=== PATIENT | female | born 1950 | race Caucasian/White ===

== ENCOUNTER 2016-09-16 14:50 | Observation (INO) | payer MEDICARE, BC ==
[~2016-09-16] VITALS: Ht 160 cm; Wt 90.9 kg
[~2016-09-16 14:50] MED LIST: ALBU2.5V14 NEB; ALPR3TAB PO; AMLO5TAB2 PO; ASPI-482 PO; ATOR10TA60 PO; ATOR40TA59 PO; BENZ100C PO; BUDE0.5A3 NEB; CALC500T PO; CALC600T4 PO; CALC667C6 PO; CARB1TAB2 PO; CETI10TA16 PO; CHOL400C2 PO; CHOL500050 PO; CITA20TA5 PO; CLON0.5T3 PO; CLON1TAB3 PO; CRESTOR20 MG PO; DIPH50CA PO; DOXY100C2 PO; ERGO500012 PO; ESOM40CA PO; FERR-26 PO; FLUT1DIS3 IH; FLUT9.9S NS; FOLI1TAB16 PO; FURO-68 PO; GLIP5TAB10 PO; GUAI600T38 PO; HYDR-2666 PO; HYDR12.58 PO; HYDR50CA2 PO; IPRA3AMP IH; LACT1CAP29 PO; LEVO500T38 PO; LEVO500T8 PO; LEVO750T31 PO; LOSA100T6 PO; LOSA50TA6 PO; MEDROL DOSE PACK; METF500T4 PO; MONT10TA6 PO; MONT10TA9 PO; NICO1PAT25 TP; NITR0.4T6 SL; NITR2.5C3 PO; NYST1000 PO; PANT40TA3 PO; PANT40TA5 PO; POTA20TA12 PO; POTA20TA84 PO; PRAM0.255 PO; PRAMIPEXOLE 0.125 MG PO; PRED-220 PO; PRED10TA16 PO; PROAIR HFA8.5 GM IH; PROAIR HFA8.5 GM INH; PROM118S2 PO; SUCR1TAB PO; SUCR1TAB29 PO; SULF1TAB24 PO; TIOT18CA IH; TRAZ100T12 PO; VALS1TAB18 PO; VITA0.4T8 PO; ZOLP5TAB5 PO; calcium PO
[2016-09-16] MEDS ORDERED: IPRATRPIUM/ALBUTEROL 0.5/2.5MG 3 ML NEBU. NEB ONE (15:45)
--- NOTE | 2016-09-16 15:48 | PHYS DOC ---
Past Medical History Past Medical History: Asthma, Bronchitis, CAD, COPD, Diabetes-Type II, High Cholesterol, Heart Disease, Hypertension, [place], Pneumonia Past Surgical History: Angioplasty, Appendectomy, Cholecystectomy, Coronary Bypass Surgery, Hysterectomy Additional Past Surgical Histo: carpal tunnel, L) shattered ankle with surgical repair; cardiac stents Additional Information: Less than a pack/day. Quit for month and started again this last Monday. Alcohol Use: Heavy Additional Information: Pt reports she quit drinking and then drank again on . Drug Use: None Social History Narrative: "Use to do Cocaine - Quit in 2007." Adult General Chief Complaint Chief Complaint: GENERALIZED BODY ACHES HPI HPI Patient is a 66 year old female who presents with body aches. Patient reports for the past one to 2 weeks she has had nasal congestion and green nasal discharge. She was seen by Dr. Campo on Monday and was started on Levaquin for sinusitis. She then reports for the past 2 days she has been having fever and general body aches, most pronounced in her back. She has tried some ibuprofen at home with insufficient relief. No focal chest discomfort or shortness of breath. She has chronic cough as she is a smoker. No other acute complaints. Review of Systems Review of Systems Constitutional: Fever Eyes: Denies change in visual acuity or eye pain HENT: Nasal congestion, green discharge Respiratory: Cough. Denies shortness of breath Cardiovascular: Denies chest pain GI: Denies abdominal pain, nausea, vomiting, bloody stools or diarrhea : Denies dysuria or hematuria Musculoskeletal: General body aches Integument: Denies rash or skin lesions Neurologic: Denies headache, focal weakness or sensory changes Current Medications Current Medications Current Medications Medications (Trade) Dose Ordered Sig/Zenon Start Time Stop Time Status Last Admin Dose Admin Acetaminophen (Tylenol) 650 mg PRN Q4HRS PRN 09/16/16 18:45 09/17/16 18:44 Albuterol/ Ipratropium (Duoneb) 3 ml RTQID 09/16/16 20:00 09/17/16 19:59 09/16/16 20:44 3 ML Dextrose 12.5 gm PRN Q15MIN PRN 09/16/16 18:45 Insulin Aspart (Novolog) 0-7 UNITS TIDWMEALS 09/17/16 08:00 Morphine Sulfate 2 mg PRN Q2HR PRN 09/16/16 18:45 09/17/16 18:44 Naproxen (Naprosyn) 500 mg 1X ONCE 09/16/16 18:15 09/16/16 18:16 DC 09/16/16 19:19 500 MG Ondansetron HCl (Zofran) 4 mg PRN Q8HRS PRN 09/16/16 18:45 09/17/16 18:44 Allergies Allergies Allergies Coded Allergies Type Severity Reaction Last Updated Verified I S O L A T I O N *CONTACT* Allergy Unknown 07/11/16 Yes No Known Medication Allergies Allergy Unknown 07/11/16 Yes Physical Exam Physical Exam Constitutional: Well developed, well nourished, no acute distress, non-toxic appearance HENT: Normocephalic, atraumatic, bilateral external ears normal Eyes: EOMI, conjunctiva normal, no discharge Neck: Normal range of motion, no stridor Cardiovascular: Heart rate normal, regular rhythm, no murmur Lungs & Thorax: Scattered expiratory wheezing Abdomen: Bowel sounds normal, soft, non-distended, no TTP Skin: Warm, dry, no erythema, no rash Extremities: No obvious deformity, no edema. Neurologic: Alert and oriented X 3, no gross deficits noted Current Patient Data Vital Signs Vital Signs Date Time Temp Pulse Resp B/P Pulse Ox O2 Delivery O2 Flow Rate FiO2 09/16/16 20:43 97 Nasal Cannula 2.0 09/16/16 19:30 82 124/74 09/16/16 15:12 98.5 18 98.5 Lab Values Laboratory Tests Test 09/16/16 16:14 09/16/16 16:16 09/16/16 16:29 Urine Collection Type Unknown Urine Color Yellow Urine Clarity Clear Urine pH 5.5 Urine Specific [place] 1.020 Urine Protein Negativemg/dL (NEG-TRACE) Urine Glucose (UA) Negativemg/dL (NEG) Urine Ketones (Stick) Tracemg/dL (NEG) Urine Blood Negative (NEG) Urine Nitrite Negative (NEG) Urine Bilirubin Negative (NEG) Urine Urobilinogen Dipstick 0.2mg/dL (0.2 mg/dL) Urine Leukocyte Esterase Negative (NEG) Urine RBC Occ/HPF (0-2) Urine WBC Occ/HPF (0-4) Urine Squamous Epithelial Cells Few/LPF Urine Bacteria 0/HPF (0-FEW) Urine Mucus Slight/LPF Influenza Type A Antigen Negative (NEGATIVE) Influenza Type B Antigen Negative (NEGATIVE) White Blood Count 10.8x10^3/uL (4.0-11.0) Red Blood Count 3.88x10^6/uL (3.50-5.40) Hemoglobin 12.0g/dL (12.0-15.5) Hematocrit 36.3% (36.0-47.0) Mean Corpuscular Volume 94fL (79-100) Mean Corpuscular Hemoglobin 31pg (25-35) Mean Corpuscular Hemoglobin Concent 33g/dL (31-37) Red Cell Distribution Width 13.9% (11.5-14.5) Platelet Count 207x10^3/uL (140-400) Neutrophils (%) (Auto) 62% (31-73) Lymphocytes (%) (Auto) 29% (24-48) Monocytes (%) (Auto) 7% (0-9) Eosinophils (%) (Auto) 2% (0-3) Basophils (%) (Auto) 1% (0-3) Neutrophils # (Auto) 6.7x10^3uL (1.8-7.7) Lymphocytes # (Auto) 3.2x10^3/uL (1.0-4.8) Monocytes # (Auto) 0.8x10^3/uL (0.0-1.1) Eosinophils # (Auto) 0.2x10^3/uL (0.0-0.7) Basophils # (Auto) 0.1x10^3/uL (0.0-0.2) Sodium Level 142mmol/L (136-145) Potassium Level 3.6mmol/L (3.5-5.1) Chloride Level 103mmol/L (98-107) Carbon Dioxide Level 34mmol/L (21-32) H Anion Gap 5 (6-14) L Blood Urea Nitrogen 14mg/dL (7-20) Creatinine 1.0mg/dL (0.6-1.0) Estimated GFR (Cockcroft-Gault) 55.6 Glucose Level 119mg/dL (70-99) H Calcium Level 9.3mg/dL (8.5-10.1) Creatine Kinase 81U/L (26-192) Laboratory Tests 09/16/16 16:29 Laboratory Tests 09/16/16 16:29 EKG EKG [] Radiology/Procedures Radiology/Procedures CXR: IMPRESSION: No definite focal airspace consolidation to suggest pneumonia. Mild linear opacity left lung base could be from atelectasis. Course & Med Decision Making Course & Med Decision Making Pertinent Labs and Imaging studies reviewed. (See chart for details) Patient is 66-year-old female who presents with multiple complaints. Likely viral upper respiratory infection. Will check labs, chest x-ray to evaluate. Breathing treatment ordered for wheezing. Naproxen ordered for pain relief. Chest x-ray results as above. Labs unremarkable except for minimally elevated bicarbonate. Discussed results with patient, who is still feeling poorly and is insistent upon being admitted for the night. I discussed with Dr. Campo, who has agreed to admit patient. Admission orders entered. Dragon Disclaimer Dragon Disclaimer This electronic medical record was generated, in whole or in part, using a voice recognition dictation system. Departure Departure Impression: Primary Impression: Myalgia Additional Impression: Upper respiratory infection Disposition: ADMITTED INPATIENT Admitting Physician: Other Condition: STABLE Referrals: ROSSANA CAMPO MD (PCP) Problem Qualifiers OSMEL LE MD Sep 16, 2016 15:48
--- NOTE | 2016-09-16 16:24 | RAD ---
INDICATION: Body aches, cough, r/o acute process COMPARISON: 08/03/2016 FINDINGS: 2 views of chest obtained. Poststernotomy changes. Mild prominence of the pulmonary hilum again seen. No definite new region of focal airspace consolidation. Degenerative changes spine. IMPRESSION: No definite focal airspace consolidation to suggest pneumonia. Mild linear opacity left lung base could be from atelectasis.
[2016-09-16 17:15] LABS: BASO # 0.1 x10^3/uL (0.0-0.2); BASO % 1 % (0-3); EOS % 2 % (0-3); HEMATOCRIT 36.3 % (36.0-47.0); LYMPH # 3.2 x10^3/uL (1.0-4.8); LYMPH % 29 % (24-48); MEAN CORPUSCULAR HEMOGLOBIN 31 pg (25-35); MEAN CORPUSCULAR HGB CONC 33 g/dL (31-37); MEAN CORPUSCULAR VOLUME 94 fL (79-100); MONO % 7 % (0-9); NEUT % 62 % (31-73); PLATELET COUNT 207 x10^3/uL (140-400); RED BLOOD COUNT 3.88 x10^6/uL (3.50-5.40); RED CELL DISTRIBUTION WIDTH 13.9 % (11.5-14.5); WHITE BLOOD COUNT 10.8 x10^3/uL (4.0-11.0)
[2016-09-16 17:22] LABS: CALCIUM 9.3 mg/dL (8.5-10.1); GFR 55.6; POTASSIUM 3.6 mmol/L (3.5-5.1)
[2016-09-16 17:26] LABS: BILIRUBIN,URINE NEGATIVE (NEG); GLUCOSE,URINE NEGATIVE (NEG); NITRITE,URINE NEGATIVE (NEG); PH,URINE 5.5; PROTEIN,URINE NEGATIVE (NEG-TRACE); UROBILINOGEN,URINE 0.2 mg/dL (0.2 mg/dL)
[2016-09-16 17:32] LABS: OBC FLU VALID
[2016-09-16 18:05] LABS: RBC,URINE OCC /HPF (0-2); WBC,URINE OCC /HPF (0-4)
[2016-09-16 18:06] LABS: BACTERIA,URINE 0 /HPF (0-FEW); SQUAMOUS EPITHELIAL CELL,UR FEW /LPF
[2016-09-16] MEDS ORDERED: NAPROXEN 500 MG TABLET PO ONE (18:15)
[2016-09-16] MEDS ORDERED: DEXTROSE 50% 25 GM / 50ML DISP.SYRIN. IV PRN (18:45)
[2016-09-16] MEDS ORDERED: MORPHINE SULFATE 2 MG/ML DISP.SYRIN. IV PRN (18:45)
[2016-09-16] MEDS ORDERED: ONDANSETRON PF 4 MG/2 ML VIAL. IV PRN (18:45)
[2016-09-16] MEDS ORDERED: ACETAMINOPHEN 325 MG TABLET. PO PRN (18:45)
[2016-09-16] MEDS ORDERED: IPRATRPIUM/ALBUTEROL 0.5/2.5MG 3 ML NEBU. NEB SCH (20:00)
--- NOTE | 2016-09-16 21:09 | ACF ---
Admission Forms Criteria PULMONARY DISEASE GRG Clinical Indications for Admission to Inpatient Care ( Place 'X' for any and all applicable criteria): Hospital admission is needed for appropriate care of the patient because of ANY ONE of the following(1): [ ]I. Impending or actual respiratory arrest ( Use Respiratory Failure Criteria for severe respiratory disease and long-term mechanical ventilation patients) (4) [ ]II. Severe airflow or ventilation abnormalities (not responsive to emergency and observation care treatment as appropriate) as indicated by ANY ONE of the following(5)(6)(7)(8) : [ ]a) PCO2 > 42 mm Hg (5.6 kPa) and pH < 7.35 (new) [ ]b) Documented PCO2 increase > 5 mm Hg (0.7 kPa) from disease baseline [ ]c) Airflow measurements[A] < 60% of previous best or predicted ( e.g., PEF <300 L/minute) despite intensive emergent treatment[B] [ ]d) Required respiratory treatments that are performable only in acute inpatient setting [ ]III. Severe respiratory findings (not responsive to emergency and observation care treatment as appropriate) including ANY ONE of the following(5)(8)(9): [ ]a) Respiratory distress as indicated by ALL of the following(5)(10): [ ]i) Patient with ANY ONE of the following: [ ]1) Dyspnea (difficulty breathing) [ ]2) Abnormal breathing pattern (eg, chest retractions) [ ]3) Tachypnea [ ]4) Other evidence of difficulty breathing [ ]ii) Evidence of respiratory compromise indicated by ANY ONE of the following: [ ]1) Hypoxemia [ ]2) Altered mental status [ ]3) Other evidence of respiratory compromise (eg, pulmonary edema on chest x-ray) [ ]b) Stridor [ ]c) Gross hemoptysis(11) [ ]d) Acute cyanosis [X ]IV. High-risk pulmonary infection as indicated by ANY ONE of the following (19)(20)(21)(22): [ ]a) Temperature less than 95 degrees F(35 degrees C) or greater than 103.1 degrees F(39.5 degrees C) [ ]b) Hemodynamic instability that remains after emergency or observation level care (as appropriate) [ ]c) Immunocompromised patient (eg, AIDS, post transplant, neutropenic) [X ]d) History of severe COPD [ ]e) History of severely symptomatic congestive heart failure [ ]f) Other high-risk comorbidity (eg, poorly controlled diabetes, cirrhosis, chronic renal insufficiency) [ ]g) Hypoxemia (new) [ ]h) Outpatient, observation, or recovery facility therapy has failed, is not appropriate, or is not feasible [ ]V. Severe atelectasis or lung collapse(15)(16) [ ]. Tuberculosis requiring inpatient treatment as indicated by ANY ONE of the following(17)(18): [ ]a) New positive acid-fast bacilli sputum smear [ ]b) Positive acid-fast bacilli smear (under current treatment), with ANY ONE of the following: [ ]i) Unexposed household contacts [ ]ii) Infants or immunosuppressed household contacts [ ]iii) Patient unable or unwilling to avoid exposing others [ ]iv) Severe immunocompromised patient (eg, AIDS, post transplant, neutropenic) [ ]VII. Empyema or lung abscess(13)(14) [ ]VIII. Severe pulmonary arterial hypertension or pulmonary vascular disease requiring inpatient care indicated by ANY ONE of the following(24)(25): [ ]a) Initiation or change of vasodilators (IV, subcutaneous, or inhaled) or other vasoactive medications needed [ ]b) IV anticoagulation needed (eg, immediate anticoagulation necessary, alternatives not appropriate) [ ]c) Arterial or pulmonary artery catheter monitoring needed due to infusion or other treatment [ ]IX. Chronic lung disease with severe deterioration (not responsive to emergency and observation care treatment as appropriate) as indicated by ANY ONE of the following (6)(12): [ ]a) SaO2 5% below baseline in patient with chronic hypoxemia [ ]b) New requirement for supplemental oxygen to keep SaO2 at baseline or acceptable level [ ]c) Required supplemental oxygen performable only in acute inpatient setting [ ]d) Severe airflow or ventilation abnormalities [ ]e) Rapid rate of exacerbation onset [ ]f) Previously mobile patient unable to walk between rooms [ ]g) Inability to eat or sleep due to dyspnea [ ]h) Altered mental status [ ]X. Cystic fibrosis with severe deterioration as indicated by ANY ONE of the following(26)(27): [ ]a) Severe exacerbation that does not respond to intensified home therapy [ ]b) Pneumonia [ ]c) Hemoptysis [ ]d) Atelectasis [ ]e) Pneumothorax [ ]f) Respiratory failure [ ]g) Severe exacerbation with patient unable to perform prescribed treatments at home [ ]XI. Severe right heart failure as indicated by ANY ONE of the following(24) (25): [ ]a) Increasing organ failure (eg, liver congestion with significant and worsening or new elevation of transaminases) [ ]b) Anasarca [ ]c) Angina that requires inpatient care (eg, not treatable in emergency or observation level of care) [ ]d) Respiratory distress [ ]e) Syncope [ ]f) SBP < 90 mm Hg (new) [ ]XII. Injury requiring inpatient care (medical) as indicated by ANY ONE of the following(28): [ ]a) Significant inhalation injury (eg, smoke inhalation, other toxic inhalation) (29)(30)(31) [ ]b) Airway obstruction that remains or is unstable after emergency or observation level care(32) [ ]c) Severe pain requiring acute inpatient management [ ]d) Lung contusion [ ]e) Bronchial tree injury [ ]f) Air or fat emboli(33) [ ]g) Other injury not treatable in emergency or observation level care (eg, hemothorax) (34) [ ]XIII. Pulmonary hemorrhage or significant hemoptysis(11)(35)(36) [ ]XIV. Inpatient palliative care needed[C](37)(38)(39)(40) [ ]XV. Complications of lung transplant (eg, rejection, failure, respiratory infection) (23) [ ]XVI. Pulmonary Disease and ANY ONE of the following: [ ]a) General Admission Criteria [ ]b) Pediatric General Admission Criteria The original [facility] content created by [facility] has been revised. The portions of the content which have been revised are identified through the use of italic text or in bold, and [facility] has neither reviewed nor approved the modified material. All other unmodified content is copyright [facility]. Please see references footnoted in the original [facility] edition 2016 Admission Criteria Met?: Yes NYLA HARDIN Sep 16, 2016 21:09
[2016-09-16] MEDS ORDERED: ZOLPIDEM 5 MG TABLET. PO PRN (22:00)
[2016-09-16] MEDS ORDERED: ALBUTEROL SULFATE 2.5 MG/3 ML NEBU. NEB PRN (22:00)
[2016-09-16] MEDS ORDERED: HYDROXYZINE HCL 10 MG TABLET PO PRN (22:00)
[2016-09-16 22:16] VITALS: BP 107/72
[2016-09-17] MEDS: ATORVASTATIN CALCIUM 40 MG TABLET. PO SCH ×2 (00:11→20:20)
[2016-09-17 03:00] VITALS: BP 165/66
[2016-09-17 05:55] LABS: BASO # 0.1 x10^3/uL (0.0-0.2); BASO % 1 % (0-3); EOS % 2 % (0-3); HEMATOCRIT 36.9 % (36.0-47.0); LYMPH # 2.7 x10^3/uL (1.0-4.8); LYMPH % 33 % (24-48); MEAN CORPUSCULAR HEMOGLOBIN 31 pg (25-35); MEAN CORPUSCULAR HGB CONC 33 g/dL (31-37); MEAN CORPUSCULAR VOLUME 95 fL (79-100); MONO % 8 % (0-9); NEUT % 56 % (31-73); PLATELET COUNT 188 x10^3/uL (140-400); RED BLOOD COUNT 3.88 x10^6/uL (3.50-5.40); RED CELL DISTRIBUTION WIDTH 14.1 % (11.5-14.5); WHITE BLOOD COUNT 8.3 x10^3/uL (4.0-11.0)
[2016-09-17 06:41] LABS: CALCIUM 9.2 mg/dL (8.5-10.1); CREATININE 0.9 mg/dL (0.6-1.0); GFR 62.8; POTASSIUM 4.3 mmol/L (3.5-5.1)
[2016-09-17 07:00] VITALS: BP 138/83
[2016-09-17] MEDS ORDERED: PANTOPRAZOLE 40 MG TABLET. PO SCH (07:30)
[2016-09-17] MEDS: BUDESONIDE 0.5 MG/2 ML NEBU NEB SCH ×2 (07:52→20:25)
[2016-09-17] MEDS: IPRATRPIUM/ALBUTEROL 0.5/2.5MG 3 ML NEBU. NEB SCH ×4 (07:52→20:25)
[2016-09-17] MEDS: SUCRALFATE 1 GM/10 ML ORAL.SUSP. PEG SCH ×4 (08:56→20:20)
[2016-09-17] MEDS: OXYCODONE/APAP 5/325 TABLET. PO PRN ×2 (08:57→16:38)
[2016-09-17] MEDS: GLIPIZIDE ER 5 MG TAB.ER.24 PO SCH (08:57)
[2016-09-17] MEDS: CHOLECALCIFEROL (VITAMIN D3) 1,000 UNIT TABLET PO SCH (08:57)
[2016-09-17] MEDS: AMLODIPINE BESYLATE 5 MG TABLET PO SCH (08:58)
[2016-09-17] MEDS: ASPIRIN 81 MG TAB.CHEW PO SCH (08:58)
[2016-09-17] MEDS: METFORMIN 500 MG TABLET. PO SCH ×2 (08:59→16:38)
[2016-09-17] MEDS: LOSARTAN POTASSIUM 50 MG TABLET. PO SCH (08:59)
[2016-09-17] MEDS: POTASSIUM CHLORIDE 20 MEQ TABLET.ER. PO SCH (08:59)
[2016-09-17] MEDS: HYDROCHLOROTHIAZIDE 12.5 MG CAPSULE. PO SCH (09:00)
[2016-09-17] MEDS: FOLIC ACID 1 MG TABLET PO SCH (09:00)
[2016-09-17] MEDS: PRAMIPEXOLE 0.25 MG TABLET. PO SCH ×3 (09:00→20:20)
[2016-09-17] MEDS: INSULIN ASPART 300 UNITS/3 ML INSULN.PEN SQ SCH ×3 (09:09→16:52)
[2016-09-17 10:51] VITALS: BP 121/72
[2016-09-17 15:18] VITALS: BP 122/78
--- NOTE | 2016-09-17 15:20 | PDOC ---
Provider Note Provider Note She continues to have a bad cough. No sputum production. The severe pain she had in the muscles and joints yesterday is now better. CK was normal and so it's not a rhabdo myelolysis. She truly believes it is the levofloxacin and says she will never take it again. Lungs show bilateral wheezing. Place on IV antibiotics and IV steroids. ROSSANA CAMPO MD Sep 17, 2016 15:20
[2016-09-17] MEDS ORDERED: CEFTRIAXONE SODIUM 1 GM in IV NORMAL SALINE 50ML 50 ML IV SCH (16:00)
[2016-09-17] MEDS ORDERED: MAG HYDROX/ALUMINUM HYD/SIMETH 30 ML ORAL.SUSP PO PRN (16:15)
[2016-09-17 19:00] VITALS: BP 131/84
[2016-09-17] MEDS: methylPREDNISolone SOD SUCC PF 40 MG/ML VIAL. IV SCH (20:28)
[2016-09-17] MEDS: PANTOPRAZOLE 40 MG TABLET. PO SCH (20:28)
[2016-09-17] MEDS ORDERED: traZODone 100 MG TABLET. PO SCH (21:00)
[2016-09-17 23:00] VITALS: BP 138/63
[2016-09-18 03:07] VITALS: BP 105/72
[2016-09-18 07:00] VITALS: BP 114/87
[2016-09-18] MEDS: IPRATRPIUM/ALBUTEROL 0.5/2.5MG 3 ML NEBU. NEB SCH ×2 (07:32→11:12)
[2016-09-18] MEDS: BUDESONIDE 0.5 MG/2 ML NEBU NEB SCH (07:33)
[2016-09-18] MEDS: OXYCODONE/APAP 5/325 TABLET. PO PRN ×2 (08:01→14:25)
[2016-09-18] MEDS: GLIPIZIDE ER 5 MG TAB.ER.24 PO SCH (08:01)
[2016-09-18] MEDS: SUCRALFATE 1 GM/10 ML ORAL.SUSP. PEG SCH ×2 (08:01→12:06)
[2016-09-18] MEDS: methylPREDNISolone SOD SUCC PF 40 MG/ML VIAL. IV SCH (08:02)
[2016-09-18] MEDS: PRAMIPEXOLE 0.25 MG TABLET. PO SCH ×2 (08:02→13:35)
[2016-09-18] MEDS: CHOLECALCIFEROL (VITAMIN D3) 1,000 UNIT TABLET PO SCH (08:02)
[2016-09-18] MEDS: METFORMIN 500 MG TABLET. PO SCH (08:02)
[2016-09-18] MEDS: PANTOPRAZOLE 40 MG TABLET. PO SCH (08:02)
[2016-09-18] MEDS: FOLIC ACID 1 MG TABLET PO SCH (08:02)
[2016-09-18] MEDS: POTASSIUM CHLORIDE 20 MEQ TABLET.ER. PO SCH (08:03)
[2016-09-18] MEDS: ASPIRIN 81 MG TAB.CHEW PO SCH (08:03)
[2016-09-18] MEDS: AMLODIPINE BESYLATE 5 MG TABLET PO SCH (08:06)
[2016-09-18] MEDS: LOSARTAN POTASSIUM 50 MG TABLET. PO SCH (08:06)
[2016-09-18] MEDS: HYDROCHLOROTHIAZIDE 12.5 MG CAPSULE. PO SCH (08:06)
[2016-09-18] MEDS: INSULIN ASPART 300 UNITS/3 ML INSULN.PEN SQ SCH ×2 (08:13→12:00)
[2016-09-18 11:00] VITALS: BP 106/71
[2016-09-18] MEDS ORDERED: DOXY100C2 PO (14:26)
--- NOTE | 2016-09-18 23:48 | HP ---
ADMIT DATE: 09/16/2016 HISTORY OF PRESENT ILLNESS: This is a 66-year-old white female who came into the Emergency Room after she called the office stating that she had severe muscle pains all over her arms and body and legs and she just could not function. She blamed it on the levofloxacin that had given 3 days ago. Three days ago, she had come in with an acute exacerbation of her COPD, which is not bad enough to be hospitalized. She was given levofloxacin because she has coughing up greenish sputum. She was asked to take her nebulizers more regularly. No steroids were given. She has severe COPD. She had continued to smoke up until she says 2 months ago. She says she is not smoking at the present time. She has had a problem with alcohol, but she has not taken any alcohol for the last several months. She has underlying CAD and hypertension and borderline diabetes mellitus. Please see medications. PHYSICAL EXAMINATION: GENERAL: She was in distress with the pain. She was restless. VITAL SIGNS: The heart rate was 80 per minute and regular. The blood pressure is 140/80. LUNGS: Showed some mild wheezing. EXTREMITIES: There was no local tenderness. The pain seems to be in the muscle rather than in the joints. ABDOMEN: Soft. IMPRESSION: 1. Severe myalgia, consider levofloxacin to be the culprit since it can cause tendinitis. 2. Chronic obstructive pulmonary disease. 3. Hypertension. PLAN: The patient felt that she would not be able to function at home. This being the case, we thought we would hospitalize her probably overnight to see how she does. If she felt that she was not able to function at home, there is a good likelihood that she would simply come back. She was thus hospitalized and will be observed for the myalgia. We will obtain a CPK to see if this is rhabdomyolysis. ROSSANA CAMPO MD DR: TONE/tramaine JOB#: [id number] / [id number]
--- NOTE | 2016-09-19 00:32 | DS ---
DATE OF DISCHARGE: 09/18/2016 HOSPITAL COURSE: This is a 66-year-old white female who came into the Emergency Room complaining of severe pain all over, cough and wheezing. A chest x-ray was negative. She told the ER physician and she called me and told me that she just could not function at home because of the severe pain and the cough. I did see her in the Emergency Room on the evening of the . She was thus hospitalized to initiate treatment. I had seen her a few days ago and had given her levofloxacin. She felt that all this pain started after the levofloxacin because she had never had this pain before. She did not have a high temperature. Thus a flu like syndrome was less likely. Also the flu test was negative. The levofloxacin was not reinitiated. The next day she was coughing and wheezing and I put her on IV steroids and IV antibiotics. On the day of dismissal, she was feeling well. She had some occasional wheezing, but she always has a little wheezing. She had gone back to smoking. LABORATORY INVESTIGATIONS: The total WBC count was 10,800. The hemoglobin was 12. The sodium was 142, potassium 3.6, next day it was 4.3, BUN was 12 and creatinine is 0.9. The creatinine kinase was 81. FINAL DIAGNOSES: 1. [id number] chronic obstructive pulmonary disease. 2. Severe muscle pain, which could be due to levofloxacin. She was asked to go back on all her home medications. As far as her diabetes goes, her blood sugars are reasonable here. She does have a sliding scale to take at home with glipizide IR. She will do that at home. I gave her short course of prednisone. She was also given doxycycline 100 mg twice a day. She was asked to see me in a week. ROSSANA CAMPO MD DR: TONE/tramaine JOB#: [id number] / [id number]
== END 2016-09-18 15:00 | disposition home or self-care (01) ==
LOC: ER 14:50 → 5 NORTH 18:32
PROVIDERS: ADMIT Specialist; ATTEND Specialist
DX: M79.1 Myalgia (principal); I10 Essential (primary) hypertension; E11.9 Type 2 diabetes mellitus without complications; I25.10 Atherosclerotic heart disease of native coronary artery without angina pectoris; J44.9 Chronic obstructive pulmonary disease, unspecified; J45.909 Unspecified asthma, uncomplicated; E78.00 Pure hypercholesterolemia, unspecified; I25.2 Old myocardial infarction; F17.210 Nicotine dependence, cigarettes, uncomplicated; Z95.5 Presence of coronary angioplasty implant and graft
CPT/HCPCS: 36415; 71020; 80048; 81001; 82550; 82947; 85027; 87641; 87804; 94250; 94640; 94760; 96365; 96366; 96372; 96375; 96376; 99285; G0378; J0696; J1815; J2920; J7620; G0379

== ENCOUNTER 2016-12-05 17:55 | Emergency (ER) | payer MEDICARE, BC ==
[~2016-12-05] VITALS: Ht 160 cm; Wt 90.7 kg
[~2016-12-05 17:55] MED LIST changes: -NYST1000 PO; +NYST100054 PO
[2016-12-05] MEDS ORDERED: IPRATRPIUM/ALBUTEROL 0.5/2.5MG 3 ML NEBU. ONE (18:52)
[2016-12-05] MEDS ORDERED: IPRATRPIUM/ALBUTEROL 0.5/2.5MG 3 ML NEBU. NEB ONE ×2 (19:00→20:30)
--- NOTE | 2016-12-05 19:25 | PHYS DOC ---
Past Medical History Past Medical History: Asthma, Bronchitis, CAD, COPD, Diabetes-Type II, High Cholesterol, Heart Disease, Hypertension, [place], Pneumonia Past Surgical History: Angioplasty, Appendectomy, Cholecystectomy, Coronary Bypass Surgery, Hysterectomy Additional Past Surgical Histo: carpal tunnel, L) shattered ankle with surgical repair; cardiac stents Alcohol Use: Heavy Additional Information: PT DENIES USE AT THIS TIME, HX OF HEAVY ETOH Drug Use: None Adult General Chief Complaint Chief Complaint: LOWEREXTREMITY INJURY HPI HPI 66-year-old female who is sent here from Dr. Campo's office for significant right-sided lower extremity pain and swelling to rule out DVT. The patient states she's had some wheezing for the last several weeks as well. Dr. Campo was not concerned orally about the patient's wheezing. She denies any recent surgery or trauma to the leg. She denies any recent immobilization. She denies any history of prior DVT. She is not currently on any anticoagulation therapy. Upon my initial assessment, the patient is in no acute distress saturating mid 90s on room air. She does have some slight audible wheezing. Review of Systems Review of Systems Constitutional: Denies fever or chills [] Eyes: Denies change in visual acuity, redness, or eye pain [] HENT: Denies nasal congestion or sore throat [] Respiratory: Denies cough or shortness of breath [] Cardiovascular: No additional information not addressed in HPI [] GI: Denies abdominal pain, nausea, vomiting, bloody stools or diarrhea [] : Denies dysuria or hematuria [] Musculoskeletal: Denies back pain, has joint pain [] Integument: Denies rash or skin lesions [] Neurologic: Denies headache, focal weakness or sensory changes [] Endocrine: Denies polyuria or polydipsia [] Current Medications Current Medications Current Medications Medications (Trade) Dose Ordered Sig/Zenon Start Time Stop Time Status Last Admin Dose Admin Albuterol/ Ipratropium (Duoneb) 3 ml 1X ONCE 12/05/16 20:30 12/05/16 20:31 DC 12/05/16 20:22 3 ML Allergies Allergies Allergies Coded Allergies Type Severity Reaction Last Updated Verified I S O L A T I O N *CONTACT* Allergy Unknown 07/11/16 Yes No Known Medication Allergies Allergy Unknown 07/11/16 Yes Physical Exam Physical Exam Constitutional: Well developed, well nourished, no acute distress, non-toxic appearance. [] HENT: Normocephalic, atraumatic, bilateral external ears normal, oropharynx moist, no oral exudates, nose normal. [] Eyes: PERRLA, EOMI, conjunctiva normal, no discharge. [] Neck: Normal range of motion, no tenderness, supple, no stridor. [] Cardiovascular:Heart rate regular rhythm, no murmur [] Lungs & Thorax: Bilateral breath sounds clear to auscultation [] Abdomen: Bowel sounds normal, soft, no tenderness, no masses, no pulsatile masses. [] Skin: Warm, dry, no erythema, no rash. [] Back: No tenderness, no CVA tenderness. [] Extremities: Moderate tenderness to the right lower extremity with mild swelling and edema in the extremity as well, no cyanosis, no clubbing, ROM intact. [] Neurologic: Alert and oriented X 3, normal motor function, normal sensory function, no focal deficits noted. [] Psychologic: Affect normal, judgement normal, mood normal. [] Current Patient Data Vital Signs Vital Signs Date Time Temp Pulse Resp B/P (MAP) Pulse Ox O2 Delivery O2 Flow Rate FiO2 12/05/16 20:35 81 16 160/90 (113) 94 Room Air 12/05/16 18:30 98.4 98.4 EKG EKG [] Radiology/Procedures Radiology/Procedures PROCEDURE Right lower extremity venous duplex Doppler ultrasound HISTORY Right leg swelling TECHNIQUE Grayscale and duplex Doppler sonography utilized FINDINGS No evidence of deep venous thrombosis by grayscale imaging with compressibility, patent color Doppler blood flow and augmentation of blood flow of the right common femoral vein, profunda femoral vein, superficial femoral vein and popliteal vein. There is a small 4 centimeter oblong fluid collection at the popliteal fossa presumably a Ramsay cyst. Patent color Doppler blood flow of the posterior tibial and peroneal veins in the calf documented. IMPRESSION Negative right leg for deep venous thrombosis. Ramsay cyst. Course & Med Decision Making Course & Med Decision Making Pertinent Labs and Imaging studies reviewed. (See chart for details) 66-year-old female with significant right-sided lower extremity pain and swelling with no history of trauma will have a venous Doppler to rule out DVT. Duoneb will be given for the patient's wheezing. Dr. Campo will be updated on the patient's status as requested. Venous Doppler is negative for DVT. Patient was given multiple breathing treatments in the department and a prescription for pain control as needed. I discussed her case with Dr. Campo who agreed to see the patient tomorrow as scheduled for her continued wheezing and leg pain. Patient is very agreeable with this plan and was discharged without incident. There is no indication at this time to perform any other laboratory workup. Dragon Disclaimer Dragon Disclaimer This electronic medical record was generated, in whole or in part, using a voice recognition dictation system. Departure Departure Impression: Primary Impression: Pain of right leg Disposition: HOME, SELF-CARE Admitting Physician: Other Condition: IMPROVED Referrals: ROSSANA CAMPO MD (PCP) Patient Instructions: Ramsay's Cyst Additional Instructions: Please follow up with Dr. Campo as discussed tomorrow. Take your pain medication as needed. Return to the ER if you develop any worsening of your symptoms. Scripts Hydrocodone/Apap 5-325 (NORCO 5-325 TABLET) 1 Each Tablet 1 TAB PO PRN Q6HRS Y for PAIN, #8 TAB 0 Refills Prov: TERRI SANTO DO 12/05/16 TERRI SANTO DO December 05, 2016 19:25
--- NOTE | 2016-12-05 19:55 | RAD ---
PROCEDURE Right lower extremity venous duplex Doppler ultrasound HISTORY Right leg swelling TECHNIQUE Grayscale and duplex Doppler sonography utilized FINDINGS No evidence of deep venous thrombosis by grayscale imaging with compressibility, patent color Doppler blood flow and augmentation of blood flow of the right common femoral vein, profunda femoral vein, superficial femoral vein and popliteal vein. There is a small 4 centimeter oblong fluid collection at the popliteal fossa presumably a Ramsay cyst. Patent color Doppler blood flow of the posterior tibial and peroneal veins in the calf documented. IMPRESSION Negative right leg for deep venous thrombosis. Ramsay cyst. Electronically signed by: Anjum Rai MD (December 05, 2016 19:53:37)
[2016-12-05] MEDS ORDERED: HYDR-971 PO (20:15)
[2016-12-05 20:35] VITALS: BP 160/90
== END 2016-12-05 20:38 | disposition home or self-care (01) ==
LOC: ER 17:55
DX: M79.604 Pain in right leg (principal); M79.89 Other specified soft tissue disorders; R06.2 Wheezing; R60.9 Edema, unspecified; I25.10 Atherosclerotic heart disease of native coronary artery without angina pectoris; J44.9 Chronic obstructive pulmonary disease, unspecified; E11.9 Type 2 diabetes mellitus without complications; E78.00 Pure hypercholesterolemia, unspecified; I11.9 Hypertensive heart disease without heart failure; I25.2 Old myocardial infarction; F10.10 Alcohol abuse, uncomplicated; Z87.01 Personal history of pneumonia (recurrent); Z95.5 Presence of coronary angioplasty implant and graft; Z91.041 Radiographic dye allergy status; Z95.1 Presence of aortocoronary bypass graft
CPT/HCPCS: 93971; 94250; 94640; 99284; J7620

== ENCOUNTER 2016-12-20 13:48 | Observation (INO) | payer MEDICARE, BC ==
--- NOTE | 2016-12-19 15:32 | PDOC1 ---
History and Physical Date of Admission Date of Admission DATE: 12/20/16 Identification/Chief Complaint Chief Complaint left ankle pain Problems: Source Source: Chart review History of Present Illness History of Present Illness Mitzi is a 66 year old female here for left ankle pain. She has a history of left ankle open reduction internal fixation on 07/08/09. She has been having pain in her left ankle for about 3 months. Her pain is on the lateral aspect of her ankle is worse with weightbearing or if she bumps the lateral side of her ankle on something. The ankle is painful and stiff during cold, rainy weather. She states the lateral ankle is very tender to the touch. She has no pain on the medial aspect of the ankle. The pain is rated a 10/10 at its worst. When she turns or twists her ankle a certain way she has shooting pain, she denies any numbness and tingling. She has a history of diabetes that is controlled with Metformin. Her last HbA1C was in July, but she is not sure what it was. Her blood sugars run 130-200. Past Medical History Cardiovascular: CHF, HTN Pulmonary: Asthma, Bronchitis, COPD Psych: Anxiety, Addictions, Depression Musculoskeletal: low back pain Renal/: No pertinent hx Past Surgical History Past Surgical History: Other (left ankle ORIF-2008) Family History Family History: Alcohol Abuse, Diabetes, Heart Disease Social History Smoke: No ALCOHOL: none Drugs: None Current Medications Current Medications Active Scripts Active Reported Clonazepam 0.5 Mg Tablet 1 Tab PO Q6HRS Calcium Carbonate 500 Mg Tablet 500 Mg PO BID Atorvastatin Calcium 40 Mg Tablet 1 Tab PO DAILY Vitamin D (Cholecalciferol (Vitamin D3)) 50,000 Unit Capsule 50,000 Unit PO WEEKLY Metformin Hcl 500 Mg Tablet 500 Mg PO BID Vitamin B-100 Complex Tablet (Vitamin B Complex/Folic Acid) 0.4 Mg Tablet 0.4 Mg PO Folic Acid 1 Mg Tablet 1 Tab PO DAILY Sucralfate 1 Gm Tablet 1 Tab PO TID Glipizide 5 Mg Tablet 5 Mg PO PRN DAILY PRN [calcium] 600mg BID w meals 600 Mg PO BID NITROGLYCERIN SubLingual (Nitroglycerin) 0.4 Mg Tab.subl 0.4 Mg SL PRN Q5MIN PRN Citalopram Hbr (Citalopram Hydrobromide) 20 Mg Tablet 20 Mg PO DAILY Advair 250-50 Diskus (Fluticasone/Salmeterol) 1 Each Disk.w.dev 1 Inh IH BID Amlodipine Besylate 5 Mg Tablet 1 Tab PO DAILY Losartan Potassium 50 Mg Tablet 2 Tab PO DAILY Trazodone Hcl 100 Mg Tablet 100 Mg PO HS next dose tonight Potassium Chloride 20 Meq Tab.er.prt 0.5 Tab PO QODAY last dose this am next dose monday Singulair Tablet (Montelukast Sodium) 10 Mg Tablet 10 Mg PO DAILY last dose last evening next dose tonight Duoneb 0.5-3(2.5) Mg/3 Ml (Albuterol/Ipratropium) 3 Ml Ampul.neb 3 Ml IH QID last dose at 1200 Aspir 81 (Aspirin) 81 Mg Tablet.dr 81 Mg PO BID last dose this am next dose tomorrow am Hydrochlorothiazide Tablet (Hydrochlorothiazide) 12.5 Mg Tablet 12.5 Mg PO DAILY last dose this am next dose tomorrow Allergies Allergies: Coded Allergies: I S O L A T I O N *CONTACT* (Verified Allergy, Unknown, 07/11/16) mrsa No Known Medication Allergies (Verified Allergy, Unknown, 07/11/16) Physical Exam General: Alert, Oriented X3, Cooperative, No acute distress HEENT: Atraumatic, EOMI Lungs: Normal air movement Heart: RRR Abdomen: Soft Extremities: No clubbing, No cyanosis, Normal pulses Skin: No rashes, No breakdown, No significant lesion Neuro: Normal speech, Sensation intact Psych/Mental Status: Mental status NL, Mood NL Images Images IMAGING REPORT Images: Three views of the left ankle. Clinical information: Left ankle pain with history of ORIF in 2008. Comparison: 06/28/10. Findings Bones: There is no acute fracture, dislocation, or acute bony abnormality detected. There is a plate and eight screws along the distal fibula. There are two screws in the medial malleolus. No apparent complications. Joints: Normal and unchanged from previous studies. Soft tissue: Normal. Impression: Left ankle with postsurgical changes as described above. No acute findings. VTE Prophylaxis Ordered VTE Prophylaxis Devices: Yes VTE Pharmacological Prophylaxi: Yes Assessment/Plan Assessment/Plan Findings were reviewed and treatment options were discussed with the patient. She is having pain and tenderness of the left ankle due to the lateral ankle hardware. I recommended hardware removal and she agrees. We discussed the risks of surgery, including infection, bleeding, blood clots, continued pain, and any other surgical or anesthetic complications. She states her understanding of the risks of surgery, all of her questions were answered, and she agrees to proceed. She would like to get this done soon, so she can enjoy summer, so we will tentatively plan for 12/09/16. She does take aspirin 81mg twice daily due to a cardiac stent. She thinks it will be okay to stop her aspirin 72 hours before surgery, but will call her occupational health specialist to confirm. PILI HA December 19, 2016 15:32
[~2016-12-20] VITALS: Ht 162.6 cm; Wt 89.4 kg
[~2016-12-20 13:48] MED LIST changes: +HYDR-971 PO; +HYDROmorphone 2 MG/ML VIAL IV PRN; +IV RINGERS,LACTATED 1000ML 1,000 ML IV SCH; +LIDOCAINE 1% 1 ML SYRINGE. ID PRN; +MORPHINE SULFATE 2 MG/ML DISP.SYRIN. IV PRN; +ONDANSETRON PF 4 MG/2 ML VIAL. IV PRN; +PROCHLORPERAZINE 10 MG/2 ML VIAL. IV PRN; +fentaNYL PF VIAL 100 MCG/2 ML VIAL IV PRN
[2016-12-20] MEDS ORDERED: VANCOMYCIN 1GM IVPB FOR OMNI 250 ML ONE (14:05)
[2016-12-20] MEDS ORDERED: MIDAZOLAM HCL/PF 2 MG/2 ML VIAL. ONE ×2 (14:20→15:47)
[2016-12-20] MEDS ORDERED: PROPOFOL 20 ML IV ONE (14:21)
[2016-12-20] MEDS ORDERED: FAMOTIDINE 20 MG/2 ML VIAL ONE (14:24)
[2016-12-20 14:33] LABS: BASO # 0.1 x10^3/uL (0.0-0.2); BASO % 1 % (0-3); EOS % 1 % (0-3); HEMOGLOBIN 13.6 g/dL (12.0-15.5); LYMPH # 3.2 x10^3/uL (1.0-4.8); LYMPH % 24 % (24-48); MEAN CORPUSCULAR HEMOGLOBIN 31 pg (25-35); MEAN CORPUSCULAR HGB CONC 34 g/dL (31-37); MEAN CORPUSCULAR VOLUME 91 fL (79-100); MONO % 5 % (0-9); NEUT % 69 % (31-73); PLATELET COUNT 209 x10^3/uL (140-400); RED BLOOD COUNT 4.39 x10^6/uL (3.50-5.40); RED CELL DISTRIBUTION WIDTH 13.6 % (11.5-14.5)
--- NOTE | 2016-12-20 14:33 | EKG ---
[facility] [address] [place] [id number] Test Date: 2016-12-20 Test Time: 14:33:52 Pat Name: CECILIA HEAD Department: Room: Gender: F Bead Wrapper: BECKY : 1950 Requested By: ARLEY BARLOW Order Number: [id number] Reading MD: Manisha Patino Measurements Intervals [place] Rate: 81 P: 1 PA: 156 QRS: 26 QRSD: 86 T: 90 QT: 384 QTc: 447 Interpretive Statements SINUS RHYTHM NON SPECIFIC ST T WAVE CHANGES Electronically Signed On 12-25-2016 14:16:08 CDT by Manisha Patino
[2016-12-20 14:43] LABS: PROTHROMBIN TIME PATIENT 12.5 SEC (11.7-14.0)
[2016-12-20] MEDS ORDERED: fentaNYL PF VIAL 100 MCG/2 ML VIAL ONE (14:58)
[2016-12-20 15:11] LABS: CALCIUM 9.2 mg/dL (8.5-10.1); CREATININE 0.7 mg/dL (0.6-1.0); POTASSIUM 3.4 mmol/L (3.5-5.1)
[2016-12-20] MEDS ORDERED: BUPIVACAINE-EPI 0.25%-1:200000 50 ML VIAL. ONE (15:57)
--- NOTE | 2016-12-20 16:28 | PDOC4 ---
Operative Note Operative Note Date of Procedure: 12/20/2016 Pre-Op Diagnosis: Mechanical complications retained hardware left ankle Post-Op Diagnosis: Mechanical complications retained hardware left ankle Procedure: Hardware removal left ankle Surgeon(s): Arley Rivas MD Bush Hog Operator: Hannah Francisco PA-C Anesthesia: Spinal EBL: 10 mL Specimens Obtained: none Complications: none Drains: none Tourniquet time: 8 minutes Indications for Procedure: The patient is a 66 year old with mechanical complications of retained hardware. The patient and I discussed the risks, benefits and alternatives of surgery. We discussed the potential risks of refracture, infection, anesthetic complications, blood clots, continued pain, or other potential surgical or anesthetic complications. All of her questions were answered. Written consent was obtained. Procedure in Detail: The patient was identified in the preoperative holding area. The correct left ankle was marked by me. The patient was taken to the operating room where spinal anesthetic was used. The patient was positioned supine on the operating table. Preoperative antibiotics were given intravenously. A timeout procedure was performed. A tourniquet was placed on the upper thigh. The limb was prepped sterilely and sterile drapes were applied. An Esmarch bandage was used to exsanguinate the limb and the tourniquet was inflated to 300 mmHg. Prior scars were used for the incisions. A lateral incision was made over the plate and screws. Sharp dissection was used and Bovie electrocautery was used only as needed for hemostasis. The plate and all screws were identified, and removed with a screwdriver. Irregularities on the bone from the screw holes were freshened up with a rongeur. Copious irrigation was used in all of the incisions. The tourniquet was released. Electrocautery was used for hemostasis. The incision edges were injected with 0.25% Marcaine with epinephrine. The incisions were closed with 2- 0 Vicryl and calro. Xeroform and a sterile dressing were applied. Needle and sponge counts were correct. There were no apparent complications. ARLEY RIVAS MD December 20, 2016 16:28
[2016-12-20] MEDS ORDERED: ONDANSETRON PF 4 MG/2 ML VIAL. IV PRN (16:45)
[2016-12-20] MEDS ORDERED: DEXTROSE 50% 25 GM / 50ML DISP.SYRIN. IV PRN (16:45)
[2016-12-20] MEDS ORDERED: MORPHINE SULFATE 2 MG/ML DISP.SYRIN. IV PRN (16:45)
[2016-12-20] MEDS ORDERED: POLYETHYLENE GLYCOL 3350 17 GM PACKET. PO PRN (16:45)
[2016-12-20] MEDS ORDERED: fentaNYL PF VIAL 100 MCG/2 ML VIAL IV PRN (16:45)
[2016-12-20] MEDS ORDERED: HYDROcodone/APAP 7.5/325MG 1 TAB TABLET PO PRN ×2 (16:45)
[2016-12-20] MEDS ORDERED: IPRATRPIUM/ALBUTEROL 0.5/2.5MG 3 ML NEBU. NEB ONE (16:45)
[2016-12-20] MEDS ORDERED: MORPHINE SULFATE 4 MG/ML DISP.SYRIN. IV PRN (16:45)
[2016-12-20] MEDS ORDERED: VANCOMYCIN 1 GM in IV NORMAL SALINE 250ML 250 ML IV SCH (16:45)
--- NOTE | 2016-12-20 17:00 | RAD ---
Indication postop ankle fixation and hardware removal. AP and lateral views of the left ankle were obtained. 2 screws are noted in the medial malleolus. Screw tracks are seen in the distal fibula. Postoperative changes are noted in the soft tissues. A definite unexpected finding is not seen. IMPRESSION: No unexpected finding seen in a postop ankle
[2016-12-20] MEDS ORDERED: NITROGLYCERIN SUBLINGUAL 0.4 MG BOTTLE OF 25. SL PRN (19:00)
[2016-12-20 19:15] VITALS: BP 156/78
[2016-12-20] MEDS ORDERED: diphenhydrAMINE HCL 25 MG CAPSULE PO PRN (19:30)
[2016-12-20] MEDS: BUDESONIDE 0.5 MG/2 ML NEBU. NEB SCH (19:55)
[2016-12-20] MEDS: IPRATRPIUM/ALBUTEROL 0.5/2.5MG 3 ML NEBU. NEB SCH (19:55)
[2016-12-20] MEDS ORDERED: BUDESONIDE 0.5 MG/2 ML NEBU. NEB SCH (20:00)
[2016-12-20] MEDS: oxyCODONE IR 5 MG TABLET PO PRN (21:36)
[2016-12-20] MEDS: CALCIUM CARBONATE 500 MG TABLET PO SCH (21:37)
[2016-12-20] MEDS: traZODone 100 MG TABLET. PO SCH (21:37)
[2016-12-20 23:00] VITALS: BP 144/72
[2016-12-21] MEDS: clonazePAM 0.5 MG TABLET PO SCH ×4 (00:17→17:18)
[2016-12-21] MEDS: oxyCODONE IR 5 MG TABLET PO PRN ×4 (00:20→22:15)
[2016-12-21 03:03] VITALS: BP 140/72
[2016-12-21] MEDS ORDERED: MAGNESIUM HYDROXIDE 2,400 MG/30 ML ORAL.SUSP. PO PRN (06:00)
[2016-12-21 06:08] LABS: HEMATOCRIT 39.1 % (36.0-47.0); HEMOGLOBIN 12.7 g/dL (12.0-15.5)
[2016-12-21 07:00] VITALS: BP 156/67
[2016-12-21] MEDS: IPRATRPIUM/ALBUTEROL 0.5/2.5MG 3 ML NEBU. NEB SCH ×4 (07:33→19:45)
[2016-12-21] MEDS: BUDESONIDE 0.5 MG/2 ML NEBU. NEB SCH ×2 (07:33→19:45)
[2016-12-21] MEDS ORDERED: POTASSIUM CHLORIDE 10 MEQ TABLET.ER. PO SCH (09:00)
[2016-12-21] MEDS: glipiZIDE 5 MG TABLET PO SCH (09:00)
[2016-12-21] MEDS ORDERED: ATORVASTATIN CALCIUM 40 MG TABLET. PO SCH (09:00)
[2016-12-21] MEDS ORDERED: MONTELUKAST SODIUM 10 MG TABLET. PO SCH (09:00)
[2016-12-21] MEDS: SUCRALFATE 1 GM TABLET. PO SCH ×3 (09:10→17:18)
[2016-12-21] MEDS: ASPIRIN 325 MG TABLET PO SCH (09:11)
[2016-12-21] MEDS: CALCIUM CARBONATE 500 MG TABLET PO SCH ×2 (09:11→20:54)
[2016-12-21] MEDS: hydroCHLOROthiazide 12.5 MG CAPSULE PO SCH (09:11)
[2016-12-21] MEDS: LOSARTAN POTASSIUM 50 MG TABLET. PO SCH (09:11)
[2016-12-21] MEDS: SENNOSIDES/DOCUSATE 8.6/50MG TABLET. PO SCH (09:11)
[2016-12-21] MEDS: CITALOPRAM 20 MG TABLET. PO SCH (09:11)
[2016-12-21] MEDS: metFORMIN 500 MG TABLET PO SCH ×2 (09:11→17:18)
[2016-12-21] MEDS: amLODIPine BESYLATE 5 MG TABLET PO SCH (09:12)
[2016-12-21 11:00] VITALS: BP 97/60
[2016-12-21] MEDS: FOLIC ACID 1 MG TABLET. PO SCH (12:08)
[2016-12-21 15:00] VITALS: BP 140/64
[2016-12-21] MEDS ORDERED: BISACODYL 10 MG SUPP.RECT. PR PRN (16:00)
[2016-12-21 19:00] VITALS: BP 126/56
--- NOTE | 2016-12-21 19:17 | PDOC ---
PROGRESS NOTES Subjective Subjective Pain is controlled. Waiting on aircast from [employer] Objective Vital Signs Vital Signs Date Time Temp Pulse Resp B/P (MAP) Pulse Ox O2 Delivery O2 Flow Rate FiO2 12/21/16 16:45 18 Room Air 12/21/16 15:00 97.9 81 140/64 (89) 98 97.9 12/21/16 09:10 2.0 Physical Exam Lying in bed with left leg elevated. Dressing dry and intact. Calf soft and NT with negative Cesar's. Good df/pf with no sign of neurovascular injury. Peripheral pulses and light touch sensation intact. Labs Laboratory Tests Test 12/20/16 14:21 12/21/16 05:40 12/21/16 11:45 White Blood Count 13.0 x10^3/uL (4.0-11.0) Red Blood Count 4.39 x10^6/uL (3.50-5.40) Hemoglobin 13.6 g/dL (12.0-15.5) 12.7 g/dL (12.0-15.5) Hematocrit 40.0 % (36.0-47.0) 39.1 % (36.0-47.0) Mean Corpuscular Volume 91 fL (79-100) Mean Corpuscular Hemoglobin 31 pg (25-35) Mean Corpuscular Hemoglobin Concent 34 g/dL (31-37) 33 g/dL (31-37) Red Cell Distribution Width 13.6 % (11.5-14.5) Platelet Count 209 x10^3/uL (140-400) Neutrophils (%) (Auto) 69 % (31-73) Lymphocytes (%) (Auto) 24 % (24-48) Monocytes (%) (Auto) 5 % (0-9) Eosinophils (%) (Auto) 1 % (0-3) Basophils (%) (Auto) 1 % (0-3) Neutrophils # (Auto) 9.0 x10^3uL (1.8-7.7) Lymphocytes # (Auto) 3.2 x10^3/uL (1.0-4.8) Monocytes # (Auto) 0.7 x10^3/uL (0.0-1.1) Eosinophils # (Auto) 0.1 x10^3/uL (0.0-0.7) Basophils # (Auto) 0.1 x10^3/uL (0.0-0.2) Prothrombin Time 12.5 SEC (11.7-14.0) Prothromb Time International Ratio 1.0 (0.8-1.1) Activated Partial Thromboplast Time 23 SEC (24-38) Nasal Screen MRSA (PCR) Negative (Negative) Sodium Level 140 mmol/L (136-145) Potassium Level 3.4 mmol/L (3.5-5.1) Chloride Level 101 mmol/L (98-107) Carbon Dioxide Level 30 mmol/L (21-32) Anion Gap 9 (6-14) Blood Urea Nitrogen 11 mg/dL (7-20) Creatinine 0.7 mg/dL (0.6-1.0) Estimated GFR (Cockcroft-Gault) 84.0 Glucose Level 169 mg/dL (70-99) Calcium Level 9.2 mg/dL (8.5-10.1) Glucose (Fingerstick) 189 mg/dL (70-99) Laboratory Tests Test 12/21/16 05:40 12/21/16 11:45 Hemoglobin 12.7 g/dL (12.0-15.5) Hematocrit 39.1 % (36.0-47.0) Mean Corpuscular Hemoglobin Concent 33 g/dL (31-37) Glucose (Fingerstick) 189 mg/dL (70-99) Assessment Assessment POD #1 left ankle hardware removal Problems: Plan Plan of Care Continue DVT ppx and therapy. November WBAT with walker. Plan for discharge to home after aircast is applied. *Late entry, the patient was seen and examined this AM. PILI HA December 21, 2016 19:17
[2016-12-21] MEDS: traZODone 100 MG TABLET. PO SCH (20:54)
[2016-12-21 23:00] VITALS: BP 161/73
[2016-12-22 03:00] VITALS: BP 148/76
[2016-12-22] MEDS: SUCRALFATE 1 GM TABLET. PO SCH ×2 (06:08→08:54)
[2016-12-22] MEDS: clonazePAM 0.5 MG TABLET PO SCH ×3 (06:08→12:36)
[2016-12-22 07:00] VITALS: BP 151/69
[2016-12-22] MEDS: BUDESONIDE 0.5 MG/2 ML NEBU. NEB SCH (07:20)
[2016-12-22] MEDS: IPRATRPIUM/ALBUTEROL 0.5/2.5MG 3 ML NEBU. NEB SCH ×2 (07:20→11:07)
[2016-12-22] MEDS: CITALOPRAM 20 MG TABLET. PO SCH (08:53)
[2016-12-22] MEDS: FOLIC ACID 1 MG TABLET. PO SCH (08:53)
[2016-12-22] MEDS: oxyCODONE IR 5 MG TABLET PO PRN (08:53)
[2016-12-22] MEDS: hydroCHLOROthiazide 12.5 MG CAPSULE PO SCH (08:53)
[2016-12-22] MEDS: SENNOSIDES/DOCUSATE 8.6/50MG TABLET. PO SCH (08:54)
[2016-12-22] MEDS: LOSARTAN POTASSIUM 50 MG TABLET. PO SCH (08:54)
[2016-12-22] MEDS: ASPIRIN 325 MG TABLET PO SCH (08:54)
[2016-12-22] MEDS: amLODIPine BESYLATE 5 MG TABLET PO SCH (08:54)
[2016-12-22] MEDS: metFORMIN 500 MG TABLET PO SCH (08:54)
[2016-12-22] MEDS: CALCIUM CARBONATE 500 MG TABLET PO SCH (08:54)
[2016-12-22] MEDS: glipiZIDE 5 MG TABLET PO SCH (08:54)
[2016-12-22 11:00] VITALS: BP 136/59
--- NOTE | 2016-12-22 13:02 | PDOC ---
PROGRESS NOTES Subjective Subjective Doing well. She has been up weightbearing without difficulty in Aircast. She wants to go home. Objective Vital Signs Vital Signs Date Time Temp Pulse Resp B/P (MAP) Pulse Ox O2 Delivery O2 Flow Rate FiO2 12/22/16 11:09 94 Nasal Cannula 2.0 12/22/16 11:00 97.7 84 20 136/59 (84) 97.7 Physical Exam Dressing dry. NVI. Aircast in place. Labs Laboratory Tests Test 12/20/16 14:21 12/21/16 05:40 12/21/16 11:45 12/22/16 08:12 White Blood Count 13.0 x10^3/uL (4.0-11.0) Red Blood Count 4.39 x10^6/uL (3.50-5.40) Hemoglobin 13.6 g/dL (12.0-15.5) 12.7 g/dL (12.0-15.5) Hematocrit 40.0 % (36.0-47.0) 39.1 % (36.0-47.0) Mean Corpuscular Volume 91 fL (79-100) Mean Corpuscular Hemoglobin 31 pg (25-35) Mean Corpuscular Hemoglobin Concent 34 g/dL (31-37) 33 g/dL (31-37) Red Cell Distribution Width 13.6 % (11.5-14.5) Platelet Count 209 x10^3/uL (140-400) Neutrophils (%) (Auto) 69 % (31-73) Lymphocytes (%) (Auto) 24 % (24-48) Monocytes (%) (Auto) 5 % (0-9) Eosinophils (%) (Auto) 1 % (0-3) Basophils (%) (Auto) 1 % (0-3) Neutrophils # (Auto) 9.0 x10^3uL (1.8-7.7) Lymphocytes # (Auto) 3.2 x10^3/uL (1.0-4.8) Monocytes # (Auto) 0.7 x10^3/uL (0.0-1.1) Eosinophils # (Auto) 0.1 x10^3/uL (0.0-0.7) Basophils # (Auto) 0.1 x10^3/uL (0.0-0.2) Prothrombin Time 12.5 SEC (11.7-14.0) Prothromb Time International Ratio 1.0 (0.8-1.1) Activated Partial Thromboplast Time 23 SEC (24-38) Nasal Screen MRSA (PCR) Negative (Negative) Sodium Level 140 mmol/L (136-145) Potassium Level 3.4 mmol/L (3.5-5.1) Chloride Level 101 mmol/L (98-107) Carbon Dioxide Level 30 mmol/L (21-32) Anion Gap 9 (6-14) Blood Urea Nitrogen 11 mg/dL (7-20) Creatinine 0.7 mg/dL (0.6-1.0) Estimated GFR (Cockcroft-Gault) 84.0 Glucose Level 169 mg/dL (70-99) Hemoglobin A1c 7.7 % (4.8-5.6) Calcium Level 9.2 mg/dL (8.5-10.1) Glucose (Fingerstick) 189 mg/dL (70-99) 230 mg/dL (70-99) Test 12/22/16 11:28 Glucose (Fingerstick) 156 mg/dL (70-99) Laboratory Tests Test 12/22/16 08:12 12/22/16 11:28 Glucose (Fingerstick) 230 mg/dL (70-99) 156 mg/dL (70-99) Imaging postop x-ray reviewed by me. lateral hardware out. Kim in place. No unexpected findings or fracture. Assessment Assessment POD# 1 after hardware removal Problems: Plan Plan of Care discharge to home today. ARLEY RICO MD December 22, 2016 13:02
[2016-12-22] MEDS ORDERED: MONTELUKAST SODIUM 10 MG TABLET. PO SCH (21:00)
[2016-12-22] MEDS ORDERED: ATORVASTATIN CALCIUM 40 MG TABLET. PO SCH (21:00)
[2016-12-26] MEDS ORDERED: ERGOCALCIFEROL (VITAMIN D2) 50,000 UNIT CAPSULE. PO SCH (09:00)
== END 2016-12-22 14:15 | disposition home or self-care (01) ==
LOC: SURG 13:48 → 4 NORTH 17:38
PROVIDERS: ADMIT Orthopaedic Surgery; ATTEND Orthopaedic Surgery
DX: T84.098A Other mechanical complication of other internal joint prosthesis, initial encounter (principal); I11.0 Hypertensive heart disease with heart failure; I50.9 Heart failure, unspecified; J44.9 Chronic obstructive pulmonary disease, unspecified; J45.909 Unspecified asthma, uncomplicated; F41.9 Anxiety disorder, unspecified; F32.9 Major depressive disorder, single episode, unspecified; Z95.5 Presence of coronary angioplasty implant and graft; Z83.3 Family history of diabetes mellitus; Y83.8 Other surgical procedures as the cause of abnormal reaction of the patient, or of later complication, without mention of misadventure at the time of the procedure; Y92.89 Other specified places as the place of occurrence of the external cause
CPT/HCPCS: 20680; 36415; 73600; 80048; 82947; 83036; 85014; 85018; 85027; 85610; 85730; 87641; 93005; 94250; 94640; 96365; 96375; 96376; 97161; 97165; A4215; G0378; G0379; J0690; J2250; J2704; J3010; J3370; J7620; Q0163; S0028

== ENCOUNTER → 2017-04-14 | Outpatient (CLI) | payer MEDICARE, BC ==
[~2017-04-14] MED LIST changes: -ERGO500012 PO; +ERGO500027 PO; -GUAI600T38 PO; +GUAI600T47 PO; -HYDR-2666 PO; +HYDR-2758 PO; -HYDROmorphone 2 MG/ML VIAL IV PRN; -IV RINGERS,LACTATED 1000ML 1,000 ML IV SCH; -LEVO500T38 PO; +LEVO500T59 PO; -LIDOCAINE 1% 1 ML SYRINGE. ID PRN; -MORPHINE SULFATE 2 MG/ML DISP.SYRIN. IV PRN; +NITR0.4T22 SL; -NITR0.4T6 SL; -ONDANSETRON PF 4 MG/2 ML VIAL. IV PRN; -PROCHLORPERAZINE 10 MG/2 ML VIAL. IV PRN; -SUCR1TAB29 PO; +SUCR1TAB35 PO; -fentaNYL PF VIAL 100 MCG/2 ML VIAL IV PRN
--- NOTE | 2017-04-14 11:11 | RAD ---
Examination: CT chest without contrast History: History of cough, COPD prior comparison: 03/19/2016. Technique: Axial CT images of the chest were performed with a contrast. Coronal and sagittal reformats are performed. PQRS Compliance Statement: One or more of the following individualized dose reduction techniques were utilized for this examination: 1. Automated exposure control 2. Adjustment of the mA and/or kV according to patient size 3. Use of iterative reconstruction technique Findings: The visualized thyroid gland grossly appears unremarkable. The central airways are patent. Diffuse coronary artery calcifications identified. Heart size grossly appears unremarkable. No radiologically significant mediastinal lymphadenopathy. Mild emphysematous changes identified in the apical lungs. No evidence of pleural effusion or pneumothorax. The visualized noncontrasted liver, spleen, adrenals grossly appears unremarkable. Mild degenerative changes thoracic spine. Impression: 1. Mild emphysematous lung changes similar to prior exam. 2. Coronary artery calcifications.
== END | disposition home or self-care (01) ==
LOC: CT 08:04
PROVIDERS: ATTEND Internal Medicine Pulmonary Disease
DX: J44.9 Chronic obstructive pulmonary disease, unspecified (principal); I25.10 Atherosclerotic heart disease of native coronary artery without angina pectoris
CPT/HCPCS: 71250

== ENCOUNTER 2017-05-02 20:24 | Emergency (ER) | payer MEDICARE, BC ==
[~2017-05-02] VITALS: Ht 160 cm; Wt 88.0 kg
--- NOTE | 2017-05-02 20:39 | PHYS DOC ---
Past Medical History Past Medical History: Asthma, Bronchitis, CAD, COPD, Diabetes-Type II, High Cholesterol, Heart Disease, Hypertension, CA, Pneumonia Past Surgical History: Angioplasty, Appendectomy, Cholecystectomy, Coronary Bypass Surgery, Hysterectomy Additional Past Surgical Histo: carpal tunnel, L) shattered ankle with surgical repair; cardiac stents Alcohol Use: Sober Drug Use: None Adult General Chief Complaint Chief Complaint: FLANK PAIN HPI HPI Patient is a 67 year old female presenting to the emergency department for evaluation of right flank and abdominal pain that has been going on for approximately one month that she was admitted to the hospital in mid March for similar symptoms and had workup including CTs MRI and consultation with GI. Patient says that the pain never left and has persisted and she feels that it is worse today. She does have COPD and has been coughing and has been on a steroid taper. She says that she has not been taking anything for pain. She is in no obvious distress with normal vital signs. Review of Systems Review of Systems Constitutional: Denies fever or chills [] Eyes: Denies change in visual acuity, redness, or eye pain [] HENT: Denies nasal congestion or sore throat [] Respiratory: + cough and shortness of breath [] Cardiovascular: No additional information not addressed in HPI [] GI: + abdominal pain. No nausea, vomiting, bloody stools or diarrhea [] Musculoskeletal: + back pain. No joint pain [] Neurologic: Denies headache, focal weakness or sensory changes [] Current Medications Current Medications Current Medications Medications (Trade) Dose Ordered Sig/[facility] Start Time Stop Time Status Last Admin Dose Admin Albuterol/ Ipratropium (Duoneb) 3 ml 1X ONCE 05/02/17 21:15 05/02/17 21:16 DC 05/02/17 20:50 3 ML Fentanyl Citrate (Fentanyl 2ml Vial) 75 mcg 1X ONCE 05/02/17 21:15 05/02/17 21:16 DC 05/02/17 21:10 75 MCG Ketorolac Tromethamine (Toradol) 15 mg 1X ONCE 05/02/17 21:15 05/02/17 21:16 DC 05/02/17 21:09 15 MG Allergies Allergies Allergies Coded Allergies Type Severity Reaction Last Updated Verified adhesive tape Allergy Intermediate 04/18/17 Yes hydrocodone Allergy Intermediate Itching 04/18/17 Yes morphine Allergy Intermediate PRURITIS 04/18/17 Yes vancomycin Allergy Intermediate Itching, rash 12/20/16 Yes I S O L A T I O N *CONTACT* Allergy Unknown 12/20/16 Yes Physical Exam Physical Exam Constitutional: Well developed, well nourished, no acute distress, non-toxic appearance. [] Neck: Normal range of motion, no tenderness, supple, no stridor. [] Cardiovascular:Heart rate regular rhythm, no murmur [] Lungs & Thorax: Bilateral breath sounds diminished with wheezing noted in all duncan. 8 lower and lateral ribs tenderness to palpation. Abdomen: Bowel sounds normal, soft, no tenderness, no masses, no pulsatile masses. [] Extremities: No tenderness, no cyanosis, no clubbing, ROM intact, no edema. [] Neurologic: Alert and oriented X 3, normal motor function, normal sensory function, no focal deficits noted. [] Current Patient Data Vital Signs Vital Signs Date Time Temp Pulse Resp B/P (MAP) Pulse Ox O2 Delivery O2 Flow Rate FiO2 05/02/17 21:34 80 17 157/77 (103) 98 Nasal Cannula 2.0 05/02/17 20:34 98.9 98.9 Lab Values Laboratory Tests Test 05/02/17 20:30 05/02/17 20:42 Urine Collection Type Unknown Urine Color Yellow Urine Clarity Clear Urine pH 6.5 Urine Specific [place] >=1.030 Urine Protein Negative mg/dL (NEG-TRACE) Urine Glucose (UA) 250 mg/dL (NEG) Urine Ketones (Stick) Negative mg/dL (NEG) Urine Blood Negative (NEG) Urine Nitrite Negative (NEG) Urine Bilirubin Negative (NEG) Urine Urobilinogen Dipstick 0.2 mg/dL (0.2 mg/dL) Urine Leukocyte Esterase Small (NEG) Urine RBC Occ /HPF (0-2) Urine WBC 1-4 /HPF (0-4) Urine Squamous Epithelial Cells Few /LPF Urine Bacteria Few /HPF (0-FEW) Urine Mucus Slight /LPF White Blood Count 13.2 x10^3/uL (4.0-11.0) H Red Blood Count 4.46 x10^6/uL (3.50-5.40) Hemoglobin 13.9 g/dL (12.0-15.5) Hematocrit 41.9 % (36.0-47.0) Mean Corpuscular Volume 94 fL (79-100) Mean Corpuscular Hemoglobin 31 pg (25-35) Mean Corpuscular Hemoglobin Concent 33 g/dL (31-37) Red Cell Distribution Width 14.2 % (11.5-14.5) Platelet Count 209 x10^3/uL (140-400) Neutrophils (%) (Auto) 58 % (31-73) Lymphocytes (%) (Auto) 35 % (24-48) Monocytes (%) (Auto) 5 % (0-9) Eosinophils (%) (Auto) 2 % (0-3) Basophils (%) (Auto) 1 % (0-3) Neutrophils # (Auto) 7.6 x10^3uL (1.8-7.7) Lymphocytes # (Auto) 4.6 x10^3/uL (1.0-4.8) Monocytes # (Auto) 0.6 x10^3/uL (0.0-1.1) Eosinophils # (Auto) 0.2 x10^3/uL (0.0-0.7) Basophils # (Auto) 0.2 x10^3/uL (0.0-0.2) Sodium Level 138 mmol/L (136-145) Potassium Level 3.8 mmol/L (3.5-5.1) Chloride Level 100 mmol/L (98-107) Carbon Dioxide Level 32 mmol/L (21-32) Anion Gap 6 (6-14) Blood Urea Nitrogen 17 mg/dL (7-20) Creatinine 0.7 mg/dL (0.6-1.0) Estimated GFR (Cockcroft-Gault) 83.7 BUN/Creatinine Ratio 24 (6-20) H Glucose Level 266 mg/dL (70-99) H Calcium Level 9.2 mg/dL (8.5-10.1) Total Bilirubin 0.1 mg/dL (0.2-1.0) L Aspartate Amino Transferase (AST) 12 U/L (15-37) L Alanine Aminotransferase (ALT) 29 U/L (14-59) Alkaline Phosphatase 114 U/L (46-116) Troponin I Quantitative < 0.017 ng/mL (0.000-0.055) Total Protein 6.6 g/dL (6.4-8.2) Albumin 3.0 g/dL (3.4-5.0) L Albumin/Globulin Ratio 0.8 (1.0-1.7) L Lipase 286 U/L (73-393) Laboratory Tests 05/02/17 20:42 Laboratory Tests 05/02/17 20:42 EKG EKG [] Radiology/Procedures Radiology/Procedures Abdominal and Pelvis CT, Without Contrast: History: Right flank pain and right upper quadrant pain. Comparison: None. Procedure: Axial images are obtained of the abdomen and pelvis, without IV or oral contrast. CT Abdomen without Contrast: Findings: Evaluation of solid organs is limited without contrast. Evaluation of stomach and bowel is limited without oral contrast. Liver: Normal. Spleen: Normal. Pancreas: Normal. Adrenal Glands: Normal. Kidneys: Normal. There is no free air or free fluid. There is no lymphadenopathy. There has been prior cholecystectomy. There is calcification of the aorta and great vessels without aneurysm. Impression: Please see CT Pelvis without Contrast. End Impression. CT Pelvis without Contrast: Findings: The urinary bladder is collapsed and not well evaluated. There is no free fluid. There is no lymphadenopathy. There is no pericolonic inflammation identified. There is moderate sigmoid diverticulosis without surrounding inflammation. The appendix is not seen. Impression: 1. Significant atherosclerotic disease with calcification of the zuniga of the aorta and great vessels without aneurysm. 2. No acute findings. End impression PQRS Compliance Statement: One or more of the following individualized dose reduction techniques were utilized for this examination: 1. Automated exposure control 2. Adjustment of the mA and/or kV according to patient size 3. Use of iterative reconstruction technique Electronically signed by: Arley Loving III, MD (05/02/2017 9:29 PM) [facility] DICTATED and SIGNED BY: ARLEY LOVING III, MD DATE: 05/02/172123 Course & Med Decision Making Course & Med Decision Making Patient presenting to the emergency department for evaluation of pain that has persisted and not changed. Cup is unremarkable here and I spoke to her primary care provider Dr. Campo. Given she is nontoxic with normal vital signs we will discharge home with a prescription for Percocet and she said she would see her tomorrow and keep her follow-up for her colonoscopy on Monday. Patient aware and agreeable with plan for discharge and verbalized understanding of the need for short-term follow-up and strict ED return precautions discussed worsening pain shortness of breath or other general concerns. Dragon Disclaimer Dragon Disclaimer This electronic medical record was generated, in whole or in part, using a voice recognition dictation system. Departure Departure Impression: Primary Impression: COPD exacerbation Additional Impression: Rib pain on right side Disposition: HOME, SELF-CARE Condition: STABLE Referrals: ROSSANA CAMPO MD (PCP) Patient Instructions: Rib Contusion Additional Instructions: FOLLOW WITH DR. CAMPO TOMORROW AND COME BACK TO THE ED WITH ANY NEW OR WORSENING PAIN, SOA, OR OTHER GENERAL CONCERNS. THANK YOU! Scripts Oxycodone/Apap 5-325 (PERCOCET 5-325 MG TABLET) 1 Each Tablet 1 TAB PO PRN Q6HRS Y for PAIN, #14 TAB 0 Refills Prov: DAMASO SWANSON DO 05/02/17 Problem Qualifiers DAMASO SWANSON DO May 02, 2017 20:39
[2017-05-02 20:52] LABS: BILIRUBIN,URINE NEGATIVE (NEG); GLUCOSE,URINE 250 mg/dL (NEG); NITRITE,URINE NEGATIVE (NEG); PH,URINE 6.5; PROTEIN,URINE NEGATIVE (NEG-TRACE); UROBILINOGEN,URINE 0.2 mg/dL (0.2 mg/dL)
[2017-05-02 20:53] LABS: BASO # 0.2 x10^3/uL (0.0-0.2); BASO % 1 % (0-3); EOS % 2 % (0-3); HEMATOCRIT 41.9 % (36.0-47.0); HEMOGLOBIN 13.9 g/dL (12.0-15.5); LYMPH # 4.6 x10^3/uL (1.0-4.8); LYMPH % 35 % (24-48); MEAN CORPUSCULAR HEMOGLOBIN 31 pg (25-35); MEAN CORPUSCULAR HGB CONC 33 g/dL (31-37); MEAN CORPUSCULAR VOLUME 94 fL (79-100); MONO % 5 % (0-9); NEUT % 58 % (31-73); PLATELET COUNT 209 x10^3/uL (140-400); RED BLOOD COUNT 4.46 x10^6/uL (3.50-5.40); RED CELL DISTRIBUTION WIDTH 14.2 % (11.5-14.5); WHITE BLOOD COUNT 13.2 x10^3/uL (4.0-11.0)
[2017-05-02 21:03] LABS: CALCIUM 9.2 mg/dL (8.5-10.1); CREATININE 0.7 mg/dL (0.6-1.0); GFR 83.7; POTASSIUM 3.8 mmol/L (3.5-5.1)
[2017-05-02 21:09] LABS: ALBUMIN/GLOBULIN RATIO 0.8 (1.0-1.7); TOTAL BILIRUBIN 0.1 mg/dL (0.2-1.0); TOTAL PROTEIN 6.6 g/dL (6.4-8.2)
[2017-05-02 21:12] LABS: BACTERIA,URINE FEW /HPF (0-FEW); RBC,URINE OCC /HPF (0-2); SQUAMOUS EPITHELIAL CELL,UR FEW /LPF
[2017-05-02] MEDS ORDERED: fentaNYL PF VIAL 100 MCG/2 ML VIAL IV ONE (21:15)
[2017-05-02] MEDS ORDERED: KETOROLAC 30 MG/ML INJ. IV ONE (21:15)
[2017-05-02] MEDS ORDERED: IPRATRPIUM/ALBUTEROL 0.5/2.5MG 3 ML NEBU. NEB ONE (21:15)
--- NOTE | 2017-05-02 21:32 | RAD ---
Abdominal and Pelvis CT, Without Contrast: History: Right flank pain and right upper quadrant pain. Comparison: None. Procedure: Axial images are obtained of the abdomen and pelvis, without IV or oral contrast. CT Abdomen without Contrast: Findings: Evaluation of solid organs is limited without contrast. Evaluation of stomach and bowel is limited without oral contrast. Liver: Normal. Spleen: Normal. Pancreas: Normal. Adrenal Glands: Normal. Kidneys: Normal. There is no free air or free fluid. There is no lymphadenopathy. There has been prior cholecystectomy. There is calcification of the aorta and great vessels without aneurysm. Impression: Please see CT Pelvis without Contrast. End Impression. CT Pelvis without Contrast: Findings: The urinary bladder is collapsed and not well evaluated. There is no free fluid. There is no lymphadenopathy. There is no pericolonic inflammation identified. There is moderate sigmoid diverticulosis without surrounding inflammation. The appendix is not seen. Impression: 1. Significant atherosclerotic disease with calcification of the zuniga of the aorta and great vessels without aneurysm. 2. No acute findings. End impression PQRS Compliance Statement: One or more of the following individualized dose reduction techniques were utilized for this examination: 1. Automated exposure control 2. Adjustment of the mA and/or kV according to patient size 3. Use of iterative reconstruction technique Electronically signed by: Jason Bustos III, MD (05/02/2017 9:29 PM) [id number]
[2017-05-02 22:36] VITALS: BP 145/70
[2017-05-02] MEDS ORDERED: OXYC-323 PO (22:46)
== END 2017-05-02 22:57 | disposition home or self-care (01) ==
LOC: ER 20:24
DX: J44.1 Chronic obstructive pulmonary disease with (acute) exacerbation (principal); R07.89 Other chest pain; I25.10 Atherosclerotic heart disease of native coronary artery without angina pectoris; E11.9 Type 2 diabetes mellitus without complications; E78.00 Pure hypercholesterolemia, unspecified; I11.9 Hypertensive heart disease without heart failure; I25.2 Old myocardial infarction; Z90.49 Acquired absence of other specified parts of digestive tract; Z88.8 Allergy status to other drugs, medicaments and biological substances; Z88.6 Allergy status to analgesic agent
CPT/HCPCS: 36415; 74176; 80053; 81001; 83690; 84484; 85025; 87086; 94250; 94640; 96374; 96375; 99285; J1885; J3010; J7620

== ENCOUNTER → 2017-05-09 | Outpatient (CLI) | payer MEDICARE ==
[2017-05-05 11:46] VITALS: BP 107/64
[~2017-05-09] MED LIST changes: +OXYC-323 PO
[2017-05-09] MEDS: BARIUM SULFATE 60% 355 ML SUSP PO ONE (07:58)
--- NOTE | 2017-05-09 09:20 | RAD ---
Indication abdominal pain for 3 weeks. In anticipation of a small bowel follow-through examination preliminary films of the abdomen were obtained. The abdominal gas pattern is normal. No organomegaly or abnormal calculi are seen. Contrast was administered orally and followed through the small bowel to the large bowel. Transit time to the large bowel was relatively rapid and contrast reached the large bowel at approximately 20 minutes. The jejunal loops appeared normal. The ileal loops also appeared normal. No mass is seen. There is some irregularity probably reflecting the ileocecal valve in the right colon. Correlation with recent colonoscopy advised. 3 fluoroscopic spot images were associated with the examination. Fluoroscopy time associated with the imaging was 0.7 minutes. IMPRESSION: Relatively rapid transit to the large bowel. No small bowel abnormality seen. Probable prominent ileocecal valve. Correlation with recent colonoscopy findings advised.
== END | disposition home or self-care (01) ==
LOC: RAD 07:25
PROVIDERS: ATTEND Internal Medicine Gastroenterology
DX: R10.9 Unspecified abdominal pain (principal)
CPT/HCPCS: 74250

== ENCOUNTER 2017-05-15 14:48 | Observation (INO) | payer MEDICARE ==
[~2017-05-15] VITALS: Ht 160 cm; Wt 86.2 kg
[2017-05-15] MEDS ORDERED: DEXAMETHASONE SOD PHOS 4 MG/ML VIAL IV ONE (16:15)
[2017-05-15] MEDS ORDERED: IPRATRPIUM/ALBUTEROL 0.5/2.5MG 3 ML NEBU. NEB ONE ×2 (16:15→18:30)
[2017-05-15 16:16] LABS: BASO # 0.1 x10^3/uL (0.0-0.2); BASO % 1 % (0-3); EOS % 1 % (0-3); HEMATOCRIT 41.5 % (36.0-47.0); LYMPH # 3.5 x10^3/uL (1.0-4.8); LYMPH % 30 % (24-48); MEAN CORPUSCULAR HEMOGLOBIN 31 pg (25-35); MEAN CORPUSCULAR HGB CONC 34 g/dL (31-37); MEAN CORPUSCULAR VOLUME 93 fL (79-100); MONO % 6 % (0-9); NEUT % 63 % (31-73); PLATELET COUNT 221 x10^3/uL (140-400); RED BLOOD COUNT 4.46 x10^6/uL (3.50-5.40); RED CELL DISTRIBUTION WIDTH 14.5 % (11.5-14.5); WHITE BLOOD COUNT 11.8 x10^3/uL (4.0-11.0)
--- NOTE | 2017-05-15 16:19 | EKG ---
[facility] [address] [place] [address] Test Date: 2017-05-15 Test Time: 15:09:10 Pat Name: CECILIA HEAD Department: Room: Gender: F Inventory Specialist: : [id number] Requested By: PEREZ RECINOS Order Number: [id number] Reading MD: Measurements Intervals [place] Rate: 93 P: 35 MS: 162 QRS: 9 QRSD: 88 T: 102 QT: 378 QTc: 473 Interpretive Statements SINUS RHYTHM QRS(T) CONTOUR ABNORMALITY CONSISTENT WITH INFERIOR INFARCT PROBABLY OLD T ABNORMALITY IN HIGH LATERAL LEADS ABNORMAL ECG RI6.01 No previous ECG available for comparison
[2017-05-15 16:23] LABS: CREATININE 0.7 mg/dL (0.6-1.0); GFR 83.7; POTASSIUM 4.1 mmol/L (3.5-5.1)
[2017-05-15 16:29] LABS: ALBUMIN 3.5 g/dL (3.4-5.0); TOTAL BILIRUBIN 0.4 mg/dL (0.2-1.0); TOTAL PROTEIN 6.9 g/dL (6.4-8.2)
--- NOTE | 2017-05-15 16:44 | RAD ---
Indication shortness of air. Frontal and lateral views of the chest were obtained. Comparison is made to an examination 04/17/2017. Postoperative changes are noted. Heart size is unchanged. There is no congestive heart failure. There is no acute parenchymal infiltrate. Significant pleural fluid is not seen. There is no pneumothorax. A significant change compared to the previous exam is not seen. IMPRESSION: No acute finding. No significant change.
--- NOTE | 2017-05-15 16:55 | PHYS DOC ---
Past Medical History Past Medical History: Asthma, Bronchitis, CAD, COPD, Diabetes-Type II, High Cholesterol, Heart Disease, Hypertension, NV, Pneumonia Past Surgical History: Angioplasty, Appendectomy, Cholecystectomy, Coronary Bypass Surgery, Hysterectomy Additional Past Surgical Histo: carpal tunnel, L) shattered ankle with surgical repair; cardiac stents Additional Information: 2 PPD Alcohol Use: Sober Drug Use: None Adult General Chief Complaint Chief Complaint: SHORTNESS OF BREATH HPI HPI Patient is a 67 year old F who presents with wheezing and shortness of breath for the past 5 days. Patient is a known history of COPD and believes she is having an acute COPD exacerbation. Patient is a heavy smoker and smoked this morning. Patient states she's been having sweats. Patient complains of shortness of breath with exertion. Patient states she is wheezing despite doing breathing treatments at home. Patient denies any chest pain. Patient denies any nausea/vomiting/diarrhea. Patient denies any other complaints. PCP: Dr. Campo Review of Systems Review of Systems GEN: Denies fevers, chills, sweats HEENT: Denies blurred vision, sore throat CV: Denies chest pain RESP: Wheezing, shortness of air GI: Denies n/v/d NEURO: Denies confusion, dizziness MSK: Denies weakness, joint pain/swelling Current Medications Current Medications Current Medications Medications (Trade) Dose Ordered Sig/Zenon Start Time Stop Time Status Last Admin Dose Admin Albuterol/ Ipratropium (Duoneb) 3 ml 1X ONCE 05/15/17 18:30 05/15/17 18:31 DC 05/15/17 18:32 3 ML Dexamethasone Sodium Phosphate (Decadron) 10 mg 1X ONCE 05/15/17 16:15 05/15/17 16:16 DC 05/15/17 17:00 10 MG Allergies Allergies Allergies Coded Allergies Type Severity Reaction Last Updated Verified adhesive tape Allergy Intermediate 05/05/17 Yes vancomycin Allergy Intermediate Itching, rash 05/05/17 Yes I S O L A T I O N *CONTACT* Allergy Unknown 12/20/16 Yes Physical Exam Physical Exam GEN.: No apparent distress. Alert and oriented. HEENT: Head is normocephalic, atraumatic NECK: Supple. LUNGS: Wheezing bilaterally, tachypnea. HEART: RRR, S1, S2 present. Peripheral pulses intact ABDOMEN: Soft, nontender. Positive bowel sounds. EXTREMITIES: Without any cyanosis. NEUROLOGIC: Normal speech, normal tone PSYCHIATRIC: Normal affect, normal mood. SKIN: No ulcerations Current Patient Data Vital Signs Vital Signs Date Time Temp Pulse Resp B/P (MAP) Pulse Ox O2 Delivery O2 Flow Rate FiO2 05/15/17 18:32 100 Room Air 05/15/17 16:59 82 33 119/81 (94) 05/15/17 14:58 98.5 98.5 Lab Values Laboratory Tests Test 05/15/17 15:47 White Blood Count 11.8 x10^3/uL (4.0-11.0) H Red Blood Count 4.46 x10^6/uL (3.50-5.40) Hemoglobin 14.0 g/dL (12.0-15.5) Hematocrit 41.5 % (36.0-47.0) Mean Corpuscular Volume 93 fL (79-100) Mean Corpuscular Hemoglobin 31 pg (25-35) Mean Corpuscular Hemoglobin Concent 34 g/dL (31-37) Red Cell Distribution Width 14.5 % (11.5-14.5) Platelet Count 221 x10^3/uL (140-400) Neutrophils (%) (Auto) 63 % (31-73) Lymphocytes (%) (Auto) 30 % (24-48) Monocytes (%) (Auto) 6 % (0-9) Eosinophils (%) (Auto) 1 % (0-3) Basophils (%) (Auto) 1 % (0-3) Neutrophils # (Auto) 7.4 x10^3uL (1.8-7.7) Lymphocytes # (Auto) 3.5 x10^3/uL (1.0-4.8) Monocytes # (Auto) 0.7 x10^3/uL (0.0-1.1) Eosinophils # (Auto) 0.1 x10^3/uL (0.0-0.7) Basophils # (Auto) 0.1 x10^3/uL (0.0-0.2) Sodium Level 137 mmol/L (136-145) Potassium Level 4.1 mmol/L (3.5-5.1) Chloride Level 98 mmol/L (98-107) Carbon Dioxide Level 31 mmol/L (21-32) Anion Gap 8 (6-14) Blood Urea Nitrogen 12 mg/dL (7-20) Creatinine 0.7 mg/dL (0.6-1.0) Estimated GFR (Cockcroft-Gault) 83.7 BUN/Creatinine Ratio 17 (6-20) Glucose Level 155 mg/dL (70-99) H Calcium Level 10.0 mg/dL (8.5-10.1) Total Bilirubin 0.4 mg/dL (0.2-1.0) Aspartate Amino Transferase (AST) 17 U/L (15-37) Alanine Aminotransferase (ALT) 27 U/L (14-59) Alkaline Phosphatase 105 U/L (46-116) Troponin I Quantitative < 0.017 ng/mL (0.000-0.055) Total Protein 6.9 g/dL (6.4-8.2) Albumin 3.5 g/dL (3.4-5.0) Albumin/Globulin Ratio 1.0 (1.0-1.7) Laboratory Tests 05/15/17 15:47 Laboratory Tests 05/15/17 15:47 EKG EKG 1509: EKG shows normal sinus rhythm rate of 93 no STEMI[] Radiology/Procedures Radiology/Procedures Chest x-ray NAD[] Course & Med Decision Making Course & Med Decision Making Pertinent Labs and Imaging studies reviewed. (See chart for details) ED course: Patient was seen and examined emergency room CBC, CMP, troponin, chest x-ray, EKG, breathing treatments, steroids were ordered 1630: Discussed CC/HP/PMH with Dr. Campo and recommends to be contacted once workup has been completed the emergency room. 1755: On reevaluation patient states she is still wheezing and would like to come the hospital 1835: Discussed CC/HP/PMH with Dr. Campo and recommends admit [] MDM: After reviewing the chart, CC/HPI/PMH, physical exam, [lab results], [ radiological results], I do not believe the patient having acute NV however the patient is having persistent shortness of breath with chest pain most likely secondary to her COPD exacerbation. Given the fact the patient has a significant smoking history and COPD will omit the patient for further treatment and we'll start empiric antibiotics [] Dragon Disclaimer Dragon Disclaimer This electronic medical record was generated, in whole or in part, using a voice recognition dictation system. Departure Departure Impression: Primary Impression: COPD exacerbation Additional Impression: Chest pain Disposition: 09 ADMITTED INPATIENT Admitting Physician: Other (Dr. Campo) Condition: STABLE Referrals: ROSSANA CAMPO MD (PCP) Problem Qualifiers PEREZ RECINOS DO May 15, 2017 16:55
[2017-05-15] MEDS ORDERED: ACETAMINOPHEN 325 MG TABLET. PO PRN (18:45)
[2017-05-15] MEDS ORDERED: ONDANSETRON PF 4 MG/2 ML VIAL. IV PRN (18:45)
[2017-05-15] MEDS ORDERED: AZITHRMYCN 500MG IVPB FOR OMNI 250 ML IV ONE (18:45)
[2017-05-15] MEDS: IPRATRPIUM/ALBUTEROL 0.5/2.5MG 3 ML NEBU. NEB SCH (20:00)
[2017-05-15 20:26] VITALS: BP 114/79
[2017-05-15] MEDS: MORPHINE SULFATE 4 MG/ML DISP.SYRIN. IV PRN ×2 (20:43→23:36)
[2017-05-15] MEDS ORDERED: GABA-586 PO (22:47)
[2017-05-15] MEDS ORDERED: LACT1CAP25 PO (22:47)
[2017-05-15] MEDS ORDERED: Multi Vitamin PO (22:47)
[2017-05-15] MEDS ORDERED: ASPI-630 PO (22:47)
[2017-05-15] MEDS ORDERED: RANI-275 PO (22:47)
[2017-05-15] MEDS ORDERED: Escitalopram PO (22:47)
[2017-05-15] MEDS ORDERED: Alprazolam PO (22:47)
[2017-05-15] MEDS ORDERED: Fentanyl Patch TP (22:47)
[2017-05-15 23:00] VITALS: BP 129/86
[2017-05-15] MEDS ORDERED: INSULIN ASPART 300 UNITS/3 ML INSULN.PEN SQ ONE (23:00)
[2017-05-15] MEDS ORDERED: DEXTROSE 50% 25 GM / 50ML DISP.SYRIN. IV PRN (23:00)
[2017-05-16 03:17] VITALS: BP 146/79
[2017-05-16 04:17] LABS: BASO % 0 % (0-3); EOS % 0 % (0-3); HEMOGLOBIN 14.1 g/dL (12.0-15.5); LYMPH # 1.3 x10^3/uL (1.0-4.8); LYMPH % 17 % (24-48); MEAN CORPUSCULAR HEMOGLOBIN 32 pg (25-35); MEAN CORPUSCULAR HGB CONC 34 g/dL (31-37); MEAN CORPUSCULAR VOLUME 94 fL (79-100); MONO % 4 % (0-9); NEUT % 79 % (31-73); PLATELET COUNT 221 x10^3/uL (140-400); RED BLOOD COUNT 4.48 x10^6/uL (3.50-5.40); RED CELL DISTRIBUTION WIDTH 14.3 % (11.5-14.5)
[2017-05-16 04:36] LABS: CALCIUM 9.2 mg/dL (8.5-10.1); CREATININE 0.7 mg/dL (0.6-1.0); GFR 83.7; POTASSIUM 4.5 mmol/L (3.5-5.1)
[2017-05-16 07:00] VITALS: BP_SYST 131; BP_SYST 140; BP_DIAS 68; BP_DIAS 92
[2017-05-16] MEDS: IPRATRPIUM/ALBUTEROL 0.5/2.5MG 3 ML NEBU. NEB SCH ×3 (08:19→15:35)
[2017-05-16] MEDS: INSULIN ASPART 300 UNITS/3 ML INSULN.PEN SQ SCH ×3 (08:21→17:28)
[2017-05-16 11:00] VITALS: BP 131/84
--- NOTE | 2017-05-16 11:40 | PDOC2 ---
GI CONSULT Reason For Consult: Right flank pain HPI: HPI: 67 y/o female who we saw last month for right flank pain. At that time CT showed diverticulosis w/ air in bladder (w/o recent instrumentation). Had a repeat CT on 05/02; showed significant atherosclerotic disease but no acute findings. Had cystoscopy as an outpt, says normal. Followed-up w/ Dr. Hernandez as outpt, had colonoscopy (reportedly normal), also SBFT on 05/15 which showed normal small bowel, rapid transit to large bowel w/ some irregularity probably reflecting IC valve in right colon. Scheduled for outpt CTA tomorrow for further eval. Admitted through ER w/ SOA and wheezing, has also felt quite anxious. Pain is still fairly constant, generally worse throughout the day. Some nausea today, watery diarrhea past 2 days but none today. No recent atbx use (except what was given in ER). On PPI and Carafate for reflux. No NSAID, does take ASA. S/p cholecystectomy. Sober x 9-10 months w/ AA. On MRCP on 2014 (for dilated panc duct): tiny cyst in pancreatic tails pancreas which appears to have increased slightly in size since 2013. (No mention of pancreas on recent CTs). EGD in 2013 w/ mild reflux. PMH: PMH: CAD, HTN, COPD, DVT, GERD, OA, CTS, depression/anxiety, restless leg syndrome, colon polyps, diverticulosis, duodenal diverticulum, DDD lumbar spine, CABG, cardiac stents, cholecystectomy, hysterectomy, cystoscopy FH: Family History: No pertinent hx Social History: Smoke: 1 pack per day ALCOHOL: other (sober x 9-10 months) Drugs: None ROS: GEN:+anxiety HEENT: Denies blurred vision, sore throat CV: Denies chest pain RESP: +wheezing GI: Per HPI : Denies hematuria, dysuria ENDO: Denies weight changes NEURO: Denies confusion, dizziness MSK: Denies weakness SKIN: Denies jaundice, pruritus Vitals: Vitals: Vital Signs Date Time Temp Pulse Resp B/P (MAP) Pulse Ox O2 Delivery O2 Flow Rate FiO2 05/16/17 08:19 97 Room Air 05/16/17 03:17 97.7 100 20 146/79 (101) 97.7 Labs: Labs: Laboratory Tests Test 05/15/17 15:47 05/15/17 20:40 05/16/17 03:55 05/16/17 07:41 White Blood Count 11.8 x10^3/uL (4.0-11.0) 8.0 x10^3/uL (4.0-11.0) Red Blood Count 4.46 x10^6/uL (3.50-5.40) 4.48 x10^6/uL (3.50-5.40) Hemoglobin 14.0 g/dL (12.0-15.5) 14.1 g/dL (12.0-15.5) Hematocrit 41.5 % (36.0-47.0) 42.0 % (36.0-47.0) Mean Corpuscular Volume 93 fL (79-100) 94 fL (79-100) Mean Corpuscular Hemoglobin 31 pg (25-35) 32 pg (25-35) Mean Corpuscular Hemoglobin Concent 34 g/dL (31-37) 34 g/dL (31-37) Red Cell Distribution Width 14.5 % (11.5-14.5) 14.3 % (11.5-14.5) Platelet Count 221 x10^3/uL (140-400) 221 x10^3/uL (140-400) Neutrophils (%) (Auto) 63 % (31-73) 79 % (31-73) Lymphocytes (%) (Auto) 30 % (24-48) 17 % (24-48) Monocytes (%) (Auto) 6 % (0-9) 4 % (0-9) Eosinophils (%) (Auto) 1 % (0-3) 0 % (0-3) Basophils (%) (Auto) 1 % (0-3) 0 % (0-3) Neutrophils # (Auto) 7.4 x10^3uL (1.8-7.7) 6.3 x10^3uL (1.8-7.7) Lymphocytes # (Auto) 3.5 x10^3/uL (1.0-4.8) 1.3 x10^3/uL (1.0-4.8) Monocytes # (Auto) 0.7 x10^3/uL (0.0-1.1) 0.3 x10^3/uL (0.0-1.1) Eosinophils # (Auto) 0.1 x10^3/uL (0.0-0.7) 0.0 x10^3/uL (0.0-0.7) Basophils # (Auto) 0.1 x10^3/uL (0.0-0.2) 0.0 x10^3/uL (0.0-0.2) Sodium Level 137 mmol/L (136-145) 138 mmol/L (136-145) Potassium Level 4.1 mmol/L (3.5-5.1) 4.5 mmol/L (3.5-5.1) Chloride Level 98 mmol/L (98-107) 100 mmol/L (98-107) Carbon Dioxide Level 31 mmol/L (21-32) 30 mmol/L (21-32) Anion Gap 8 (6-14) 8 (6-14) Blood Urea Nitrogen 12 mg/dL (7-20) 17 mg/dL (7-20) Creatinine 0.7 mg/dL (0.6-1.0) 0.7 mg/dL (0.6-1.0) Estimated GFR (Cockcroft-Gault) 83.7 83.7 BUN/Creatinine Ratio 17 (6-20) Glucose Level 155 mg/dL (70-99) 219 mg/dL (70-99) Lactic Acid Level 1.7 mmol/L (0.4-2.0) Calcium Level 10.0 mg/dL (8.5-10.1) 9.2 mg/dL (8.5-10.1) Total Bilirubin 0.4 mg/dL (0.2-1.0) Aspartate Amino Transf (AST/SGOT) 17 U/L (15-37) Alanine Aminotransferase (ALT/SGPT) 27 U/L (14-59) Alkaline Phosphatase 105 U/L (46-116) Troponin I Quantitative < 0.017 ng/mL (0.000-0.055) Total Protein 6.9 g/dL (6.4-8.2) Albumin 3.5 g/dL (3.4-5.0) Albumin/Globulin Ratio 1.0 (1.0-1.7) Glucose (Fingerstick) 347 mg/dL (70-99) 281 mg/dL (70-99) Allergies: Coded Allergies: acetaminophen (Verified Allergy, Severe, Itching, 05/15/17) hydrocodone (Verified Allergy, Severe, Itching, 05/15/17) adhesive tape (Verified Allergy, Intermediate, 05/05/17) vancomycin (Verified Allergy, Intermediate, Itching, rash, 05/05/17) I S O L A T I O N *CONTACT* (Verified Allergy, Unknown, 12/20/16) Medications: Current Medications Medications (Trade) Dose Ordered Sig/Zenon Route PRN Reason Start Time Stop Time Status Last Admin Dose Admin Dexamethasone Sodium Phosphate (Decadron) 10 mg 1X ONCE IV 05/15/17 16:15 05/15/17 16:16 DC 05/15/17 17:00 Albuterol/ Ipratropium (Duoneb) 3 ml 1X ONCE NEB 05/15/17 16:15 05/15/17 16:16 DC 05/15/17 16:25 Albuterol/ Ipratropium (Duoneb) 3 ml 1X ONCE NEB 05/15/17 18:30 05/15/17 18:31 DC 05/15/17 18:32 Morphine Sulfate 4 mg PRN Q2HR PRN IV PAIN 05/15/17 18:45 05/16/17 18:44 05/15/17 23:36 Albuterol/ Ipratropium (Duoneb) 3 ml RTQID NEB 05/15/17 20:00 05/16/17 19:59 05/16/17 08:19 Ceftriaxone Sodium 50 ml @ 100 mls/hr 1X ONCE IV 05/15/17 18:45 05/15/17 19:14 DC 05/15/17 19:07 Azithromycin 250 ml @ 250 mls/hr 1X ONCE IV 05/15/17 18:45 05/15/17 19:44 DC 05/15/17 19:23 Insulin Aspart (NovoLOG) 0-7 UNITS TIDWMEALS SQ 05/16/17 08:00 05/16/17 08:21 Insulin Aspart (NovoLOG) 5 units 1X ONCE SQ 05/15/17 23:00 05/15/17 23:01 DC 05/15/17 23:32 Imaging: Imaging: CXR IMPRESSION: No acute finding. No significant change. PE: GEN: NAD HEENT: Atraumatic, PERRL LUNGS: wheezing HEART: RRR ABD: NABS, S/ND/NT EXTREMITY: No edema SKIN: No rashes, no jaundice NEURO/PSYCH: A & O 3, anxious OTHER: right flank tenderness A/P: A/P: Right flank pain -workup per HPI GERD Diarrhea CRC screen -up to date COPD, SOA, wheezing -per primary Anxiety -- Proceed w/ CTA tomorrow. Monitor diarrhea - C Diff is ordered. Continue PPI + Carafate. Will review records of recent colonoscopy w/ our office. Update: Colonoscopy was normal except for hemorrhoids. ROMÁN QUIROZ May 16, 2017 11:40
[2017-05-16] MEDS: PANTOPRAZOLE 40 MG TABLET.DR. PO SCH (11:59)
[2017-05-16] MEDS ORDERED: SUCRALFATE 1 GM TABLET. PO SCH (12:00)
[2017-05-16] MEDS: traMADol 50 MG TABLET PO PRN ×2 (12:09→20:52)
[2017-05-16] MEDS: clonazePAM 0.5 MG TABLET PO PRN ×2 (12:09→20:52)
[2017-05-16] MEDS: CITALOPRAM 20 MG TABLET. PO SCH (13:47)
[2017-05-16] MEDS: ASPIRIN CHEWABLE 81 MG TABLET. PO SCH (13:47)
[2017-05-16] MEDS: LOSARTAN POTASSIUM 50 MG TABLET. PO SCH (13:47)
[2017-05-16] MEDS: POTASSIUM CHLORIDE 20 MEQ TABLET.ER. PO SCH (13:48)
[2017-05-16] MEDS: FOLIC ACID 1 MG TABLET. PO SCH (13:48)
[2017-05-16] MEDS: hydroCHLOROthiazide 12.5 MG CAPSULE PO SCH (13:48)
[2017-05-16] MEDS: amLODIPine BESYLATE 5 MG TABLET PO SCH (13:49)
[2017-05-16] MEDS ORDERED: FAMOTIDINE 20 MG TABLET. PO ONE (14:00)
[2017-05-16 15:00] VITALS: BP 135/70
[2017-05-16] MEDS: glipiZIDE 5 MG TABLET PO SCH (17:24)
[2017-05-16] MEDS: SUCRALFATE 1 GM/10 ML ORAL.SUSP. PEG SCH ×2 (17:24→20:44)
[2017-05-16] MEDS: metFORMIN 500 MG TABLET PO SCH (17:25)
[2017-05-16 19:00] VITALS: BP 124/89
[2017-05-16] MEDS: GABAPENTIN 300 MG CAPSULE. PO SCH (20:44)
[2017-05-16] MEDS: MONTELUKAST SODIUM 10 MG TABLET. PO SCH (20:44)
[2017-05-16] MEDS: FAMOTIDINE 20 MG TABLET. PO SCH (20:44)
[2017-05-16] MEDS: LACTOBACILLUS ACIDOPH & BULGAR 1 TABLET. PO SCH (20:44)
[2017-05-16] MEDS: ATORVASTATIN CALCIUM 20 MG TABLET PO SCH (20:44)
--- NOTE | 2017-05-16 22:49 | HP ---
ADMIT DATE: 05/15/2017 HISTORY OF PRESENT ILLNESS: This is a 67-year-old white female who I saw in the Emergency Room on the night of 05/15/2017. She had called the office earlier stating that she is having severe trouble breathing and at first requested direct admission. However, because I had not seen her for several days, I informed her that I could not directly admit her, that she would need to go to the Emergency Room. She came into the Emergency Room. She was wheezing. She was given albuterol treatment and IV Solu-Medrol. With this, she felt better. A chest x-ray was unremarkable. She was thus hospitalized. This is one of many, many admissions for exacerbation of her COPD. Unfortunately, she continues to smoke about a pack of cigarettes a day. She had a big problem with alcoholism and had to have counseling and acute admissions for this in several places. She has finally conquered her alcoholism and has not taken any alcohol for more than a year. However, she is still having problems with smoking. She has had hypertension, coronary artery disease. She has had no chest pain. She has dyslipidemia. She has diabetes mellitus. MEDICATIONS: Are as listed. PHYSICAL EXAMINATION: GENERAL: She was short of breath. VITAL SIGNS: The heart rate was 80 per minute and regular. She was afebrile. The blood pressure is 130/80. RESPIRATORY: She had bilateral inspiratory and expiratory wheezing. Her oxygen saturation was 97% on room air. HEART: Heart sounds are normal with no murmur or gallop. ABDOMEN: Soft. EXTREMITIES: There is no edema of the legs. IMPRESSION: 1. Chronic obstructive pulmonary disease with exacerbation. 2. Severe anxiety. 3. Continued smoking. 4. Hypertension. 5. Diabetes mellitus. 6. Coronary artery disease. We will hospitalize her and have Pulmonary see her. We will continue with IV Solu-Medrol, the dose of which will be guided by the felt tipping machine tender. She does have high blood sugar with steroids and while she is in the hospital, we will try to control it with sliding scale insulin. Her oral antidiabetic agents will be continued. ROSSANA CAMPO MD DR: TONE/tramaine JOB#: [id number] / [id number]
[2017-05-16 23:00] VITALS: BP 113/88
[2017-05-17 03:38] VITALS: BP 128/76
[2017-05-17 07:00] VITALS: BP 128/88
[2017-05-17] MEDS: SUCRALFATE 1 GM/10 ML ORAL.SUSP. PEG SCH ×4 (07:30→21:54)
[2017-05-17] MEDS: glipiZIDE 5 MG TABLET PO SCH ×2 (07:30→16:05)
[2017-05-17] MEDS: PANTOPRAZOLE 40 MG TABLET.DR. PO SCH (07:30)
[2017-05-17] MEDS: INSULIN ASPART 300 UNITS/3 ML INSULN.PEN SQ SCH ×3 (07:31→16:42)
[2017-05-17] MEDS: metFORMIN 500 MG TABLET PO SCH (07:31)
[2017-05-17] MEDS ORDERED: IOHEXOL 300 MG/ML 100ML VIAL. IV ONE (09:00)
[2017-05-17] MEDS ORDERED: CONTRAST GIVEN MC PRN (09:15)
[2017-05-17] MEDS: traMADol 50 MG TABLET PO PRN (09:16)
[2017-05-17] MEDS ORDERED: IOHEXOL 300 MG/ML 75 ML VIAL IV ONE (09:30)
[2017-05-17] MEDS: POTASSIUM CHLORIDE 20 MEQ TABLET.ER. PO SCH (10:25)
[2017-05-17] MEDS: LACTOBACILLUS ACIDOPH & BULGAR 1 TABLET. PO SCH ×2 (10:25→21:55)
[2017-05-17] MEDS: amLODIPine BESYLATE 5 MG TABLET PO SCH (10:26)
[2017-05-17] MEDS: CITALOPRAM 20 MG TABLET. PO SCH (10:26)
[2017-05-17] MEDS: FOLIC ACID 1 MG TABLET. PO SCH (10:26)
[2017-05-17] MEDS: FAMOTIDINE 20 MG TABLET. PO SCH ×2 (10:26→21:58)
[2017-05-17] MEDS: hydroCHLOROthiazide 12.5 MG CAPSULE PO SCH (10:26)
[2017-05-17] MEDS: ASPIRIN CHEWABLE 81 MG TABLET. PO SCH (10:27)
[2017-05-17] MEDS: LOSARTAN POTASSIUM 50 MG TABLET. PO SCH (10:27)
--- NOTE | 2017-05-17 10:55 | RAD ---
Indication abdominal pain. CTA targeted to the abdominal aorta was performed. Approximately 75 cc of Omnipaque 300 was administered intravenously.. No oral contrast was administered for this exam. Residual contrast is seen in the large bowel compatible with the small bowel series study 8 days ago. Volume rendered images were generated and reviewed. Note is made of a previous CT examination of the abdomen and pelvis 15 days ago. The lung bases are unremarkable. The liver and spleen appear unremarkable. Clips are noted in the gallbladder fossa. The pancreas adrenal glands and kidneys appear normal. No acute finding in the abdomen is seen. In the pelvis multiple colonic diverticula are seen. Active inflammation is not seen. No acute finding is apparent. There is heavy plaquing of the abdominal aorta. There is no aneurysm. The celiac and SMA are patent but there is likely at least mild narrowing at the origin of both of these vessels. Accurate assessment for narrowing is compromised by virtue of the heavy plaquing. The DOV is patent. There are single main renal arteries bilaterally which are patent. There is likely at least moderate narrowing at the origins of both. There is moderate narrowing associated with the right common iliac artery. Both internal and external iliac arteries are patent. Plaquing is seen associated with both common femoral arteries. Both common femoral arteries bifurcate unremarkably. IMPRESSION: No acute finding seen in the abdomen or pelvis. Moderately extensive colonic diverticulosis. Heavy plaquing of the abdominal aorta with scattered areas of at least moderate stenosis, as outlined above, associated with some of the major vessels off the aorta PQRS Compliance Statement: One or more of the following individualized dose reduction techniques were utilized for this examination: 1. Automated exposure control 2. Adjustment of the mA and/or kV according to patient size 3. Use of iterative reconstruction technique
[2017-05-17 11:00] VITALS: BP 105/67
--- NOTE | 2017-05-17 12:54 | PDOC ---
Subjective: Subjective: Pain the same, RN calling primary for more pain meds. Eating okay. Had some more diarrhea. Anxiety better. Objective: Vital Signs: Vital Signs Date Time Temp Pulse Resp B/P (MAP) Pulse Ox O2 Delivery O2 Flow Rate FiO2 05/17/17 11:00 98.5 71 19 105/67 (80) 94 Room Air 98.5 Labs: Laboratory Tests Test 05/16/17 17:21 05/16/17 20:54 05/17/17 07:38 05/17/17 11:45 Glucose (Fingerstick) 249 mg/dL 81 mg/dL 151 mg/dL 225 mg/dL Imaging: CT angio A/P No oral contrast was administered for this exam. Residual contrast is seen in the large bowel compatible with the small bowel series study 8 days ago. Volume rendered images were generated and reviewed. Note is made of a previous CT examination of the abdomen and pelvis 15 days ago. The lung bases are unremarkable. The liver and spleen appear unremarkable. Clips are noted in the gallbladder fossa. The pancreas adrenal glands and kidneys appear normal. No acute finding in the abdomen is seen. In the pelvis multiple colonic diverticula are seen. Active inflammation is not seen. No acute finding is apparent. There is heavy plaquing of the abdominal aorta. There is no aneurysm. The celiac and SMA are patent but there is likely at least mild narrowing at the origin of both of these vessels. Accurate assessment for narrowing is compromised by virtue of the heavy plaquing. The DOV is patent. There are single main renal arteries bilaterally which are patent. There is likely at least moderate narrowing at the origins of both. There is moderate narrowing associated with the right common iliac artery. Both internal and external iliac arteries are patent. Plaquing is seen associated with both common femoral arteries. Both common femoral arteries bifurcate unremarkably. IMPRESSION: No acute finding seen in the abdomen or pelvis. Moderately extensive colonic diverticulosis. Heavy plaquing of the abdominal aorta with scattered areas of at least moderate stenosis, as outlined above, associated with some of the major vessels off the aorta. PE: GEN: NAD LUNGS: tight HEART: RRR ABD: right flank to RUQ pain NEURO/PSYCH: A & O 3 A/P: Right flank pain COPD exacerbation Diarrhea -C Diff pending -- CTA as above w/ scattered stenosis, patent SMA and celiac w/ mild narrowing at origins. Will review w/ Dr. Hernandez. ROMÁN QUIROZ May 17, 2017 12:54
[2017-05-17] MEDS ORDERED: traMADol 50 MG TABLET PO PRN (14:15)
[2017-05-17] MEDS: clonazePAM 0.5 MG TABLET PO PRN ×2 (14:43→22:01)
[2017-05-17 15:00] VITALS: BP 123/70
--- NOTE | 2017-05-17 15:51 | PDOC2 ---
CONSULT Date of Consult Date of Consult DATE: 05/17/17 TIME: 15:33 Reason for Consult Reason for Consult: SMA/Celiac Stenosis Referring Physician Referring Physician: Dr. Patino Identification/Chief Complaint Chief Complaint "I have had right back pain for four weeks." Source Source: Chart review, Patient History of Present Illness Reason for Visit: 67 year old female with history of COPD, tobaccoism, alcoholism, hypertension, coronary artery disease, diabetes, diverticulitis, cholecystectomy, appendectomy , hysterectomy, CABG, and cardiac stenting admitted for shortness of air and right flank pain. The patient states she has had right back and side pain for approximately four weeks. She describes it as constant and stabbing with minimal relief with pain medication. She reports recent history of diarrhea. She denies nausea or vomitting, constipation, post prandial pain or weight loss. The patient reports recent colonoscopy, small bowel study, and cystoscopy with no abnormal findings. The patient reports bilateral lower extremity calf "cramping" and tingling. She states she can only walk a short distance due to SOA making it difficult to ascertain if this it true claudication, it does appear she has some peripheral neuropathy. Past Medical History Cardiovascular: CHF, HTN Pulmonary: Asthma, Bronchitis, COPD Psych: Anxiety, Addictions, Depression Musculoskeletal: low back pain Renal/: No pertinent hx Past Surgical History Past Surgical History: Appendectomy, Cholecystectomy, CABG, Cystoscopy (carpal tunnel, ankle surgery, cardiac stent placement), Hysterectomy, Other Family History Family History: Alcohol Abuse, Diabetes, Heart Disease Social History 1 pack per day ALCOHOL: other (sober x 9-10 months) Drugs: None Lives: with Family Current Problem List Problem List Problems Medical Problems: (1) Chest pain Status: Acute (2) COPD exacerbation Status: Acute Current Medications Current Medications Current Medications Dexamethasone Sodium Phosphate (Decadron) 10 mg 1X ONCE IV Last administered on 05/15/17 17:00; Start 05/15/17 at 16:15; Stop 05/15/17 at 16:16; Status DC Albuterol/ Ipratropium (Duoneb) 3 ml 1X ONCE NEB Last administered on t 16:25; Start 05/15/17 at 16:15; Stop 05/15/17 at 16:16; Status DC Albuterol/ Ipratropium (Duoneb) 3 ml 1X ONCE NEB Last administered on 18:32; Start 05/15/17 at 18:30; Stop 05/15/17 at 18:31; Status DC Ondansetron HCl (Zofran) 4 mg PRN Q8HRS PRN IV NAUSEA/VOMITING; Start at 18:45; Stop 05/16/17 at 18:44; Status DC Morphine Sulfate 4 mg PRN Q2HR PRN IV PAIN Last administered on 05/15/17 23: 36; Start 05/15/17 at 18:45; Stop 05/16/17 at 18:44; Status DC Acetaminophen (Tylenol) 650 mg PRN Q4HRS PRN PO FEVER; Start 05/15/17 at 18:45 ; Stop 05/16/17 at 18:44; Status DC Albuterol/ Ipratropium (Duoneb) 3 ml RTQID NEB Last administered on 05/16/17 15:35; Start 05/15/17 at 20:00; Stop 05/16/17 at 19:59; Status DC Ceftriaxone Sodium 50 ml @ 100 mls/hr 1X ONCE IV Last administered on 19:07; Start 05/15/17 at 18:45; Stop 05/15/17 at 19:14; Status DC Azithromycin 250 ml @ 250 mls/hr 1X ONCE IV Last administered on 05/15/17 19:23; Start 05/15/17 at 18:45; Stop 05/15/17 at 19:44; Status DC Tramadol HCl (Ultram) 50 mg PRN Q6HRS PRN PO PAIN Last administered on 09:16; Start 05/15/17 at 20:30; Stop 05/17/17 at 14:10; Status DC Clonazepam (KlonoPIN) 0.5 mg PRN Q6HRS PRN PO ANXIETY / AGITATION Last administered on 05/17/17 14:43; Start 05/15/17 at 20:30 Insulin Aspart (NovoLOG) 0-7 UNITS TIDWMEALS SQ Last administered on 12:22; Start 05/16/17 at 08:00 Dextrose (Dextrose 50%-Water Syringe) 12.5 gm PRN Q15MIN PRN IV SEE COMMENTS; Start 05/15/17 at 23:00 Insulin Aspart (NovoLOG) 5 units 1X ONCE SQ Last administered on 05/15/17 23 :32; Start 05/15/17 at 23:00; Stop 05/15/17 at 23:01; Status DC Pantoprazole Sodium (Protonix) 40 mg DAILYAC PO Last administered on 11:59; Start 05/16/17 at 12:00 Sucralfate (Carafate) 1 gm TIDAC PO Last administered on 05/16/17 11:58; Start 05/16/17 at 12:00; Stop 05/16/17 at 13:20; Status DC Amlodipine Besylate (Norvasc) 5 mg DAILY PO Last administered on 05/17/17 10: 26; Start 05/16/17 at 14:00 Aspirin (Children'S Aspirin) 81 mg DAILYWBKFT PO Last administered on 10:27; Start 05/16/17 at 14:00 Atorvastatin Calcium (Lipitor) 20 mg QHS PO Last administered on 05/16/17 20: 44; Start 05/16/17 at 21:00 Citalopram Hydrobromide (CeleXA) 20 mg DAILY PO Last administered on 10:26; Start 05/16/17 at 14:00 Folic Acid (Folic Acid) 1 mg DAILY PO Last administered on 05/17/17 10:26; Start 05/16/17 at 14:00 Gabapentin (Neurontin) 300 mg HS PO Last administered on 05/16/17 20:44; Start 05/16/17 at 21:00 Glipizide (Glucotrol) 5 mg BIDBFRMEAL PO Last administered on 05/16/17 17:24 ; Start 05/16/17 at 16:30 Hydrochlorothiazide (Microzide) 12.5 mg DAILY PO Last administered on 10:26; Start 05/16/17 at 14:00 Lactobacillus Acidophilus (Bacid, Ikzzy-Bid) 1 tab BID PO Last administered on 05/17/17 10:25; Start 05/16/17 at 21:00 Metformin HCl (Glucophage) 500 mg BIDWMEALS PO Last administered on 05/16/17 17:25; Start 05/16/17 at 17:00; Stop 05/17/17 at 08:59; Status DC Losartan Potassium (Cozaar) 50 mg DAILY PO Last administered on 05/17/17 10: 27; Start 05/16/17 at 14:00 Montelukast Sodium (Singulair) 10 mg QHS PO Last administered on 05/16/17 20: 44; Start 05/16/17 at 21:00 Potassium Chloride (Klor-Con) 20 meq DAILYWBKFT PO Last administered on 10:25; Start 05/16/17 at 14:00 Famotidine (Pepcid) 20 mg 1X ONCE PO Last administered on 05/16/17 13:49; Start 05/16/17 at 14:00; Stop 05/16/17 at 14:01; Status DC Famotidine (Pepcid) 20 mg BID PO Last administered on 05/17/17 10:26; Start 05/16/17 at 21:00 Sucralfate (Carafate) 1 gm QIDACHS PEG Last administered on 05/17/17 10:25; Start 05/16/17 at 16:30 Iohexol (Omnipaque 300 Mg/ml) 100 ml 1X ONCE IV ; Start 05/17/17 at 09:00; Stop 05/17/17 at 09:01; Status DC Metformin HCl (Glucophage) 500 mg BIDWMEALS PO ; Start 05/19/17 at 17:00 Info (Do NOT chart on this entry -- for MONITORING) 1 each PRN DAILY PRN MC SEE COMMENTS; Start 05/17/17 at 09:15; Stop 05/19/17 at 09:14 Iohexol (Omnipaque 300 Mg/ml) 75 ml 1X ONCE IV Last administered on 09:59; Start 05/17/17 at 09:30; Stop 05/17/17 at 09:31; Status DC Tramadol HCl (Ultram) 100 mg PRN Q6HRS PRN PO PAIN Last administered on 14:33; Start 05/17/17 at 14:15 Active Scripts Active Percocet 5-325 Mg Tablet (Oxycodone/Acetaminophen) 1 Each Tablet 1 Tab PO PRN Q6HRS PRN Reported [Alprazolam] Mg PO Q8HRS PRN Gabapentin 300 Mg Capsule 300 Mg PO HS Probiotic (Lactobacillus Combination No.4) 1 Each Capsule 1 Each PO DAILY Acid Social Security Specialist (Ranitidine Hcl) 150 Mg Tablet 150 Mg PO DAILY [Multi Vitamin] 1 Tab PO DAILY [Fentanyl Patch] Mcg TP Q3DAYS Aspirin 81 Mg Tab.chew 1 Tab PO BID [Escitalopram] 10 Mg PO DAILY Clonazepam 0.5 Mg Tablet 1 Tab PO Q6HRS Calcium Carbonate 500 Mg Tablet 500 Mg PO BID Atorvastatin Calcium 40 Mg Tablet 1 Tab PO DAILY Vitamin D (Cholecalciferol (Vitamin D3)) 50,000 Unit Capsule 50,000 Unit PO WEEKLY Metformin Hcl 500 Mg Tablet 500 Mg PO BID Vitamin B-100 Complex Tablet (Vitamin B Complex/Folic Acid) 0.4 Mg Tablet 0.4 Mg PO Folic Acid 1 Mg Tablet 1 Tab PO DAILY Sucralfate 1 Gm Tablet 1 Tab PO TID Glipizide 5 Mg Tablet 5 Mg PO PRN DAILY PRN [calcium] 600mg BID w meals 600 Mg PO BID NITROGLYCERIN SubLingual (Nitroglycerin) 0.4 Mg Tab.subl 0.4 Mg SL PRN Q5MIN PRN Citalopram Hbr (Citalopram Hydrobromide) 20 Mg Tablet 20 Mg PO DAILY Advair 250-50 Diskus (Fluticasone/Salmeterol) 1 Each Disk.w.dev 1 Inh IH BID Amlodipine Besylate 5 Mg Tablet 1 Tab PO DAILY Losartan Potassium 50 Mg Tablet 1 Tab PO DAILY Trazodone Hcl 100 Mg Tablet 100 Mg PO HS next dose tonight Potassium Chloride 20 Meq Tab.er.prt 1 Tab PO QODAY last dose this am next dose monday Singulair Tablet (Montelukast Sodium) 10 Mg Tablet 10 Mg PO DAILY last dose last evening next dose tonight Duoneb 0.5-3(2.5) Mg/3 Ml (Albuterol/Ipratropium) 3 Ml Ampul.neb 3 Ml IH QID last dose at 1200 Hydrochlorothiazide Tablet (Hydrochlorothiazide) 12.5 Mg Tablet 12.5 Mg PO DAILY last dose this am next dose tomorrow Allergies Allergies: Coded Allergies: acetaminophen (Verified Allergy, Severe, Itching, 05/15/17) hydrocodone (Verified Allergy, Severe, Itching, 05/15/17) adhesive tape (Verified Allergy, Intermediate, 05/05/17) vancomycin (Verified Allergy, Intermediate, Itching, rash, 05/05/17) I S O L A T I O N *CONTACT* (Verified Allergy, Unknown, 12/20/16) ROS Review of System GEN: Denies fever or weight loss HEENT: No blurred vision or sore throat CV: Denies chest pain RESP: Positive shortness of air and dry cough GI: As per HPI, denies post prandial pain : No dysuria or hematuria M/S: As per HPI NEURO: As per HPI, reports decreased sensation and numbness in feet Physical Exam General: Alert, Oriented X3, No acute distress Lungs: Other (Wheezes throughout, diminshed in bases) Heart: Regular rate, Other Abdomen: Normal bowel sounds, Soft, Other (obese, right back tenderness) Extremities: No edema, Other (2+ bilateral radial pulses, 1+ right femoral, 2+ left femoral, 1+ DP, unable to appreciate PT) Skin: No rashes, No breakdown, Other (bilateral medial thigh vein harvest incisions, sternal incision, multiple small abdominal incisions) Neuro: Normal speech, Sensation intact Vitals VITALS Vital Signs Date Time Temp Pulse Resp B/P (MAP) Pulse Ox O2 Delivery O2 Flow Rate FiO2 05/17/17 14:33 94 Room Air 05/17/17 11:00 98.5 71 19 105/67 (80) 98.5 Labs Labs Laboratory Tests Test 05/15/17 15:47 05/15/17 20:40 05/15/17 23:40 05/16/17 03:55 White Blood Count 11.8 x10^3/uL (4.0-11.0) 8.0 x10^3/uL (4.0-11.0) Red Blood Count 4.46 x10^6/uL (3.50-5.40) 4.48 x10^6/uL (3.50-5.40) Hemoglobin 14.0 g/dL (12.0-15.5) 14.1 g/dL (12.0-15.5) Hematocrit 41.5 % (36.0-47.0) 42.0 % (36.0-47.0) Mean Corpuscular Volume 93 fL (79-100) 94 fL (79-100) Mean Corpuscular Hemoglobin 31 pg (25-35) 32 pg (25-35) Mean Corpuscular Hemoglobin Concent 34 g/dL (31-37) 34 g/dL (31-37) Red Cell Distribution Width 14.5 % (11.5-14.5) 14.3 % (11.5-14.5) Platelet Count 221 x10^3/uL (140-400) 221 x10^3/uL (140-400) Neutrophils (%) (Auto) 63 % (31-73) 79 % (31-73) Lymphocytes (%) (Auto) 30 % (24-48) 17 % (24-48) Monocytes (%) (Auto) 6 % (0-9) 4 % (0-9) Eosinophils (%) (Auto) 1 % (0-3) 0 % (0-3) Basophils (%) (Auto) 1 % (0-3) 0 % (0-3) Neutrophils # (Auto) 7.4 x10^3uL (1.8-7.7) 6.3 x10^3uL (1.8-7.7) Lymphocytes # (Auto) 3.5 x10^3/uL (1.0-4.8) 1.3 x10^3/uL (1.0-4.8) Monocytes # (Auto) 0.7 x10^3/uL (0.0-1.1) 0.3 x10^3/uL (0.0-1.1) Eosinophils # (Auto) 0.1 x10^3/uL (0.0-0.7) 0.0 x10^3/uL (0.0-0.7) Basophils # (Auto) 0.1 x10^3/uL (0.0-0.2) 0.0 x10^3/uL (0.0-0.2) Sodium Level 137 mmol/L (136-145) 138 mmol/L (136-145) Potassium Level 4.1 mmol/L (3.5-5.1) 4.5 mmol/L (3.5-5.1) Chloride Level 98 mmol/L (98-107) 100 mmol/L (98-107) Carbon Dioxide Level 31 mmol/L (21-32) 30 mmol/L (21-32) Anion Gap 8 (6-14) 8 (6-14) Blood Urea Nitrogen 12 mg/dL (7-20) 17 mg/dL (7-20) Creatinine 0.7 mg/dL (0.6-1.0) 0.7 mg/dL (0.6-1.0) Estimated GFR (Cockcroft-Gault) 83.7 83.7 BUN/Creatinine Ratio 17 (6-20) Glucose Level 155 mg/dL (70-99) 219 mg/dL (70-99) Lactic Acid Level 1.7 mmol/L (0.4-2.0) Calcium Level 10.0 mg/dL (8.5-10.1) 9.2 mg/dL (8.5-10.1) Total Bilirubin 0.4 mg/dL (0.2-1.0) Aspartate Amino Transf (AST/SGOT) 17 U/L (15-37) Alanine Aminotransferase (ALT/SGPT) 27 U/L (14-59) Alkaline Phosphatase 105 U/L (46-116) Troponin I Quantitative < 0.017 ng/mL (0.000-0.055) Total Protein 6.9 g/dL (6.4-8.2) Albumin 3.5 g/dL (3.4-5.0) Albumin/Globulin Ratio 1.0 (1.0-1.7) Glucose (Fingerstick) 347 mg/dL (70-99) Nasal Screen MRSA (PCR) Negative (Negative) Test 05/16/17 07:41 05/16/17 11:38 05/16/17 17:21 05/16/17 20:54 Glucose (Fingerstick) 281 mg/dL (70-99) 187 mg/dL (70-99) 249 mg/dL (70-99) 81 mg/dL (70-99) Test 05/17/17 07:38 05/17/17 11:45 Glucose (Fingerstick) 151 mg/dL (70-99) 225 mg/dL (70-99) Laboratory Tests Test 05/16/17 17:21 05/16/17 20:54 05/17/17 07:38 05/17/17 11:45 Glucose (Fingerstick) 249 mg/dL (70-99) 81 mg/dL (70-99) 151 mg/dL (70-99) 225 mg/dL (70-99) Images Images CT There is heavy plaquing of the abdominal aorta. There is no aneurysm. The celiac and SMA are patent but there is likely at least mild narrowing at the origin of both of these vessels. Accurate assessment for narrowing is compromised by virtue of the heavy plaquing. The DOV is patent. There are single main renal arteries bilaterally which are patent. There is likely at least moderate narrowing at the origins of both. There is moderate narrowing associated with the right common iliac artery. Both internal and external iliac arteries are patent. Plaquing is seen associated with both common femoral arteries. Both common femoral arteries bifurcate unremarkably. Assessment/Plan Assessment/Plan Impression: Atherosclerosis, with involvement in Aorta, SMA, and Celiac arteries Right Flank Pain SOA-COPD DM CAD-CABG and Coronary Stents HTN Recommendations: The patient has history of atherosclerosis with recent CTA demonstrating atherosclerosis involving Aorto, SMA, and Celiac all which are patent and patent DOV. The patient denies any signs or symptoms of intestinal ischemia. WBC is WNL. She continues to have SOA and right flank pain. Would not recommend any additional vascular interventions at this time related to her intestinal arteries, do not feel that her pain is related to the CTA findings Due to her extensive atherosclerosis and family history of carotid disease would recommend bilateral carotid US. Due to her symptoms of lower extremity calf "cramping" which may be claudication , would continue to monitor and if she develops worsening pain, non-healing ulcers additional studies may be needed. Reviewed history and examination with Dr. Banks he will see patient and make any additional recommendations. Thank you for the opportunity to participate in this patient's care. I agree with the above assessment and recommendation. I personally examined and interviewed the patient and reviewed the CTA of the abdomen and pelvis The risk of diagnostic angiography outweighs the benefit as both SMA and celiac artery fill promptly and there is no poststenotic dilatation, WBC is normal. No symptoms to suggest mesenteric ischemia. She is overweight and does not have intestinal angina. I strongly encouraged her to stop smoking (2 ppd). Will obtain carotid duplex scan. F/u in office for further discussion 3 - 6 mos. KODI HANNAH APRN May 17, 2017 15:51 BAUTISTA BANKS II, MD May 17, 2017 17:24
[2017-05-17 19:00] VITALS: BP 113/71
--- NOTE | 2017-05-17 20:27 | PDOC ---
Provider Note Provider Note Shecontinues have pain in her right flank. She says this is constantly present. The heating pad seems to help. I received a call from the nurse today stating that 50 mg of tramadol was not effective. Have increased to 100 mg. Aetiology of this pain is not clear. Underwent an MRI last time and it was negative so it's probably not a radicular pain. Wheezing is better probably because she does not have access to cigarettes in the hospital. Consult Dr. Parham and probably discharge thereafter. ROSSANA CAMPO MD May 17, 2017 20:27
[2017-05-17] MEDS ORDERED: IPRATRPIUM/ALBUTEROL 0.5/2.5MG 3 ML NEBU. NEB ONE (20:30)
[2017-05-17] MEDS: MONTELUKAST SODIUM 10 MG TABLET. PO SCH (21:54)
[2017-05-17] MEDS: ATORVASTATIN CALCIUM 20 MG TABLET PO SCH (21:55)
[2017-05-17] MEDS: GABAPENTIN 300 MG CAPSULE. PO SCH (21:55)
[2017-05-17] MEDS: methylPREDNISolone SOD SUCC PF 40 MG/ML VIAL. IV SCH (21:55)
[2017-05-17 23:12] VITALS: BP 109/68
[2017-05-18 03:00] VITALS: BP 129/81
[2017-05-18] MEDS: SUCRALFATE 1 GM/10 ML ORAL.SUSP. PEG SCH (06:06)
[2017-05-18] MEDS: PANTOPRAZOLE 40 MG TABLET.DR. PO SCH (06:07)
[2017-05-18 07:25] VITALS: BP 112/78
[2017-05-18] MEDS ORDERED: IPRATRPIUM/ALBUTEROL 0.5/2.5MG 3 ML NEBU. NEB SCH (08:00)
[2017-05-18] MEDS: LACTOBACILLUS ACIDOPH & BULGAR 1 TABLET. PO SCH (08:22)
[2017-05-18] MEDS: ASPIRIN CHEWABLE 81 MG TABLET. PO SCH (08:22)
[2017-05-18] MEDS: FAMOTIDINE 20 MG TABLET. PO SCH (08:22)
[2017-05-18] MEDS: glipiZIDE 5 MG TABLET PO SCH (08:22)
[2017-05-18] MEDS: LOSARTAN POTASSIUM 50 MG TABLET. PO SCH (08:22)
[2017-05-18] MEDS: methylPREDNISolone SOD SUCC PF 40 MG/ML VIAL. IV SCH (08:22)
[2017-05-18] MEDS: FOLIC ACID 1 MG TABLET. PO SCH (08:22)
[2017-05-18] MEDS: hydroCHLOROthiazide 12.5 MG CAPSULE PO SCH (08:22)
[2017-05-18] MEDS: CITALOPRAM 20 MG TABLET. PO SCH (08:22)
[2017-05-18] MEDS: amLODIPine BESYLATE 5 MG TABLET PO SCH (08:23)
[2017-05-18] MEDS: POTASSIUM CHLORIDE 20 MEQ TABLET.ER. PO SCH (08:23)
[2017-05-18] MEDS: INSULIN ASPART 300 UNITS/3 ML INSULN.PEN SQ SCH (08:31)
--- NOTE | 2017-05-18 08:33 | RAD ---
EXAM: Carotid Doppler sonogram. HISTORY: Atherosclerosis, coronary artery disease, hypertension, diabetes, smoking history. TECHNIQUE: Colon scale and color Doppler sonographic evaluation of the neck with spectral waveform analysis was performed and static images are submitted for review. FINDINGS: RIGHT: The peak systolic velocity within the common carotid artery is 71 cm/sec. The peak systolic velocity within the internal carotid artery is 105 cm/sec and the end diastolic velocity within the internal carotid artery is 33 cm/sec. The ICA/CCA ratio is 1.48. Grayscale images demonstrate there is scattered mostly calcified plaquing throughout without clear grayscale stenosis. LEFT: The peak systolic velocity within the common carotid artery is 82 cm/sec. The peak systolic velocity within the internal carotid artery is 140 cm/sec and the end diastolic velocity within the internal carotid artery is 38 cm/sec. The ICA/CCA ratio is 1.81. Grayscale images demonstrate there is calcified and noncalcified plaque throughout with luminal narrowing along the proximal internal carotid artery. There is normally directed flow within the right vertebral artery. The left vertebral artery is not visualized and may be diminutive or occluded. IMPRESSION: 1. 50-69% stenosis within the left proximal internal carotid artery. 2. The left vertebral artery is not visualized and may be diminutive or occluded. PQRS Compliance Statement - Stenosis calculations for CT, MR and conventional angiography are based upon measurement of the distal ICA diameter in accordance with the NASCET methodology. Stenosis calculations for carotid ultrasound studies are derived from validated velocity criteria which are known to correlate with the NASCET methodology.
[2017-05-18 10:30] VITALS: BP 134/77
--- NOTE | 2017-05-18 11:56 | PDOC ---
Subjective: Subjective: Seen prior to discharge, feeling better and ready to leave. Objective: Vital Signs: Vital Signs Date Time Temp Pulse Resp B/P (MAP) Pulse Ox O2 Delivery O2 Flow Rate FiO2 05/18/17 10:30 98.4 83 18 134/77 (96) 95 Room Air 98.4 Labs: Laboratory Tests Test 05/17/17 16:34 05/17/17 20:57 Glucose (Fingerstick) 89 mg/dL (70-99) 187 mg/dL (70-99) PE: GEN: NAD, dressed and ready to leave NEURO/PSYCH: A&O x 3 A/P: Right flank pain -CTA w/ scattered stenosis -vascular surgery, no concern for mesenteric ischemia, plans for f/u in 3-6 months COPD exacerbation -- Follow-up w/ GI PRN. ROMÁN QUIROZ May 18, 2017 11:56
--- NOTE | 2017-05-19 01:15 | CONS ---
DATE OF CONSULTATION: 05/18/2017 ATTENDING PHYSICIAN: Dr. Patino. The patient was seen at the request of Dr. Patino for rehab evaluation. HISTORY OF PRESENT ILLNESS: This is a 67-year-old female, known to me in the past. The patient was admitted through the Emergency Room on 05/15/2017 with difficulty breathing. The patient since admission was treated for pneumonia and exacerbation of her chronic obstructive pulmonary disease. The patient continues to smoke about a pack of cigarettes per day. She also had a big problem with alcoholism and she finally conquered alcoholism in the last one year, still having problem with smoking. Also with known hypertension, coronary artery disease, dyslipidemia and diabetes mellitus. The patient admits back pain without any radiation. She denies any numbness, tingling sensation in the extremities. She had since admission radiological studies. Chest x-ray failed to reveal any acute abnormalities. Pelvic and abdomen CTA revealed moderately extensive colonic diverticulosis, heavy plaquing of the abdominal aorta with scattered areas of at least moderate stenosis, associated with some of the major vessels of the aorta. Carotid Doppler studies revealed about 50% to 69% stenosis of the left proximal internal carotid artery. Left vertebral artery is not visualized and maybe diminutive or occluded. THE PATIENT IS KNOWN ALLERGIC TO TYLENOL, ADHESIVE TAPE, HYDROCODONE AND VANCOMYCIN. She has been taking tramadol to help ease her pain. PHYSICAL EXAMINATION: Today revealed an elderly female. She is alert and oriented to time, place, person and circumstance and follows commands appropriately. Moves all 4 extremities voluntarily, where she had 4+/5 grade muscle strength and deep tendon reflexes are decreased overall. She had equal perception of touch and pinprick sensation bilaterally. She had tenderness to palpation over lower thoracic and upper lumbar spine and adjoining paraspinal muscles. Straight leg raising test is negative bilaterally. She is independent with bed mobility and transfers and she can get up and walk without much difficulty. ASSESSMENT: The patient with subacute thoracolumbar sprain, without any clinical evidence of ongoing thoracic or lumbar radiculopathy. The patient with recent exacerbation of chronic obstructive pulmonary disease and also coronary artery disease and dyslipidemia. RECOMMENDATIONS: I have instructed her in a home program of physical modalities, trigger point massage and relax stretching exercises and reviewed with her proper body mechanics. I have suggested outpatient physical therapy, but she would like to take care of herself first. Dr. Patino, I appreciate asking me to participate in the care of this interesting patient. I will be glad to follow her with you as needed for her rehabilitation. KY SALGUERO MD DR: REYNA/tramaine JOB#: [id number] / [id number]
[2017-05-19] MEDS ORDERED: metFORMIN 500 MG TABLET PO SCH (17:00)
== END 2017-05-18 11:20 | disposition home or self-care (01) ==
LOC: ER 14:48 → INTOOBSV 18:24 → OBSVTOIN 18:24 → 5 NORTH 18:24
PROVIDERS: ADMIT Specialist; ATTEND Specialist
DX: J44.1 Chronic obstructive pulmonary disease with (acute) exacerbation (principal); F41.9 Anxiety disorder, unspecified; I25.10 Atherosclerotic heart disease of native coronary artery without angina pectoris; I10 Essential (primary) hypertension; F17.210 Nicotine dependence, cigarettes, uncomplicated; E78.5 Hyperlipidemia, unspecified; R19.7 Diarrhea, unspecified; I70.0 Atherosclerosis of aorta; K21.9 Gastro-esophageal reflux disease without esophagitis; M19.90 Unspecified osteoarthritis, unspecified site; F32.9 Major depressive disorder, single episode, unspecified; Z86.718 Personal history of other venous thrombosis and embolism; Z90.49 Acquired absence of other specified parts of digestive tract; Z90.710 Acquired absence of both cervix and uterus; Z95.1 Presence of aortocoronary bypass graft
CPT/HCPCS: 36415; 71020; 74174; 80048; 80053; 82962; 83605; 84484; 85025; 87040; 87324; 87641; 93005; 93880; 94250; 94640; 96365; 96372; 96375; 96376; 99285; G0378; J0456; J0690; J1100; J1815; J2270; J2920; J7620; Q9967; G0379

== ENCOUNTER 2017-07-21 10:24 | Inpatient (IN) | payer MEDICARE ==
[~2017-07-21] VITALS: Ht 160 cm; Wt 87.6 kg
[~2017-07-21 10:24] MED LIST changes: +ASPI-630 PO; +Alprazolam PO; +Escitalopram PO; +Fentanyl Patch TP; +GABA-586 PO; +LACT1CAP25 PO; +Multi Vitamin PO; +RANI-275 PO
[2017-07-21] MEDS ORDERED: IPRATRPIUM/ALBUTEROL 0.5/2.5MG 3 ML NEBU. NEB ONE (11:00)
[2017-07-21 11:14] LABS: BASO % 0 % (0-3); EOS % 0 % (0-3); HEMATOCRIT 42.3 % (36.0-47.0); HEMOGLOBIN 14.2 g/dL (12.0-15.5); LYMPH # 1.3 x10^3/uL (1.0-4.8); LYMPH % 12 % (24-48); MEAN CORPUSCULAR HEMOGLOBIN 32 pg (25-35); MEAN CORPUSCULAR HGB CONC 34 g/dL (31-37); MEAN CORPUSCULAR VOLUME 96 fL (79-100); MONO % 7 % (0-9); NEUT % 80 % (31-73); PLATELET COUNT 201 x10^3/uL (140-400); RED BLOOD COUNT 4.43 x10^6/uL (3.50-5.40); RED CELL DISTRIBUTION WIDTH 13.1 % (11.5-14.5); WHITE BLOOD COUNT 10.5 x10^3/uL (4.0-11.0)
--- NOTE | 2017-07-21 11:19 | EKG ---
[facility] [address] [place] [address] Test Date: 2017-07-21 Test Time: 11:17:54 Pat Name: CECILIA HEAD Department: Room: Gender: F Therapist'S Assistant: TW : 1950 Requested By: CHANA GONSALES Order Number: [id number] Reading MD: Russ Mckeon Measurements Intervals Forsan Rate: 95 P: -11 SC: 152 QRS: 21 QRSD: 96 T: 87 QT: 370 QTc: 468 Interpretive Statements SINUS RHYTHM T ABNORMALITY IN HIGH LATERAL LEADS ABNORMAL ECG Electronically Signed On 08-03-2017 16:25:35 BUILDING ARCHITECTURAL DESIGNER by Russ Mckeon
--- NOTE | 2017-07-21 11:28 | RAD ---
Indication: Shortness of air and wheezing. Time of exam 11:13 AM Correlation is made with prior study from 07/19/2017. The heart size is stable. There are changes of median sternotomy. No infiltrate is detected. No effusion or pneumothorax is seen. Impression: No acute cardiopulmonary process is detected.
[2017-07-21 11:30] LABS: CALCIUM 8.8 mg/dL (8.5-10.1); CREATININE 0.8 mg/dL (0.6-1.0); GFR 71.8; POTASSIUM 3.9 mmol/L (3.5-5.1)
[2017-07-21 11:38] LABS: ALBUMIN 3.6 g/dL (3.4-5.0); DIRECT BILIRUBIN 0.1 mg/dL (0.0-0.2); TOTAL BILIRUBIN 0.3 mg/dL (0.2-1.0); TOTAL PROTEIN 7.1 g/dL (6.4-8.2)
--- NOTE | 2017-07-21 13:48 | PHYS DOC ---
Past Medical History Past Medical History: Asthma, Bronchitis, CAD, CHF, COPD, Diabetes-Type II, High Cholesterol, Heart Disease, Hypertension, [place], Pneumonia, Other Additional Past Medical Histor: EMPHYSEMA,SUICIDAL IDEATION,ETOH ABUSE Past Surgical History: Angioplasty, Appendectomy, Cholecystectomy, Coronary Bypass Surgery, Hysterectomy, Other Additional Past Surgical Histo: carpal tunnel, L) shattered ankle with surgical repair; cardiac stents Additional Information: 1 PPD Alcohol Use: Sober Drug Use: None Adult General Chief Complaint Chief Complaint: SHORTNESS OF BREATH HPI HPI 67-year-old female presenting to the emergency department today with worsening shortness of breath. She reports recently being discharged from the hospital and having worsening shortness of breath. She has a history of COPD. She denies unilateral leg swelling. She denies hemoptysis. She is tried her nebulizer at home with mild relief. She denies fevers or changes in her sputum production. Onset 2 days. Location lungs. Duration intermittent. Review of systems is negative for abdominal pain nausea vomiting fevers or chills. All other review of systems is negative unless otherwise noted in history of present illness. ED course: 67-year-old female presenting to the emergency department today with worsening shortness of breath. Afebrile with mild tachycardia on examination, she is wheezing bilaterally with prolonged expiratory phase. She was given a nebulizer and IV corticosteroids and admitted for COPD exacerbation. CT angiography ordered at the time of admission which admitting doctor will follow- up on. Dr. Mccoy accepts the patient for admission. I have assessed this patient clinically and believe that their condition requires an admission to the hospital. After consulting the admitting physician about this case, they have asked that I admit this patient to their service as an inpatient based on the clinical presentation and my impression. Review of Systems Review of Systems SEE ABOVE. Current Medications Current Medications Current Medications Medications (Trade) Dose Ordered Sig/Zenon Start Time Stop Time Status Last Admin Dose Admin Albuterol/ Ipratropium (Duoneb) 3 ml 1X ONCE 07/21/17 11:00 07/21/17 11:01 DC 07/21/17 11:23 3 ML Allergies Allergies Allergies Coded Allergies Type Severity Reaction Last Updated Verified acetaminophen Allergy Severe Itching 05/15/17 Yes hydrocodone Allergy Severe Itching 05/15/17 Yes adhesive tape Allergy Intermediate 05/05/17 Yes vancomycin Allergy Intermediate Itching, rash 05/05/17 Yes I S O L A T I O N *CONTACT* Allergy Unknown 12/20/16 Yes Physical Exam Physical Exam SEE ABOVE Constitutional: Well developed, well nourished, no acute distress, non-toxic appearance. [] HENT: Normocephalic, atraumatic, bilateral external ears normal, oropharynx moist, no oral exudates, nose normal. [] Eyes: PERRLA, EOMI, conjunctiva normal, no discharge. [] Neck: Normal range of motion, no tenderness, supple, no stridor. [] Cardiovascular:Heart rate regular rhythm, no murmur [] Lungs & Thorax: SEE ABOVE Abdomen: Bowel sounds normal, soft, no tenderness, no masses, no pulsatile masses. [] Skin: Warm, dry, no erythema, no rash. [] Back: No tenderness, no CVA tenderness. [] Extremities: No tenderness, no cyanosis, no clubbing, ROM intact, no edema. [] Neurologic: Alert and oriented X 3, normal motor function, normal sensory function, no focal deficits noted. [] Psychologic: Affect normal, judgement normal, mood normal. [] Current Patient Data Vital Signs Vital Signs Date Time Temp Pulse Resp B/P (MAP) Pulse Ox O2 Delivery O2 Flow Rate FiO2 07/21/17 11:24 95 Room Air 07/21/17 10:35 98.1 100 28 156/90 (112) 98.1 Lab Values Laboratory Tests Test 07/21/17 11:00 White Blood Count 10.5 x10^3/uL (4.0-11.0) Red Blood Count 4.43 x10^6/uL (3.50-5.40) Hemoglobin 14.2 g/dL (12.0-15.5) Hematocrit 42.3 % (36.0-47.0) Mean Corpuscular Volume 96 fL (79-100) Mean Corpuscular Hemoglobin 32 pg (25-35) Mean Corpuscular Hemoglobin Concent 34 g/dL (31-37) Red Cell Distribution Width 13.1 % (11.5-14.5) Platelet Count 201 x10^3/uL (140-400) Neutrophils (%) (Auto) 80 % (31-73) H Lymphocytes (%) (Auto) 12 % (24-48) L Monocytes (%) (Auto) 7 % (0-9) Eosinophils (%) (Auto) 0 % (0-3) Basophils (%) (Auto) 0 % (0-3) Neutrophils # (Auto) 8.4 x10^3uL (1.8-7.7) H Lymphocytes # (Auto) 1.3 x10^3/uL (1.0-4.8) Monocytes # (Auto) 0.7 x10^3/uL (0.0-1.1) Eosinophils # (Auto) 0.0 x10^3/uL (0.0-0.7) Basophils # (Auto) 0.0 x10^3/uL (0.0-0.2) Sodium Level 141 mmol/L (136-145) Potassium Level 3.9 mmol/L (3.5-5.1) Chloride Level 102 mmol/L (98-107) Carbon Dioxide Level 30 mmol/L (21-32) Anion Gap 9 (6-14) Blood Urea Nitrogen 17 mg/dL (7-20) Creatinine 0.8 mg/dL (0.6-1.0) Estimated GFR (Cockcroft-Gault) 71.8 Glucose Level 192 mg/dL (70-99) H Calcium Level 8.8 mg/dL (8.5-10.1) Total Bilirubin 0.3 mg/dL (0.2-1.0) Direct Bilirubin 0.1 mg/dL (0.0-0.2) Aspartate Amino Transferase (AST) 18 U/L (15-37) Alanine Aminotransferase (ALT) 32 U/L (14-59) Alkaline Phosphatase 93 U/L (46-116) Troponin I Quantitative < 0.017 ng/mL (0.000-0.055) TW-Dka-N-Type Natriuretic Peptide 1054 pg/mL (0-124) H Total Protein 7.1 g/dL (6.4-8.2) Albumin 3.6 g/dL (3.4-5.0) Lipase 93 U/L (73-393) Laboratory Tests 07/21/17 11:00 Laboratory Tests 07/21/17 11:00 EKG EKG []Nonischemic changes on EKG. Reviewed by myself. Radiology/Procedures Radiology/Procedures [] Course & Med Decision Making Course & Med Decision Making Pertinent Labs and Imaging studies reviewed. (See chart for details) [] Dragon Disclaimer Dragon Disclaimer This electronic medical record was generated, in whole or in part, using a voice recognition dictation system. Departure Departure Impression: Primary Impression: Acute exacerbation of chronic obstructive pulmonary disease (COPD) Disposition: ADMITTED INPATIENT Admitting Physician: Jude Mccoy Condition: STABLE Referrals: ROSSANA CAMPO MD (PCP) CHANA GONSALES MD Jul 21, 2017 13:48
[2017-07-21] MEDS ORDERED: IOHEXOL 300 MG/ML 100ML VIAL. IV ONE (14:00)
[2017-07-21] MEDS ORDERED: CONTRAST GIVEN MC PRN (14:15)
[2017-07-21] MEDS ORDERED: methylPREDNISolone SOD SUCC PF 125 MG/2 ML VIAL. IV ONE (14:30)
[2017-07-21 15:30] VITALS: BP 154/87
--- NOTE | 2017-07-21 15:41 | RAD ---
CTA of the chest with contrast (pulmonary embolism protocol) 07/21/2017 Clinical History: Shortness of breath.. Technique: After the intravenous administration of 75 mL of Omnipaque 300, contiguous, 0.625 mm axial sections were obtained through the chest. 2 mm reconstructed axial and 3D MIP coronal and sagittal reconstructed images were obtained. One or more of the following individualized dose reduction techniques were utilized for this study: 1. Automated exposure control. 2. Adjustment of the mA and/or kV according to patient size. 3. Use of iterative reconstruction technique. Findings: Comparison study is dated 04/14/2017. No filling defects are seen within the major branches of either pulmonary artery. There is no CT evidence of pulmonary embolism. The patient is post CABG procedure. Atherosclerotic calcification of the thoracic aorta and its branches is noted. Extensive coronary artery calcifications are seen. The thoracic aorta is tortuous but tapers normally. 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 Minimal dependent subsegmental atelectasis is seen involving both lungs. No area of consolidation pneumothorax or pleural effusion is noted. Mild emphysematous changes are seen involving both upper lobes. Impression: There is no CT evidence of pulmonary embolism.
[2017-07-21] MEDS ORDERED: oxyCODONE/APAP 5/325 1 TAB TABLET PO PRN (16:45)
[2017-07-21] MEDS ORDERED: NITROGLYCERIN SUBLINGUAL 0.4 MG BOTTLE OF 25. SL PRN (16:45)
[2017-07-21] MEDS ORDERED: INFLUENZA VAX SCREEN BY RX. MC ONE (16:45)
[2017-07-21] MEDS ORDERED: DEXTROSE 50% 25 GM / 50ML DISP.SYRIN. IV PRN (16:45)
[2017-07-21] MEDS ORDERED: glipiZIDE 5 MG TABLET PO PRN (16:45)
[2017-07-21] MEDS ORDERED: IPRATRPIUM/ALBUTEROL 0.5/2.5MG 3 ML NEBU. IH SCH (17:00)
[2017-07-21] MEDS: INSULIN ASPART 300 UNITS/3 ML INSULN.PEN SQ SCH (17:00)
[2017-07-21] MEDS ORDERED: ZOLPIDEM 5 MG TABLET. PO PRN (17:00)
[2017-07-21] MEDS ORDERED: FLU VACC QS2017-18 (36MOS+)/PF 0.5 ML SYRINGE. VAX IM ONE (17:00)
[2017-07-21] MEDS ORDERED: ALBUTEROL SULFATE 2.5 MG/3 ML NEBU. NEB PRN (17:15)
--- NOTE | 2017-07-21 17:17 | CONS ---
DATE OF CONSULTATION: 07/21/2017 ATTENDING PHYSICIAN: Dr. Mccoy. REASON FOR CONSULTATION: Dyspnea, hypoxia. HISTORY OF PRESENT ILLNESS: The patient is a pleasant 67-year-old female who has been followed by me in the office. She has history of COPD with a strong asthmatic component. She was recently discharged. She presented to the hospital with increasing shortness of breath. She started smoking at home post-discharge. She has a cough which has been nonproductive. No fever, no chills, no chest pain. She has diffuse audible wheezing. She was placed on oxygen at a flow of 2 liters. Saturations are 93%. She had a CTA chest, which was reviewed by me. There was mild dependent subsegmental atelectasis. No consolidation seen and no evidence of any pulmonary embolism. PAST MEDICAL HISTORY: History of COPD with an asthmatic component, history of CAD, CHF, type 2 diabetes, dyslipidemia, hypertension, [place] and pneumonias. Alcohol abuse. Ongoing tobacco use. PAST SURGICAL HISTORY: Angioplasty, appendectomy, cholecystectomy, coronary artery bypass surgery, hysterectomy. ALLERGIES: ACETAMINOPHEN, ADHESIVE TAPE, HYDROCODONE AND VANCOMYCIN. SOCIAL HISTORY: Ongoing tobacco use for many years, at least 30+ years. MEDICATIONS: All reviewed as listed in the MRAD. REVIEW OF SYSTEMS: Twelve-point system obtained. Pertinent positives discussed in my history of present illness, otherwise noncontributory. All systems that were negative were reviewed as well. PHYSICAL EXAMINATION: GENERAL: She appears to have audible wheezing. VITAL SIGNS: Blood pressure 154/87, afebrile, pulse ox 93% on 2 liters. NECK: Supple. LUNGS: Diffuse wheezing. CARDIOVASCULAR: Regular rate. ABDOMEN: Soft. Obese. EXTREMITIES: With trace pitting edema. LABORATORY DATA: Reviewed. White cell count 10.5, hemoglobin is 14.2. Chemistries with a BUN and creatinine normal. ProBNP is 1054. IMPRESSION: 1. Acute hypoxic respiratory failure secondary to acute exacerbation of chronic obstructive pulmonary disease. 2. Diffuse bronchospasm secondary to acute exacerbation of chronic obstructive pulmonary disease in a patient with strong asthmatic component. Ongoing tobaccoism has contributed to her exacerbation. 3. Abnormal CT chest with basilar atelectasis, but no consolidation. 4. History of obstructive sleep apnea with noncompliance in the past with CPAP. RECOMMENDATIONS: 1. Increase DuoNeb to q.4h. with albuterol nebs q.2h. p.r.n. 2. IV Solu-Medrol 60 q.6h. 3. Pulmicort nebulizer treatment. 4. Hold off on antibiotics. 5. Smoking cessation counseling provided. 6. Resume home medications. Discussed with RN. We will follow along with you. JEFF PECK MD DR: VIANNEY/tramaine JOB#: [id number] / [id number]
[2017-07-21] MEDS: MULTIVITAMIN with MINERAL TABLET. PO SCH (17:30)
[2017-07-21] MEDS: hydroCHLOROthiazide 12.5 MG CAPSULE PO SCH (17:30)
[2017-07-21] MEDS: amLODIPine BESYLATE 5 MG TABLET PO SCH (17:30)
[2017-07-21] MEDS: MONTELUKAST SODIUM 10 MG TABLET. PO SCH (17:30)
[2017-07-21] MEDS: CALCIUM CARBONATE 500 MG TABLET PO SCH (17:30)
[2017-07-21 19:32] VITALS: BP 127/84
[2017-07-21] MEDS: BUDESONIDE 0.5 MG/2 ML NEBU. NEB SCH (19:45)
[2017-07-21] MEDS: IPRATRPIUM/ALBUTEROL 0.5/2.5MG 3 ML NEBU. IH SCH (19:45)
[2017-07-21] MEDS ORDERED: BUDESONIDE 0.5 MG/2 ML NEBU. NEB SCH (20:00)
[2017-07-21] MEDS: LACTOBACILLUS RHAMNOSUS GG 1 CAPSULE. PO SCH (20:49)
[2017-07-21] MEDS: ATORVASTATIN CALCIUM 40 MG TABLET. PO SCH (20:50)
[2017-07-21] MEDS: LOSARTAN POTASSIUM 50 MG TABLET. PO SCH (20:50)
[2017-07-21] MEDS: ASPIRIN CHEWABLE 81 MG TABLET. PO SCH (20:50)
[2017-07-21] MEDS: FAMOTIDINE 20 MG TABLET. PO SCH (20:50)
[2017-07-21] MEDS: GABAPENTIN 300 MG CAPSULE. PO SCH (20:50)
[2017-07-21] MEDS: ZOLPIDEM 5 MG TABLET. PO SCH (20:50)
[2017-07-21] MEDS: FOLIC ACID 1 MG TABLET. PO SCH (20:50)
[2017-07-21] MEDS ORDERED: CALCIUM CARBONATE 500 MG TABLET PO SCH (21:00)
[2017-07-21] MEDS ORDERED: traZODone 100 MG TABLET. PO PRN (21:00)
[2017-07-21] MEDS: methylPREDNISolone SOD SUCC PF 125 MG/2 ML VIAL. IV SCH (22:27)
--- NOTE | 2017-07-21 22:31 | HP ---
ADMIT DATE: 07/21/2017 CHIEF COMPLAINT: Shortness of breath, cough and wheezing. HISTORY OF PRESENT ILLNESS: The patient is a pleasant 67-year-old female who continues to smoke. We just discharged her a couple days ago. Once again, she is back in the ER with wheezing, cough, shortness of breath, exertional dyspnea. She clearly has a COPD exacerbation with respiratory failure. She is hypoxic. I discussed the case with ER physician. We are going to admit the patient and consult pulmonary medicine. PAST MEDICAL HISTORY: Noncompliance, COPD, continued tobacco abuse. ALLERGIES: None. FAMILY HISTORY: Diabetes. SOCIAL HISTORY: She smokes. No drinking or drugs. MEDICATIONS: Reviewed. REVIEW OF SYSTEMS: GENERAL: No history of weight change, weakness or fevers. SKIN: No bruising, hair changes or rashes. EYES: No blurred, double or loss of vision. NOSE AND THROAT: No history of nosebleeds, hoarseness or sore throat. HEART: No history of palpitations, chest pain or shortness of breath on exertion. PULMONARY: She complains of shortness of breath, cough and wheezing. GASTROINTESTINAL: Denies changes in appetite, nausea, vomiting, diarrhea or constipation. GENITOURINARY: No history of frequency, urgency, hesitancy or nocturia. NEUROLOGIC: Denies history of numbness, tingling, tremor or weakness. PSYCHIATRIC: No history of panic, anxiety or depression. ENDOCRINE: No history of heat or cold intolerance, polyuria or polydipsia. EXTREMITIES: Denies muscle weakness, joint pain, pain on walking or stiffness. PHYSICAL EXAMINATION: VITAL SIGNS: Temperature afebrile, pulse 100, respirations 20, blood pressure 144/67. GENERAL: She is awake, appears very short of breath. HEART: Distant S1, S2, slightly tachycardic. LUNGS: Diffuse wheezing and diminished. ABDOMEN: Soft, positive bowel sounds. EXTREMITIES: Trace edema. SKIN: No rashes. ENDOCRINE: No thyromegaly. LYMPHATICS: No cervical nodes. HEMATOPOIETIC: No bruising. LABORATORY DATA: Reviewed. Chest x-ray shows COPD. ASSESSMENT AND PLAN: Chronic obstructive pulmonary disease with respiratory failure. The patient is being admitted. We will start IV steroids, breathing treatments, oxygen. Consult Pulmonary Medicine. Continue home medicines, PT, OT. Long-term prognosis guarded. She needs to quit smoking and I told her so. REDL Chandra HANSON DO DR: Mariana JOB#: [id number] / [id number]
[2017-07-22] VITALS (8 sets, daily range): BP systolic 130–178; BP diastolic 78–104
[2017-07-22] MEDS: IPRATRPIUM/ALBUTEROL 0.5/2.5MG 3 ML NEBU. IH SCH ×7 (04:00→23:59)
[2017-07-22] MEDS: methylPREDNISolone SOD SUCC PF 125 MG/2 ML VIAL. IV SCH ×3 (06:23→22:30)
[2017-07-22] MEDS: BUDESONIDE 0.5 MG/2 ML NEBU. NEB SCH ×2 (07:52→19:44)
[2017-07-22] MEDS: INSULIN ASPART 300 UNITS/3 ML INSULN.PEN SQ SCH ×3 (08:21→18:01)
[2017-07-22] MEDS: amLODIPine BESYLATE 5 MG TABLET PO SCH (08:23)
[2017-07-22] MEDS: MONTELUKAST SODIUM 10 MG TABLET. PO SCH (08:23)
[2017-07-22] MEDS: MULTIVITAMIN with MINERAL TABLET. PO SCH (08:23)
[2017-07-22] MEDS: CALCIUM CARBONATE 500 MG TABLET PO SCH ×2 (08:24→17:43)
[2017-07-22] MEDS: SUCRALFATE 1 GM TABLET. PO SCH ×3 (08:24→17:42)
[2017-07-22] MEDS: POTASSIUM CHLORIDE 20 MEQ TABLET.ER. PO SCH (08:24)
[2017-07-22] MEDS: FAMOTIDINE 20 MG TABLET. PO SCH ×2 (08:24→20:32)
[2017-07-22] MEDS: FOLIC ACID 1 MG TABLET. PO SCH (08:24)
[2017-07-22] MEDS: LOSARTAN POTASSIUM 50 MG TABLET. PO SCH (08:25)
[2017-07-22] MEDS: ASPIRIN CHEWABLE 81 MG TABLET. PO SCH ×2 (08:25→20:32)
[2017-07-22] MEDS: hydroCHLOROthiazide 12.5 MG CAPSULE PO SCH (08:25)
[2017-07-22] MEDS: LACTOBACILLUS RHAMNOSUS GG 1 CAPSULE. PO SCH (08:25)
[2017-07-22] MEDS: clonazePAM 0.5 MG TABLET PO PRN (08:40)
[2017-07-22] MEDS ORDERED: ERGOCALCIFEROL (VITAMIN D2) 50,000 UNIT CAPSULE. PO SCH (09:00)
--- NOTE | 2017-07-22 10:25 | PDOC ---
PROGRESS NOTES Chief Complaint Chief Complaint Shortness of breath, wheezing COPD History of Present Illness History of Present Illness Receiving steroids Receicing breathing treatments Bilateral wheezing Pulmonology is following case and adjusting medications VSS Vitals Vitals Vital Signs Date Time Temp Pulse Resp B/P (MAP) Pulse Ox O2 Delivery O2 Flow Rate FiO2 07/22/17 08:25 91 161/88 07/22/17 07:54 95 Nasal Cannula 2.0 07/22/17 07:51 96.6 20 96.6 Physical Exam General: Alert, Oriented X3, Cooperative Heart: Regular rate, Normal S1, Normal S2 Lungs: Wheezing Abdomen: Normal bowel sounds Extremities: No clubbing, No cyanosis Labs LABS Laboratory Tests Test 07/21/17 11:00 07/21/17 16:00 07/21/17 17:22 07/21/17 21:06 White Blood Count 10.5 x10^3/uL (4.0-11.0) Red Blood Count 4.43 x10^6/uL (3.50-5.40) Hemoglobin 14.2 g/dL (12.0-15.5) Hematocrit 42.3 % (36.0-47.0) Mean Corpuscular Volume 96 fL (79-100) Mean Corpuscular Hemoglobin 32 pg (25-35) Mean Corpuscular Hemoglobin Concent 34 g/dL (31-37) Red Cell Distribution Width 13.1 % (11.5-14.5) Platelet Count 201 x10^3/uL (140-400) Neutrophils (%) (Auto) 80 % (31-73) Lymphocytes (%) (Auto) 12 % (24-48) Monocytes (%) (Auto) 7 % (0-9) Eosinophils (%) (Auto) 0 % (0-3) Basophils (%) (Auto) 0 % (0-3) Neutrophils # (Auto) 8.4 x10^3uL (1.8-7.7) Lymphocytes # (Auto) 1.3 x10^3/uL (1.0-4.8) Monocytes # (Auto) 0.7 x10^3/uL (0.0-1.1) Eosinophils # (Auto) 0.0 x10^3/uL (0.0-0.7) Basophils # (Auto) 0.0 x10^3/uL (0.0-0.2) Sodium Level 141 mmol/L (136-145) Potassium Level 3.9 mmol/L (3.5-5.1) Chloride Level 102 mmol/L (98-107) Carbon Dioxide Level 30 mmol/L (21-32) Anion Gap 9 (6-14) Blood Urea Nitrogen 17 mg/dL (7-20) Creatinine 0.8 mg/dL (0.6-1.0) Estimated GFR (Cockcroft-Gault) 71.8 Glucose Level 192 mg/dL (70-99) Calcium Level 8.8 mg/dL (8.5-10.1) Total Bilirubin 0.3 mg/dL (0.2-1.0) Direct Bilirubin 0.1 mg/dL (0.0-0.2) Aspartate Amino Transf (AST/SGOT) 18 U/L (15-37) Alanine Aminotransferase (ALT/SGPT) 32 U/L (14-59) Alkaline Phosphatase 93 U/L (46-116) Troponin I Quantitative < 0.017 ng/mL (0.000-0.055) BN-Zxs-Y-Type Natriuretic Peptide 1054 pg/mL (0-124) Total Protein 7.1 g/dL (6.4-8.2) Albumin 3.6 g/dL (3.4-5.0) Lipase 93 U/L (73-393) Nasal Screen MRSA (PCR) Negative (Negative) Glucose (Fingerstick) 193 mg/dL (70-99) 294 mg/dL (70-99) Test 07/22/17 07:20 Glucose (Fingerstick) 326 mg/dL (70-99) Review of Systems Review of Systems Glucose elevated to 326 Denies abdominal pain Assessment and Plan Assessmemt and Plan Problems Medical Problems: (1) Acute exacerbation of chronic obstructive pulmonary disease (COPD) Status: Acute Assessment Shortness of breath, wheezing COPD Diabetes Plan Continue methylprednisolone, albuterol, and O2 Continue breathing treatments PT/OT Recheck labs Continue home meds, control glucose Appreciate subspecialty Problems: Comment Review of Relevant I have reviewed the following items luis fernando (where applicable) has been applied. Labs Laboratory Tests Test 07/21/17 11:00 07/21/17 16:00 07/21/17 17:22 07/21/17 21:06 White Blood Count 10.5 x10^3/uL (4.0-11.0) Red Blood Count 4.43 x10^6/uL (3.50-5.40) Hemoglobin 14.2 g/dL (12.0-15.5) Hematocrit 42.3 % (36.0-47.0) Mean Corpuscular Volume 96 fL (79-100) Mean Corpuscular Hemoglobin 32 pg (25-35) Mean Corpuscular Hemoglobin Concent 34 g/dL (31-37) Red Cell Distribution Width 13.1 % (11.5-14.5) Platelet Count 201 x10^3/uL (140-400) Neutrophils (%) (Auto) 80 % (31-73) Lymphocytes (%) (Auto) 12 % (24-48) Monocytes (%) (Auto) 7 % (0-9) Eosinophils (%) (Auto) 0 % (0-3) Basophils (%) (Auto) 0 % (0-3) Neutrophils # (Auto) 8.4 x10^3uL (1.8-7.7) Lymphocytes # (Auto) 1.3 x10^3/uL (1.0-4.8) Monocytes # (Auto) 0.7 x10^3/uL (0.0-1.1) Eosinophils # (Auto) 0.0 x10^3/uL (0.0-0.7) Basophils # (Auto) 0.0 x10^3/uL (0.0-0.2) Sodium Level 141 mmol/L (136-145) Potassium Level 3.9 mmol/L (3.5-5.1) Chloride Level 102 mmol/L (98-107) Carbon Dioxide Level 30 mmol/L (21-32) Anion Gap 9 (6-14) Blood Urea Nitrogen 17 mg/dL (7-20) Creatinine 0.8 mg/dL (0.6-1.0) Estimated GFR (Cockcroft-Gault) 71.8 Glucose Level 192 mg/dL (70-99) Calcium Level 8.8 mg/dL (8.5-10.1) Total Bilirubin 0.3 mg/dL (0.2-1.0) Direct Bilirubin 0.1 mg/dL (0.0-0.2) Aspartate Amino Transf (AST/SGOT) 18 U/L (15-37) Alanine Aminotransferase (ALT/SGPT) 32 U/L (14-59) Alkaline Phosphatase 93 U/L (46-116) Troponin I Quantitative < 0.017 ng/mL (0.000-0.055) CO-Ucn-J-Type Natriuretic Peptide 1054 pg/mL (0-124) Total Protein 7.1 g/dL (6.4-8.2) Albumin 3.6 g/dL (3.4-5.0) Lipase 93 U/L (73-393) Nasal Screen MRSA (PCR) Negative (Negative) Glucose (Fingerstick) 193 mg/dL (70-99) 294 mg/dL (70-99) Test 07/22/17 07:20 Glucose (Fingerstick) 326 mg/dL (70-99) Laboratory Tests Test 07/21/17 11:00 07/21/17 16:00 07/21/17 17:22 07/21/17 21:06 White Blood Count 10.5 x10^3/uL (4.0-11.0) Red Blood Count 4.43 x10^6/uL (3.50-5.40) Hemoglobin 14.2 g/dL (12.0-15.5) Hematocrit 42.3 % (36.0-47.0) Mean Corpuscular Volume 96 fL (79-100) Mean Corpuscular Hemoglobin 32 pg (25-35) Mean Corpuscular Hemoglobin Concent 34 g/dL (31-37) Red Cell Distribution Width 13.1 % (11.5-14.5) Platelet Count 201 x10^3/uL (140-400) Neutrophils (%) (Auto) 80 % (31-73) Lymphocytes (%) (Auto) 12 % (24-48) Monocytes (%) (Auto) 7 % (0-9) Eosinophils (%) (Auto) 0 % (0-3) Basophils (%) (Auto) 0 % (0-3) Neutrophils # (Auto) 8.4 x10^3uL (1.8-7.7) Lymphocytes # (Auto) 1.3 x10^3/uL (1.0-4.8) Monocytes # (Auto) 0.7 x10^3/uL (0.0-1.1) Eosinophils # (Auto) 0.0 x10^3/uL (0.0-0.7) Basophils # (Auto) 0.0 x10^3/uL (0.0-0.2) Sodium Level 141 mmol/L (136-145) Potassium Level 3.9 mmol/L (3.5-5.1) Chloride Level 102 mmol/L (98-107) Carbon Dioxide Level 30 mmol/L (21-32) Anion Gap 9 (6-14) Blood Urea Nitrogen 17 mg/dL (7-20) Creatinine 0.8 mg/dL (0.6-1.0) Estimated GFR (Cockcroft-Gault) 71.8 Glucose Level 192 mg/dL (70-99) Calcium Level 8.8 mg/dL (8.5-10.1) Total Bilirubin 0.3 mg/dL (0.2-1.0) Direct Bilirubin 0.1 mg/dL (0.0-0.2) Aspartate Amino Transf (AST/SGOT) 18 U/L (15-37) Alanine Aminotransferase (ALT/SGPT) 32 U/L (14-59) Alkaline Phosphatase 93 U/L (46-116) Troponin I Quantitative < 0.017 ng/mL (0.000-0.055) ZE-Fuv-Q-Type Natriuretic Peptide 1054 pg/mL (0-124) Total Protein 7.1 g/dL (6.4-8.2) Albumin 3.6 g/dL (3.4-5.0) Lipase 93 U/L (73-393) Nasal Screen MRSA (PCR) Negative (Negative) Glucose (Fingerstick) 193 mg/dL (70-99) 294 mg/dL (70-99) Test 07/22/17 07:20 Glucose (Fingerstick) 326 mg/dL (70-99) Medications Current Medications Albuterol/ Ipratropium (Duoneb) 3 ml 1X ONCE NEB Last administered on 11:23; Start 07/21/17 at 11:00; Stop 07/21/17 at 11:01; Status DC Iohexol (Omnipaque 300 Mg/ml) 75 ml 1X ONCE IV Last administered on 15:03; Start 07/21/17 at 14:00; Stop 07/21/17 at 14:03; Status DC Info (Do NOT chart on this entry -- for MONITORING) 1 each PRN DAILY PRN MC SEE COMMENTS; Start 07/21/17 at 14:15; Stop 07/23/17 at 14:14 Methylprednisolone Sodium Succinate (SOLU-Medrol 125MG VIAL) 125 mg 1X ONCE IV Last administered on 07/21/17 15:19; Start 07/21/17 at 14:30; Stop at 14:31; Status DC Info (Do NOT chart on this placeholder) 1 each 1X ONCE MC ; Start 07/21/17 at 16:45; Stop 07/21/17 at 16:46; Status UNV Insulin Aspart (NovoLOG) 0-7 UNITS TIDWMEALS SQ Last administered on 08:21; Start 07/21/17 at 17:00 Dextrose (Dextrose 50%-Water Syringe) 12.5 gm PRN Q15MIN PRN IV SEE COMMENTS; Start 07/21/17 at 16:45 Zolpidem Tartrate (Ambien) 5 mg QHS PO Last administered on 07/21/17 20:50; Start 07/21/17 at 21:00 Influenza Virus Vaccine Quadrival (Fluarix Quad 0899-3111 Syringe) 0.5 ml ONCE ONCE VAX IM ; Start 07/21/17 at 17:00; Stop 07/21/17 at 17:01; Status DC Amlodipine Besylate (Norvasc) 5 mg DAILY PO Last administered on 07/22/17 08: 23; Start 07/21/17 at 17:30 Aspirin (Children'S Aspirin) 81 mg BID PO Last administered on 07/22/17 08:25 ; Start 07/21/17 at 21:00 Atorvastatin Calcium (Lipitor) 40 mg QHS PO Last administered on 07/21/17 20: 50; Start 07/21/17 at 21:00 Calcium Carbonate/ Glycine (Oscal) 500 mg BIDWMEALS PO Last administered on 08:24; Start 07/21/17 at 17:30 Clonazepam (KlonoPIN) 0.5 mg PRN Q6HRS PRN PO ANXIETY Last administered on 08:40; Start 07/21/17 at 18:00 Folic Acid (Folic Acid) 1 mg DAILY PO Last administered on 07/22/17 08:24; Start 07/21/17 at 17:30 Glipizide (Glucotrol) 5 mg PRN DAILY PRN PO SEE COMMENTS; Start 07/21/17 at 16 :45; Status UNV Albuterol/ Ipratropium (Duoneb) 3 ml QID IH ; Start 07/21/17 at 17:00; Stop at 17:07; Status DC Losartan Potassium (Cozaar) 50 mg DAILY PO Last administered on 07/22/17 08: 25; Start 07/21/17 at 17:30 Metformin HCl (Glucophage) 500 mg BIDWMEALS PO ; Start 07/23/17 at 17:00 Montelukast Sodium (Singulair) 10 mg DAILY PO Last administered on 07/22/17 08:23; Start 07/21/17 at 17:30 Nitroglycerin (Nitrostat) 0.4 mg PRN Q5MIN PRN SL CHEST PAIN; Start 07/21/17 at 16:45 Oxycodone/ Acetaminophen (Percocet 5/325) 1 tab PRN Q6HRS PRN PO PAIN MILD TO MOD; Start 07/21/17 at 16:45 Potassium Chloride (Klor-Con) 20 meq QODAY@0800 PO Last administered on 08:24; Start 07/22/17 at 08:00 Sucralfate (Carafate) 1 gm TIDAC PO Last administered on 07/22/17 08:24; Start 07/22/17 at 07:30 Trazodone HCl (Desyrel) 100 mg PRN QHS PRN PO SLEEP; Start 07/21/17 at 21:00 Ergocalciferol (Vitamin D2) 50,000 unit WEEKLY PO ; Start 07/22/17 at 09:00 Budesonide (Pulmicort) 0.5 mg RTBID NEB ; Start 07/21/17 at 20:00; Status Cancel Gabapentin (Neurontin) 300 mg QHS PO Last administered on 07/21/17 20:50; Start 07/21/17 at 21:00 Hydrochlorothiazide (Microzide) 12.5 mg DAILY PO Last administered on 08:25; Start 07/21/17 at 17:30 Lactobacillus Rhamnosus (Culturelle) 1 cap DAILY PO Last administered on 08:25; Start 07/21/17 at 17:30 Famotidine (Pepcid) 20 mg BID PO Last administered on 07/22/17 08:24; Start 07/21/17 at 21:00 Calcium Carbonate/ Glycine (Oscal) 500 mg BID PO ; Start 07/21/17 at 21:00; Status Cancel Multivitamins (Thera M Plus) 1 tab DAILY PO Last administered on 07/22/17 08: 23; Start 07/21/17 at 17:30 Zolpidem Tartrate (Ambien) 5 mg PRN QHS PRN PO INSOMNIA; Start 07/21/17 at 17: 00 Albuterol/ Ipratropium (Duoneb) 3 ml Q4HRS IH Last administered on 07/22/17 07:52; Start 07/21/17 at 20:00 Methylprednisolone Sodium Succinate (SOLU-Medrol 125MG VIAL) 80 mg Q8HRS IV Last administered on 07/22/17 06:23; Start 07/21/17 at 22:00 Budesonide (Pulmicort) 0.5 mg RTBID NEB Last administered on 07/22/17 07:52; Start 07/21/17 at 20:00 Albuterol Sulfate (Ventolin Neb Soln) 2.5 mg PRN Q2HRS PRN NEB DYSPNEA; Start 07/21/17 at 17:15 Active Scripts Active Percocet 5-325 Mg Tablet (Oxycodone/Acetaminophen) 1 Each Tablet 1 Tab PO PRN Q6HRS PRN Reported Gabapentin 300 Mg Capsule 300 Mg PO HS Probiotic (Lactobacillus Combination No.4) 1 Each Capsule 1 Each PO DAILY Acid Arc Furnace Operator (Ranitidine Hcl) 150 Mg Tablet 150 Mg PO DAILY [Multi Vitamin] 1 Tab PO DAILY Aspirin 81 Mg Tab.chew 1 Tab PO BID Clonazepam 0.5 Mg Tablet 1 Tab PO Q6HRS Calcium Carbonate 500 Mg Tablet 500 Mg PO BID Atorvastatin Calcium 40 Mg Tablet 1 Tab PO DAILY Vitamin D (Cholecalciferol (Vitamin D3)) 50,000 Unit Capsule 50,000 Unit PO WEEKLY Metformin Hcl 500 Mg Tablet 500 Mg PO BID Vitamin B-100 Complex Tablet (Vitamin B Complex/Folic Acid) 0.4 Mg Tablet 0.4 Mg PO Folic Acid 1 Mg Tablet 1 Tab PO DAILY Sucralfate 1 Gm Tablet 1 Tab PO TID Glipizide 5 Mg Tablet 5 Mg PO PRN DAILY PRN [calcium] 600mg BID w meals 600 Mg PO BID NITROGLYCERIN SubLingual (Nitroglycerin) 0.4 Mg Tab.subl 0.4 Mg SL PRN Q5MIN PRN Advair 250-50 Diskus (Fluticasone/Salmeterol) 1 Each Disk.w.dev 1 Inh IH BID Amlodipine Besylate 5 Mg Tablet 1 Tab PO DAILY Losartan Potassium 50 Mg Tablet 1 Tab PO DAILY Trazodone Hcl 100 Mg Tablet 100 Mg PO HS next dose tonight Potassium Chloride 20 Meq Tab.er.prt 1 Tab PO QODAY last dose this am next dose monday Singulair Tablet (Montelukast Sodium) 10 Mg Tablet 10 Mg PO DAILY last dose last evening next dose tonight Duoneb 0.5-3(2.5) Mg/3 Ml (Albuterol/Ipratropium) 3 Ml Ampul.neb 3 Ml IH QID last dose at 1200 Hydrochlorothiazide Tablet (Hydrochlorothiazide) 12.5 Mg Tablet 12.5 Mg PO DAILY last dose this am next dose tomorrow Vitals/I & O Vital Sign - Last 24 Hours 07/21/17 07/21/17 07/21/17 07/21/17 10:35 11:12 11:24 11:42 Temp 98.1 98.1 Pulse 100 98 96 Resp B/P (MAP) 156/90 (112) 104/74 (84) 137/84 (101) Pulse Ox 94 95 95 91 O2 Delivery Room Air Room Air Room Air Room Air 07/21/17 07/21/17 07/21/17 07/21/17 12:12 12:42 13:12 13:42 Pulse 100 100 92 94 Resp B/P (MAP) 144/86 (105) 123/86 (98) 97/80 (86) 146/83 (104) Pulse Ox 90 90 93 94 O2 Delivery Room Air Room Air Room Air Room Air 07/21/17 07/21/17 07/21/17 07/21/17 14:12 14:42 15:14 15:30 Temp 97.9 97.9 Pulse 94 88 90 99 Resp 28 25 26 20 B/P (MAP) 162/92 (115) 153/99 (117) 148/85 (106) 154/87 (109) Pulse Ox 95 91 94 93 O2 Delivery Room Air Room Air Room Air Room Air 07/21/17 07/21/17 07/21/17 07/21/17 16:04 19:32 19:45 20:00 Temp 98.2 98.2 Pulse 102 Resp 18 B/P (MAP) 127/84 (98) Pulse Ox 93 95 O2 Delivery Room Air Nasal Cannula Nasal Cannula Nasal Cannula O2 Flow Rate 2.0 2.0 2.0 07/21/17 07/21/17 07/22/17 07/22/17 20:50 23:59 00:45 01:59 Temp 98.1 98.1 Pulse 102 99 Resp 20 B/P (MAP) 127/84 147/100 (116) 178/97 (124) Pulse Ox 94 O2 Delivery Nasal Cannula Nasal Cannula O2 Flow Rate 2.0 07/22/17 07/22/17 07/22/17 07/22/17 03:32 07:51 07:54 07:54 Temp 97.5 96.6 97.5 96.6 Pulse 99 91 Resp 20 20 B/P (MAP) 159/78 (105) 161/88 (112) Pulse Ox 91 94 95 95 O2 Delivery Nasal Cannula Nasal Cannula Nasal Cannula Nasal Cannula O2 Flow Rate 2.0 2.0 2.0 2.0 07/22/17 07/22/17 08:23 08:25 Pulse 91 91 B/P (MAP) 161/88 161/88 Intake and Output 07/21/17 07/21/17 07/22/17 15:00 23:00 07:00 Intake Total 1150 ml 600 ml Balance 1150 ml 600 ml CASTLE,NIAL K III DO Jul 22, 2017 10:25
--- NOTE | 2017-07-22 13:43 | PDOC ---
PULMONARY PROGRESS NOTES Subjective feels less soa Vitals Vital Signs Date Time Temp Pulse Resp B/P (MAP) Pulse Ox O2 Delivery O2 Flow Rate FiO2 07/22/17 10:45 97.7 97 18 149/88 (108) 94 Nasal Cannula 2.0 97.7 General: Alert, Oriented X4, No acute distress HEENT: Other Lungs: Wheezing (bilateral) Cardiovascular: S1, S2 Abdomen: Soft, Non-tender, Other Neuro Exam: Alert Extremities: No Edema Skin: Warm Labs Laboratory Tests Test 07/21/17 11:00 07/21/17 16:00 07/21/17 17:22 07/21/17 21:06 White Blood Count 10.5 x10^3/uL (4.0-11.0) Red Blood Count 4.43 x10^6/uL (3.50-5.40) Hemoglobin 14.2 g/dL (12.0-15.5) Hematocrit 42.3 % (36.0-47.0) Mean Corpuscular Volume 96 fL (79-100) Mean Corpuscular Hemoglobin 32 pg (25-35) Mean Corpuscular Hemoglobin Concent 34 g/dL (31-37) Red Cell Distribution Width 13.1 % (11.5-14.5) Platelet Count 201 x10^3/uL (140-400) Neutrophils (%) (Auto) 80 % (31-73) Lymphocytes (%) (Auto) 12 % (24-48) Monocytes (%) (Auto) 7 % (0-9) Eosinophils (%) (Auto) 0 % (0-3) Basophils (%) (Auto) 0 % (0-3) Neutrophils # (Auto) 8.4 x10^3uL (1.8-7.7) Lymphocytes # (Auto) 1.3 x10^3/uL (1.0-4.8) Monocytes # (Auto) 0.7 x10^3/uL (0.0-1.1) Eosinophils # (Auto) 0.0 x10^3/uL (0.0-0.7) Basophils # (Auto) 0.0 x10^3/uL (0.0-0.2) Sodium Level 141 mmol/L (136-145) Potassium Level 3.9 mmol/L (3.5-5.1) Chloride Level 102 mmol/L (98-107) Carbon Dioxide Level 30 mmol/L (21-32) Anion Gap 9 (6-14) Blood Urea Nitrogen 17 mg/dL (7-20) Creatinine 0.8 mg/dL (0.6-1.0) Estimated GFR (Cockcroft-Gault) 71.8 Glucose Level 192 mg/dL (70-99) Calcium Level 8.8 mg/dL (8.5-10.1) Total Bilirubin 0.3 mg/dL (0.2-1.0) Direct Bilirubin 0.1 mg/dL (0.0-0.2) Aspartate Amino Transf (AST/SGOT) 18 U/L (15-37) Alanine Aminotransferase (ALT/SGPT) 32 U/L (14-59) Alkaline Phosphatase 93 U/L (46-116) Troponin I Quantitative < 0.017 ng/mL (0.000-0.055) EL-Imr-Y-Type Natriuretic Peptide 1054 pg/mL (0-124) Total Protein 7.1 g/dL (6.4-8.2) Albumin 3.6 g/dL (3.4-5.0) Lipase 93 U/L (73-393) Nasal Screen MRSA (PCR) Negative (Negative) Glucose (Fingerstick) 193 mg/dL (70-99) 294 mg/dL (70-99) Test 07/22/17 07:20 07/22/17 11:03 Glucose (Fingerstick) 326 mg/dL (70-99) 298 mg/dL (70-99) Laboratory Tests Test 07/21/17 16:00 07/21/17 17:22 07/21/17 21:06 07/22/17 07:20 Nasal Screen MRSA (PCR) Negative (Negative) Glucose (Fingerstick) 193 mg/dL (70-99) 294 mg/dL (70-99) 326 mg/dL (70-99) Test 07/22/17 11:03 Glucose (Fingerstick) 298 mg/dL (70-99) Medications Active Scripts Medications Dose Route/Sig Max Daily Dose Days Date Category Dose Instructions Gabapentin 300 Mg Capsule 300 Mg PO HS 05/15/17 Reported Probiotic (Lactobacillus Combination No.4) 1 Each Capsule 1 Each PO DAILY 05/15/17 Reported Acid Finger Buffs Assembler (Ranitidine Hcl) 150 Mg Tablet 150 Mg PO DAILY 05/15/17 Reported [Multi Vitamin] 1 Tab PO DAILY 05/15/17 Reported Aspirin 81 Mg Tab.chew 1 Tab PO BID 05/15/17 Reported Percocet 5-325 Mg Tablet (Oxycodone/Acetaminophen) 1 Each Tablet 1 Tab PO PRN Q6HRS PRN 05/02/17 Rx Clonazepam 0.5 Mg Tablet 1 Tab PO Q6HRS 07/13/16 Reported Calcium Carbonate 500 Mg Tablet 500 Mg PO BID 07/13/16 Reported Atorvastatin Calcium 40 Mg Tablet 1 Tab PO DAILY 07/13/16 Reported Vitamin D (Cholecalciferol (Vitamin D3)) 50,000 Unit Capsule 50,000 Unit PO WEEKLY 03/18/16 Reported Metformin Hcl 500 Mg Tablet 500 Mg PO BID 03/18/16 Reported Vitamin B-100 Complex Tablet (Vitamin B Complex/Folic Acid) 0.4 Mg Tablet 0.4 Mg PO 02/04/16 Reported Folic Acid 1 Mg Tablet 1 Tab PO DAILY 02/04/16 Reported Sucralfate 1 Gm Tablet 1 Tab PO TID 02/04/16 Reported Glipizide 5 Mg Tablet 5 Mg PO PRN DAILY PRN 02/04/16 Reported [calcium] 600mg BID w meals 600 Mg PO BID 12/16/15 Reported NITROGLYCERIN SubLingual (Nitroglycerin) 0.4 Mg Tab.subl 0.4 Mg SL PRN Q5MIN PRN 02/10/15 Reported Advair 250-50 Diskus (Fluticasone/Salmeterol) 1 Each Disk.w.dev 1 Inh IH BID 02/04/15 Reported Amlodipine Besylate 5 Mg Tablet 1 Tab PO DAILY 10/12/14 Reported Losartan Potassium 50 Mg Tablet 1 Tab PO DAILY 06/25/14 Reported Trazodone Hcl 100 Mg Tablet 100 Mg PO HS 06/22/14 Reported next dose tonight Potassium Chloride 20 Meq Tab.er.prt 1 Tab PO QODAY 06/22/14 Reported last dose this am next dose monday Singulair Tablet (Montelukast Sodium) 10 Mg Tablet 10 Mg PO DAILY 06/22/14 Reported last dose last evening next dose tonight Duoneb 0.5-3(2.5) Mg/3 Ml (Albuterol/Ipratropium) 3 Ml Ampul.neb 3 Ml IH QID 06/22/14 Reported last dose at 1200 Hydrochlorothiazide Tablet (Hydrochlorothiazide) 12.5 Mg Tablet 12.5 Mg PO DAILY 11/02/13 Reported last dose this am next dose tomorrow Impression . 1. Acute hypoxic respiratory failure secondary to acute exacerbation of chronic obstructive pulmonary disease. 2. Diffuse bronchospasm secondary to acute exacerbation of chronic obstructive pulmonary disease in a patient with strong asthmatic component. Ongoing tobaccoism has contributed to her exacerbation. 3. Abnormal CT chest with basilar atelectasis, but no consolidation. 4. History of obstructive sleep apnea with noncompliance in the past with CPAP. Plan . 1. Increase DuoNeb to q.4h. with albuterol nebs q.2h. p.r.n. 2. IV Solu-Medrol 60 q.6h. 3. Pulmicort nebulizer treatment. 4. Hold off on antibiotics. 5. Smoking cessation counseling provided. 6. Resume home medications. Discussed with RN. We will follow along with you. JEFF PECK MD Jul 22, 2017 13:43
[2017-07-22] MEDS ORDERED: INSULIN ASPART 300 UNITS/3 ML INSULN.PEN SQ ONE (18:00)
[2017-07-22] MEDS: ATORVASTATIN CALCIUM 40 MG TABLET. PO SCH (20:31)
[2017-07-22] MEDS: GABAPENTIN 300 MG CAPSULE. PO SCH (20:32)
[2017-07-22] MEDS: ZOLPIDEM 5 MG TABLET. PO SCH (20:32)
[2017-07-23] MEDS: IPRATRPIUM/ALBUTEROL 0.5/2.5MG 3 ML NEBU. IH SCH ×6 (03:10→23:16)
[2017-07-23 03:16] VITALS: BP 163/100
[2017-07-23] MEDS: methylPREDNISolone SOD SUCC PF 125 MG/2 ML VIAL. IV SCH ×3 (06:21→21:19)
[2017-07-23 07:00] VITALS: BP 153/78
[2017-07-23 07:33] LABS: BASO % 0 % (0-3); EOS % 0 % (0-3); HEMATOCRIT 44.7 % (36.0-47.0); HEMOGLOBIN 14.7 g/dL (12.0-15.5); LYMPH # 1.4 x10^3/uL (1.0-4.8); LYMPH % 13 % (24-48); MEAN CORPUSCULAR HEMOGLOBIN 32 pg (25-35); MEAN CORPUSCULAR HGB CONC 33 g/dL (31-37); MEAN CORPUSCULAR VOLUME 96 fL (79-100); MONO % 7 % (0-9); NEUT % 80 % (31-73); PLATELET COUNT 209 x10^3/uL (140-400); RED BLOOD COUNT 4.65 x10^6/uL (3.50-5.40); RED CELL DISTRIBUTION WIDTH 13.1 % (11.5-14.5); WHITE BLOOD COUNT 10.7 x10^3/uL (4.0-11.0)
[2017-07-23] MEDS: BUDESONIDE 0.5 MG/2 ML NEBU. NEB SCH ×2 (07:34→20:17)
[2017-07-23 07:51] LABS: CREATININE 0.8 mg/dL (0.6-1.0); GFR 71.8; POTASSIUM 3.9 mmol/L (3.5-5.1)
[2017-07-23] MEDS: MULTIVITAMIN with MINERAL TABLET. PO SCH (08:01)
[2017-07-23] MEDS: hydroCHLOROthiazide 12.5 MG CAPSULE PO SCH (08:01)
[2017-07-23] MEDS: SUCRALFATE 1 GM TABLET. PO SCH ×3 (08:01→17:18)
[2017-07-23] MEDS: MONTELUKAST SODIUM 10 MG TABLET. PO SCH (08:01)
[2017-07-23] MEDS: LACTOBACILLUS RHAMNOSUS GG 1 CAPSULE. PO SCH (08:01)
[2017-07-23] MEDS: LOSARTAN POTASSIUM 50 MG TABLET. PO SCH (08:02)
[2017-07-23] MEDS: CALCIUM CARBONATE 500 MG TABLET PO SCH ×2 (08:02→17:18)
[2017-07-23] MEDS: FAMOTIDINE 20 MG TABLET. PO SCH ×2 (08:03→21:18)
[2017-07-23] MEDS: amLODIPine BESYLATE 5 MG TABLET PO SCH (08:03)
[2017-07-23] MEDS: ASPIRIN CHEWABLE 81 MG TABLET. PO SCH ×2 (08:13→21:18)
[2017-07-23] MEDS: clonazePAM 0.5 MG TABLET PO PRN ×2 (08:13→21:21)
[2017-07-23] MEDS: FOLIC ACID 1 MG TABLET. PO SCH (08:13)
[2017-07-23] MEDS: INSULIN ASPART 300 UNITS/3 ML INSULN.PEN SQ SCH ×3 (08:17→17:22)
--- NOTE | 2017-07-23 10:25 | PDOC ---
PULMONARY PROGRESS NOTES Subjective feels less soa Vitals Vital Signs Date Time Temp Pulse Resp B/P (MAP) Pulse Ox O2 Delivery O2 Flow Rate FiO2 07/23/17 08:03 92 153/78 07/23/17 07:40 97 Nasal Cannula 2.0 07/23/17 07:00 97.8 18 97.8 General: Alert, Oriented X4, No acute distress HEENT: Other Lungs: Wheezing (bilateral) Cardiovascular: S1, S2 Abdomen: Soft, Non-tender, Other Neuro Exam: Alert Extremities: No Edema Skin: Warm Labs Laboratory Tests Test 07/21/17 11:00 07/21/17 16:00 07/21/17 17:22 07/21/17 21:06 White Blood Count 10.5 x10^3/uL (4.0-11.0) Red Blood Count 4.43 x10^6/uL (3.50-5.40) Hemoglobin 14.2 g/dL (12.0-15.5) Hematocrit 42.3 % (36.0-47.0) Mean Corpuscular Volume 96 fL (79-100) Mean Corpuscular Hemoglobin 32 pg (25-35) Mean Corpuscular Hemoglobin Concent 34 g/dL (31-37) Red Cell Distribution Width 13.1 % (11.5-14.5) Platelet Count 201 x10^3/uL (140-400) Neutrophils (%) (Auto) 80 % (31-73) Lymphocytes (%) (Auto) 12 % (24-48) Monocytes (%) (Auto) 7 % (0-9) Eosinophils (%) (Auto) 0 % (0-3) Basophils (%) (Auto) 0 % (0-3) Neutrophils # (Auto) 8.4 x10^3uL (1.8-7.7) Lymphocytes # (Auto) 1.3 x10^3/uL (1.0-4.8) Monocytes # (Auto) 0.7 x10^3/uL (0.0-1.1) Eosinophils # (Auto) 0.0 x10^3/uL (0.0-0.7) Basophils # (Auto) 0.0 x10^3/uL (0.0-0.2) Sodium Level 141 mmol/L (136-145) Potassium Level 3.9 mmol/L (3.5-5.1) Chloride Level 102 mmol/L (98-107) Carbon Dioxide Level 30 mmol/L (21-32) Anion Gap 9 (6-14) Blood Urea Nitrogen 17 mg/dL (7-20) Creatinine 0.8 mg/dL (0.6-1.0) Estimated GFR (Cockcroft-Gault) 71.8 Glucose Level 192 mg/dL (70-99) Calcium Level 8.8 mg/dL (8.5-10.1) Total Bilirubin 0.3 mg/dL (0.2-1.0) Direct Bilirubin 0.1 mg/dL (0.0-0.2) Aspartate Amino Transf (AST/SGOT) 18 U/L (15-37) Alanine Aminotransferase (ALT/SGPT) 32 U/L (14-59) Alkaline Phosphatase 93 U/L (46-116) Troponin I Quantitative < 0.017 ng/mL (0.000-0.055) GT-Nln-P-Type Natriuretic Peptide 1054 pg/mL (0-124) Total Protein 7.1 g/dL (6.4-8.2) Albumin 3.6 g/dL (3.4-5.0) Lipase 93 U/L (73-393) Nasal Screen MRSA (PCR) Negative (Negative) Glucose (Fingerstick) 193 mg/dL (70-99) 294 mg/dL (70-99) Test 07/22/17 07:20 07/22/17 11:03 07/22/17 16:23 07/22/17 22:33 Glucose (Fingerstick) 326 mg/dL (70-99) 298 mg/dL (70-99) 389 mg/dL (70-99) 256 mg/dL (70-99) Test 07/23/17 06:10 07/23/17 07:47 White Blood Count 10.7 x10^3/uL (4.0-11.0) Red Blood Count 4.65 x10^6/uL (3.50-5.40) Hemoglobin 14.7 g/dL (12.0-15.5) Hematocrit 44.7 % (36.0-47.0) Mean Corpuscular Volume 96 fL (79-100) Mean Corpuscular Hemoglobin 32 pg (25-35) Mean Corpuscular Hemoglobin Concent 33 g/dL (31-37) Red Cell Distribution Width 13.1 % (11.5-14.5) Platelet Count 209 x10^3/uL (140-400) Neutrophils (%) (Auto) 80 % (31-73) Lymphocytes (%) (Auto) 13 % (24-48) Monocytes (%) (Auto) 7 % (0-9) Eosinophils (%) (Auto) 0 % (0-3) Basophils (%) (Auto) 0 % (0-3) Neutrophils # (Auto) 8.6 x10^3uL (1.8-7.7) Lymphocytes # (Auto) 1.4 x10^3/uL (1.0-4.8) Monocytes # (Auto) 0.7 x10^3/uL (0.0-1.1) Eosinophils # (Auto) 0.0 x10^3/uL (0.0-0.7) Basophils # (Auto) 0.0 x10^3/uL (0.0-0.2) Sodium Level 140 mmol/L (136-145) Potassium Level 3.9 mmol/L (3.5-5.1) Chloride Level 100 mmol/L (98-107) Carbon Dioxide Level 33 mmol/L (21-32) Anion Gap 7 (6-14) Blood Urea Nitrogen 23 mg/dL (7-20) Creatinine 0.8 mg/dL (0.6-1.0) Estimated GFR (Cockcroft-Gault) 71.8 Glucose Level 319 mg/dL (70-99) Calcium Level 9.0 mg/dL (8.5-10.1) Glucose (Fingerstick) 383 mg/dL (70-99) Laboratory Tests Test 07/22/17 11:03 07/22/17 16:23 07/22/17 22:33 07/23/17 06:10 Glucose (Fingerstick) 298 mg/dL (70-99) 389 mg/dL (70-99) 256 mg/dL (70-99) White Blood Count 10.7 x10^3/uL (4.0-11.0) Red Blood Count 4.65 x10^6/uL (3.50-5.40) Hemoglobin 14.7 g/dL (12.0-15.5) Hematocrit 44.7 % (36.0-47.0) Mean Corpuscular Volume 96 fL (79-100) Mean Corpuscular Hemoglobin 32 pg (25-35) Mean Corpuscular Hemoglobin Concent 33 g/dL (31-37) Red Cell Distribution Width 13.1 % (11.5-14.5) Platelet Count 209 x10^3/uL (140-400) Neutrophils (%) (Auto) 80 % (31-73) Lymphocytes (%) (Auto) 13 % (24-48) Monocytes (%) (Auto) 7 % (0-9) Eosinophils (%) (Auto) 0 % (0-3) Basophils (%) (Auto) 0 % (0-3) Neutrophils # (Auto) 8.6 x10^3uL (1.8-7.7) Lymphocytes # (Auto) 1.4 x10^3/uL (1.0-4.8) Monocytes # (Auto) 0.7 x10^3/uL (0.0-1.1) Eosinophils # (Auto) 0.0 x10^3/uL (0.0-0.7) Basophils # (Auto) 0.0 x10^3/uL (0.0-0.2) Sodium Level 140 mmol/L (136-145) Potassium Level 3.9 mmol/L (3.5-5.1) Chloride Level 100 mmol/L (98-107) Carbon Dioxide Level 33 mmol/L (21-32) Anion Gap 7 (6-14) Blood Urea Nitrogen 23 mg/dL (7-20) Creatinine 0.8 mg/dL (0.6-1.0) Estimated GFR (Cockcroft-Gault) 71.8 Glucose Level 319 mg/dL (70-99) Calcium Level 9.0 mg/dL (8.5-10.1) Test 07/23/17 07:47 Glucose (Fingerstick) 383 mg/dL (70-99) Medications Active Scripts Medications Dose Route/Sig Max Daily Dose Days Date Category Dose Instructions Gabapentin 300 Mg Capsule 300 Mg PO HS 05/15/17 Reported Probiotic (Lactobacillus Combination No.4) 1 Each Capsule 1 Each PO DAILY 05/15/17 Reported Acid [employer] (Ranitidine Hcl) 150 Mg Tablet 150 Mg PO DAILY 05/15/17 Reported [Multi Vitamin] 1 Tab PO DAILY 05/15/17 Reported Aspirin 81 Mg Tab.chew 1 Tab PO BID 05/15/17 Reported Percocet 5-325 Mg Tablet (Oxycodone/Acetaminophen) 1 Each Tablet 1 Tab PO PRN Q6HRS PRN 05/02/17 Rx Clonazepam 0.5 Mg Tablet 1 Tab PO Q6HRS 07/13/16 Reported Calcium Carbonate 500 Mg Tablet 500 Mg PO BID 07/13/16 Reported Atorvastatin Calcium 40 Mg Tablet 1 Tab PO DAILY 07/13/16 Reported Vitamin D (Cholecalciferol (Vitamin D3)) 50,000 Unit Capsule 50,000 Unit PO WEEKLY 03/18/16 Reported Metformin Hcl 500 Mg Tablet 500 Mg PO BID 03/18/16 Reported Vitamin B-100 Complex Tablet (Vitamin B Complex/Folic Acid) 0.4 Mg Tablet 0.4 Mg PO 02/04/16 Reported Folic Acid 1 Mg Tablet 1 Tab PO DAILY 02/04/16 Reported Sucralfate 1 Gm Tablet 1 Tab PO TID 02/04/16 Reported Glipizide 5 Mg Tablet 5 Mg PO PRN DAILY PRN 02/04/16 Reported [calcium] 600mg BID w meals 600 Mg PO BID 12/16/15 Reported NITROGLYCERIN SubLingual (Nitroglycerin) 0.4 Mg Tab.subl 0.4 Mg SL PRN Q5MIN PRN 02/10/15 Reported Advair 250-50 Diskus (Fluticasone/Salmeterol) 1 Each Disk.w.dev 1 Inh IH BID 02/04/15 Reported Amlodipine Besylate 5 Mg Tablet 1 Tab PO DAILY 10/12/14 Reported Losartan Potassium 50 Mg Tablet 1 Tab PO DAILY 06/25/14 Reported Trazodone Hcl 100 Mg Tablet 100 Mg PO HS 06/22/14 Reported next dose tonight Potassium Chloride 20 Meq Tab.er.prt 1 Tab PO QODAY 06/22/14 Reported last dose this am next dose monday Singulair Tablet (Montelukast Sodium) 10 Mg Tablet 10 Mg PO DAILY 06/22/14 Reported last dose last evening next dose tonight Duoneb 0.5-3(2.5) Mg/3 Ml (Albuterol/Ipratropium) 3 Ml Ampul.neb 3 Ml IH QID 06/22/14 Reported last dose at 1200 Hydrochlorothiazide Tablet (Hydrochlorothiazide) 12.5 Mg Tablet 12.5 Mg PO DAILY 11/02/13 Reported last dose this am next dose tomorrow Impression . 1. Acute hypoxic respiratory failure secondary to acute exacerbation of chronic obstructive pulmonary disease. 2. Diffuse bronchospasm secondary to acute exacerbation of chronic obstructive pulmonary disease in a patient with strong asthmatic component. Ongoing tobaccoism has contributed to her exacerbation. 3. Abnormal CT chest with basilar atelectasis, but no consolidation. 4. History of obstructive sleep apnea with noncompliance in the past with CPAP. Plan . 1. DuoNeb to q.4h. with albuterol nebs q.2h. p.r.n. 2. IV Solu-Medrol 60 q.6h. 3. Pulmicort nebulizer treatment. 4. Hold off on antibiotics. 5. Smoking cessation counseling provided. 6. slowly improving JEFF PECK MD Jul 23, 2017 10:25
[2017-07-23 11:08] VITALS: BP 157/88
--- NOTE | 2017-07-23 12:31 | PDOC ---
PROGRESS NOTES Chief Complaint Chief Complaint Shortness of breath, wheezing COPD History of Present Illness History of Present Illness Receiving steroids Receicing breathing treatments Continues to have bilateral wheezing Pulmonology is following case and adjusting medications VSS Vitals Vitals Vital Signs Date Time Temp Pulse Resp B/P (MAP) Pulse Ox O2 Delivery O2 Flow Rate FiO2 07/23/17 11:08 97.7 89 18 157/88 (111) 94 Nasal Cannula 2.0 97.7 Physical Exam General: Alert, Oriented X3, Cooperative Heart: Regular rate, Normal S1, Normal S2 Lungs: Wheezing (bilateral) Abdomen: Normal bowel sounds Extremities: No clubbing, No cyanosis Labs LABS Laboratory Tests Test 07/22/17 16:23 07/22/17 22:33 07/23/17 06:10 07/23/17 07:47 Glucose (Fingerstick) 389 mg/dL (70-99) 256 mg/dL (70-99) 383 mg/dL (70-99) White Blood Count 10.7 x10^3/uL (4.0-11.0) Red Blood Count 4.65 x10^6/uL (3.50-5.40) Hemoglobin 14.7 g/dL (12.0-15.5) Hematocrit 44.7 % (36.0-47.0) Mean Corpuscular Volume 96 fL (79-100) Mean Corpuscular Hemoglobin 32 pg (25-35) Mean Corpuscular Hemoglobin Concent 33 g/dL (31-37) Red Cell Distribution Width 13.1 % (11.5-14.5) Platelet Count 209 x10^3/uL (140-400) Neutrophils (%) (Auto) 80 % (31-73) Lymphocytes (%) (Auto) 13 % (24-48) Monocytes (%) (Auto) 7 % (0-9) Eosinophils (%) (Auto) 0 % (0-3) Basophils (%) (Auto) 0 % (0-3) Neutrophils # (Auto) 8.6 x10^3uL (1.8-7.7) Lymphocytes # (Auto) 1.4 x10^3/uL (1.0-4.8) Monocytes # (Auto) 0.7 x10^3/uL (0.0-1.1) Eosinophils # (Auto) 0.0 x10^3/uL (0.0-0.7) Basophils # (Auto) 0.0 x10^3/uL (0.0-0.2) Sodium Level 140 mmol/L (136-145) Potassium Level 3.9 mmol/L (3.5-5.1) Chloride Level 100 mmol/L (98-107) Carbon Dioxide Level 33 mmol/L (21-32) Anion Gap 7 (6-14) Blood Urea Nitrogen 23 mg/dL (7-20) Creatinine 0.8 mg/dL (0.6-1.0) Estimated GFR (Cockcroft-Gault) 71.8 Glucose Level 319 mg/dL (70-99) Calcium Level 9.0 mg/dL (8.5-10.1) Test 07/23/17 11:26 Glucose (Fingerstick) 287 mg/dL (70-99) Review of Systems Review of Systems Denies abdominal pain, N/V/D/C Denies dizziness, MENDEZ, or light-headedness Assessment and Plan Assessmemt and Plan Problems Medical Problems: (1) Acute exacerbation of chronic obstructive pulmonary disease (COPD) Status: Acute Assessment Shortness of breath, wheezing COPD Plan Breathing treatments Steroids PT/OT Recheck labs Oxygen Appreciate subspecialty Problems: Comment Review of Relevant I have reviewed the following items luis fernando (where applicable) has been applied. Labs Laboratory Tests Test 07/21/17 16:00 07/21/17 17:22 07/21/17 21:06 07/22/17 07:20 Nasal Screen MRSA (PCR) Negative (Negative) Glucose (Fingerstick) 193 mg/dL (70-99) 294 mg/dL (70-99) 326 mg/dL (70-99) Test 07/22/17 11:03 07/22/17 16:23 07/22/17 22:33 07/23/17 06:10 Glucose (Fingerstick) 298 mg/dL (70-99) 389 mg/dL (70-99) 256 mg/dL (70-99) White Blood Count 10.7 x10^3/uL (4.0-11.0) Red Blood Count 4.65 x10^6/uL (3.50-5.40) Hemoglobin 14.7 g/dL (12.0-15.5) Hematocrit 44.7 % (36.0-47.0) Mean Corpuscular Volume 96 fL (79-100) Mean Corpuscular Hemoglobin 32 pg (25-35) Mean Corpuscular Hemoglobin Concent 33 g/dL (31-37) Red Cell Distribution Width 13.1 % (11.5-14.5) Platelet Count 209 x10^3/uL (140-400) Neutrophils (%) (Auto) 80 % (31-73) Lymphocytes (%) (Auto) 13 % (24-48) Monocytes (%) (Auto) 7 % (0-9) Eosinophils (%) (Auto) 0 % (0-3) Basophils (%) (Auto) 0 % (0-3) Neutrophils # (Auto) 8.6 x10^3uL (1.8-7.7) Lymphocytes # (Auto) 1.4 x10^3/uL (1.0-4.8) Monocytes # (Auto) 0.7 x10^3/uL (0.0-1.1) Eosinophils # (Auto) 0.0 x10^3/uL (0.0-0.7) Basophils # (Auto) 0.0 x10^3/uL (0.0-0.2) Sodium Level 140 mmol/L (136-145) Potassium Level 3.9 mmol/L (3.5-5.1) Chloride Level 100 mmol/L (98-107) Carbon Dioxide Level 33 mmol/L (21-32) Anion Gap 7 (6-14) Blood Urea Nitrogen 23 mg/dL (7-20) Creatinine 0.8 mg/dL (0.6-1.0) Estimated GFR (Cockcroft-Gault) 71.8 Glucose Level 319 mg/dL (70-99) Calcium Level 9.0 mg/dL (8.5-10.1) Test 07/23/17 07:47 07/23/17 11:26 Glucose (Fingerstick) 383 mg/dL (70-99) 287 mg/dL (70-99) Laboratory Tests Test 07/22/17 16:23 07/22/17 22:33 07/23/17 06:10 07/23/17 07:47 Glucose (Fingerstick) 389 mg/dL (70-99) 256 mg/dL (70-99) 383 mg/dL (70-99) White Blood Count 10.7 x10^3/uL (4.0-11.0) Red Blood Count 4.65 x10^6/uL (3.50-5.40) Hemoglobin 14.7 g/dL (12.0-15.5) Hematocrit 44.7 % (36.0-47.0) Mean Corpuscular Volume 96 fL (79-100) Mean Corpuscular Hemoglobin 32 pg (25-35) Mean Corpuscular Hemoglobin Concent 33 g/dL (31-37) Red Cell Distribution Width 13.1 % (11.5-14.5) Platelet Count 209 x10^3/uL (140-400) Neutrophils (%) (Auto) 80 % (31-73) Lymphocytes (%) (Auto) 13 % (24-48) Monocytes (%) (Auto) 7 % (0-9) Eosinophils (%) (Auto) 0 % (0-3) Basophils (%) (Auto) 0 % (0-3) Neutrophils # (Auto) 8.6 x10^3uL (1.8-7.7) Lymphocytes # (Auto) 1.4 x10^3/uL (1.0-4.8) Monocytes # (Auto) 0.7 x10^3/uL (0.0-1.1) Eosinophils # (Auto) 0.0 x10^3/uL (0.0-0.7) Basophils # (Auto) 0.0 x10^3/uL (0.0-0.2) Sodium Level 140 mmol/L (136-145) Potassium Level 3.9 mmol/L (3.5-5.1) Chloride Level 100 mmol/L (98-107) Carbon Dioxide Level 33 mmol/L (21-32) Anion Gap 7 (6-14) Blood Urea Nitrogen 23 mg/dL (7-20) Creatinine 0.8 mg/dL (0.6-1.0) Estimated GFR (Cockcroft-Gault) 71.8 Glucose Level 319 mg/dL (70-99) Calcium Level 9.0 mg/dL (8.5-10.1) Test 07/23/17 11:26 Glucose (Fingerstick) 287 mg/dL (70-99) Medications Current Medications Albuterol/ Ipratropium (Duoneb) 3 ml 1X ONCE NEB Last administered on 11:23; Start 07/21/17 at 11:00; Stop 07/21/17 at 11:01; Status DC Iohexol (Omnipaque 300 Mg/ml) 75 ml 1X ONCE IV Last administered on 15:03; Start 07/21/17 at 14:00; Stop 07/21/17 at 14:03; Status DC Info (Do NOT chart on this entry -- for MONITORING) 1 each PRN DAILY PRN MC SEE COMMENTS; Start 07/21/17 at 14:15; Stop 07/23/17 at 14:14 Methylprednisolone Sodium Succinate (SOLU-Medrol 125MG VIAL) 125 mg 1X ONCE IV Last administered on 07/21/17 15:19; Start 07/21/17 at 14:30; Stop at 14:31; Status DC Info (Do NOT chart on this placeholder) 1 each 1X ONCE MC ; Start 07/21/17 at 16:45; Stop 07/21/17 at 16:46; Status UNV Insulin Aspart (NovoLOG) 0-7 UNITS TIDWMEALS SQ Last administered on 12:10; Start 07/21/17 at 17:00 Dextrose (Dextrose 50%-Water Syringe) 12.5 gm PRN Q15MIN PRN IV SEE COMMENTS; Start 07/21/17 at 16:45 Zolpidem Tartrate (Ambien) 5 mg QHS PO Last administered on 07/22/17 20:32; Start 07/21/17 at 21:00 Influenza Virus Vaccine Quadrival (Fluarix Quad [id number] Syringe) 0.5 ml ONCE ONCE VAX IM Last administered on 07/23/17 12:13; Start 07/21/17 at 17:00; Stop 07/21/17 at 17:01; Status DC Amlodipine Besylate (Norvasc) 5 mg DAILY PO Last administered on 07/23/17 08: 03; Start 07/21/17 at 17:30 Aspirin (Children'S Aspirin) 81 mg BID PO Last administered on 07/23/17 08:13 ; Start 07/21/17 at 21:00 Atorvastatin Calcium (Lipitor) 40 mg QHS PO Last administered on 07/22/17 20: 31; Start 07/21/17 at 21:00 Calcium Carbonate/ Glycine (Oscal) 500 mg BIDWMEALS PO Last administered on 08:02; Start 07/21/17 at 17:30 Clonazepam (KlonoPIN) 0.5 mg PRN Q6HRS PRN PO ANXIETY Last administered on 08:13; Start 07/21/17 at 18:00 Folic Acid (Folic Acid) 1 mg DAILY PO Last administered on 07/23/17 08:13; Start 07/21/17 at 17:30 Glipizide (Glucotrol) 5 mg PRN DAILY PRN PO SEE COMMENTS; Start 07/21/17 at 16 :45; Status UNV Albuterol/ Ipratropium (Duoneb) 3 ml QID IH ; Start 07/21/17 at 17:00; Stop at 17:07; Status DC Losartan Potassium (Cozaar) 50 mg DAILY PO Last administered on 07/23/17 08: 02; Start 07/21/17 at 17:30 Metformin HCl (Glucophage) 500 mg BIDWMEALS PO ; Start 07/23/17 at 17:00 Montelukast Sodium (Singulair) 10 mg DAILY PO Last administered on 07/23/17 08:01; Start 07/21/17 at 17:30 Nitroglycerin (Nitrostat) 0.4 mg PRN Q5MIN PRN SL CHEST PAIN; Start 07/21/17 at 16:45 Oxycodone/ Acetaminophen (Percocet 5/325) 1 tab PRN Q6HRS PRN PO PAIN MILD TO MOD; Start 07/21/17 at 16:45 Potassium Chloride (Klor-Con) 20 meq QODAY@0800 PO Last administered on 08:24; Start 07/22/17 at 08:00 Sucralfate (Carafate) 1 gm TIDAC PO Last administered on 07/23/17 11:48; Start 07/22/17 at 07:30 Trazodone HCl (Desyrel) 100 mg PRN QHS PRN PO SLEEP; Start 07/21/17 at 21:00 Ergocalciferol (Vitamin D2) 50,000 unit WEEKLY PO ; Start 07/22/17 at 09:00; Stop 07/22/17 at 12:10; Status DC Budesonide (Pulmicort) 0.5 mg RTBID NEB ; Start 07/21/17 at 20:00; Status Cancel Gabapentin (Neurontin) 300 mg QHS PO Last administered on 07/22/17 20:32; Start 07/21/17 at 21:00 Hydrochlorothiazide (Microzide) 12.5 mg DAILY PO Last administered on 08:01; Start 07/21/17 at 17:30 Lactobacillus Rhamnosus (Culturelle) 1 cap DAILY PO Last administered on 08:01; Start 07/21/17 at 17:30 Famotidine (Pepcid) 20 mg BID PO Last administered on 07/23/17 08:03; Start 07/21/17 at 21:00 Calcium Carbonate/ Glycine (Oscal) 500 mg BID PO ; Start 07/21/17 at 21:00; Status Cancel Multivitamins (Thera M Plus) 1 tab DAILY PO Last administered on 07/23/17 08: 01; Start 07/21/17 at 17:30 Zolpidem Tartrate (Ambien) 5 mg PRN QHS PRN PO INSOMNIA; Start 07/21/17 at 17: 00 Albuterol/ Ipratropium (Duoneb) 3 ml Q4HRS IH Last administered on 07/23/17 07:34; Start 07/21/17 at 20:00 Methylprednisolone Sodium Succinate (SOLU-Medrol 125MG VIAL) 80 mg Q8HRS IV Last administered on 07/23/17 06:21; Start 07/21/17 at 22:00 Budesonide (Pulmicort) 0.5 mg RTBID NEB Last administered on 07/23/17 07:34; Start 07/21/17 at 20:00 Albuterol Sulfate (Ventolin Neb Soln) 2.5 mg PRN Q2HRS PRN NEB DYSPNEA; Start 07/21/17 at 17:15 Ergocalciferol (Vitamin D2) 50,000 unit WEEKLY PO ; Start 07/26/17 at 09:00 Insulin Aspart (NovoLOG) 5 units 1X ONCE SQ Last administered on 07/22/17 18 :01; Start 07/22/17 at 18:00; Stop 07/22/17 at 18:01; Status DC Active Scripts Active Percocet 5-325 Mg Tablet (Oxycodone/Acetaminophen) 1 Each Tablet 1 Tab PO PRN Q6HRS PRN Reported Gabapentin 300 Mg Capsule 300 Mg PO HS Probiotic (Lactobacillus Combination No.4) 1 Each Capsule 1 Each PO DAILY Acid [employer] Service [employer] (Ranitidine Hcl) 150 Mg Tablet 150 Mg PO DAILY [Multi Vitamin] 1 Tab PO DAILY Aspirin 81 Mg Tab.chew 1 Tab PO BID Clonazepam 0.5 Mg Tablet 1 Tab PO Q6HRS Calcium Carbonate 500 Mg Tablet 500 Mg PO BID Atorvastatin Calcium 40 Mg Tablet 1 Tab PO DAILY Vitamin D (Cholecalciferol (Vitamin D3)) 50,000 Unit Capsule 50,000 Unit PO WEEKLY Metformin Hcl 500 Mg Tablet 500 Mg PO BID Vitamin B-100 Complex Tablet (Vitamin B Complex/Folic Acid) 0.4 Mg Tablet 0.4 Mg PO Folic Acid 1 Mg Tablet 1 Tab PO DAILY Sucralfate 1 Gm Tablet 1 Tab PO TID Glipizide 5 Mg Tablet 5 Mg PO PRN DAILY PRN [calcium] 600mg BID w meals 600 Mg PO BID NITROGLYCERIN SubLingual (Nitroglycerin) 0.4 Mg Tab.subl 0.4 Mg SL PRN Q5MIN PRN Advair 250-50 Diskus (Fluticasone/Salmeterol) 1 Each Disk.w.dev 1 Inh IH BID Amlodipine Besylate 5 Mg Tablet 1 Tab PO DAILY Losartan Potassium 50 Mg Tablet 1 Tab PO DAILY Trazodone Hcl 100 Mg Tablet 100 Mg PO HS next dose tonight Potassium Chloride 20 Meq Tab.er.prt 1 Tab PO QODAY last dose this am next dose monday Singulair Tablet (Montelukast Sodium) 10 Mg Tablet 10 Mg PO DAILY last dose last evening next dose tonight Duoneb 0.5-3(2.5) Mg/3 Ml (Albuterol/Ipratropium) 3 Ml Ampul.neb 3 Ml IH QID last dose at 1200 Hydrochlorothiazide Tablet (Hydrochlorothiazide) 12.5 Mg Tablet 12.5 Mg PO DAILY last dose this am next dose tomorrow Vitals/I & O Vital Sign - Last 24 Hours 12/23/17 12/23/17 12/23/17 12/23/17 15:00 15:20 19:16 19:46 Temp 97.7 97.9 97.7 97.9 Pulse 99 94 Resp 18 18 B/P (MAP) 130/79 (96) 137/89 (105) Pulse Ox 94 96 94 95 O2 Delivery Nasal Cannula Nasal Cannula Nasal Cannula Nasal Cannula O2 Flow Rate 2.0 2.0 2.0 2.0 07/22/17 07/22/17 07/23/17 07/23/17 20:00 23:27 03:16 07:00 Temp 98.6 97.1 97.8 98.6 97.1 97.8 Pulse 97 92 92 Resp 20 18 18 B/P (MAP) 164/104 (124) 163/100 (121) 153/78 (103) Pulse Ox 99 96 91 O2 Delivery Nasal Cannula Nasal Cannula Nasal Cannula Nasal Cannula O2 Flow Rate 2.0 2.0 2.0 2.0 07/23/17 07/23/17 07/23/17 07/23/17 07:39 07:40 08:02 08:03 Pulse 92 92 B/P (MAP) 153/78 153/78 Pulse Ox 97 97 O2 Delivery Nasal Cannula Nasal Cannula O2 Flow Rate 2.0 2.0 07/23/17 11:08 Temp 97.7 97.7 Pulse 89 Resp 18 B/P (MAP) 157/88 (111) Pulse Ox 94 O2 Delivery Nasal Cannula O2 Flow Rate 2.0 Intake and Output 07/22/17 07/22/17 07/23/17 15:00 23:00 07:00 Intake Total 360 ml 600 ml Balance 360 ml 600 ml TONNY HANSON III DO Jul 23, 2017 12:31
[2017-07-23 15:00] VITALS: BP 147/72
[2017-07-23] MEDS: metFORMIN 500 MG TABLET PO SCH (17:18)
[2017-07-23] MEDS ORDERED: DEXTROSE 50% 25 GM / 50ML DISP.SYRIN. IV PRN (18:30)
[2017-07-23 19:00] VITALS: BP 125/81
[2017-07-23] MEDS: ZOLPIDEM 5 MG TABLET. PO SCH (21:18)
[2017-07-23] MEDS: GABAPENTIN 300 MG CAPSULE. PO SCH (21:18)
[2017-07-23] MEDS: ATORVASTATIN CALCIUM 40 MG TABLET. PO SCH (21:18)
[2017-07-23] MEDS: INSULIN DETEMIR 300 UNITS/3 ML INSULN.PEN. SQ SCH (22:27)
[2017-07-23] MEDS ORDERED: INSULIN ASPART 300 UNITS/3 ML INSULN.PEN SQ ONE (22:30)
[2017-07-23 22:56] VITALS: BP 148/76
[2017-07-24 03:03] VITALS: BP 156/93
[2017-07-24] MEDS: IPRATRPIUM/ALBUTEROL 0.5/2.5MG 3 ML NEBU. IH SCH ×6 (04:42→23:11)
[2017-07-24 05:43] LABS: BASO % 0 % (0-3); EOS % 0 % (0-3); HEMATOCRIT 44.2 % (36.0-47.0); HEMOGLOBIN 14.7 g/dL (12.0-15.5); LYMPH # 1.3 x10^3/uL (1.0-4.8); LYMPH % 12 % (24-48); MEAN CORPUSCULAR HEMOGLOBIN 32 pg (25-35); MEAN CORPUSCULAR HGB CONC 33 g/dL (31-37); MEAN CORPUSCULAR VOLUME 96 fL (79-100); MONO % 6 % (0-9); NEUT % 82 % (31-73); PLATELET COUNT 210 x10^3/uL (140-400); RED BLOOD COUNT 4.62 x10^6/uL (3.50-5.40); RED CELL DISTRIBUTION WIDTH 12.9 % (11.5-14.5)
[2017-07-24 06:07] LABS: CALCIUM 9.1 mg/dL (8.5-10.1); CREATININE 0.7 mg/dL (0.6-1.0); GFR 83.7; POTASSIUM 3.7 mmol/L (3.5-5.1)
[2017-07-24] MEDS: methylPREDNISolone SOD SUCC PF 125 MG/2 ML VIAL. IV SCH ×3 (06:26→22:39)
[2017-07-24 07:00] VITALS: BP 147/71
[2017-07-24] MEDS: BUDESONIDE 0.5 MG/2 ML NEBU. NEB SCH ×2 (07:30→18:55)
[2017-07-24] MEDS ORDERED: INSULIN ASPART 300 UNITS/3 ML INSULN.PEN SQ SCH (08:00)
[2017-07-24] MEDS: INSULIN ASPART 300 UNITS/3 ML INSULN.PEN SQ SCH ×6 (08:00→20:41)
[2017-07-24] MEDS: MULTIVITAMIN with MINERAL TABLET. PO SCH (08:41)
[2017-07-24] MEDS: ASPIRIN CHEWABLE 81 MG TABLET. PO SCH ×2 (08:41→20:34)
[2017-07-24] MEDS: FAMOTIDINE 20 MG TABLET. PO SCH ×2 (08:41→20:33)
[2017-07-24] MEDS: CALCIUM CARBONATE 500 MG TABLET PO SCH ×2 (08:41→16:54)
[2017-07-24] MEDS: SUCRALFATE 1 GM TABLET. PO SCH ×3 (08:41→16:54)
[2017-07-24] MEDS: MONTELUKAST SODIUM 10 MG TABLET. PO SCH (08:42)
[2017-07-24] MEDS: POTASSIUM CHLORIDE 20 MEQ TABLET.ER. PO SCH (08:42)
[2017-07-24] MEDS: metFORMIN 500 MG TABLET PO SCH ×2 (08:42→16:54)
[2017-07-24] MEDS: hydroCHLOROthiazide 12.5 MG CAPSULE PO SCH (08:42)
[2017-07-24] MEDS: LACTOBACILLUS RHAMNOSUS GG 1 CAPSULE. PO SCH (08:42)
[2017-07-24] MEDS: amLODIPine BESYLATE 5 MG TABLET PO SCH (08:42)
[2017-07-24] MEDS: FOLIC ACID 1 MG TABLET. PO SCH (08:42)
[2017-07-24] MEDS: LOSARTAN POTASSIUM 50 MG TABLET. PO SCH (08:43)
[2017-07-24] MEDS ORDERED: PROMETH/CODEINE 6.25/10MG 5 ML SYRUP. PO PRN (09:15)
[2017-07-24] MEDS: clonazePAM 0.5 MG TABLET PO PRN ×2 (09:16→20:33)
--- NOTE | 2017-07-24 10:24 | PDOC ---
PROGRESS NOTES Chief Complaint Chief Complaint Shortness of breath, wheezing COPD History of Present Illness History of Present Illness Receiving steroids Receicing breathing treatments Continues to have coughing and bilateral wheezing. Slowly improving. Pulmonology is following case and adjusting medications VSS Vitals Vitals Vital Signs Date Time Temp Pulse Resp B/P (MAP) Pulse Ox O2 Delivery O2 Flow Rate FiO2 07/24/17 08:43 91 147/71 07/24/17 07:24 95 Nasal Cannula 2.0 07/24/17 07:00 96.8 18 96.8 Physical Exam General: Alert, Oriented X3, Cooperative Heart: Regular rate, Normal S1, Normal S2 Lungs: Wheezing (bilateral) Abdomen: Normal bowel sounds Extremities: No clubbing, No cyanosis Labs LABS Laboratory Tests Test 07/23/17 11:26 07/23/17 16:24 07/23/17 20:31 07/24/17 05:15 Glucose (Fingerstick) 287 mg/dL (70-99) 368 mg/dL (70-99) 372 mg/dL (70-99) White Blood Count 11.0 x10^3/uL (4.0-11.0) Red Blood Count 4.62 x10^6/uL (3.50-5.40) Hemoglobin 14.7 g/dL (12.0-15.5) Hematocrit 44.2 % (36.0-47.0) Mean Corpuscular Volume 96 fL (79-100) Mean Corpuscular Hemoglobin 32 pg (25-35) Mean Corpuscular Hemoglobin Concent 33 g/dL (31-37) Red Cell Distribution Width 12.9 % (11.5-14.5) Platelet Count 210 x10^3/uL (140-400) Neutrophils (%) (Auto) 82 % (31-73) Lymphocytes (%) (Auto) 12 % (24-48) Monocytes (%) (Auto) 6 % (0-9) Eosinophils (%) (Auto) 0 % (0-3) Basophils (%) (Auto) 0 % (0-3) Neutrophils # (Auto) 9.0 x10^3uL (1.8-7.7) Lymphocytes # (Auto) 1.3 x10^3/uL (1.0-4.8) Monocytes # (Auto) 0.7 x10^3/uL (0.0-1.1) Eosinophils # (Auto) 0.0 x10^3/uL (0.0-0.7) Basophils # (Auto) 0.0 x10^3/uL (0.0-0.2) Sodium Level 141 mmol/L (136-145) Potassium Level 3.7 mmol/L (3.5-5.1) Chloride Level 102 mmol/L (98-107) Carbon Dioxide Level 33 mmol/L (21-32) Anion Gap 6 (6-14) Blood Urea Nitrogen 28 mg/dL (7-20) Creatinine 0.7 mg/dL (0.6-1.0) Estimated GFR (Cockcroft-Gault) 83.7 Glucose Level 226 mg/dL (70-99) Calcium Level 9.1 mg/dL (8.5-10.1) Test 07/24/17 07:30 Glucose (Fingerstick) 284 mg/dL (70-99) Review of Systems Review of Systems Denies abdominal pain Denies weakness or confusion Assessment and Plan Assessmemt and Plan Problems Medical Problems: (1) Acute exacerbation of chronic obstructive pulmonary disease (COPD) Status: Acute Assessment Shortness of breath, wheezing COPD Plan Continue breathing tx Continue duoneb, albuterol, solumedrol, and nebulizer per pulmonology Continue home meds PT/OT Recheck labs Appreciate subspecialty Problems: Comment Review of Relevant I have reviewed the following items luis fernando (where applicable) has been applied. Labs Laboratory Tests Test 07/22/17 11:03 07/22/17 16:23 07/22/17 22:33 07/23/17 06:10 Glucose (Fingerstick) 298 mg/dL (70-99) 389 mg/dL (70-99) 256 mg/dL (70-99) White Blood Count 10.7 x10^3/uL (4.0-11.0) Red Blood Count 4.65 x10^6/uL (3.50-5.40) Hemoglobin 14.7 g/dL (12.0-15.5) Hematocrit 44.7 % (36.0-47.0) Mean Corpuscular Volume 96 fL (79-100) Mean Corpuscular Hemoglobin 32 pg (25-35) Mean Corpuscular Hemoglobin Concent 33 g/dL (31-37) Red Cell Distribution Width 13.1 % (11.5-14.5) Platelet Count 209 x10^3/uL (140-400) Neutrophils (%) (Auto) 80 % (31-73) Lymphocytes (%) (Auto) 13 % (24-48) Monocytes (%) (Auto) 7 % (0-9) Eosinophils (%) (Auto) 0 % (0-3) Basophils (%) (Auto) 0 % (0-3) Neutrophils # (Auto) 8.6 x10^3uL (1.8-7.7) Lymphocytes # (Auto) 1.4 x10^3/uL (1.0-4.8) Monocytes # (Auto) 0.7 x10^3/uL (0.0-1.1) Eosinophils # (Auto) 0.0 x10^3/uL (0.0-0.7) Basophils # (Auto) 0.0 x10^3/uL (0.0-0.2) Sodium Level 140 mmol/L (136-145) Potassium Level 3.9 mmol/L (3.5-5.1) Chloride Level 100 mmol/L (98-107) Carbon Dioxide Level 33 mmol/L (21-32) Anion Gap 7 (6-14) Blood Urea Nitrogen 23 mg/dL (7-20) Creatinine 0.8 mg/dL (0.6-1.0) Estimated GFR (Cockcroft-Gault) 71.8 Glucose Level 319 mg/dL (70-99) Calcium Level 9.0 mg/dL (8.5-10.1) Test 07/23/17 07:47 07/23/17 11:26 07/23/17 16:24 07/23/17 20:31 Glucose (Fingerstick) 383 mg/dL (70-99) 287 mg/dL (70-99) 368 mg/dL (70-99) 372 mg/dL (70-99) Test 07/24/17 05:15 07/24/17 07:30 White Blood Count 11.0 x10^3/uL (4.0-11.0) Red Blood Count 4.62 x10^6/uL (3.50-5.40) Hemoglobin 14.7 g/dL (12.0-15.5) Hematocrit 44.2 % (36.0-47.0) Mean Corpuscular Volume 96 fL (79-100) Mean Corpuscular Hemoglobin 32 pg (25-35) Mean Corpuscular Hemoglobin Concent 33 g/dL (31-37) Red Cell Distribution Width 12.9 % (11.5-14.5) Platelet Count 210 x10^3/uL (140-400) Neutrophils (%) (Auto) 82 % (31-73) Lymphocytes (%) (Auto) 12 % (24-48) Monocytes (%) (Auto) 6 % (0-9) Eosinophils (%) (Auto) 0 % (0-3) Basophils (%) (Auto) 0 % (0-3) Neutrophils # (Auto) 9.0 x10^3uL (1.8-7.7) Lymphocytes # (Auto) 1.3 x10^3/uL (1.0-4.8) Monocytes # (Auto) 0.7 x10^3/uL (0.0-1.1) Eosinophils # (Auto) 0.0 x10^3/uL (0.0-0.7) Basophils # (Auto) 0.0 x10^3/uL (0.0-0.2) Sodium Level 141 mmol/L (136-145) Potassium Level 3.7 mmol/L (3.5-5.1) Chloride Level 102 mmol/L (98-107) Carbon Dioxide Level 33 mmol/L (21-32) Anion Gap 6 (6-14) Blood Urea Nitrogen 28 mg/dL (7-20) Creatinine 0.7 mg/dL (0.6-1.0) Estimated GFR (Cockcroft-Gault) 83.7 Glucose Level 226 mg/dL (70-99) Calcium Level 9.1 mg/dL (8.5-10.1) Glucose (Fingerstick) 284 mg/dL (70-99) Laboratory Tests Test 07/23/17 11:26 07/23/17 16:24 07/23/17 20:31 07/24/17 05:15 Glucose (Fingerstick) 287 mg/dL (70-99) 368 mg/dL (70-99) 372 mg/dL (70-99) White Blood Count 11.0 x10^3/uL (4.0-11.0) Red Blood Count 4.62 x10^6/uL (3.50-5.40) Hemoglobin 14.7 g/dL (12.0-15.5) Hematocrit 44.2 % (36.0-47.0) Mean Corpuscular Volume 96 fL (79-100) Mean Corpuscular Hemoglobin 32 pg (25-35) Mean Corpuscular Hemoglobin Concent 33 g/dL (31-37) Red Cell Distribution Width 12.9 % (11.5-14.5) Platelet Count 210 x10^3/uL (140-400) Neutrophils (%) (Auto) 82 % (31-73) Lymphocytes (%) (Auto) 12 % (24-48) Monocytes (%) (Auto) 6 % (0-9) Eosinophils (%) (Auto) 0 % (0-3) Basophils (%) (Auto) 0 % (0-3) Neutrophils # (Auto) 9.0 x10^3uL (1.8-7.7) Lymphocytes # (Auto) 1.3 x10^3/uL (1.0-4.8) Monocytes # (Auto) 0.7 x10^3/uL (0.0-1.1) Eosinophils # (Auto) 0.0 x10^3/uL (0.0-0.7) Basophils # (Auto) 0.0 x10^3/uL (0.0-0.2) Sodium Level 141 mmol/L (136-145) Potassium Level 3.7 mmol/L (3.5-5.1) Chloride Level 102 mmol/L (98-107) Carbon Dioxide Level 33 mmol/L (21-32) Anion Gap 6 (6-14) Blood Urea Nitrogen 28 mg/dL (7-20) Creatinine 0.7 mg/dL (0.6-1.0) Estimated GFR (Cockcroft-Gault) 83.7 Glucose Level 226 mg/dL (70-99) Calcium Level 9.1 mg/dL (8.5-10.1) Test 07/24/17 07:30 Glucose (Fingerstick) 284 mg/dL (70-99) Medications Current Medications Albuterol/ Ipratropium (Duoneb) 3 ml 1X ONCE NEB Last administered on t 11:23; Start 07/21/17 at 11:00; Stop 07/21/17 at 11:01; Status DC Iohexol (Omnipaque 300 Mg/ml) 75 ml 1X ONCE IV Last administered on 15:03; Start 07/21/17 at 14:00; Stop 07/21/17 at 14:03; Status DC Info (Do NOT chart on this entry -- for MONITORING) 1 each PRN DAILY PRN MC SEE COMMENTS; Start 07/21/17 at 14:15; Stop 07/23/17 at 14:14; Status DC Methylprednisolone Sodium Succinate (SOLU-Medrol 125MG VIAL) 125 mg 1X ONCE IV Last administered on 07/21/17 15:19; Start 07/21/17 at 14:30; Stop at 14:31; Status DC Info (Do NOT chart on this placeholder) 1 each 1X ONCE MC ; Start 07/21/17 at 16:45; Stop 07/21/17 at 16:46; Status UNV Insulin Aspart (NovoLOG) 0-7 UNITS TIDWMEALS SQ Last administered on 17:22; Start 07/21/17 at 17:00 Dextrose (Dextrose 50%-Water Syringe) 12.5 gm PRN Q15MIN PRN IV SEE COMMENTS; Start 07/21/17 at 16:45 Zolpidem Tartrate (Ambien) 5 mg QHS PO Last administered on 07/23/17 21:18; Start 07/21/17 at 21:00 Influenza Virus Vaccine Quadrival (Fluarix Quad [id number] Syringe) 0.5 ml ONCE ONCE VAX IM Last administered on 07/23/17 12:13; Start 07/21/17 at 17:00; Stop 07/21/17 at 17:01; Status DC Amlodipine Besylate (Norvasc) 5 mg DAILY PO Last administered on 07/24/17 08: 42; Start 07/21/17 at 17:30 Aspirin (Children'S Aspirin) 81 mg BID PO Last administered on 07/24/17 08:41 ; Start 07/21/17 at 21:00 Atorvastatin Calcium (Lipitor) 40 mg QHS PO Last administered on 07/23/17 21: 18; Start 07/21/17 at 21:00 Calcium Carbonate/ Glycine (Oscal) 500 mg BIDWMEALS PO Last administered on 08:41; Start 07/21/17 at 17:30 Clonazepam (KlonoPIN) 0.5 mg PRN Q6HRS PRN PO ANXIETY Last administered on 09:16; Start 07/21/17 at 18:00 Folic Acid (Folic Acid) 1 mg DAILY PO Last administered on 07/24/17 08:42; Start 07/21/17 at 17:30 Glipizide (Glucotrol) 5 mg PRN DAILY PRN PO SEE COMMENTS; Start 07/21/17 at 16 :45; Status UNV Albuterol/ Ipratropium (Duoneb) 3 ml QID IH ; Start 07/21/17 at 17:00; Stop at 17:07; Status DC Losartan Potassium (Cozaar) 50 mg DAILY PO Last administered on 07/24/17 08: 43; Start 07/21/17 at 17:30 Metformin HCl (Glucophage) 500 mg BIDWMEALS PO Last administered on 07/24/17 08:42; Start 07/23/17 at 17:00 Montelukast Sodium (Singulair) 10 mg DAILY PO Last administered on 07/24/17 08:42; Start 07/21/17 at 17:30 Nitroglycerin (Nitrostat) 0.4 mg PRN Q5MIN PRN SL CHEST PAIN; Start 07/21/17 at 16:45 Oxycodone/ Acetaminophen (Percocet 5/325) 1 tab PRN Q6HRS PRN PO PAIN MILD TO MOD; Start 07/21/17 at 16:45 Potassium Chloride (Klor-Con) 20 meq QODAY@0800 PO Last administered on 08:42; Start 07/22/17 at 08:00 Sucralfate (Carafate) 1 gm TIDAC PO Last administered on 07/24/17 08:41; Start 07/22/17 at 07:30 Trazodone HCl (Desyrel) 100 mg PRN QHS PRN PO SLEEP; Start 07/21/17 at 21:00 Ergocalciferol (Vitamin D2) 50,000 unit WEEKLY PO ; Start 07/22/17 at 09:00; Stop 07/22/17 at 12:10; Status DC Budesonide (Pulmicort) 0.5 mg RTBID NEB ; Start 07/21/17 at 20:00; Status Cancel Gabapentin (Neurontin) 300 mg QHS PO Last administered on 07/23/17 21:18; Start 07/21/17 at 21:00 Hydrochlorothiazide (Microzide) 12.5 mg DAILY PO Last administered on 08:42; Start 07/21/17 at 17:30 Lactobacillus Rhamnosus (Culturelle) 1 cap DAILY PO Last administered on 08:42; Start 07/21/17 at 17:30 Famotidine (Pepcid) 20 mg BID PO Last administered on 07/24/17 08:41; Start 07/21/17 at 21:00 Calcium Carbonate/ Glycine (Oscal) 500 mg BID PO ; Start 07/21/17 at 21:00; Status Cancel Multivitamins (Thera M Plus) 1 tab DAILY PO Last administered on 07/24/17 08: 41; Start 07/21/17 at 17:30 Zolpidem Tartrate (Ambien) 5 mg PRN QHS PRN PO INSOMNIA; Start 07/21/17 at 17: 00 Albuterol/ Ipratropium (Duoneb) 3 ml Q4HRS IH Last administered on 07/24/17 04:42; Start 07/21/17 at 20:00 Methylprednisolone Sodium Succinate (SOLU-Medrol 125MG VIAL) 80 mg Q8HRS IV Last administered on 07/24/17 08:43; Start 07/21/17 at 22:00 Budesonide (Pulmicort) 0.5 mg RTBID NEB Last administered on 07/23/17 20:17; Start 07/21/17 at 20:00 Albuterol Sulfate (Ventolin Neb Soln) 2.5 mg PRN Q2HRS PRN NEB DYSPNEA; Start 07/21/17 at 17:15 Ergocalciferol (Vitamin D2) 50,000 unit WEEKLY PO ; Start 07/26/17 at 09:00 Insulin Aspart (NovoLOG) 5 units 1X ONCE SQ Last administered on 07/22/17 18 :01; Start 07/22/17 at 18:00; Stop 07/22/17 at 18:01; Status DC Insulin Aspart (NovoLOG) 0-9 UNITS TIDWMEALS SQ ; Start 07/24/17 at 08:00; Stop 07/24/17 at 08:00; Status DC Dextrose (Dextrose 50%-Water Syringe) 12.5 gm PRN Q15MIN PRN IV SEE COMMENTS; Start 07/23/17 at 18:30 Insulin Aspart (NovoLOG) 0-9 UNITS QIDACHS SQ Last administered on 07/24/17 08:53; Start 07/24/17 at 07:30 Insulin Detemir (Levemir) 20 units QHS SQ Last administered on 07/23/17 22:27 ; Start 07/23/17 at 22:00 Insulin Aspart (NovoLOG) 20 units 1X ONCE SQ Last administered on 07/23/17 22:26; Start 07/23/17 at 22:30; Stop 07/23/17 at 22:31; Status DC Promethazine HCl/ Codeine (Phenergan With Codeine) 5 ml TID PRN PO COUGH; Start 07/24/17 at 09:15 Active Scripts Active Percocet 5-325 Mg Tablet (Oxycodone/Acetaminophen) 1 Each Tablet 1 Tab PO PRN Q6HRS PRN Reported Gabapentin 300 Mg Capsule 300 Mg PO HS Probiotic (Lactobacillus Combination No.4) 1 Each Capsule 1 Each PO DAILY Acid Circulation Manager (Ranitidine Hcl) 150 Mg Tablet 150 Mg PO DAILY [Multi Vitamin] 1 Tab PO DAILY Aspirin 81 Mg Tab.chew 1 Tab PO BID Clonazepam 0.5 Mg Tablet 1 Tab PO Q6HRS Calcium Carbonate 500 Mg Tablet 500 Mg PO BID Atorvastatin Calcium 40 Mg Tablet 1 Tab PO DAILY Vitamin D (Cholecalciferol (Vitamin D3)) 50,000 Unit Capsule 50,000 Unit PO WEEKLY Metformin Hcl 500 Mg Tablet 500 Mg PO BID Vitamin B-100 Complex Tablet (Vitamin B Complex/Folic Acid) 0.4 Mg Tablet 0.4 Mg PO Folic Acid 1 Mg Tablet 1 Tab PO DAILY Sucralfate 1 Gm Tablet 1 Tab PO TID Glipizide 5 Mg Tablet 5 Mg PO PRN DAILY PRN [calcium] 600mg BID w meals 600 Mg PO BID NITROGLYCERIN SubLingual (Nitroglycerin) 0.4 Mg Tab.subl 0.4 Mg SL PRN Q5MIN PRN Advair 250-50 Diskus (Fluticasone/Salmeterol) 1 Each Disk.w.dev 1 Inh IH BID Amlodipine Besylate 5 Mg Tablet 1 Tab PO DAILY Losartan Potassium 50 Mg Tablet 1 Tab PO DAILY Trazodone Hcl 100 Mg Tablet 100 Mg PO HS next dose tonight Potassium Chloride 20 Meq Tab.er.prt 1 Tab PO QODAY last dose this am next dose monday Singulair Tablet (Montelukast Sodium) 10 Mg Tablet 10 Mg PO DAILY last dose last evening next dose tonight Duoneb 0.5-3(2.5) Mg/3 Ml (Albuterol/Ipratropium) 3 Ml Ampul.neb 3 Ml IH QID last dose at 1200 Hydrochlorothiazide Tablet (Hydrochlorothiazide) 12.5 Mg Tablet 12.5 Mg PO DAILY last dose this am next dose tomorrow Vitals/I & O Vital Sign - Last 24 Hours 07/23/17 07/23/17 07/23/17 07/23/17 11:08 12:38 15:00 16:47 Temp 97.7 97.7 97.7 97.7 Pulse 89 86 Resp 18 18 B/P (MAP) 157/88 (111) 147/72 (97) Pulse Ox 94 96 93 96 O2 Delivery Nasal Cannula Nasal Cannula Nasal Cannula Nasal Cannula O2 Flow Rate 2.0 2.0 2.0 2.0 07/23/17 07/23/17 07/23/17 07/23/17 19:00 20:17 20:19 22:10 Temp 98.1 98.1 Pulse 85 Resp 19 B/P (MAP) 125/81 (96) Pulse Ox 92 97 O2 Delivery Nasal Cannula Nasal Cannula Nasal Cannula Nasal Cannula O2 Flow Rate 2.0 2.0 2.0 2.0 07/23/17 07/24/17 07/24/17 07/24/17 22:56 03:03 04:43 07:00 Temp 98.3 97.4 96.8 98.3 97.4 96.8 Pulse 91 89 91 Resp 19 20 18 B/P (MAP) 148/76 (100) 156/93 (114) 147/71 (96) Pulse Ox 92 94 96 98 O2 Delivery Nasal Cannula Nasal Cannula Nasal Cannula Nasal Cannula O2 Flow Rate 2.0 2.0 2.0 07/24/17 07/24/17 07/24/17 07:24 08:42 08:43 Pulse 91 91 B/P (MAP) 147/71 147/71 Pulse Ox 95 O2 Delivery Nasal Cannula O2 Flow Rate 2.0 Intake and Output 07/23/17 07/23/17 07/24/17 15:00 23:00 07:00 Intake Total 620 ml 1160 ml 700 ml Balance 620 ml 1160 ml 700 ml TONNY HANSON III DO Jul 24, 2017 10:24
[2017-07-24 10:44] VITALS: BP 149/74
--- NOTE | 2017-07-24 11:05 | PDOC ---
PULMONARY PROGRESS NOTES Subjective feels less soa Vitals Vital Signs Date Time Temp Pulse Resp B/P (MAP) Pulse Ox O2 Delivery O2 Flow Rate FiO2 07/24/17 10:44 97.9 81 18 149/74 (99) 92 Nasal Cannula 2.0 97.9 General: Alert, Oriented X4, No acute distress HEENT: Other Lungs: Wheezing (bilateral) Cardiovascular: S1, S2 Abdomen: Soft, Non-tender, Other Neuro Exam: Alert Extremities: No Edema Skin: Warm Labs Laboratory Tests Test 07/22/17 16:23 07/22/17 22:33 07/23/17 06:10 07/23/17 07:47 Glucose (Fingerstick) 389 mg/dL (70-99) 256 mg/dL (70-99) 383 mg/dL (70-99) White Blood Count 10.7 x10^3/uL (4.0-11.0) Red Blood Count 4.65 x10^6/uL (3.50-5.40) Hemoglobin 14.7 g/dL (12.0-15.5) Hematocrit 44.7 % (36.0-47.0) Mean Corpuscular Volume 96 fL (79-100) Mean Corpuscular Hemoglobin 32 pg (25-35) Mean Corpuscular Hemoglobin Concent 33 g/dL (31-37) Red Cell Distribution Width 13.1 % (11.5-14.5) Platelet Count 209 x10^3/uL (140-400) Neutrophils (%) (Auto) 80 % (31-73) Lymphocytes (%) (Auto) 13 % (24-48) Monocytes (%) (Auto) 7 % (0-9) Eosinophils (%) (Auto) 0 % (0-3) Basophils (%) (Auto) 0 % (0-3) Neutrophils # (Auto) 8.6 x10^3uL (1.8-7.7) Lymphocytes # (Auto) 1.4 x10^3/uL (1.0-4.8) Monocytes # (Auto) 0.7 x10^3/uL (0.0-1.1) Eosinophils # (Auto) 0.0 x10^3/uL (0.0-0.7) Basophils # (Auto) 0.0 x10^3/uL (0.0-0.2) Sodium Level 140 mmol/L (136-145) Potassium Level 3.9 mmol/L (3.5-5.1) Chloride Level 100 mmol/L (98-107) Carbon Dioxide Level 33 mmol/L (21-32) Anion Gap 7 (6-14) Blood Urea Nitrogen 23 mg/dL (7-20) Creatinine 0.8 mg/dL (0.6-1.0) Estimated GFR (Cockcroft-Gault) 71.8 Glucose Level 319 mg/dL (70-99) Calcium Level 9.0 mg/dL (8.5-10.1) Test 07/23/17 11:26 07/23/17 16:24 07/23/17 20:31 07/24/17 05:15 Glucose (Fingerstick) 287 mg/dL (70-99) 368 mg/dL (70-99) 372 mg/dL (70-99) White Blood Count 11.0 x10^3/uL (4.0-11.0) Red Blood Count 4.62 x10^6/uL (3.50-5.40) Hemoglobin 14.7 g/dL (12.0-15.5) Hematocrit 44.2 % (36.0-47.0) Mean Corpuscular Volume 96 fL (79-100) Mean Corpuscular Hemoglobin 32 pg (25-35) Mean Corpuscular Hemoglobin Concent 33 g/dL (31-37) Red Cell Distribution Width 12.9 % (11.5-14.5) Platelet Count 210 x10^3/uL (140-400) Neutrophils (%) (Auto) 82 % (31-73) Lymphocytes (%) (Auto) 12 % (24-48) Monocytes (%) (Auto) 6 % (0-9) Eosinophils (%) (Auto) 0 % (0-3) Basophils (%) (Auto) 0 % (0-3) Neutrophils # (Auto) 9.0 x10^3uL (1.8-7.7) Lymphocytes # (Auto) 1.3 x10^3/uL (1.0-4.8) Monocytes # (Auto) 0.7 x10^3/uL (0.0-1.1) Eosinophils # (Auto) 0.0 x10^3/uL (0.0-0.7) Basophils # (Auto) 0.0 x10^3/uL (0.0-0.2) Sodium Level 141 mmol/L (136-145) Potassium Level 3.7 mmol/L (3.5-5.1) Chloride Level 102 mmol/L (98-107) Carbon Dioxide Level 33 mmol/L (21-32) Anion Gap 6 (6-14) Blood Urea Nitrogen 28 mg/dL (7-20) Creatinine 0.7 mg/dL (0.6-1.0) Estimated GFR (Cockcroft-Gault) 83.7 Glucose Level 226 mg/dL (70-99) Calcium Level 9.1 mg/dL (8.5-10.1) Test 07/24/17 07:30 Glucose (Fingerstick) 284 mg/dL (70-99) Laboratory Tests Test 07/23/17 11:26 07/23/17 16:24 07/23/17 20:31 07/24/17 05:15 Glucose (Fingerstick) 287 mg/dL (70-99) 368 mg/dL (70-99) 372 mg/dL (70-99) White Blood Count 11.0 x10^3/uL (4.0-11.0) Red Blood Count 4.62 x10^6/uL (3.50-5.40) Hemoglobin 14.7 g/dL (12.0-15.5) Hematocrit 44.2 % (36.0-47.0) Mean Corpuscular Volume 96 fL (79-100) Mean Corpuscular Hemoglobin 32 pg (25-35) Mean Corpuscular Hemoglobin Concent 33 g/dL (31-37) Red Cell Distribution Width 12.9 % (11.5-14.5) Platelet Count 210 x10^3/uL (140-400) Neutrophils (%) (Auto) 82 % (31-73) Lymphocytes (%) (Auto) 12 % (24-48) Monocytes (%) (Auto) 6 % (0-9) Eosinophils (%) (Auto) 0 % (0-3) Basophils (%) (Auto) 0 % (0-3) Neutrophils # (Auto) 9.0 x10^3uL (1.8-7.7) Lymphocytes # (Auto) 1.3 x10^3/uL (1.0-4.8) Monocytes # (Auto) 0.7 x10^3/uL (0.0-1.1) Eosinophils # (Auto) 0.0 x10^3/uL (0.0-0.7) Basophils # (Auto) 0.0 x10^3/uL (0.0-0.2) Sodium Level 141 mmol/L (136-145) Potassium Level 3.7 mmol/L (3.5-5.1) Chloride Level 102 mmol/L (98-107) Carbon Dioxide Level 33 mmol/L (21-32) Anion Gap 6 (6-14) Blood Urea Nitrogen 28 mg/dL (7-20) Creatinine 0.7 mg/dL (0.6-1.0) Estimated GFR (Cockcroft-Gault) 83.7 Glucose Level 226 mg/dL (70-99) Calcium Level 9.1 mg/dL (8.5-10.1) Test 07/24/17 07:30 Glucose (Fingerstick) 284 mg/dL (70-99) Medications Active Scripts Medications Dose Route/Sig Max Daily Dose Days Date Category Dose Instructions Gabapentin 300 Mg Capsule 300 Mg PO HS 05/15/17 Reported Probiotic (Lactobacillus Combination No.4) 1 Each Capsule 1 Each PO DAILY 05/15/17 Reported Acid Paint Roller Covermaker (Ranitidine Hcl) 150 Mg Tablet 150 Mg PO DAILY 05/15/17 Reported [Multi Vitamin] 1 Tab PO DAILY 05/15/17 Reported Aspirin 81 Mg Tab.chew 1 Tab PO BID 05/15/17 Reported Percocet 5-325 Mg Tablet (Oxycodone/Acetaminophen) 1 Each Tablet 1 Tab PO PRN Q6HRS PRN 05/02/17 Rx Clonazepam 0.5 Mg Tablet 1 Tab PO Q6HRS 07/13/16 Reported Calcium Carbonate 500 Mg Tablet 500 Mg PO BID 07/13/16 Reported Atorvastatin Calcium 40 Mg Tablet 1 Tab PO DAILY 07/13/16 Reported Vitamin D (Cholecalciferol (Vitamin D3)) 50,000 Unit Capsule 50,000 Unit PO WEEKLY 03/18/16 Reported Metformin Hcl 500 Mg Tablet 500 Mg PO BID 03/18/16 Reported Vitamin B-100 Complex Tablet (Vitamin B Complex/Folic Acid) 0.4 Mg Tablet 0.4 Mg PO 02/04/16 Reported Folic Acid 1 Mg Tablet 1 Tab PO DAILY 02/04/16 Reported Sucralfate 1 Gm Tablet 1 Tab PO TID 02/04/16 Reported Glipizide 5 Mg Tablet 5 Mg PO PRN DAILY PRN 02/04/16 Reported [calcium] 600mg BID w meals 600 Mg PO BID 12/16/15 Reported NITROGLYCERIN SubLingual (Nitroglycerin) 0.4 Mg Tab.subl 0.4 Mg SL PRN Q5MIN PRN 02/10/15 Reported Advair 250-50 Diskus (Fluticasone/Salmeterol) 1 Each Disk.w.dev 1 Inh IH BID 02/04/15 Reported Amlodipine Besylate 5 Mg Tablet 1 Tab PO DAILY 10/12/14 Reported Losartan Potassium 50 Mg Tablet 1 Tab PO DAILY 06/25/14 Reported Trazodone Hcl 100 Mg Tablet 100 Mg PO HS 06/22/14 Reported next dose tonight Potassium Chloride 20 Meq Tab.er.prt 1 Tab PO QODAY 06/22/14 Reported last dose this am next dose monday Singulair Tablet (Montelukast Sodium) 10 Mg Tablet 10 Mg PO DAILY 06/22/14 Reported last dose last evening next dose tonight Duoneb 0.5-3(2.5) Mg/3 Ml (Albuterol/Ipratropium) 3 Ml Ampul.neb 3 Ml IH QID 06/22/14 Reported last dose at 1200 Hydrochlorothiazide Tablet (Hydrochlorothiazide) 12.5 Mg Tablet 12.5 Mg PO DAILY 11/02/13 Reported last dose this am next dose tomorrow Impression . 1. Acute hypoxic respiratory failure secondary to acute exacerbation of chronic obstructive pulmonary disease. 2. Diffuse bronchospasm secondary to acute exacerbation of chronic obstructive pulmonary disease in a patient with strong asthmatic component. Ongoing tobaccoism has contributed to her exacerbation. 3. Abnormal CT chest with basilar atelectasis, but no consolidation. 4. History of obstructive sleep apnea with noncompliance in the past with CPAP. 5. Acute bronchitis Plan . 1. DuoNeb to q.4h. with albuterol nebs q.2h. p.r.n. 2. IV Solu-Medrol 60 q.6h. 3. Pulmicort nebulizer treatment. 4. still coughing, add antibiotics. 5. Smoking cessation counseling provided. 6. slowly improving JEFF PECK MD Jul 24, 2017 11:05
[2017-07-24] MEDS: cefTRIAXone IV Push 1 GM VIAL. IVP SCH (14:00)
[2017-07-24 15:00] VITALS: BP 148/79
[2017-07-24 19:52] VITALS: BP 132/72
[2017-07-24] MEDS: ATORVASTATIN CALCIUM 40 MG TABLET. PO SCH (20:33)
[2017-07-24] MEDS: GABAPENTIN 300 MG CAPSULE. PO SCH (20:33)
[2017-07-24] MEDS: ZOLPIDEM 5 MG TABLET. PO SCH (20:33)
[2017-07-24] MEDS: PROMETH/CODEINE 6.25/10MG 5 ML SYRUP. PO SCH (20:34)
[2017-07-24] MEDS: INSULIN DETEMIR 300 UNITS/3 ML INSULN.PEN. SQ SCH (20:41)
[2017-07-24] MEDS ORDERED: PROMETH/CODEINE 6.25/10MG 5 ML SYRUP. PO SCH (21:00)
[2017-07-24 23:48] VITALS: BP 150/82
[2017-07-25] VITALS (15 sets, daily range): BP systolic 104–156; BP diastolic 62–83
--- NOTE | 2017-07-25 02:31 | EKG ---
[facility] [address] [place] [address] Test Date: 2017-07-25 Test Time: 02:28:42 Pat Name: CECILIA HEAD Department: Room: 584 1 Gender: F Academic Support Director: JOSIAH : 1950 Requested By: TONNY HANSON Order Number: [id number] Reading MD: Russ Mckeon Measurements Intervals [place] Rate: 160 P: NE: QRS: 21 QRSD: 82 T: 44 QT: 288 QTc: 472 Interpretive Statements ATRIAL FIBRILLATION ST & T ABNORMALITY, CONSIDER HIGH LATERAL ISCHEMIA OR LEFT VENTRICULAR STRAIN T ABNORMALITY IN INFERIOR LEADS ABNORMAL ECG Electronically Signed On 08-04-2017 9:07:[address] [employer]TE[employer] WORK[employer] by Russ Mckeon
[2017-07-25] MEDS ORDERED: METOPROLOL TARTRATE 5 MG/5 ML VIAL. IVP PRN (03:15)
[2017-07-25] MEDS ORDERED: METOPROLOL TARTRATE 5 MG/5 ML VIAL. IVP ONE (03:30)
[2017-07-25] MEDS ORDERED: LEVALBUTEROL 1.25 MG/0.5 ML NEBU. NEB SCH (04:00)
[2017-07-25 04:16] LABS: BASO # 0.1 x10^3/uL (0.0-0.2); BASO % 0 % (0-3); EOS % 0 % (0-3); HEMATOCRIT 44.1 % (36.0-47.0); HEMOGLOBIN 14.6 g/dL (12.0-15.5); LYMPH # 1.4 x10^3/uL (1.0-4.8); LYMPH % 9 % (24-48); MEAN CORPUSCULAR HEMOGLOBIN 32 pg (25-35); MEAN CORPUSCULAR HGB CONC 33 g/dL (31-37); MEAN CORPUSCULAR VOLUME 96 fL (79-100); MONO % 5 % (0-9); NEUT % 86 % (31-73); PLATELET COUNT 212 x10^3/uL (140-400); RED BLOOD COUNT 4.61 x10^6/uL (3.50-5.40); RED CELL DISTRIBUTION WIDTH 13.1 % (11.5-14.5); WHITE BLOOD COUNT 15.3 x10^3/uL (4.0-11.0)
[2017-07-25 04:35] LABS: CALCIUM 8.5 mg/dL (8.5-10.1); CREATININE 0.6 mg/dL (0.6-1.0); POTASSIUM 3.7 mmol/L (3.5-5.1)
[2017-07-25] MEDS: methylPREDNISolone SOD SUCC PF 125 MG/2 ML VIAL. IV SCH ×3 (06:19→22:38)
[2017-07-25 06:37] LABS: PLT ESTIMATE ADEQUATE (ADEQUATE)
[2017-07-25] MEDS: BUDESONIDE 0.5 MG/2 ML NEBU. NEB SCH ×2 (07:38→19:27)
[2017-07-25] MEDS: FOLIC ACID 1 MG TABLET. PO SCH (08:33)
[2017-07-25] MEDS: LACTOBACILLUS RHAMNOSUS GG 1 CAPSULE. PO SCH (08:33)
[2017-07-25] MEDS: MONTELUKAST SODIUM 10 MG TABLET. PO SCH (08:33)
[2017-07-25] MEDS: SUCRALFATE 1 GM TABLET. PO SCH ×3 (08:33→17:16)
[2017-07-25] MEDS: LOSARTAN POTASSIUM 50 MG TABLET. PO SCH (08:34)
[2017-07-25] MEDS: FAMOTIDINE 20 MG TABLET. PO SCH ×2 (08:34→20:54)
[2017-07-25] MEDS: CALCIUM CARBONATE 500 MG TABLET PO SCH ×2 (08:34→17:16)
[2017-07-25] MEDS: ASPIRIN CHEWABLE 81 MG TABLET. PO SCH ×2 (08:34→20:54)
[2017-07-25] MEDS: MULTIVITAMIN with MINERAL TABLET. PO SCH (08:34)
[2017-07-25] MEDS: hydroCHLOROthiazide 12.5 MG CAPSULE PO SCH (08:34)
[2017-07-25] MEDS: METOPROLOL TART IMMED RELEASE 25 MG TABLET. PO SCH ×2 (08:35→20:54)
[2017-07-25] MEDS: metFORMIN 500 MG TABLET PO SCH ×2 (08:35→17:16)
[2017-07-25] MEDS: PROMETH/CODEINE 6.25/10MG 5 ML SYRUP. PO SCH ×3 (08:35→20:54)
[2017-07-25] MEDS: amLODIPine BESYLATE 5 MG TABLET PO SCH (08:36)
[2017-07-25] MEDS: INSULIN ASPART 300 UNITS/3 ML INSULN.PEN SQ SCH ×4 (08:45→20:58)
--- NOTE | 2017-07-25 10:51 | PDOC ---
PROGRESS NOTES Chief Complaint Chief Complaint Acute hypoxic respir failure ASSESSMENT AND PLAN: 1. Tachycardia: afib, now rate-controlled on cardizem gtt. troponins (back) ordered. cardiology consult 2. COPD exacerbation: IV steroids, nebs, suppl O2 3. Bronchitis: in ceftriax, linezolid 4. Tobaccoism: cessation encouraged. 5. NEYMAR: noncompliance in the past with CPAP. 6. DM2: poorly controlled, prob 2ary to high dose steroids. on metformin, insulin. adjust meds 7. HTN: well controlled on mult home meds 8. Prophylaxis: H2B, lovenox 9. Dispo: transfer to 2nd floor History of Present Illness History of Present Illness developed palpitations, chest pressure last night. noted to be in Afib, started on cardizem gtt and transferred to ICU Vitals Vitals Vital Signs Date Time Temp Pulse Resp B/P (MAP) Pulse Ox O2 Delivery O2 Flow Rate FiO2 07/25/17 08:36 92 119/68 07/25/17 07:41 97 Nasal Cannula 2.0 07/25/17 07:00 97.8 20 97.8 Physical Exam General: Alert, Oriented X3, Cooperative, No acute distress Heart: Other (sl irreg) Lungs: Wheezing (expiratory) Abdomen: Normal bowel sounds, Soft, No tenderness Extremities: No clubbing, No cyanosis, No edema Skin: No rashes Labs LABS Laboratory Tests Test 07/24/17 11:07 07/24/17 16:37 07/24/17 20:29 07/25/17 04:05 Glucose (Fingerstick) 339 mg/dL (70-99) 357 mg/dL (70-99) 307 mg/dL (70-99) White Blood Count 15.3 x10^3/uL (4.0-11.0) Red Blood Count 4.61 x10^6/uL (3.50-5.40) Hemoglobin 14.6 g/dL (12.0-15.5) Hematocrit 44.1 % (36.0-47.0) Mean Corpuscular Volume 96 fL (79-100) Mean Corpuscular Hemoglobin 32 pg (25-35) Mean Corpuscular Hemoglobin Concent 33 g/dL (31-37) Red Cell Distribution Width 13.1 % (11.5-14.5) Platelet Count 212 x10^3/uL (140-400) Neutrophils (%) (Auto) 86 % (31-73) Lymphocytes (%) (Auto) 9 % (24-48) Monocytes (%) (Auto) 5 % (0-9) Eosinophils (%) (Auto) 0 % (0-3) Basophils (%) (Auto) 0 % (0-3) Neutrophils # (Auto) 13.1 x10^3uL (1.8-7.7) Lymphocytes # (Auto) 1.4 x10^3/uL (1.0-4.8) Monocytes # (Auto) 0.8 x10^3/uL (0.0-1.1) Eosinophils # (Auto) 0.0 x10^3/uL (0.0-0.7) Basophils # (Auto) 0.1 x10^3/uL (0.0-0.2) Segmented Neutrophils % 78 % (35-66) Band Neutrophils % 8 % (0-9) Lymphocytes % 10 % (24-48) Monocytes % 4 % (0-10) Platelet Estimate Adequate (ADEQUATE) Sodium Level 142 mmol/L (136-145) Potassium Level 3.7 mmol/L (3.5-5.1) Chloride Level 104 mmol/L (98-107) Carbon Dioxide Level 32 mmol/L (21-32) Anion Gap 6 (6-14) Blood Urea Nitrogen 27 mg/dL (7-20) Creatinine 0.6 mg/dL (0.6-1.0) Estimated GFR (Cockcroft-Gault) 100.0 Glucose Level 188 mg/dL (70-99) Calcium Level 8.5 mg/dL (8.5-10.1) Test 07/25/17 07:51 Glucose (Fingerstick) 219 mg/dL (70-99) CHERRIE HUDSON MD Jul 25, 2017 10:51
[2017-07-25] MEDS: LEVALBUTEROL 1.25 MG/0.5 ML NEBU. NEB SCH ×3 (12:00→19:27)
--- NOTE | 2017-07-25 12:01 | PDOC ---
PULMONARY PROGRESS NOTES Subjective transfer to ICU for Afib with RVR on cardizem drip Vitals Vital Signs Date Time Temp Pulse Resp B/P (MAP) Pulse Ox O2 Delivery O2 Flow Rate FiO2 07/25/17 11:00 88 19 135/73 (93) 96 Nasal Cannula 2.0 07/25/17 09:15 98.2 98.2 General: Alert, Oriented X4, No acute distress HEENT: Other Lungs: Wheezing (improving) Cardiovascular: S1, S2 Abdomen: Soft, Non-tender, Other Neuro Exam: Alert Extremities: No Edema Skin: Warm Labs Laboratory Tests Test 07/23/17 16:24 07/23/17 20:31 07/24/17 05:15 07/24/17 07:30 Glucose (Fingerstick) 368 mg/dL (70-99) 372 mg/dL (70-99) 284 mg/dL (70-99) White Blood Count 11.0 x10^3/uL (4.0-11.0) Red Blood Count 4.62 x10^6/uL (3.50-5.40) Hemoglobin 14.7 g/dL (12.0-15.5) Hematocrit 44.2 % (36.0-47.0) Mean Corpuscular Volume 96 fL (79-100) Mean Corpuscular Hemoglobin 32 pg (25-35) Mean Corpuscular Hemoglobin Concent 33 g/dL (31-37) Red Cell Distribution Width 12.9 % (11.5-14.5) Platelet Count 210 x10^3/uL (140-400) Neutrophils (%) (Auto) 82 % (31-73) Lymphocytes (%) (Auto) 12 % (24-48) Monocytes (%) (Auto) 6 % (0-9) Eosinophils (%) (Auto) 0 % (0-3) Basophils (%) (Auto) 0 % (0-3) Neutrophils # (Auto) 9.0 x10^3uL (1.8-7.7) Lymphocytes # (Auto) 1.3 x10^3/uL (1.0-4.8) Monocytes # (Auto) 0.7 x10^3/uL (0.0-1.1) Eosinophils # (Auto) 0.0 x10^3/uL (0.0-0.7) Basophils # (Auto) 0.0 x10^3/uL (0.0-0.2) Sodium Level 141 mmol/L (136-145) Potassium Level 3.7 mmol/L (3.5-5.1) Chloride Level 102 mmol/L (98-107) Carbon Dioxide Level 33 mmol/L (21-32) Anion Gap 6 (6-14) Blood Urea Nitrogen 28 mg/dL (7-20) Creatinine 0.7 mg/dL (0.6-1.0) Estimated GFR (Cockcroft-Gault) 83.7 Glucose Level 226 mg/dL (70-99) Calcium Level 9.1 mg/dL (8.5-10.1) Test 07/24/17 11:07 07/24/17 16:37 07/24/17 20:29 07/25/17 04:05 Glucose (Fingerstick) 339 mg/dL (70-99) 357 mg/dL (70-99) 307 mg/dL (70-99) White Blood Count 15.3 x10^3/uL (4.0-11.0) Red Blood Count 4.61 x10^6/uL (3.50-5.40) Hemoglobin 14.6 g/dL (12.0-15.5) Hematocrit 44.1 % (36.0-47.0) Mean Corpuscular Volume 96 fL (79-100) Mean Corpuscular Hemoglobin 32 pg (25-35) Mean Corpuscular Hemoglobin Concent 33 g/dL (31-37) Red Cell Distribution Width 13.1 % (11.5-14.5) Platelet Count 212 x10^3/uL (140-400) Neutrophils (%) (Auto) 86 % (31-73) Lymphocytes (%) (Auto) 9 % (24-48) Monocytes (%) (Auto) 5 % (0-9) Eosinophils (%) (Auto) 0 % (0-3) Basophils (%) (Auto) 0 % (0-3) Neutrophils # (Auto) 13.1 x10^3uL (1.8-7.7) Lymphocytes # (Auto) 1.4 x10^3/uL (1.0-4.8) Monocytes # (Auto) 0.8 x10^3/uL (0.0-1.1) Eosinophils # (Auto) 0.0 x10^3/uL (0.0-0.7) Basophils # (Auto) 0.1 x10^3/uL (0.0-0.2) Segmented Neutrophils % 78 % (35-66) Band Neutrophils % 8 % (0-9) Lymphocytes % 10 % (24-48) Monocytes % 4 % (0-10) Platelet Estimate Adequate (ADEQUATE) Sodium Level 142 mmol/L (136-145) Potassium Level 3.7 mmol/L (3.5-5.1) Chloride Level 104 mmol/L (98-107) Carbon Dioxide Level 32 mmol/L (21-32) Anion Gap 6 (6-14) Blood Urea Nitrogen 27 mg/dL (7-20) Creatinine 0.6 mg/dL (0.6-1.0) Estimated GFR (Cockcroft-Gault) 100.0 Glucose Level 188 mg/dL (70-99) Calcium Level 8.5 mg/dL (8.5-10.1) Troponin I Quantitative 0.021 ng/mL (0.000-0.055) Test 07/25/17 07:51 07/25/17 11:25 Glucose (Fingerstick) 219 mg/dL (70-99) Troponin I Quantitative 0.041 ng/mL (0.000-0.055) Laboratory Tests Test 07/24/17 16:37 07/24/17 20:29 07/25/17 04:05 07/25/17 07:51 Glucose (Fingerstick) 357 mg/dL (70-99) 307 mg/dL (70-99) 219 mg/dL (70-99) White Blood Count 15.3 x10^3/uL (4.0-11.0) Red Blood Count 4.61 x10^6/uL (3.50-5.40) Hemoglobin 14.6 g/dL (12.0-15.5) Hematocrit 44.1 % (36.0-47.0) Mean Corpuscular Volume 96 fL (79-100) Mean Corpuscular Hemoglobin 32 pg (25-35) Mean Corpuscular Hemoglobin Concent 33 g/dL (31-37) Red Cell Distribution Width 13.1 % (11.5-14.5) Platelet Count 212 x10^3/uL (140-400) Neutrophils (%) (Auto) 86 % (31-73) Lymphocytes (%) (Auto) 9 % (24-48) Monocytes (%) (Auto) 5 % (0-9) Eosinophils (%) (Auto) 0 % (0-3) Basophils (%) (Auto) 0 % (0-3) Neutrophils # (Auto) 13.1 x10^3uL (1.8-7.7) Lymphocytes # (Auto) 1.4 x10^3/uL (1.0-4.8) Monocytes # (Auto) 0.8 x10^3/uL (0.0-1.1) Eosinophils # (Auto) 0.0 x10^3/uL (0.0-0.7) Basophils # (Auto) 0.1 x10^3/uL (0.0-0.2) Segmented Neutrophils % 78 % (35-66) Band Neutrophils % 8 % (0-9) Lymphocytes % 10 % (24-48) Monocytes % 4 % (0-10) Platelet Estimate Adequate (ADEQUATE) Sodium Level 142 mmol/L (136-145) Potassium Level 3.7 mmol/L (3.5-5.1) Chloride Level 104 mmol/L (98-107) Carbon Dioxide Level 32 mmol/L (21-32) Anion Gap 6 (6-14) Blood Urea Nitrogen 27 mg/dL (7-20) Creatinine 0.6 mg/dL (0.6-1.0) Estimated GFR (Cockcroft-Gault) 100.0 Glucose Level 188 mg/dL (70-99) Calcium Level 8.5 mg/dL (8.5-10.1) Troponin I Quantitative 0.021 ng/mL (0.000-0.055) Test 07/25/17 11:25 Troponin I Quantitative 0.041 ng/mL (0.000-0.055) Medications Active Scripts Medications Dose Route/Sig Max Daily Dose Days Date Category Dose Instructions Gabapentin 300 Mg Capsule 300 Mg PO HS 05/15/17 Reported Probiotic (Lactobacillus Combination No.4) 1 Each Capsule 1 Each PO DAILY 05/15/17 Reported Acid Palliative Nurse (Ranitidine Hcl) 150 Mg Tablet 150 Mg PO DAILY 05/15/17 Reported [Multi Vitamin] 1 Tab PO DAILY 05/15/17 Reported Aspirin 81 Mg Tab.chew 1 Tab PO BID 05/15/17 Reported Percocet 5-325 Mg Tablet (Oxycodone/Acetaminophen) 1 Each Tablet 1 Tab PO PRN Q6HRS PRN 05/02/17 Rx Clonazepam 0.5 Mg Tablet 1 Tab PO Q6HRS 07/13/16 Reported Calcium Carbonate 500 Mg Tablet 500 Mg PO BID 07/13/16 Reported Atorvastatin Calcium 40 Mg Tablet 1 Tab PO DAILY 07/13/16 Reported Vitamin D (Cholecalciferol (Vitamin D3)) 50,000 Unit Capsule 50,000 Unit PO WEEKLY 03/18/16 Reported Metformin Hcl 500 Mg Tablet 500 Mg PO BID 03/18/16 Reported Vitamin B-100 Complex Tablet (Vitamin B Complex/Folic Acid) 0.4 Mg Tablet 0.4 Mg PO 02/04/16 Reported Folic Acid 1 Mg Tablet 1 Tab PO DAILY 02/04/16 Reported Sucralfate 1 Gm Tablet 1 Tab PO TID 02/04/16 Reported Glipizide 5 Mg Tablet 5 Mg PO PRN DAILY PRN 02/04/16 Reported [calcium] 600mg BID w meals 600 Mg PO BID 12/16/15 Reported NITROGLYCERIN SubLingual (Nitroglycerin) 0.4 Mg Tab.subl 0.4 Mg SL PRN Q5MIN PRN 02/10/15 Reported Advair 250-50 Diskus (Fluticasone/Salmeterol) 1 Each Disk.w.dev 1 Inh IH BID 02/04/15 Reported Amlodipine Besylate 5 Mg Tablet 1 Tab PO DAILY 10/12/14 Reported Losartan Potassium 50 Mg Tablet 1 Tab PO DAILY 06/25/14 Reported Trazodone Hcl 100 Mg Tablet 100 Mg PO HS 06/22/14 Reported next dose tonight Potassium Chloride 20 Meq Tab.er.prt 1 Tab PO QODAY 06/22/14 Reported last dose this am next dose monday Singulair Tablet (Montelukast Sodium) 10 Mg Tablet 10 Mg PO DAILY 06/22/14 Reported last dose last evening next dose tonight Duoneb 0.5-3(2.5) Mg/3 Ml (Albuterol/Ipratropium) 3 Ml Ampul.neb 3 Ml IH QID 06/22/14 Reported last dose at 1200 Hydrochlorothiazide Tablet (Hydrochlorothiazide) 12.5 Mg Tablet 12.5 Mg PO DAILY 11/02/13 Reported last dose this am next dose tomorrow Impression . 1. Acute hypoxic respiratory failure secondary to acute exacerbation of chronic obstructive pulmonary disease. 2. Diffuse bronchospasm secondary to acute exacerbation of chronic obstructive pulmonary disease in a patient with strong asthmatic component. Ongoing tobaccoism has contributed to her exacerbation. improving 3. Abnormal CT chest with basilar atelectasis, but no consolidation. 4. History of obstructive sleep apnea with noncompliance in the past with CPAP. 5. Acute bronchitis 6. transfer to ICU 07/25 for Afib with RVR, on cardizem drip Plan . 1. off DuoNeb, on Xopenex 2. IV Solu-Medrol 60 q.6h. 3. Pulmicort nebulizer treatment. 4. still coughing, added antibiotics. 5. Smoking cessation counseling provided. 6. slowly improving 7. follow cardiology recommendations d/w , JEFF MOSQUEDA MD Jul 25, 2017 12:01
[2017-07-25] MEDS: cefTRIAXone IV Push 1 GM VIAL. IVP SCH (13:21)
--- NOTE | 2017-07-25 14:50 | PDOC2 ---
CONSULT Date of Consult Date of Consult DATE: 07/25/17 TIME: 14:45 Reason for Consult Reason for Consult: A Fib with RVR Identification/Chief Complaint Chief Complaint Shortness of breath Problems: Source Source: Patient Past Medical History Cardiovascular: CHF, HTN Pulmonary: Asthma, Bronchitis, COPD Psych: Anxiety, Addictions, Depression Musculoskeletal: low back pain Renal/: No pertinent hx Past Surgical History Past Surgical History: Appendectomy, Cholecystectomy, CABG, Cystoscopy, Hysterectomy, Other Family History Family History: Alcohol Abuse, Diabetes, Heart Disease Social History ALCOHOL: other Drugs: None Lives: with Family Current Problem List Problem List Problems Medical Problems: (1) Acute exacerbation of chronic obstructive pulmonary disease (COPD) Status: Acute Current Medications Current Medications Current Medications Albuterol/ Ipratropium (Duoneb) 3 ml 1X ONCE NEB Last administered on 11:23; Start 07/21/17 at 11:00; Stop 07/21/17 at 11:01; Status DC Iohexol (Omnipaque 300 Mg/ml) 75 ml 1X ONCE IV Last administered on 15:03; Start 07/21/17 at 14:00; Stop 07/21/17 at 14:03; Status DC Info (Do NOT chart on this entry -- for MONITORING) 1 each PRN DAILY PRN MC SEE COMMENTS; Start 07/21/17 at 14:15; Stop 07/23/17 at 14:14; Status DC Methylprednisolone Sodium Succinate (SOLU-Medrol 125MG VIAL) 125 mg 1X ONCE IV Last administered on 07/21/17 15:19; Start 07/21/17 at 14:30; Stop at 14:31; Status DC Info (Do NOT chart on this placeholder) 1 each 1X ONCE MC ; Start 07/21/17 at 16:45; Stop 07/21/17 at 16:46; Status UNV Insulin Aspart (NovoLOG) 0-7 UNITS TIDWMEALS SQ Last administered on 17:22; Start 07/21/17 at 17:00; Stop 07/24/17 at 13:56; Status DC Dextrose (Dextrose 50%-Water Syringe) 12.5 gm PRN Q15MIN PRN IV SEE COMMENTS; Start 07/21/17 at 16:45; Stop 07/24/17 at 13:55; Status DC Zolpidem Tartrate (Ambien) 5 mg QHS PO Last administered on 07/24/17 20:33; Start 07/21/17 at 21:00 Influenza Virus Vaccine Quadrival (Fluarix Quad 2455-4315 Syringe) 0.5 ml ONCE ONCE VAX IM Last administered on 07/23/17 12:13; Start 07/21/17 at 17:00; Stop 07/21/17 at 17:01; Status DC Amlodipine Besylate (Norvasc) 5 mg DAILY PO Last administered on 07/25/17 08: 36; Start 07/21/17 at 17:30 Aspirin (Children'S Aspirin) 81 mg BID PO Last administered on 07/25/17 08:34 ; Start 07/21/17 at 21:00 Atorvastatin Calcium (Lipitor) 40 mg QHS PO Last administered on 07/24/17 20: 33; Start 07/21/17 at 21:00 Calcium Carbonate/ Glycine (Oscal) 500 mg BIDWMEALS PO Last administered on 08:34; Start 07/21/17 at 17:30 Clonazepam (KlonoPIN) 0.5 mg PRN Q6HRS PRN PO ANXIETY Last administered on 20:33; Start 07/21/17 at 18:00 Folic Acid (Folic Acid) 1 mg DAILY PO Last administered on 07/25/17 08:33; Start 07/21/17 at 17:30 Glipizide (Glucotrol) 5 mg PRN DAILY PRN PO SEE COMMENTS; Start 07/21/17 at 16 :45; Status UNV Albuterol/ Ipratropium (Duoneb) 3 ml QID IH ; Start 07/21/17 at 17:00; Stop at 17:07; Status DC Losartan Potassium (Cozaar) 50 mg DAILY PO Last administered on 07/25/17 08: 34; Start 07/21/17 at 17:30 Metformin HCl (Glucophage) 500 mg BIDWMEALS PO Last administered on 07/25/17 08:35; Start 07/23/17 at 17:00 Montelukast Sodium (Singulair) 10 mg DAILY PO Last administered on 07/25/17 08:33; Start 07/21/17 at 17:30 Nitroglycerin (Nitrostat) 0.4 mg PRN Q5MIN PRN SL CHEST PAIN; Start 07/21/17 at 16:45 Oxycodone/ Acetaminophen (Percocet 5/325) 1 tab PRN Q6HRS PRN PO PAIN MILD TO MOD; Start 07/21/17 at 16:45 Potassium Chloride (Klor-Con) 20 meq QODAY@0800 PO Last administered on 08:42; Start 07/22/17 at 08:00 Sucralfate (Carafate) 1 gm TIDAC PO Last administered on 07/25/17 12:11; Start 07/22/17 at 07:30 Trazodone HCl (Desyrel) 100 mg PRN QHS PRN PO SLEEP; Start 07/21/17 at 21:00 Ergocalciferol (Vitamin D2) 50,000 unit WEEKLY PO ; Start 07/22/17 at 09:00; Stop 07/22/17 at 12:10; Status DC Budesonide (Pulmicort) 0.5 mg RTBID NEB ; Start 07/21/17 at 20:00; Status Cancel Gabapentin (Neurontin) 300 mg QHS PO Last administered on 07/24/17 20:33; Start 07/21/17 at 21:00 Hydrochlorothiazide (Microzide) 12.5 mg DAILY PO Last administered on 08:34; Start 07/21/17 at 17:30 Lactobacillus Rhamnosus (Culturelle) 1 cap DAILY PO Last administered on 08:33; Start 07/21/17 at 17:30 Famotidine (Pepcid) 20 mg BID PO Last administered on 07/25/17 08:34; Start 07/21/17 at 21:00 Calcium Carbonate/ Glycine (Oscal) 500 mg BID PO ; Start 07/21/17 at 21:00; Status Cancel Multivitamins (Thera M Plus) 1 tab DAILY PO Last administered on 07/25/17 08: 34; Start 07/21/17 at 17:30 Zolpidem Tartrate (Ambien) 5 mg PRN QHS PRN PO INSOMNIA; Start 07/21/17 at 17: 00 Albuterol/ Ipratropium (Duoneb) 3 ml Q4HRS IH Last administered on 07/24/17 18:55; Start 07/21/17 at 20:00; Stop 07/25/17 at 03:19; Status DC Methylprednisolone Sodium Succinate (SOLU-Medrol 125MG VIAL) 80 mg Q8HRS IV Last administered on 07/25/17 13:26; Start 07/21/17 at 22:00 Budesonide (Pulmicort) 0.5 mg RTBID NEB Last administered on 07/25/17 07:38; Start 07/21/17 at 20:00 Albuterol Sulfate (Ventolin Neb Soln) 2.5 mg PRN Q2HRS PRN NEB DYSPNEA; Start 07/21/17 at 17:15; Stop 07/25/17 at 03:19; Status DC Ergocalciferol (Vitamin D2) 50,000 unit WEEKLY PO ; Start 07/26/17 at 09:00 Insulin Aspart (NovoLOG) 5 units 1X ONCE SQ Last administered on 07/22/17 18 :01; Start 07/22/17 at 18:00; Stop 07/22/17 at 18:01; Status DC Insulin Aspart (NovoLOG) 0-9 UNITS TIDWMEALS SQ ; Start 07/24/17 at 08:00; Stop 07/24/17 at 08:00; Status DC Dextrose (Dextrose 50%-Water Syringe) 12.5 gm PRN Q15MIN PRN IV SEE COMMENTS; Start 07/23/17 at 18:30 Insulin Aspart (NovoLOG) 0-9 UNITS QIDACHS SQ Last administered on 07/25/17 12:12; Start 07/24/17 at 07:30 Insulin Detemir (Levemir) 20 units QHS SQ Last administered on 07/24/17 20:41 ; Start 07/23/17 at 22:00 Insulin Aspart (NovoLOG) 20 units 1X ONCE SQ Last administered on 07/23/17 22:26; Start 07/23/17 at 22:30; Stop 07/23/17 at 22:31; Status DC Promethazine HCl/ Codeine (Phenergan With Codeine) 5 ml TID PRN PO COUGH; Start 07/24/17 at 09:15; Stop 07/24/17 at 19:09; Status DC Ceftriaxone Sodium 1 gm/ Dextrose 50 ml @ 100 mls/hr Q24H IV ; Start 07/24/17 at 11:15; Status UNV Ceftriaxone Sodium (Rocephin) 1 gm Q24H IVP Last administered on 07/25/17 13: 21; Start 07/24/17 at 11:30 Promethazine HCl/ Codeine (Phenergan With Codeine) 5 ml TID PO Last administered on 07/25/17 13:26; Start 07/24/17 at 20:00 Promethazine HCl/ Codeine (Phenergan With Codeine) 5 ml TID PO ; Start at 21:00; Status UNV Metoprolol Tartrate (Lopressor Vial) 5 mg 1X ONCE IVP Last administered on 04:37; Start 07/25/17 at 03:30; Stop 07/25/17 at 03:31; Status DC Metoprolol Tartrate (Lopressor Vial) 5 mg PRN Q6HRS PRN IVP INCREASED HEARTRATE ; Start 07/25/17 at 03:15 Metoprolol Tartrate (Lopressor) 25 mg BID PO Last administered on 07/25/17 08 :35; Start 07/25/17 at 09:00 Levalbuterol HCl (Xopenex) 1.25 mg RTQID NEB ; Start 07/25/17 at 04:00; Stop 07/25/17 at 04:52; Status DC Levalbuterol HCl (Xopenex) 1.25 mg Q6HRS NEB Last administered on 07/25/17 12 :00; Start 07/25/17 at 06:00 Linezolid 300 ml @ 300 mls/hr Q12HR IV Last administered on 07/25/17 09:32; Start 07/25/17 at 09:00 Diltiazem HCl 125 mg/Dextrose 125 ml @ 0 mls/hr CONT PRN IV SEE I/O RECORD; Start 07/25/17 at 08:15 Enoxaparin Sodium (Lovenox 40mg Syringe) 40 mg Q24H SQ ; Start 07/25/17 at 16: 00 Active Scripts Active Percocet 5-325 Mg Tablet (Oxycodone/Acetaminophen) 1 Each Tablet 1 Tab PO PRN Q6HRS PRN Reported Gabapentin 300 Mg Capsule 300 Mg PO HS Probiotic (Lactobacillus Combination No.4) 1 Each Capsule 1 Each PO DAILY Acid Heat Treater (Ranitidine Hcl) 150 Mg Tablet 150 Mg PO DAILY [Multi Vitamin] 1 Tab PO DAILY Aspirin 81 Mg Tab.chew 1 Tab PO BID Clonazepam 0.5 Mg Tablet 1 Tab PO Q6HRS Calcium Carbonate 500 Mg Tablet 500 Mg PO BID Atorvastatin Calcium 40 Mg Tablet 1 Tab PO DAILY Vitamin D (Cholecalciferol (Vitamin D3)) 50,000 Unit Capsule 50,000 Unit PO WEEKLY Metformin Hcl 500 Mg Tablet 500 Mg PO BID Vitamin B-100 Complex Tablet (Vitamin B Complex/Folic Acid) 0.4 Mg Tablet 0.4 Mg PO Folic Acid 1 Mg Tablet 1 Tab PO DAILY Sucralfate 1 Gm Tablet 1 Tab PO TID Glipizide 5 Mg Tablet 5 Mg PO PRN DAILY PRN [calcium] 600mg BID w meals 600 Mg PO BID NITROGLYCERIN SubLingual (Nitroglycerin) 0.4 Mg Tab.subl 0.4 Mg SL PRN Q5MIN PRN Advair 250-50 Diskus (Fluticasone/Salmeterol) 1 Each Disk.w.dev 1 Inh IH BID Amlodipine Besylate 5 Mg Tablet 1 Tab PO DAILY Losartan Potassium 50 Mg Tablet 1 Tab PO DAILY Trazodone Hcl 100 Mg Tablet 100 Mg PO HS next dose tonight Potassium Chloride 20 Meq Tab.er.prt 1 Tab PO QODAY last dose this am next dose monday Singulair Tablet (Montelukast Sodium) 10 Mg Tablet 10 Mg PO DAILY last dose last evening next dose tonight Duoneb 0.5-3(2.5) Mg/3 Ml (Albuterol/Ipratropium) 3 Ml Ampul.neb 3 Ml IH QID last dose at 1200 Hydrochlorothiazide Tablet (Hydrochlorothiazide) 12.5 Mg Tablet 12.5 Mg PO DAILY last dose this am next dose tomorrow Allergies Allergies: Coded Allergies: acetaminophen (Verified Allergy, Severe, Itching, 05/15/17) hydrocodone (Verified Allergy, Severe, Itching, 05/15/17) adhesive tape (Verified Allergy, Intermediate, 05/05/17) vancomycin (Verified Allergy, Intermediate, Itching, rash, 05/05/17) I S O L A T I O N *CONTACT* (Verified Allergy, Unknown, 12/20/16) ROS General: No: Chills, Night Sweats, Fatigue, Malaise, Appetite, Other PSYCHOLOGICAL ROS: No: Anxiety, Behavioral Disorder, Concentration difficultie , Decreased libido, Depression, Disorientation, Hallucinations, Hostility, Irritablity, Memory difficulties, Mood Swings, Obsessive thoughts, Physical abuse, Sexual abuse, Sleep disturbances, Suicidal ideation, Other Eyes: No Blurry vision, No Decreased vision, No Double vision, No Dry eyes, No Excessive tearing, No Eye Pain, No Itchy Eyes, No Loss of vision, No Photophobia , No Scotomata, No Uses contacts, No Uses glasses, No Other HEENT: No: Heacaches, Visual Changes, Hearing change, Nasal congestion, Nasal discharge, Oral lesions, Sinus pain, Sore Throat, Epistaxis, Sneezing, Snoring, Tinnitus, Vertigo, Vocal changes, Other ALLERGY AND IMMUNOLOGY: No: Hives, Insect Bite Sensitivity, Itchy/Watery Eyes, Nasal Congestion, Post Nasal Drip, Seasonal Allergies, Other Hematological and Lymphatic: No: Bleeding Problems, Blood Clots, Blood Transfusions, Brusing, Night Sweats, Pallor, Swollen Lymph Nodes, Other ENDOCRINE: No: Breast Changes, Galactorrhea, Hair Pattern Changes, Hot Flashes , Malaise/lethargy, Mood Swings, Palpitations, Polydipsia/polyuria, Skin Changes , Temperature Intolerance, Unexpected Weight Changes, Other Breast: No New/Changing Breast Lumps, No Nipple changes, No Nipple discharge, No Other Respiratory: YES: Shortness of breath, SOB with excertion Cardiovascular: No Chest Pain, No Palpitations, No Orthopnea, No Paroxysmal Noc. Dyspnea, No Edema, No Lt Headedness, No Other Gastrointestinal: No Nausea, No Vomiting, No Abdominal Pain, No Diarrhea, No Constipation, No Melena, No Hematochezia, No Other Genitourinary: No Dysuria, No Frequency, No Incontinence, No Hematuria, No Retention, No Discharge, No Urgency, No Pain, No Flank Pain, No Other, No , No , No , No , No , No , No Musculoskeletal: No Gait Disturbance, No Joint Pain, No Joint Stiffness, No Joint Swelling, No Muscle Pain, No Muscular Weakness, No Pain In:, No Swelling In:, No Other Neurological: No Behavorial Changes, No Bowel/Bladder ControlChng, No Confusion , No Dizziness, No Gait Disturbance, No Headaches, No Impaired Coord/balance, No Memory Loss, No Numbness/Tingling, No Seizures, No Speech Problems, No Tremors, No Visual Changes, No Weakness, No Other Skin: No Dry Skin, No Eczema, No Hair Changes, No Lumps, No Mole Changes, No Mottling, No Nail Changes, No Pruritus, No Rash, No Skin Lesion Changes, No Other, No Acne Physical Exam General: Alert, Oriented X3, Cooperative, mild distress HEENT: Atraumatic Lungs: Other (bilateral crackles and expiratory wheezing in all lung duncan) Heart: Other (atrial fibrillation, rate controlled with diltiazem) Abdomen: Soft Extremities: No clubbing, No cyanosis Skin: No rashes Psych/Mental Status: Mental status NL MUSCULOSKELETAL: No swelling Vitals VITALS Vital Signs Date Time Temp Pulse Resp B/P (MAP) Pulse Ox O2 Delivery O2 Flow Rate FiO2 07/25/17 14:00 90 17 135/83 (100) 92 Nasal Cannula 2.0 07/25/17 12:00 98.4 98.4 Labs Labs Laboratory Tests Test 07/23/17 16:24 07/23/17 20:31 07/24/17 05:15 07/24/17 07:30 Glucose (Fingerstick) 368 mg/dL (70-99) 372 mg/dL (70-99) 284 mg/dL (70-99) White Blood Count 11.0 x10^3/uL (4.0-11.0) Red Blood Count 4.62 x10^6/uL (3.50-5.40) Hemoglobin 14.7 g/dL (12.0-15.5) Hematocrit 44.2 % (36.0-47.0) Mean Corpuscular Volume 96 fL (79-100) Mean Corpuscular Hemoglobin 32 pg (25-35) Mean Corpuscular Hemoglobin Concent 33 g/dL (31-37) Red Cell Distribution Width 12.9 % (11.5-14.5) Platelet Count 210 x10^3/uL (140-400) Neutrophils (%) (Auto) 82 % (31-73) Lymphocytes (%) (Auto) 12 % (24-48) Monocytes (%) (Auto) 6 % (0-9) Eosinophils (%) (Auto) 0 % (0-3) Basophils (%) (Auto) 0 % (0-3) Neutrophils # (Auto) 9.0 x10^3uL (1.8-7.7) Lymphocytes # (Auto) 1.3 x10^3/uL (1.0-4.8) Monocytes # (Auto) 0.7 x10^3/uL (0.0-1.1) Eosinophils # (Auto) 0.0 x10^3/uL (0.0-0.7) Basophils # (Auto) 0.0 x10^3/uL (0.0-0.2) Sodium Level 141 mmol/L (136-145) Potassium Level 3.7 mmol/L (3.5-5.1) Chloride Level 102 mmol/L (98-107) Carbon Dioxide Level 33 mmol/L (21-32) Anion Gap 6 (6-14) Blood Urea Nitrogen 28 mg/dL (7-20) Creatinine 0.7 mg/dL (0.6-1.0) Estimated GFR (Cockcroft-Gault) 83.7 Glucose Level 226 mg/dL (70-99) Calcium Level 9.1 mg/dL (8.5-10.1) Test 07/24/17 11:07 07/24/17 16:37 07/24/17 20:29 07/25/17 04:05 Glucose (Fingerstick) 339 mg/dL (70-99) 357 mg/dL (70-99) 307 mg/dL (70-99) White Blood Count 15.3 x10^3/uL (4.0-11.0) Red Blood Count 4.61 x10^6/uL (3.50-5.40) Hemoglobin 14.6 g/dL (12.0-15.5) Hematocrit 44.1 % (36.0-47.0) Mean Corpuscular Volume 96 fL (79-100) Mean Corpuscular Hemoglobin 32 pg (25-35) Mean Corpuscular Hemoglobin Concent 33 g/dL (31-37) Red Cell Distribution Width 13.1 % (11.5-14.5) Platelet Count 212 x10^3/uL (140-400) Neutrophils (%) (Auto) 86 % (31-73) Lymphocytes (%) (Auto) 9 % (24-48) Monocytes (%) (Auto) 5 % (0-9) Eosinophils (%) (Auto) 0 % (0-3) Basophils (%) (Auto) 0 % (0-3) Neutrophils # (Auto) 13.1 x10^3uL (1.8-7.7) Lymphocytes # (Auto) 1.4 x10^3/uL (1.0-4.8) Monocytes # (Auto) 0.8 x10^3/uL (0.0-1.1) Eosinophils # (Auto) 0.0 x10^3/uL (0.0-0.7) Basophils # (Auto) 0.1 x10^3/uL (0.0-0.2) Segmented Neutrophils % 78 % (35-66) Band Neutrophils % 8 % (0-9) Lymphocytes % 10 % (24-48) Monocytes % 4 % (0-10) Platelet Estimate Adequate (ADEQUATE) Sodium Level 142 mmol/L (136-145) Potassium Level 3.7 mmol/L (3.5-5.1) Chloride Level 104 mmol/L (98-107) Carbon Dioxide Level 32 mmol/L (21-32) Anion Gap 6 (6-14) Blood Urea Nitrogen 27 mg/dL (7-20) Creatinine 0.6 mg/dL (0.6-1.0) Estimated GFR (Cockcroft-Gault) 100.0 Glucose Level 188 mg/dL (70-99) Calcium Level 8.5 mg/dL (8.5-10.1) Troponin I Quantitative 0.021 ng/mL (0.000-0.055) Test 07/25/17 07:51 07/25/17 11:25 07/25/17 12:10 Glucose (Fingerstick) 219 mg/dL (70-99) 254 mg/dL (70-99) Troponin I Quantitative 0.041 ng/mL (0.000-0.055) Laboratory Tests Test 07/24/17 16:37 07/24/17 20:29 07/25/17 04:05 07/25/17 07:51 Glucose (Fingerstick) 357 mg/dL (70-99) 307 mg/dL (70-99) 219 mg/dL (70-99) White Blood Count 15.3 x10^3/uL (4.0-11.0) Red Blood Count 4.61 x10^6/uL (3.50-5.40) Hemoglobin 14.6 g/dL (12.0-15.5) Hematocrit 44.1 % (36.0-47.0) Mean Corpuscular Volume 96 fL (79-100) Mean Corpuscular Hemoglobin 32 pg (25-35) Mean Corpuscular Hemoglobin Concent 33 g/dL (31-37) Red Cell Distribution Width 13.1 % (11.5-14.5) Platelet Count 212 x10^3/uL (140-400) Neutrophils (%) (Auto) 86 % (31-73) Lymphocytes (%) (Auto) 9 % (24-48) Monocytes (%) (Auto) 5 % (0-9) Eosinophils (%) (Auto) 0 % (0-3) Basophils (%) (Auto) 0 % (0-3) Neutrophils # (Auto) 13.1 x10^3uL (1.8-7.7) Lymphocytes # (Auto) 1.4 x10^3/uL (1.0-4.8) Monocytes # (Auto) 0.8 x10^3/uL (0.0-1.1) Eosinophils # (Auto) 0.0 x10^3/uL (0.0-0.7) Basophils # (Auto) 0.1 x10^3/uL (0.0-0.2) Segmented Neutrophils % 78 % (35-66) Band Neutrophils % 8 % (0-9) Lymphocytes % 10 % (24-48) Monocytes % 4 % (0-10) Platelet Estimate Adequate (ADEQUATE) Sodium Level 142 mmol/L (136-145) Potassium Level 3.7 mmol/L (3.5-5.1) Chloride Level 104 mmol/L (98-107) Carbon Dioxide Level 32 mmol/L (21-32) Anion Gap 6 (6-14) Blood Urea Nitrogen 27 mg/dL (7-20) Creatinine 0.6 mg/dL (0.6-1.0) Estimated GFR (Cockcroft-Gault) 100.0 Glucose Level 188 mg/dL (70-99) Calcium Level 8.5 mg/dL (8.5-10.1) Troponin I Quantitative 0.021 ng/mL (0.000-0.055) Test 07/25/17 11:25 07/25/17 12:10 Troponin I Quantitative 0.041 ng/mL (0.000-0.055) Glucose (Fingerstick) 254 mg/dL (70-99) Assessment/Plan Assessment/Plan Ms. Norris is a pleasant 67 y/o F with a history of COPD who presented with shortness of breath due to COPD exacerbation. She began having irregular heart rate and rhythm while admitted and was transferred to the ICU and started on a Cardizem drip. Patient in atrial fibrillation with a controlled ventricular response at this point. She was tachycardic earlier Continue Cardizem drip until a.m. and then we will start on by mouth Cardizem. I would like to anticoagulate the patient and get an echocardiogram. Her current rhythm issues may be secondary to her COPD with cor pulmonale. Agree with current plan of care. Thank you very much for asking me to participate in the care of this patient LYLE GRAY MD Jul 25, 2017 14:50
[2017-07-25] MEDS ORDERED: ENOXAPARIN 40 MG/0.4 ML SYRINGE. SQ SCH (16:00)
[2017-07-25] MEDS: GABAPENTIN 300 MG CAPSULE. PO SCH (20:54)
[2017-07-25] MEDS: ATORVASTATIN CALCIUM 40 MG TABLET. PO SCH (20:54)
[2017-07-25] MEDS: ZOLPIDEM 5 MG TABLET. PO SCH (20:54)
[2017-07-25] MEDS: INSULIN DETEMIR 300 UNITS/3 ML INSULN.PEN. SQ SCH (21:21)
[2017-07-25] MEDS: clonazePAM 0.5 MG TABLET PO PRN (23:37)
[2017-07-26] VITALS (8 sets, daily range): BP systolic 103–151; BP diastolic 64–89
[2017-07-26] MEDS ORDERED: dilTIAZem 125 MG in IV NORMAL SALINE 100ML 100 ML IV PRN (00:30)
[2017-07-26] MEDS: methylPREDNISolone SOD SUCC PF 125 MG/2 ML VIAL. IV SCH ×3 (06:17→21:03)
[2017-07-26 06:28] LABS: BASO % 0 % (0-3); EOS % 0 % (0-3); HEMOGLOBIN 14.9 g/dL (12.0-15.5); LYMPH # 1.4 x10^3/uL (1.0-4.8); LYMPH % 10 % (24-48); MEAN CORPUSCULAR HEMOGLOBIN 32 pg (25-35); MEAN CORPUSCULAR HGB CONC 33 g/dL (31-37); MEAN CORPUSCULAR VOLUME 95 fL (79-100); MONO % 5 % (0-9); NEUT % 86 % (31-73); PLATELET COUNT 226 x10^3/uL (140-400); RED BLOOD COUNT 4.72 x10^6/uL (3.50-5.40); RED CELL DISTRIBUTION WIDTH 13.3 % (11.5-14.5); WHITE BLOOD COUNT 13.9 x10^3/uL (4.0-11.0)
[2017-07-26 06:37] LABS: CREATININE 0.9 mg/dL (0.6-1.0); GFR 62.6; POTASSIUM 3.9 mmol/L (3.5-5.1)
[2017-07-26] MEDS: BUDESONIDE 0.5 MG/2 ML NEBU. NEB SCH ×2 (07:49→19:40)
[2017-07-26] MEDS: LEVALBUTEROL 1.25 MG/0.5 ML NEBU. NEB SCH ×4 (07:49→23:17)
[2017-07-26] MEDS: ASPIRIN CHEWABLE 81 MG TABLET. PO SCH ×2 (08:50→21:02)
[2017-07-26] MEDS: FAMOTIDINE 20 MG TABLET. PO SCH ×2 (08:51→21:02)
[2017-07-26] MEDS: LOSARTAN POTASSIUM 50 MG TABLET. PO SCH (08:51)
[2017-07-26] MEDS: POTASSIUM CHLORIDE 20 MEQ TABLET.ER. PO SCH (08:51)
[2017-07-26] MEDS: LACTOBACILLUS RHAMNOSUS GG 1 CAPSULE. PO SCH (08:51)
[2017-07-26] MEDS: FOLIC ACID 1 MG TABLET. PO SCH (08:51)
[2017-07-26] MEDS: METOPROLOL TART IMMED RELEASE 25 MG TABLET. PO SCH ×2 (08:51→21:03)
[2017-07-26] MEDS: MONTELUKAST SODIUM 10 MG TABLET. PO SCH (08:52)
[2017-07-26] MEDS: SUCRALFATE 1 GM TABLET. PO SCH ×3 (08:52→17:31)
[2017-07-26] MEDS: CALCIUM CARBONATE 500 MG TABLET PO SCH ×2 (08:52→17:31)
[2017-07-26] MEDS: metFORMIN 500 MG TABLET PO SCH ×2 (08:52→17:31)
[2017-07-26] MEDS: hydroCHLOROthiazide 12.5 MG CAPSULE PO SCH (08:52)
[2017-07-26] MEDS: MULTIVITAMIN with MINERAL TABLET. PO SCH (08:52)
[2017-07-26] MEDS: amLODIPine BESYLATE 5 MG TABLET PO SCH (08:53)
[2017-07-26] MEDS: PROMETH/CODEINE 6.25/10MG 5 ML SYRUP. PO SCH ×3 (08:55→21:03)
[2017-07-26] MEDS ORDERED: ERGOCALCIFEROL (VITAMIN D2) 50,000 UNIT CAPSULE. PO SCH (09:00)
[2017-07-26] MEDS: INSULIN ASPART 300 UNITS/3 ML INSULN.PEN SQ SCH ×4 (09:01→21:09)
--- NOTE | 2017-07-26 10:19 | PDOC ---
PULMONARY PROGRESS NOTES Subjective feels better Vitals Vital Signs Date Time Temp Pulse Resp B/P (MAP) Pulse Ox O2 Delivery O2 Flow Rate FiO2 07/26/17 08:53 92 137/71 07/26/17 07:51 96 Nasal Cannula 2.0 07/26/17 07:00 98.4 18 98.4 General: Alert, Oriented X4, No acute distress HEENT: Other Lungs: Wheezing (resolved) Cardiovascular: S1, S2 Abdomen: Soft, Non-tender, Other Neuro Exam: Alert Extremities: No Edema Skin: Warm Labs Laboratory Tests Test 07/24/17 11:07 07/24/17 16:37 07/24/17 20:29 07/25/17 04:05 Glucose (Fingerstick) 339 mg/dL (70-99) 357 mg/dL (70-99) 307 mg/dL (70-99) White Blood Count 15.3 x10^3/uL (4.0-11.0) Red Blood Count 4.61 x10^6/uL (3.50-5.40) Hemoglobin 14.6 g/dL (12.0-15.5) Hematocrit 44.1 % (36.0-47.0) Mean Corpuscular Volume 96 fL (79-100) Mean Corpuscular Hemoglobin 32 pg (25-35) Mean Corpuscular Hemoglobin Concent 33 g/dL (31-37) Red Cell Distribution Width 13.1 % (11.5-14.5) Platelet Count 212 x10^3/uL (140-400) Neutrophils (%) (Auto) 86 % (31-73) Lymphocytes (%) (Auto) 9 % (24-48) Monocytes (%) (Auto) 5 % (0-9) Eosinophils (%) (Auto) 0 % (0-3) Basophils (%) (Auto) 0 % (0-3) Neutrophils # (Auto) 13.1 x10^3uL (1.8-7.7) Lymphocytes # (Auto) 1.4 x10^3/uL (1.0-4.8) Monocytes # (Auto) 0.8 x10^3/uL (0.0-1.1) Eosinophils # (Auto) 0.0 x10^3/uL (0.0-0.7) Basophils # (Auto) 0.1 x10^3/uL (0.0-0.2) Segmented Neutrophils % 78 % (35-66) Band Neutrophils % 8 % (0-9) Lymphocytes % 10 % (24-48) Monocytes % 4 % (0-10) Platelet Estimate Adequate (ADEQUATE) Sodium Level 142 mmol/L (136-145) Potassium Level 3.7 mmol/L (3.5-5.1) Chloride Level 104 mmol/L (98-107) Carbon Dioxide Level 32 mmol/L (21-32) Anion Gap 6 (6-14) Blood Urea Nitrogen 27 mg/dL (7-20) Creatinine 0.6 mg/dL (0.6-1.0) Estimated GFR (Cockcroft-Gault) 100.0 Glucose Level 188 mg/dL (70-99) Calcium Level 8.5 mg/dL (8.5-10.1) Troponin I Quantitative 0.021 ng/mL (0.000-0.055) Test 07/25/17 07:51 07/25/17 11:25 07/25/17 12:10 07/25/17 17:12 Glucose (Fingerstick) 219 mg/dL (70-99) 254 mg/dL (70-99) 259 mg/dL (70-99) Troponin I Quantitative 0.041 ng/mL (0.000-0.055) Test 07/25/17 20:57 07/26/17 06:02 07/26/17 08:05 Glucose (Fingerstick) 336 mg/dL (70-99) 328 mg/dL (70-99) White Blood Count 13.9 x10^3/uL (4.0-11.0) Red Blood Count 4.72 x10^6/uL (3.50-5.40) Hemoglobin 14.9 g/dL (12.0-15.5) Hematocrit 45.0 % (36.0-47.0) Mean Corpuscular Volume 95 fL (79-100) Mean Corpuscular Hemoglobin 32 pg (25-35) Mean Corpuscular Hemoglobin Concent 33 g/dL (31-37) Red Cell Distribution Width 13.3 % (11.5-14.5) Platelet Count 226 x10^3/uL (140-400) Neutrophils (%) (Auto) 86 % (31-73) Lymphocytes (%) (Auto) 10 % (24-48) Monocytes (%) (Auto) 5 % (0-9) Eosinophils (%) (Auto) 0 % (0-3) Basophils (%) (Auto) 0 % (0-3) Neutrophils # (Auto) 11.9 x10^3uL (1.8-7.7) Lymphocytes # (Auto) 1.4 x10^3/uL (1.0-4.8) Monocytes # (Auto) 0.7 x10^3/uL (0.0-1.1) Eosinophils # (Auto) 0.0 x10^3/uL (0.0-0.7) Basophils # (Auto) 0.0 x10^3/uL (0.0-0.2) Sodium Level 138 mmol/L (136-145) Potassium Level 3.9 mmol/L (3.5-5.1) Chloride Level 100 mmol/L (98-107) Carbon Dioxide Level 28 mmol/L (21-32) Anion Gap 10 (6-14) Blood Urea Nitrogen 36 mg/dL (7-20) Creatinine 0.9 mg/dL (0.6-1.0) Estimated GFR (Cockcroft-Gault) 62.6 Glucose Level 392 mg/dL (70-99) Calcium Level 8.0 mg/dL (8.5-10.1) Laboratory Tests Test 07/25/17 11:25 07/25/17 12:10 07/25/17 17:12 07/25/17 20:57 Troponin I Quantitative 0.041 ng/mL (0.000-0.055) Glucose (Fingerstick) 254 mg/dL (70-99) 259 mg/dL (70-99) 336 mg/dL (70-99) Test 07/26/17 06:02 07/26/17 08:05 White Blood Count 13.9 x10^3/uL (4.0-11.0) Red Blood Count 4.72 x10^6/uL (3.50-5.40) Hemoglobin 14.9 g/dL (12.0-15.5) Hematocrit 45.0 % (36.0-47.0) Mean Corpuscular Volume 95 fL (79-100) Mean Corpuscular Hemoglobin 32 pg (25-35) Mean Corpuscular Hemoglobin Concent 33 g/dL (31-37) Red Cell Distribution Width 13.3 % (11.5-14.5) Platelet Count 226 x10^3/uL (140-400) Neutrophils (%) (Auto) 86 % (31-73) Lymphocytes (%) (Auto) 10 % (24-48) Monocytes (%) (Auto) 5 % (0-9) Eosinophils (%) (Auto) 0 % (0-3) Basophils (%) (Auto) 0 % (0-3) Neutrophils # (Auto) 11.9 x10^3uL (1.8-7.7) Lymphocytes # (Auto) 1.4 x10^3/uL (1.0-4.8) Monocytes # (Auto) 0.7 x10^3/uL (0.0-1.1) Eosinophils # (Auto) 0.0 x10^3/uL (0.0-0.7) Basophils # (Auto) 0.0 x10^3/uL (0.0-0.2) Sodium Level 138 mmol/L (136-145) Potassium Level 3.9 mmol/L (3.5-5.1) Chloride Level 100 mmol/L (98-107) Carbon Dioxide Level 28 mmol/L (21-32) Anion Gap 10 (6-14) Blood Urea Nitrogen 36 mg/dL (7-20) Creatinine 0.9 mg/dL (0.6-1.0) Estimated GFR (Cockcroft-Gault) 62.6 Glucose Level 392 mg/dL (70-99) Calcium Level 8.0 mg/dL (8.5-10.1) Glucose (Fingerstick) 328 mg/dL (70-99) Medications Active Scripts Medications Dose Route/Sig Max Daily Dose Days Date Category Dose Instructions Gabapentin 300 Mg Capsule 300 Mg PO HS 05/15/17 Reported Probiotic (Lactobacillus Combination No.4) 1 Each Capsule 1 Each PO DAILY 05/15/17 Reported Acid [employer] (Ranitidine Hcl) 150 Mg Tablet 150 Mg PO DAILY 05/15/17 Reported [Multi Vitamin] 1 Tab PO DAILY 05/15/17 Reported Aspirin 81 Mg Tab.chew 1 Tab PO BID 05/15/17 Reported Percocet 5-325 Mg Tablet (Oxycodone/Acetaminophen) 1 Each Tablet 1 Tab PO PRN Q6HRS PRN 05/02/17 Rx Clonazepam 0.5 Mg Tablet 1 Tab PO Q6HRS 07/13/16 Reported Calcium Carbonate 500 Mg Tablet 500 Mg PO BID 07/13/16 Reported Atorvastatin Calcium 40 Mg Tablet 1 Tab PO DAILY 07/13/16 Reported Vitamin D (Cholecalciferol (Vitamin D3)) 50,000 Unit Capsule 50,000 Unit PO WEEKLY 03/18/16 Reported Metformin Hcl 500 Mg Tablet 500 Mg PO BID 03/18/16 Reported Vitamin B-100 Complex Tablet (Vitamin B Complex/Folic Acid) 0.4 Mg Tablet 0.4 Mg PO 02/04/16 Reported Folic Acid 1 Mg Tablet 1 Tab PO DAILY 02/04/16 Reported Sucralfate 1 Gm Tablet 1 Tab PO TID 02/04/16 Reported Glipizide 5 Mg Tablet 5 Mg PO PRN DAILY PRN 02/04/16 Reported [calcium] 600mg BID w meals 600 Mg PO BID 12/16/15 Reported NITROGLYCERIN SubLingual (Nitroglycerin) 0.4 Mg Tab.subl 0.4 Mg SL PRN Q5MIN PRN 02/10/15 Reported Advair 250-50 Diskus (Fluticasone/Salmeterol) 1 Each Disk.w.dev 1 Inh IH BID 02/04/15 Reported Amlodipine Besylate 5 Mg Tablet 1 Tab PO DAILY 10/12/14 Reported Losartan Potassium 50 Mg Tablet 1 Tab PO DAILY 06/25/14 Reported Trazodone Hcl 100 Mg Tablet 100 Mg PO HS 06/22/14 Reported next dose tonight Potassium Chloride 20 Meq Tab.er.prt 1 Tab PO QODAY 06/22/14 Reported last dose this am next dose monday Singulair Tablet (Montelukast Sodium) 10 Mg Tablet 10 Mg PO DAILY 06/22/14 Reported last dose last evening next dose tonight Duoneb 0.5-3(2.5) Mg/3 Ml (Albuterol/Ipratropium) 3 Ml Ampul.neb 3 Ml IH QID 06/22/14 Reported last dose at 1200 Hydrochlorothiazide Tablet (Hydrochlorothiazide) 12.5 Mg Tablet 12.5 Mg PO DAILY 11/02/13 Reported last dose this am next dose tomorrow Impression . 1. Acute hypoxic respiratory failure secondary to acute exacerbation of chronic obstructive pulmonary disease. 2. Diffuse bronchospasm secondary to acute exacerbation of chronic obstructive pulmonary disease in a patient with strong asthmatic component. resolved tobaccoism has contributed to her exacerbation. 3. Abnormal CT chest with basilar atelectasis, but no consolidation. 4. History of obstructive sleep apnea with noncompliance in the past with CPAP. 5. Acute bronchitis 6. transfer to ICU 07/25 for Afib with RVR, on cardizem drip Plan . 1. off DuoNeb, on Xopenex 2. IV Solu-Medrol 60 q.6h. start taper 3. Pulmicort nebulizer treatment. 4. antibiotics. 5. Smoking cessation counseling provided. 6. slowly improving 7. follow cardiology recommendations d/w , JEFF MOSQUEDA MD Jul 26, 2017 10:19
[2017-07-26] MEDS ORDERED: ANTI-COAG MONITOR BY PHARMACY. MC PRN (11:30)
--- NOTE | 2017-07-26 11:31 | PDOC ---
PROGRESS NOTES Chief Complaint Chief Complaint Acute hypoxic respir failure ASSESSMENT AND PLAN: 1. Tachycardia: afib, now rate-controlled on cardizem gtt to be switched to PO. troponins neg x2. echo pending. d/w Dr Whitehead 2. COPD exacerbation: IV steroids wean, hopefully switch to PO in AM (vs stop after 5 days tomorrow), nebs, suppl O2 3. Bronchitis: switch IV Abx to azithro PO x3d 4. Tobaccoism: cessation encouraged. 5. NEYMAR: noncompliance in the past with CPAP. 6. DM2: poorly controlled, prob 2ary to high dose steroids. on home glipizide, metformin. levemir insulin added and increased increased. monitor closely with ISS 7. HTN: well controlled on mult home meds 8. Prophylaxis: H2B, lovenox History of Present Illness History of Present Illness breathing improved. no CP. Vitals Vitals Vital Signs Date Time Temp Pulse Resp B/P (MAP) Pulse Ox O2 Delivery O2 Flow Rate FiO2 07/26/17 08:53 92 137/71 07/26/17 07:51 96 Nasal Cannula 2.0 07/26/17 07:00 98.4 18 98.4 Physical Exam General: Alert, Oriented X3, Cooperative, mild distress Heart: Regular rate, Other (atrial fibrillation, rate controlled with diltiazem ) Lungs: Clear Abdomen: Soft Extremities: No clubbing, No cyanosis Skin: No rashes Labs LABS Laboratory Tests Test 07/25/17 11:25 07/25/17 12:10 07/25/17 17:12 07/25/17 20:57 Troponin I Quantitative 0.041 ng/mL (0.000-0.055) Glucose (Fingerstick) 254 mg/dL (70-99) 259 mg/dL (70-99) 336 mg/dL (70-99) Test 07/26/17 06:02 07/26/17 08:05 White Blood Count 13.9 x10^3/uL (4.0-11.0) Red Blood Count 4.72 x10^6/uL (3.50-5.40) Hemoglobin 14.9 g/dL (12.0-15.5) Hematocrit 45.0 % (36.0-47.0) Mean Corpuscular Volume 95 fL (79-100) Mean Corpuscular Hemoglobin 32 pg (25-35) Mean Corpuscular Hemoglobin Concent 33 g/dL (31-37) Red Cell Distribution Width 13.3 % (11.5-14.5) Platelet Count 226 x10^3/uL (140-400) Neutrophils (%) (Auto) 86 % (31-73) Lymphocytes (%) (Auto) 10 % (24-48) Monocytes (%) (Auto) 5 % (0-9) Eosinophils (%) (Auto) 0 % (0-3) Basophils (%) (Auto) 0 % (0-3) Neutrophils # (Auto) 11.9 x10^3uL (1.8-7.7) Lymphocytes # (Auto) 1.4 x10^3/uL (1.0-4.8) Monocytes # (Auto) 0.7 x10^3/uL (0.0-1.1) Eosinophils # (Auto) 0.0 x10^3/uL (0.0-0.7) Basophils # (Auto) 0.0 x10^3/uL (0.0-0.2) Sodium Level 138 mmol/L (136-145) Potassium Level 3.9 mmol/L (3.5-5.1) Chloride Level 100 mmol/L (98-107) Carbon Dioxide Level 28 mmol/L (21-32) Anion Gap 10 (6-14) Blood Urea Nitrogen 36 mg/dL (7-20) Creatinine 0.9 mg/dL (0.6-1.0) Estimated GFR (Cockcroft-Gault) 62.6 Glucose Level 392 mg/dL (70-99) Calcium Level 8.0 mg/dL (8.5-10.1) Glucose (Fingerstick) 328 mg/dL (70-99) CHERRIE HUDSON MD Jul 26, 2017 11:31
[2017-07-26] MEDS: AZITHROMYCIN 250 MG TABLET. PO SCH (11:41)
--- NOTE | 2017-07-26 12:40 | PDOC ---
PROGRESS NOTES Subjective Subjective Ms. Norris is feeling much better today. Her breathing is better but she is still requiring oxygen supplementation via NC. Objective Objective Vital Signs Date Time Temp Pulse Resp B/P (MAP) Pulse Ox O2 Delivery O2 Flow Rate FiO2 07/26/17 11:00 97.5 97 18 119/82 (94) 97 Nasal Cannula 2.0 97.5 Intake and Output 07/26/17 07:00 Intake Total 1602.14 ml Output Total 700 ml Balance 902.14 ml Intake Oral 880 ml IV Total 722.14 ml Output Urine Total 700 ml # Voids 2 # Bowel Movements 2 Physical Exam Abdomen: Soft Heart: No murmurs Extremities: No clubbing, No cyanosis General: Alert, Oriented X3, Cooperative HEENT: Atraumatic Lungs: Normal air movement Assessment Assessment Problems Medical Problems: (1) Acute exacerbation of chronic obstructive pulmonary disease (COPD) Status: Acute Plan Plan of Care Discontinue IV Cardizem 2 hours after first dose of PO Cardizem Start PO Cardizem CD 240mg, one dose now and then QAM Agree with current plan of care Comment Review of Relevant I have reviewed the following items luis fernando (where applicable) has been applied. Labs Laboratory Tests Test 07/24/17 16:37 07/24/17 20:29 07/25/17 04:05 07/25/17 07:51 Glucose (Fingerstick) 357 mg/dL (70-99) 307 mg/dL (70-99) 219 mg/dL (70-99) White Blood Count 15.3 x10^3/uL (4.0-11.0) Red Blood Count 4.61 x10^6/uL (3.50-5.40) Hemoglobin 14.6 g/dL (12.0-15.5) Hematocrit 44.1 % (36.0-47.0) Mean Corpuscular Volume 96 fL (79-100) Mean Corpuscular Hemoglobin 32 pg (25-35) Mean Corpuscular Hemoglobin Concent 33 g/dL (31-37) Red Cell Distribution Width 13.1 % (11.5-14.5) Platelet Count 212 x10^3/uL (140-400) Neutrophils (%) (Auto) 86 % (31-73) Lymphocytes (%) (Auto) 9 % (24-48) Monocytes (%) (Auto) 5 % (0-9) Eosinophils (%) (Auto) 0 % (0-3) Basophils (%) (Auto) 0 % (0-3) Neutrophils # (Auto) 13.1 x10^3uL (1.8-7.7) Lymphocytes # (Auto) 1.4 x10^3/uL (1.0-4.8) Monocytes # (Auto) 0.8 x10^3/uL (0.0-1.1) Eosinophils # (Auto) 0.0 x10^3/uL (0.0-0.7) Basophils # (Auto) 0.1 x10^3/uL (0.0-0.2) Segmented Neutrophils % 78 % (35-66) Band Neutrophils % 8 % (0-9) Lymphocytes % 10 % (24-48) Monocytes % 4 % (0-10) Platelet Estimate Adequate (ADEQUATE) Sodium Level 142 mmol/L (136-145) Potassium Level 3.7 mmol/L (3.5-5.1) Chloride Level 104 mmol/L (98-107) Carbon Dioxide Level 32 mmol/L (21-32) Anion Gap 6 (6-14) Blood Urea Nitrogen 27 mg/dL (7-20) Creatinine 0.6 mg/dL (0.6-1.0) Estimated GFR (Cockcroft-Gault) 100.0 Glucose Level 188 mg/dL (70-99) Calcium Level 8.5 mg/dL (8.5-10.1) Troponin I Quantitative 0.021 ng/mL (0.000-0.055) Test 07/25/17 11:25 07/25/17 12:10 07/25/17 17:12 07/25/17 20:57 Troponin I Quantitative 0.041 ng/mL (0.000-0.055) Glucose (Fingerstick) 254 mg/dL (70-99) 259 mg/dL (70-99) 336 mg/dL (70-99) Test 07/26/17 06:02 07/26/17 08:05 07/26/17 12:01 White Blood Count 13.9 x10^3/uL (4.0-11.0) Red Blood Count 4.72 x10^6/uL (3.50-5.40) Hemoglobin 14.9 g/dL (12.0-15.5) Hematocrit 45.0 % (36.0-47.0) Mean Corpuscular Volume 95 fL (79-100) Mean Corpuscular Hemoglobin 32 pg (25-35) Mean Corpuscular Hemoglobin Concent 33 g/dL (31-37) Red Cell Distribution Width 13.3 % (11.5-14.5) Platelet Count 226 x10^3/uL (140-400) Neutrophils (%) (Auto) 86 % (31-73) Lymphocytes (%) (Auto) 10 % (24-48) Monocytes (%) (Auto) 5 % (0-9) Eosinophils (%) (Auto) 0 % (0-3) Basophils (%) (Auto) 0 % (0-3) Neutrophils # (Auto) 11.9 x10^3uL (1.8-7.7) Lymphocytes # (Auto) 1.4 x10^3/uL (1.0-4.8) Monocytes # (Auto) 0.7 x10^3/uL (0.0-1.1) Eosinophils # (Auto) 0.0 x10^3/uL (0.0-0.7) Basophils # (Auto) 0.0 x10^3/uL (0.0-0.2) Sodium Level 138 mmol/L (136-145) Potassium Level 3.9 mmol/L (3.5-5.1) Chloride Level 100 mmol/L (98-107) Carbon Dioxide Level 28 mmol/L (21-32) Anion Gap 10 (6-14) Blood Urea Nitrogen 36 mg/dL (7-20) Creatinine 0.9 mg/dL (0.6-1.0) Estimated GFR (Cockcroft-Gault) 62.6 Glucose Level 392 mg/dL (70-99) Calcium Level 8.0 mg/dL (8.5-10.1) Glucose (Fingerstick) 328 mg/dL (70-99) 381 mg/dL (70-99) Laboratory Tests Test 07/25/17 17:12 07/25/17 20:57 07/26/17 06:02 07/26/17 08:05 Glucose (Fingerstick) 259 mg/dL (70-99) 336 mg/dL (70-99) 328 mg/dL (70-99) White Blood Count 13.9 x10^3/uL (4.0-11.0) Red Blood Count 4.72 x10^6/uL (3.50-5.40) Hemoglobin 14.9 g/dL (12.0-15.5) Hematocrit 45.0 % (36.0-47.0) Mean Corpuscular Volume 95 fL (79-100) Mean Corpuscular Hemoglobin 32 pg (25-35) Mean Corpuscular Hemoglobin Concent 33 g/dL (31-37) Red Cell Distribution Width 13.3 % (11.5-14.5) Platelet Count 226 x10^3/uL (140-400) Neutrophils (%) (Auto) 86 % (31-73) Lymphocytes (%) (Auto) 10 % (24-48) Monocytes (%) (Auto) 5 % (0-9) Eosinophils (%) (Auto) 0 % (0-3) Basophils (%) (Auto) 0 % (0-3) Neutrophils # (Auto) 11.9 x10^3uL (1.8-7.7) Lymphocytes # (Auto) 1.4 x10^3/uL (1.0-4.8) Monocytes # (Auto) 0.7 x10^3/uL (0.0-1.1) Eosinophils # (Auto) 0.0 x10^3/uL (0.0-0.7) Basophils # (Auto) 0.0 x10^3/uL (0.0-0.2) Sodium Level 138 mmol/L (136-145) Potassium Level 3.9 mmol/L (3.5-5.1) Chloride Level 100 mmol/L (98-107) Carbon Dioxide Level 28 mmol/L (21-32) Anion Gap 10 (6-14) Blood Urea Nitrogen 36 mg/dL (7-20) Creatinine 0.9 mg/dL (0.6-1.0) Estimated GFR (Cockcroft-Gault) 62.6 Glucose Level 392 mg/dL (70-99) Calcium Level 8.0 mg/dL (8.5-10.1) Test 07/26/17 12:01 Glucose (Fingerstick) 381 mg/dL (70-99) Medications Current Medications Albuterol/ Ipratropium (Duoneb) 3 ml 1X ONCE NEB Last administered on 11:23; Start 07/21/17 at 11:00; Stop 07/21/17 at 11:01; Status DC Iohexol (Omnipaque 300 Mg/ml) 75 ml 1X ONCE IV Last administered on 15:03; Start 07/21/17 at 14:00; Stop 07/21/17 at 14:03; Status DC Info (Do NOT chart on this entry -- for MONITORING) 1 each PRN DAILY PRN MC SEE COMMENTS; Start 07/21/17 at 14:15; Stop 07/23/17 at 14:14; Status DC Methylprednisolone Sodium Succinate (SOLU-Medrol 125MG VIAL) 125 mg 1X ONCE IV Last administered on 07/21/17 15:19; Start 07/21/17 at 14:30; Stop at 14:31; Status DC Info (Do NOT chart on this placeholder) 1 each 1X ONCE MC ; Start 07/21/17 at 16:45; Stop 07/21/17 at 16:46; Status UNV Insulin Aspart (NovoLOG) 0-7 UNITS TIDWMEALS SQ Last administered on 17:22; Start 07/21/17 at 17:00; Stop 07/24/17 at 13:56; Status DC Dextrose (Dextrose 50%-Water Syringe) 12.5 gm PRN Q15MIN PRN IV SEE COMMENTS; Start 07/21/17 at 16:45; Stop 07/24/17 at 13:55; Status DC Zolpidem Tartrate (Ambien) 5 mg QHS PO Last administered on 07/25/17 20:54; Start 07/21/17 at 21:00 Influenza Virus Vaccine Quadrival (Fluarix Quad [id number] Syringe) 0.5 ml ONCE ONCE VAX IM Last administered on 07/23/17 12:13; Start 07/21/17 at 17:00; Stop 07/21/17 at 17:01; Status DC Amlodipine Besylate (Norvasc) 5 mg DAILY PO Last administered on 07/26/17 08: 53; Start 07/21/17 at 17:30 Aspirin (Children'S Aspirin) 81 mg BID PO Last administered on 07/26/17 08:50 ; Start 07/21/17 at 21:00 Atorvastatin Calcium (Lipitor) 40 mg QHS PO Last administered on 07/25/17 20: 54; Start 07/21/17 at 21:00 Calcium Carbonate/ Glycine (Oscal) 500 mg BIDWMEALS PO Last administered on 08:52; Start 07/21/17 at 17:30 Clonazepam (KlonoPIN) 0.5 mg PRN Q6HRS PRN PO ANXIETY Last administered on 23:37; Start 07/21/17 at 18:00 Folic Acid (Folic Acid) 1 mg DAILY PO Last administered on 07/26/17 08:51; Start 07/21/17 at 17:30 Glipizide (Glucotrol) 5 mg PRN DAILY PRN PO SEE COMMENTS; Start 07/21/17 at 16 :45; Status UNV Albuterol/ Ipratropium (Duoneb) 3 ml QID IH ; Start 07/21/17 at 17:00; Stop at 17:07; Status DC Losartan Potassium (Cozaar) 50 mg DAILY PO Last administered on 07/26/17 08: 51; Start 07/21/17 at 17:30 Metformin HCl (Glucophage) 500 mg BIDWMEALS PO Last administered on 07/26/17 08:52; Start 07/23/17 at 17:00 Montelukast Sodium (Singulair) 10 mg DAILY PO Last administered on 07/26/17 08:52; Start 07/21/17 at 17:30 Nitroglycerin (Nitrostat) 0.4 mg PRN Q5MIN PRN SL CHEST PAIN; Start 07/21/17 at 16:45 Oxycodone/ Acetaminophen (Percocet 5/325) 1 tab PRN Q6HRS PRN PO PAIN MILD TO MOD Last administered on 07/25/17 17:16; Start 07/21/17 at 16:45 Potassium Chloride (Klor-Con) 20 meq QODAY@0800 PO Last administered on 08:51; Start 07/22/17 at 08:00 Sucralfate (Carafate) 1 gm TIDAC PO Last administered on 07/26/17 11:41; Start 07/22/17 at 07:30 Trazodone HCl (Desyrel) 100 mg PRN QHS PRN PO SLEEP; Start 07/21/17 at 21:00 Ergocalciferol (Vitamin D2) 50,000 unit WEEKLY PO ; Start 07/22/17 at 09:00; Stop 07/22/17 at 12:10; Status DC Budesonide (Pulmicort) 0.5 mg RTBID NEB ; Start 07/21/17 at 20:00; Status Cancel Gabapentin (Neurontin) 300 mg QHS PO Last administered on 07/25/17 20:54; Start 07/21/17 at 21:00 Hydrochlorothiazide (Microzide) 12.5 mg DAILY PO Last administered on 08:52; Start 07/21/17 at 17:30 Lactobacillus Rhamnosus (Culturelle) 1 cap DAILY PO Last administered on 08:51; Start 07/21/17 at 17:30 Famotidine (Pepcid) 20 mg BID PO Last administered on 07/26/17 08:51; Start 07/21/17 at 21:00 Calcium Carbonate/ Glycine (Oscal) 500 mg BID PO ; Start 07/21/17 at 21:00; Status Cancel Multivitamins (Thera M Plus) 1 tab DAILY PO Last administered on 07/26/17 08: 52; Start 07/21/17 at 17:30 Zolpidem Tartrate (Ambien) 5 mg PRN QHS PRN PO INSOMNIA; Start 07/21/17 at 17: 00 Albuterol/ Ipratropium (Duoneb) 3 ml Q4HRS IH Last administered on 07/24/17 18:55; Start 07/21/17 at 20:00; Stop 07/25/17 at 03:19; Status DC Methylprednisolone Sodium Succinate (SOLU-Medrol 125MG VIAL) 80 mg Q8HRS IV Last administered on 07/26/17 06:17; Start 07/21/17 at 22:00; Stop 07/26/17 at 10:20; Status DC Budesonide (Pulmicort) 0.5 mg RTBID NEB Last administered on 07/26/17 07:49; Start 07/21/17 at 20:00 Albuterol Sulfate (Ventolin Neb Soln) 2.5 mg PRN Q2HRS PRN NEB DYSPNEA; Start 07/21/17 at 17:15; Stop 07/25/17 at 03:19; Status DC Ergocalciferol (Vitamin D2) 50,000 unit WEEKLY PO Last administered on 08:52; Start 07/26/17 at 09:00 Insulin Aspart (NovoLOG) 5 units 1X ONCE SQ Last administered on 07/22/17 18 :01; Start 07/22/17 at 18:00; Stop 07/22/17 at 18:01; Status DC Insulin Aspart (NovoLOG) 0-9 UNITS TIDWMEALS SQ ; Start 07/24/17 at 08:00; Stop 07/24/17 at 08:00; Status DC Dextrose (Dextrose 50%-Water Syringe) 12.5 gm PRN Q15MIN PRN IV SEE COMMENTS; Start 07/23/17 at 18:30 Insulin Aspart (NovoLOG) 0-9 UNITS QIDACHS SQ Last administered on 07/26/17 09:01; Start 07/24/17 at 07:30 Insulin Detemir (Levemir) 20 units QHS SQ Last administered on 07/25/17 21:21 ; Start 07/23/17 at 22:00 Insulin Aspart (NovoLOG) 20 units 1X ONCE SQ Last administered on 07/23/17 22:26; Start 07/23/17 at 22:30; Stop 07/23/17 at 22:31; Status DC Promethazine HCl/ Codeine (Phenergan With Codeine) 5 ml TID PRN PO COUGH; Start 07/24/17 at 09:15; Stop 07/24/17 at 19:09; Status DC Ceftriaxone Sodium 1 gm/ Dextrose 50 ml @ 100 mls/hr Q24H IV ; Start 07/24/17 at 11:15; Status UNV Ceftriaxone Sodium (Rocephin) 1 gm Q24H IVP Last administered on 07/25/17 13: 21; Start 07/24/17 at 11:30; Stop 07/26/17 at 11:24; Status DC Promethazine HCl/ Codeine (Phenergan With Codeine) 5 ml TID PO Last administered on 07/26/17 08:55; Start 07/24/17 at 20:00 Promethazine HCl/ Codeine (Phenergan With Codeine) 5 ml TID PO ; Start at 21:00; Status UNV Metoprolol Tartrate (Lopressor Vial) 5 mg 1X ONCE IVP Last administered on 04:37; Start 07/25/17 at 03:30; Stop 07/25/17 at 03:31; Status DC Metoprolol Tartrate (Lopressor Vial) 5 mg PRN Q6HRS PRN IVP INCREASED HEARTRATE ; Start 07/25/17 at 03:15 Metoprolol Tartrate (Lopressor) 25 mg BID PO Last administered on 07/26/17 08 :51; Start 07/25/17 at 09:00 Levalbuterol HCl (Xopenex) 1.25 mg RTQID NEB ; Start 07/25/17 at 04:00; Stop 07/25/17 at 04:52; Status DC Levalbuterol HCl (Xopenex) 1.25 mg Q6HRS NEB Last administered on 07/26/17 07 :49; Start 07/25/17 at 06:00 Linezolid 300 ml @ 300 mls/hr Q12HR IV Last administered on 07/26/17 09:35; Start 07/25/17 at 09:00; Stop 07/26/17 at 11:24; Status DC Diltiazem HCl 125 mg/Dextrose 125 ml @ 0 mls/hr CONT PRN IV SEE I/O RECORD; Start 07/25/17 at 08:15; Stop 07/26/17 at 00:20; Status DC Enoxaparin Sodium (Lovenox 40mg Syringe) 40 mg Q24H SQ ; Start 07/25/17 at 16: 00; Stop 07/25/17 at 16:00; Status DC Enoxaparin Sodium (Lovenox 80mg Syringe) 80 mg Q12HR SQ Last administered on 08:55; Start 07/25/17 at 17:00; Stop 07/26/17 at 11:24; Status DC Diltiazem HCl 125 mg/Sodium Chloride 125 ml @ 0 mls/hr CONT PRN IV SEE I/O RECORD Last administered on 07/26/17 02:36; Start 07/26/17 at 00:30 Methylprednisolone Sodium Succinate (SOLU-Medrol 125MG VIAL) 60 mg Q8HRS IV ; Start 07/26/17 at 14:00 Info (Anti-Coagulation Monitoring By Pharmacy) 1 each PRN DAILY PRN MC SEE COMMENTS Last administered on 07/26/17 11:20; Start 07/26/17 at 11:30 Azithromycin (Zithromax) 500 mg DAILY PO Last administered on 07/26/17 11:41 ; Start 07/26/17 at 11:30; Stop 07/28/17 at 15:00 Active Scripts Active Percocet 5-325 Mg Tablet (Oxycodone/Acetaminophen) 1 Each Tablet 1 Tab PO PRN Q6HRS PRN Reported Gabapentin 300 Mg Capsule 300 Mg PO HS Probiotic (Lactobacillus Combination No.4) 1 Each Capsule 1 Each PO DAILY Acid Brush Finisher (Ranitidine Hcl) 150 Mg Tablet 150 Mg PO DAILY [Multi Vitamin] 1 Tab PO DAILY Aspirin 81 Mg Tab.chew 1 Tab PO BID Clonazepam 0.5 Mg Tablet 1 Tab PO Q6HRS Calcium Carbonate 500 Mg Tablet 500 Mg PO BID Atorvastatin Calcium 40 Mg Tablet 1 Tab PO DAILY Vitamin D (Cholecalciferol (Vitamin D3)) 50,000 Unit Capsule 50,000 Unit PO WEEKLY Metformin Hcl 500 Mg Tablet 500 Mg PO BID Vitamin B-100 Complex Tablet (Vitamin B Complex/Folic Acid) 0.4 Mg Tablet 0.4 Mg PO Folic Acid 1 Mg Tablet 1 Tab PO DAILY Sucralfate 1 Gm Tablet 1 Tab PO TID Glipizide 5 Mg Tablet 5 Mg PO PRN DAILY PRN [calcium] 600mg BID w meals 600 Mg PO BID NITROGLYCERIN SubLingual (Nitroglycerin) 0.4 Mg Tab.subl 0.4 Mg SL PRN Q5MIN PRN Advair 250-50 Diskus (Fluticasone/Salmeterol) 1 Each Disk.w.dev 1 Inh IH BID Amlodipine Besylate 5 Mg Tablet 1 Tab PO DAILY Losartan Potassium 50 Mg Tablet 1 Tab PO DAILY Trazodone Hcl 100 Mg Tablet 100 Mg PO HS next dose tonight Potassium Chloride 20 Meq Tab.er.prt 1 Tab PO QODAY last dose this am next dose monday Singulair Tablet (Montelukast Sodium) 10 Mg Tablet 10 Mg PO DAILY last dose last evening next dose tonight Duoneb 0.5-3(2.5) Mg/3 Ml (Albuterol/Ipratropium) 3 Ml Ampul.neb 3 Ml IH QID last dose at 1200 Hydrochlorothiazide Tablet (Hydrochlorothiazide) 12.5 Mg Tablet 12.5 Mg PO DAILY last dose this am next dose tomorrow Vitals/I & O Vital Sign - Last 24 Hours 07/25/17 07/25/17 07/25/17 07/25/17 13:00 13:37 14:00 15:00 Pulse 96 90 90 Resp 24 17 24 B/P (MAP) 132/80 (97) 135/83 (100) 156/81 (106) Pulse Ox 91 93 92 92 O2 Delivery Nasal Cannula Nasal Cannula Nasal Cannula Nasal Cannula O2 Flow Rate 2.0 2.0 2.0 2.0 07/25/17 07/25/17 07/25/17 07/25/17 16:00 16:58 17:00 17:16 Temp 98.1 98.1 Pulse 101 90 Resp 20 B/P (MAP) 112/62 (79) 134/70 (91) Pulse Ox 91 95 92 O2 Delivery Nasal Cannula Nasal Cannula Nasal Cannula Nasal Cannula O2 Flow Rate 2.0 2.0 2.0 2.0 07/25/17 07/25/17 07/25/17 07/25/17 18:00 18:26 19:00 19:27 Pulse 89 94 Resp B/P (MAP) 134/79 (97) 120/62 (81) Pulse Ox 91 96 O2 Delivery Nasal Cannula Nasal Cannula Nasal Cannula Nasal Cannula O2 Flow Rate 2.0 2.0 2.0 2.0 07/25/17 07/25/17 07/26/17 07/26/17 20:00 20:54 00:00 04:00 Temp 97.8 97.5 97.8 97.5 Pulse 100 95 92 Resp 16 B/P (MAP) 153/73 139/75 (96) 151/89 (109) Pulse Ox 95 94 O2 Delivery Nasal Cannula Nasal Cannula Nasal Cannula O2 Flow Rate 2.0 2.0 2.0 07/26/17 07/26/17 07/26/17 07/26/17 04:35 07:00 07:51 08:51 Temp 98.0 98.4 98.0 98.4 Pulse 107 92 92 Resp 20 18 B/P (MAP) 120/81 (94) 137/71 (93) 137/71 Pulse Ox 92 94 96 O2 Delivery Nasal Cannula Nasal Cannula Nasal Cannula O2 Flow Rate 2.0 2.0 2.0 07/26/17 07/26/17 07/26/17 08:51 08:53 11:00 Temp 97.5 97.5 Pulse 92 92 97 Resp 18 B/P (MAP) 137/71 137/71 119/82 (94) Pulse Ox 97 O2 Delivery Nasal Cannula O2 Flow Rate 2.0 Intake and Output 07/25/17 07/25/17 07/26/17 15:00 23:00 07:00 Intake Total 420 ml 442.14 ml 740 ml Output Total 100 ml 300 ml 300 ml Balance 320 ml 142.14 ml 440 ml LYLE GRAY MD Jul 26, 2017 12:40
--- NOTE | 2017-07-26 14:36 | RAD ---
Portable AP upright chest x-ray performed at 1411 History: Chest tightness and chest pain on the left side. Comparison: July 21, 2017. Findings: There is a new finding of linear atelectasis of the left lung base. The right lung field remains clear. No pneumothorax or pleural effusion is seen. The heart size and mediastinum and pulmonary vasculature are stable. IMPRESSION: New finding of linear atelectasis of the left lung base.
--- NOTE | 2017-07-26 19:33 | CARD ---
MR#: [id number] Date of Study: 07/26/2017 Ordering Physician: ELBERT GRAY, Referring Physician: Herve SOLARES: Diann Samayoa [facility] APPROVED REPORT EXAM: Two-dimensional and M-mode echocardiogram with Doppler and color Doppler. Other Information Quality : Good INDICATION COPD 2D DIMENSIONS Left Atrium(2D)3.8 (1.6-4.0cm)IVSd1.6 (0.7-1.1cm) Aortic Root(2D)3.5 (2.0-3.7cm)LVDd4.5 (3.9-5.9cm) LVOT Diameter2.1 (1.8-2.4cm)PWd1.4 (0.7-1.1cm) LVDs2.9 (2.5-4.0cm)FS (%) 35.0 % SV60.4 mlLVEF(%)60.0 (>50%) Aortic Valve AoV Peak Pedro.129.4cm/sAoV VTI23.0cm AO Peak GR.6.7mmHgLVOT VTI 16.48cm AO Mean GR.4mmHgAVA (VTI)2.40cm2 Mitral Valve MV E Bgywlkfg343.5cm/sMV DECEL [id number] TDI Lateral E' P. V11.39cm/sMedial E' P. V9.85cm/s E/Lateral E'10.1E/Medial E'11.6 Tricuspid Valve TR P. [id number]/sRAP [id number] TR Peak Gr.[id number] LEFT VENTRICLE The left ventricle is normal size. There is moderate concentric left ventricular hypertrophy. Left ve ntricle systolic function is normal. The Ejection Fraction is 60%. There is normal LV segmental wall motion. The left ventricular diastolic function and filling is normal for age. RIGHT VENTRICLE The right ventricle is normal size. The right ventricular systolic function is normal. ATRIA The left atrium is dilated. The right atrium size is normal. The interatrial septum is intact with no evidence for an atrial septal defect or patent foramen ovale as noted on 2-D or Doppler imaging. AORTIC VALVE The aortic valve is mildly calcified. Doppler and Color Flow revealed no significant aortic regurgita tion. There is no significant aortic valvular stenosis. MITRAL VALVE Mitral annular calcification is mild. There is no evidence of mitral valve prolapse. There is no mitr al valve stenosis. Doppler and Color-flow revealed trace to mild mitral regurgitation. TRICUSPID VALVE The tricuspid valve is normal in structure. The Doppler and color-flow showed that there is only a tr ricco of tricuspid insufficiency which is physiologic. The tricuspid valve is competent and therefore w e are not able to accurately assess the pulmonary artery pressure. Of interest the left atrium is dil ated and there is no significant mitral insufficiency to cause the dilatation there and there is no m itral stenosis this would suggest significant pulmonary hypertension There is no tricuspid valve prol apse or vegetation. There is no tricuspid valve stenosis. PULMONIC VALVE The pulmonic valve is borderline thickened. Doppler and Color Flow revealed trace pulmonic valvular r egurgitation. There is no pulmonic valvular stenosis. GREAT VESSELS The aortic root is normal in size. The ascending aorta is normal in size. The IVC is normal in size a nd collapses >50% with inspiration. PERICARDIAL EFFUSION There is no pleural effusion. There is no evidence of significant pericardial effusion. Critical Notification Critical Value: No <Conclusion> Left ventricle systolic function is normal. The Ejection Fraction is 60%. There is moderate concentric left ventricular hypertrophy. The left atrium is dilated. The right atrium size is normal. The aortic valve is mildly calcified. Mitral annular calcification is mild. Doppler and Color-flow revealed trace to mild mitral regurgitation. The Doppler and color-flow showed that there is only a trace of tricuspid insufficiency which is phys iologic. The tricuspid valve is competent and therefore we are not able to accurately assess the pulmonary art darrel pressure. Of interest the left atrium is dilated and there is no significant mitral insufficiency to cause the dilatation and there is no mitral stenosis this would suggest significant pulmonary hy pertension Doppler and Color Flow revealed trace pulmonic valvular regurgitation. The pulmonic valve is borderline thickened. There is no evidence of significant pericardial effusion. Signed by : Elbert Gray MD Electronically Approved : 07/26/2017 19:33:20
[2017-07-26] MEDS: GABAPENTIN 300 MG CAPSULE. PO SCH (21:02)
[2017-07-26] MEDS: ATORVASTATIN CALCIUM 40 MG TABLET. PO SCH (21:02)
[2017-07-26] MEDS: ZOLPIDEM 5 MG TABLET. PO SCH (21:02)
[2017-07-26] MEDS: INSULIN DETEMIR 300 UNITS/3 ML INSULN.PEN. SQ SCH (21:09)
[2017-07-26] MEDS: clonazePAM 0.5 MG TABLET PO PRN (22:45)
[2017-07-27 03:59] VITALS: BP 119/83
[2017-07-27 06:02] LABS: BASO % 0 % (0-3); EOS % 0 % (0-3); HEMATOCRIT 44.9 % (36.0-47.0); HEMOGLOBIN 14.7 g/dL (12.0-15.5); LYMPH # 1.4 x10^3/uL (1.0-4.8); LYMPH % 11 % (24-48); MEAN CORPUSCULAR HEMOGLOBIN 31 pg (25-35); MEAN CORPUSCULAR HGB CONC 33 g/dL (31-37); MEAN CORPUSCULAR VOLUME 95 fL (79-100); MONO % 4 % (0-9); NEUT % 85 % (31-73); PLATELET COUNT 225 x10^3/uL (140-400); RED BLOOD COUNT 4.71 x10^6/uL (3.50-5.40); RED CELL DISTRIBUTION WIDTH 13.2 % (11.5-14.5); WHITE BLOOD COUNT 12.3 x10^3/uL (4.0-11.0)
[2017-07-27 06:07] LABS: CALCIUM 8.2 mg/dL (8.5-10.1); CREATININE 0.8 mg/dL (0.6-1.0); GFR 71.8; POTASSIUM 4.3 mmol/L (3.5-5.1)
[2017-07-27] MEDS: methylPREDNISolone SOD SUCC PF 125 MG/2 ML VIAL. IV SCH ×2 (07:29→13:26)
[2017-07-27 07:34] VITALS: BP 134/83
[2017-07-27] MEDS: LEVALBUTEROL 1.25 MG/0.5 ML NEBU. NEB SCH ×2 (07:34→13:07)
[2017-07-27] MEDS: BUDESONIDE 0.5 MG/2 ML NEBU. NEB SCH (07:34)
[2017-07-27] MEDS: hydroCHLOROthiazide 12.5 MG CAPSULE PO SCH (08:42)
[2017-07-27] MEDS: CALCIUM CARBONATE 500 MG TABLET PO SCH (08:43)
[2017-07-27] MEDS: METOPROLOL TART IMMED RELEASE 25 MG TABLET. PO SCH (08:43)
[2017-07-27] MEDS: MONTELUKAST SODIUM 10 MG TABLET. PO SCH (08:43)
[2017-07-27] MEDS: SUCRALFATE 1 GM TABLET. PO SCH ×2 (08:43→12:16)
[2017-07-27] MEDS: amLODIPine BESYLATE 5 MG TABLET PO SCH (08:43)
[2017-07-27] MEDS: LACTOBACILLUS RHAMNOSUS GG 1 CAPSULE. PO SCH (08:43)
[2017-07-27] MEDS: AZITHROMYCIN 250 MG TABLET. PO SCH (08:44)
[2017-07-27] MEDS: FAMOTIDINE 20 MG TABLET. PO SCH (08:44)
[2017-07-27] MEDS: metFORMIN 500 MG TABLET PO SCH (08:44)
[2017-07-27] MEDS: LOSARTAN POTASSIUM 50 MG TABLET. PO SCH (08:44)
[2017-07-27] MEDS: FOLIC ACID 1 MG TABLET. PO SCH (08:44)
[2017-07-27] MEDS: MULTIVITAMIN with MINERAL TABLET. PO SCH (08:44)
[2017-07-27] MEDS: ASPIRIN CHEWABLE 81 MG TABLET. PO SCH (08:44)
[2017-07-27] MEDS: PROMETH/CODEINE 6.25/10MG 5 ML SYRUP. PO SCH ×2 (08:45→13:26)
[2017-07-27] MEDS: INSULIN ASPART 300 UNITS/3 ML INSULN.PEN SQ SCH ×2 (08:49→12:18)
--- NOTE | 2017-07-27 10:26 | PDOC ---
PULMONARY PROGRESS NOTES Subjective feels better Vitals Vital Signs Date Time Temp Pulse Resp B/P (MAP) Pulse Ox O2 Delivery O2 Flow Rate FiO2 07/27/17 08:44 95 07/27/17 08:05 Nasal Cannula 2.0 07/27/17 07:34 97.3 18 134/83 (100) 96 97.3 General: Alert, Oriented X4, No acute distress HEENT: Other Lungs: Wheezing (faint) Cardiovascular: S1, S2 Abdomen: Soft, Non-tender, Other Neuro Exam: Alert Extremities: No Edema Skin: Warm Labs Laboratory Tests Test 07/25/17 11:25 07/25/17 12:10 07/25/17 17:12 07/25/17 20:57 Troponin I Quantitative 0.041 ng/mL (0.000-0.055) Glucose (Fingerstick) 254 mg/dL (70-99) 259 mg/dL (70-99) 336 mg/dL (70-99) Test 07/26/17 06:02 07/26/17 08:05 07/26/17 12:01 07/26/17 17:15 White Blood Count 13.9 x10^3/uL (4.0-11.0) Red Blood Count 4.72 x10^6/uL (3.50-5.40) Hemoglobin 14.9 g/dL (12.0-15.5) Hematocrit 45.0 % (36.0-47.0) Mean Corpuscular Volume 95 fL (79-100) Mean Corpuscular Hemoglobin 32 pg (25-35) Mean Corpuscular Hemoglobin Concent 33 g/dL (31-37) Red Cell Distribution Width 13.3 % (11.5-14.5) Platelet Count 226 x10^3/uL (140-400) Neutrophils (%) (Auto) 86 % (31-73) Lymphocytes (%) (Auto) 10 % (24-48) Monocytes (%) (Auto) 5 % (0-9) Eosinophils (%) (Auto) 0 % (0-3) Basophils (%) (Auto) 0 % (0-3) Neutrophils # (Auto) 11.9 x10^3uL (1.8-7.7) Lymphocytes # (Auto) 1.4 x10^3/uL (1.0-4.8) Monocytes # (Auto) 0.7 x10^3/uL (0.0-1.1) Eosinophils # (Auto) 0.0 x10^3/uL (0.0-0.7) Basophils # (Auto) 0.0 x10^3/uL (0.0-0.2) Sodium Level 138 mmol/L (136-145) Potassium Level 3.9 mmol/L (3.5-5.1) Chloride Level 100 mmol/L (98-107) Carbon Dioxide Level 28 mmol/L (21-32) Anion Gap 10 (6-14) Blood Urea Nitrogen 36 mg/dL (7-20) Creatinine 0.9 mg/dL (0.6-1.0) Estimated GFR (Cockcroft-Gault) 62.6 Glucose Level 392 mg/dL (70-99) Calcium Level 8.0 mg/dL (8.5-10.1) Glucose (Fingerstick) 328 mg/dL (70-99) 381 mg/dL (70-99) 256 mg/dL (70-99) Test 07/26/17 20:44 07/27/17 05:10 07/27/17 07:49 Glucose (Fingerstick) 282 mg/dL (70-99) 416 mg/dL (70-99) White Blood Count 12.3 x10^3/uL (4.0-11.0) Red Blood Count 4.71 x10^6/uL (3.50-5.40) Hemoglobin 14.7 g/dL (12.0-15.5) Hematocrit 44.9 % (36.0-47.0) Mean Corpuscular Volume 95 fL (79-100) Mean Corpuscular Hemoglobin 31 pg (25-35) Mean Corpuscular Hemoglobin Concent 33 g/dL (31-37) Red Cell Distribution Width 13.2 % (11.5-14.5) Platelet Count 225 x10^3/uL (140-400) Neutrophils (%) (Auto) 85 % (31-73) Lymphocytes (%) (Auto) 11 % (24-48) Monocytes (%) (Auto) 4 % (0-9) Eosinophils (%) (Auto) 0 % (0-3) Basophils (%) (Auto) 0 % (0-3) Neutrophils # (Auto) 10.4 x10^3uL (1.8-7.7) Lymphocytes # (Auto) 1.4 x10^3/uL (1.0-4.8) Monocytes # (Auto) 0.5 x10^3/uL (0.0-1.1) Eosinophils # (Auto) 0.0 x10^3/uL (0.0-0.7) Basophils # (Auto) 0.0 x10^3/uL (0.0-0.2) Sodium Level 143 mmol/L (136-145) Potassium Level 4.3 mmol/L (3.5-5.1) Chloride Level 103 mmol/L (98-107) Carbon Dioxide Level 35 mmol/L (21-32) Anion Gap 5 (6-14) Blood Urea Nitrogen 33 mg/dL (7-20) Creatinine 0.8 mg/dL (0.6-1.0) Estimated GFR (Cockcroft-Gault) 71.8 Glucose Level 271 mg/dL (70-99) Calcium Level 8.2 mg/dL (8.5-10.1) Laboratory Tests Test 07/26/17 12:01 07/26/17 17:15 07/26/17 20:44 07/27/17 05:10 Glucose (Fingerstick) 381 mg/dL (70-99) 256 mg/dL (70-99) 282 mg/dL (70-99) White Blood Count 12.3 x10^3/uL (4.0-11.0) Red Blood Count 4.71 x10^6/uL (3.50-5.40) Hemoglobin 14.7 g/dL (12.0-15.5) Hematocrit 44.9 % (36.0-47.0) Mean Corpuscular Volume 95 fL (79-100) Mean Corpuscular Hemoglobin 31 pg (25-35) Mean Corpuscular Hemoglobin Concent 33 g/dL (31-37) Red Cell Distribution Width 13.2 % (11.5-14.5) Platelet Count 225 x10^3/uL (140-400) Neutrophils (%) (Auto) 85 % (31-73) Lymphocytes (%) (Auto) 11 % (24-48) Monocytes (%) (Auto) 4 % (0-9) Eosinophils (%) (Auto) 0 % (0-3) Basophils (%) (Auto) 0 % (0-3) Neutrophils # (Auto) 10.4 x10^3uL (1.8-7.7) Lymphocytes # (Auto) 1.4 x10^3/uL (1.0-4.8) Monocytes # (Auto) 0.5 x10^3/uL (0.0-1.1) Eosinophils # (Auto) 0.0 x10^3/uL (0.0-0.7) Basophils # (Auto) 0.0 x10^3/uL (0.0-0.2) Sodium Level 143 mmol/L (136-145) Potassium Level 4.3 mmol/L (3.5-5.1) Chloride Level 103 mmol/L (98-107) Carbon Dioxide Level 35 mmol/L (21-32) Anion Gap 5 (6-14) Blood Urea Nitrogen 33 mg/dL (7-20) Creatinine 0.8 mg/dL (0.6-1.0) Estimated GFR (Cockcroft-Gault) 71.8 Glucose Level 271 mg/dL (70-99) Calcium Level 8.2 mg/dL (8.5-10.1) Test 07/27/17 07:49 Glucose (Fingerstick) 416 mg/dL (70-99) Medications Active Scripts Medications Dose Route/Sig Max Daily Dose Days Date Category Dose Instructions Gabapentin 300 Mg Capsule 300 Mg PO HS 05/15/17 Reported Probiotic (Lactobacillus Combination No.4) 1 Each Capsule 1 Each PO DAILY 05/15/17 Reported Acid [employer] (Ranitidine Hcl) 150 Mg Tablet 150 Mg PO DAILY 05/15/17 Reported [Multi Vitamin] 1 Tab PO DAILY 05/15/17 Reported Aspirin 81 Mg Tab.chew 1 Tab PO BID 05/15/17 Reported Percocet 5-325 Mg Tablet (Oxycodone/Acetaminophen) 1 Each Tablet 1 Tab PO PRN Q6HRS PRN 05/02/17 Rx Clonazepam 0.5 Mg Tablet 1 Tab PO Q6HRS 07/13/16 Reported Calcium Carbonate 500 Mg Tablet 500 Mg PO BID 07/13/16 Reported Atorvastatin Calcium 40 Mg Tablet 1 Tab PO DAILY 07/13/16 Reported Vitamin D (Cholecalciferol (Vitamin D3)) 50,000 Unit Capsule 50,000 Unit PO WEEKLY 03/18/16 Reported Metformin Hcl 500 Mg Tablet 500 Mg PO BID 03/18/16 Reported Vitamin B-100 Complex Tablet (Vitamin B Complex/Folic Acid) 0.4 Mg Tablet 0.4 Mg PO 02/04/16 Reported Folic Acid 1 Mg Tablet 1 Tab PO DAILY 02/04/16 Reported Sucralfate 1 Gm Tablet 1 Tab PO TID 02/04/16 Reported Glipizide 5 Mg Tablet 5 Mg PO PRN DAILY PRN 02/04/16 Reported [calcium] 600mg BID w meals 600 Mg PO BID 12/16/15 Reported NITROGLYCERIN SubLingual (Nitroglycerin) 0.4 Mg Tab.subl 0.4 Mg SL PRN Q5MIN PRN 02/10/15 Reported Advair 250-50 Diskus (Fluticasone/Salmeterol) 1 Each Disk.w.dev 1 Inh IH BID 02/04/15 Reported Amlodipine Besylate 5 Mg Tablet 1 Tab PO DAILY 10/12/14 Reported Losartan Potassium 50 Mg Tablet 1 Tab PO DAILY 06/25/14 Reported Trazodone Hcl 100 Mg Tablet 100 Mg PO HS 06/22/14 Reported next dose tonight Potassium Chloride 20 Meq Tab.er.prt 1 Tab PO QODAY 06/22/14 Reported last dose this am next dose monday Singulair Tablet (Montelukast Sodium) 10 Mg Tablet 10 Mg PO DAILY 06/22/14 Reported last dose last evening next dose tonight Duoneb 0.5-3(2.5) Mg/3 Ml (Albuterol/Ipratropium) 3 Ml Ampul.neb 3 Ml IH QID 06/22/14 Reported last dose at 1200 Hydrochlorothiazide Tablet (Hydrochlorothiazide) 12.5 Mg Tablet 12.5 Mg PO DAILY 11/02/13 Reported last dose this am next dose tomorrow Impression . 1. Acute hypoxic respiratory failure secondary to acute exacerbation of chronic obstructive pulmonary disease. 2. Diffuse bronchospasm secondary to acute exacerbation of chronic obstructive pulmonary disease in a patient with strong asthmatic component. resolved tobaccoism has contributed to her exacerbation. 3. Abnormal CT chest with basilar atelectasis, but no consolidation. 4. History of obstructive sleep apnea with noncompliance in the past with CPAP. 5. Acute bronchitis 6. transfer to ICU 07/25 for Afib with RVR, on cardizem drip Plan . 1. off DuoNeb, on Xopenex 2. IV Solu-Medrol 60 q.6h. start PO taper 3. Pulmicort nebulizer treatment. 4. antibiotics.change to PO 5. Smoking cessation counseling provided. 6. slowly improving 7. follow cardiology recommendations d/w RN, WANTS TO GO HOME, OK BY ME JEFF PECK MD Jul 27, 2017 10:26
[2017-07-27 11:30] VITALS: BP 138/97
[2017-07-27] MEDS: clonazePAM 0.5 MG TABLET PO PRN (12:20)
[2017-07-27] MEDS ORDERED: AZIT250T6 PO (13:14)
[2017-07-27] MEDS ORDERED: FAMO20TA5 PO (13:14)
[2017-07-27] MEDS ORDERED: METO25TA4 PO (13:14)
[2017-07-27] MEDS ORDERED: PRED-220 PO (13:14)
[2017-07-27] MEDS ORDERED: APIX5TAB PO (13:39)
[2017-07-27] MEDS ORDERED: DILT240C77 PO (14:19)
--- NOTE | 2017-07-28 17:58 | DS ---
DATE OF DISCHARGE: 07/27/2017 CHIEF COMPLAINT: Acute hypoxic respiratory failure. HOSPITAL COURSE: The patient is a 67-year-old woman who presented with dyspnea and was found with COPD exacerbation and started on IV steroids, nebs and supplemental O2. Steroids were switched to p.o. prior to discharge and tapered. Respiratory status significantly improved. For bronchitis, she was on antibiotics as well. Discharged on azithromycin regimen. She did have some tachycardia, which was determined to be atrial fibrillation with good control on Cardizem drip, which was initially started. This was switched to p.o. Echo was obtained as well and Dr. Whitehead, her hockey scout was following. Troponins actually remained negative. She was strongly urged to stop smoking. For her diabetes mellitus, home medications of glipizide and metformin were continued. Because of a poor control on steroids, Levemir insulin was added and increased as deemed necessary. By the , her respiratory status had completely stabilized and she was deemed appropriate for discharge. PHYSICAL EXAMINATION: VITAL SIGNS: Show a blood pressure of 138/97, heart rate of 111, respiratory rate at 20. She is afebrile. GENERAL: This is a 67-year-old woman, alert and oriented, in no acute distress. LUNGS: Fairly clear without any wheezes. HEART: Has regular rate and rhythm. ABDOMEN: Positive bowel sounds. EXTREMITIES: No edema. DISCHARGE DIAGNOSES: Chronic obstructive pulmonary disease exacerbation, atrial fibrillation. DISCHARGE DISPOSITION: To home. DISCHARGE CONDITION: Improved. DISCHARGE MEDICATIONS: Please refer to MAR. DISCHARGE INSTRUCTIONS: Please follow up with PCP in the next 1-2 weeks. CHERRIE HUDSON MD DR: UR/nts JOB#: [id number] / [id number] ROSSANA Macdonald MD
== END 2017-07-27 14:28 | disposition home or self-care (01) | DRG 871 ==
LOC: ER 10:24 → 5 SOUTH 13:21 → 1 WEST ICU 07-25 08:56 → 2 NORTH 07-26 05:12
PROVIDERS: ADMIT Internal Medicine; ATTEND Internal Medicine
DX: A41.9 Sepsis, unspecified organism (principal); J96.01 Acute respiratory failure with hypoxia; J44.0 Chronic obstructive pulmonary disease with (acute) lower respiratory infection; J44.1 Chronic obstructive pulmonary disease with (acute) exacerbation; J98.11 Atelectasis; E11.65 Type 2 diabetes mellitus with hyperglycemia; I27.81 Cor pulmonale (chronic); I48.91 Unspecified atrial fibrillation; I50.9 Heart failure, unspecified; I11.0 Hypertensive heart disease with heart failure; J20.9 Acute bronchitis, unspecified; E78.00 Pure hypercholesterolemia, unspecified; E78.5 Hyperlipidemia, unspecified; F17.200 Nicotine dependence, unspecified, uncomplicated; G47.33 Obstructive sleep apnea (adult) (pediatric); I25.10 Atherosclerotic heart disease of native coronary artery without angina pectoris; Z83.3 Family history of diabetes mellitus; Z90.710 Acquired absence of both cervix and uterus; Z91.19 Patient's noncompliance with other medical treatment and regimen; Z95.1 Presence of aortocoronary bypass graft; Z95.5 Presence of coronary angioplasty implant and graft; F32.9 Major depressive disorder, single episode, unspecified; F41.9 Anxiety disorder, unspecified; Z87.01 Personal history of pneumonia (recurrent); Z90.49 Acquired absence of other specified parts of digestive tract; Z88.1 Allergy status to other antibiotic agents; Z88.5 Allergy status to narcotic agent; Z91.09 Other allergy status, other than to drugs and biological substances; Z79.899 Other long term (current) drug therapy
CPT/HCPCS: 36415; 71010; 71275; 80048; 80076; 82962; 83690; 83880; 84484; 85007; 85025; 87641; 90686; 93005; 93306; 94640; 94760; 96374; 99406; J0696; J1650; J1815; J2020; J2930; J3490; J7620; J7626; Q0144; Q9967; 99285-25

== ENCOUNTER 2017-09-01 17:08 | Inpatient (IN) | payer MEDICARE ==
[2017-09-01 17:59] LABS: ADD MAN DIFF? NO
[2017-09-01 18:03] LABS: BASO % 1 % (0-3); EOS # 0.1 x10^3/uL (0.0-0.7); EOS % 1 % (0-3); HEMATOCRIT 37.6 % (36.0-47.0); HEMOGLOBIN 12.9 g/dL (12.0-15.5); LYMPH # 3.6 x10^3/uL (1.0-4.8); LYMPH % 38 % (24-48); MEAN CORPUSCULAR HEMOGLOBIN 33 pg (25-35); MEAN CORPUSCULAR HGB CONC 34 g/dL (31-37); MEAN CORPUSCULAR VOLUME 97 fL (79-100); MONO # 0.6 x10^3/uL (0.0-1.1); MONO % 6 % (0-9); NEUT # 5.1 x10^3uL (1.8-7.7); NEUT % 55 % (31-73); PLATELET COUNT 178 x10^3/uL (140-400); RED BLOOD COUNT 3.89 x10^6/uL (3.50-5.40); WHITE BLOOD COUNT 9.4 x10^3/uL (4.0-11.0)
[2017-09-01] MEDS: methylPREDNISolone SOD SUCC PF 125 MG/2 ML VIAL. IV (18:07)
[2017-09-01] MEDS: IPRATRPIUM/ALBUTEROL 0.5/2.5MG 3 ML NEBU. NEB ×4 (18:15→20:00)
[2017-09-01 18:17] LABS: D-DIMER 0.27 ug/mlFEU (0.00-0.50)
[2017-09-01 18:27] LABS: ANION GAP 7 (6-14); BLOOD UREA NITROGEN 14 mg/dL (7-20); BUN/CREATININE RATIO 23 (6-20); CALCIUM 9.3 mg/dL (8.5-10.1); CARBON DIOXIDE 31 mmol/L (21-32); CHLORIDE 102 mmol/L (98-107); CREATININE 0.6 mg/dL (0.6-1.0); GLUCOSE 135 mg/dL (70-99); POTASSIUM 3.9 mmol/L (3.5-5.1); SODIUM 140 mmol/L (136-145)
[2017-09-01 18:29] LABS: NT-PRO BNP 104 pg/mL (0-124); TROPONINI < 0.017 ng/mL (0.000-0.055)
[2017-09-01 18:32] LABS: ALBUMIN 3.2 g/dL (3.4-5.0); ALBUMIN/GLOBULIN RATIO 1.1 (1.0-1.7); ALK PHOS 91 U/L (46-116); ALT (SGPT) 29 U/L (14-59); AST (SGOT) 18 U/L (15-37); TOTAL BILIRUBIN 0.2 mg/dL (0.2-1.0)
[2017-09-01] MEDS ORDERED: IBUPROFEN 600 MG TABLET. PO (19:00)
[2017-09-01] MEDS ORDERED: guaiFENesin DM 200MG/20MG 10 ML SYRUP PO (19:00)
[2017-09-01] MEDS ORDERED: DEXTROSE 50% 25 GM / 50ML DISP.SYRIN. IV ×2 (19:00→19:30)
[2017-09-01] MEDS ORDERED: glipiZIDE 5 MG TABLET PO ×2 (19:00→19:30)
[2017-09-01] MEDS ORDERED: oxyCODONE/APAP 5/325 1 TAB TABLET PO (19:00)
[2017-09-01] MEDS ORDERED: NITROGLYCERIN SUBLINGUAL 0.4 MG BOTTLE OF 25. SL (19:00)
[2017-09-01] MEDS ORDERED: diphenhydrAMINE HCL 25 MG CAPSULE PO (19:00)
[2017-09-01] MEDS ORDERED: IPRATRPIUM/ALBUTEROL 0.5/2.5MG 3 ML NEBU. NEB (20:00)
[2017-09-01] MEDS ORDERED: ALBUTEROL SULFATE 2.5 MG/3 ML NEBU. NEB (20:00)
[2017-09-01] MEDS: BUDESONIDE 0.5 MG/2 ML NEBU. NEB (20:00)
[2017-09-01 20:55] LABS: POC GLUCOSE 259 mg/dL (70-99)
[2017-09-01] MEDS ORDERED: METOPROLOL TART IMMED RELEASE 25 MG TABLET. PO (21:00)
[2017-09-01] MEDS ORDERED: metFORMIN 500 MG TABLET PO (21:00)
[2017-09-01] MEDS ORDERED: FAMOTIDINE 20 MG TABLET. PO (21:00)
[2017-09-01] MEDS ORDERED: CALCIUM CARBONATE 500 MG TABLET PO ×2 (21:00)
[2017-09-01] MEDS ORDERED: traZODone 100 MG TABLET. PO (21:00)
[2017-09-01] MEDS ORDERED: APIXABAN 5 MG TABLET. PO (21:00)
[2017-09-01] MEDS ORDERED: NON FORMULARY ITEM (Gabapentin 300 MG) PO (21:00)
[2017-09-01] MEDS ORDERED: NON FORMULARY ITEM (Fluticasone/Salmeterol (Advair 250-50 Diskus) 1 INH) IH ×2 (21:00)
[2017-09-01] MEDS ORDERED: CALCIUM 600 MG PO (21:00)
[2017-09-01] MEDS ORDERED: SUCRALFATE 1 GM TABLET. PO (21:00)
[2017-09-01] MEDS ORDERED: ASPIRIN CHEWABLE 81 MG TABLET. PO (21:00)
[2017-09-01] MEDS: metFORMIN 500 MG TABLET PO (21:07)
[2017-09-01] MEDS: oxyCODONE/APAP 5/325 1 TAB TABLET PO (21:07)
[2017-09-01] MEDS: APIXABAN 5 MG TABLET. PO (21:07)
[2017-09-01] MEDS: METOPROLOL TART IMMED RELEASE 25 MG TABLET. PO (21:08)
[2017-09-01] MEDS: GABAPENTIN 300 MG CAPSULE. PO (21:08)
[2017-09-01] MEDS: traZODone 100 MG TABLET. PO (21:09)
[2017-09-01] MEDS: ATORVASTATIN CALCIUM 40 MG TABLET. PO (21:09)
[2017-09-01] MEDS: ASPIRIN CHEWABLE 81 MG TABLET. PO (21:09)
[2017-09-01] MEDS: FAMOTIDINE 20 MG TABLET. PO (21:09)
[2017-09-02] MEDS ORDERED: clonazePAM 0.5 MG TABLET PO
[2017-09-02] MEDS: clonazePAM 0.5 MG TABLET PO ×3 (00:29→11:17)
[2017-09-02 07:27] LABS: POC GLUCOSE 234 mg/dL (70-99)
[2017-09-02] MEDS: BUDESONIDE 0.5 MG/2 ML NEBU. NEB ×2 (07:30→19:03)
[2017-09-02] MEDS: IPRATRPIUM/ALBUTEROL 0.5/2.5MG 3 ML NEBU. NEB ×4 (07:30→19:03)
[2017-09-02] MEDS: LACTOBACILLUS RHAMNOSUS GG 1 CAPSULE. PO ×3 (07:55→21:07)
[2017-09-02] MEDS: hydroCHLOROthiazide 12.5 MG CAPSULE PO (07:55)
[2017-09-02] MEDS: SUCRALFATE 1 GM TABLET. PO ×3 (07:55→17:32)
[2017-09-02] MEDS: POTASSIUM CHLORIDE 20 MEQ TABLET.ER. PO (07:55)
[2017-09-02] MEDS: ASPIRIN CHEWABLE 81 MG TABLET. PO ×2 (07:56→21:07)
[2017-09-02] MEDS: CALCIUM CARBONATE 500 MG TABLET PO ×2 (07:56→17:32)
[2017-09-02] MEDS: FOLIC ACID 1 MG TABLET. PO (07:56)
[2017-09-02] MEDS: metFORMIN 500 MG TABLET PO ×2 (07:57→17:32)
[2017-09-02] MEDS: amLODIPine BESYLATE 5 MG TABLET PO (07:57)
[2017-09-02] MEDS: predniSONE 10 MG TABLET PO (07:58)
[2017-09-02] MEDS: METOPROLOL TART IMMED RELEASE 25 MG TABLET. PO ×2 (07:58→21:07)
[2017-09-02] MEDS: FAMOTIDINE 20 MG TABLET. PO ×2 (07:58→21:07)
[2017-09-02] MEDS: MULTIVITAMIN with MINERAL TABLET. PO (07:59)
[2017-09-02] MEDS: APIXABAN 5 MG TABLET. PO ×2 (07:59→21:07)
[2017-09-02] MEDS: LOSARTAN POTASSIUM 50 MG TABLET. PO (07:59)
[2017-09-02] MEDS ORDERED: INSULIN ASPART 300 UNITS/3 ML INSULN.PEN SQ (08:00)
[2017-09-02] MEDS: MONTELUKAST SODIUM 10 MG TABLET. PO (08:07)
[2017-09-02] MEDS: ERGOCALCIFEROL (VITAMIN D2) 50,000 UNIT CAPSULE. PO (08:07)
[2017-09-02] MEDS: INSULIN ASPART 300 UNITS/3 ML INSULN.PEN SQ ×4 (08:11→21:50)
[2017-09-02] MEDS ORDERED: LACTOBACILLUS COMBINATION NO 4 PO (09:00)
[2017-09-02] MEDS ORDERED: LOSARTAN POTASSIUM 50 MG TABLET. PO (09:00)
[2017-09-02] MEDS ORDERED: FOLIC ACID 1 MG TABLET. PO (09:00)
[2017-09-02] MEDS ORDERED: MULTI VITAMIN PO (09:00)
[2017-09-02] MEDS ORDERED: MONTELUKAST SODIUM 10 MG TABLET. PO (09:00)
[2017-09-02] MEDS ORDERED: NON FORMULARY ITEM (Hydrochlorothiazide (Hydrochlorothiazide Tablet) 12.5 MG) PO (09:00)
[2017-09-02] MEDS ORDERED: amLODIPine BESYLATE 5 MG TABLET PO (09:00)
[2017-09-02] MEDS ORDERED: predniSONE 10 MG TABLET PO (09:00)
[2017-09-02] MEDS ORDERED: ATORVASTATIN CALCIUM 40 MG TABLET. PO (09:00)
[2017-09-02 11:08] LABS: BILIRUBIN,URINE NEGATIVE (NEG); CLARITY,URINE CLEAR; COLOR,URINE YELLOW; GLUCOSE,URINE >=1000 mg/dL (NEG); NITRITE,URINE NEGATIVE (NEG); PROTEIN,URINE NEGATIVE (NEG-TRACE); UROBILINOGEN,URINE 0.2 mg/dL (0.2 mg/dL)
[2017-09-02] MEDS: guaiFENesin DM 200MG/20MG 10 ML SYRUP PO (11:17)
[2017-09-02] MEDS: methylPREDNISolone SOD SUCC PF 40 MG/ML VIAL. IV ×3 (11:18→21:07)
[2017-09-02 11:22] LABS: BACTERIA,URINE FEW /HPF (0-FEW); RBC,URINE 0 /HPF (0-2); WBC,URINE 0 /HPF (0-4)
[2017-09-02 11:37] LABS: POC GLUCOSE 260 mg/dL (70-99)
[2017-09-02 16:39] LABS: POC GLUCOSE 274 mg/dL (70-99)
[2017-09-02 20:44] LABS: POC GLUCOSE 324 mg/dL (70-99)
[2017-09-02] MEDS: ATORVASTATIN CALCIUM 40 MG TABLET. PO (21:06)
[2017-09-02] MEDS: traZODone 100 MG TABLET. PO (21:07)
[2017-09-02] MEDS: GABAPENTIN 300 MG CAPSULE. PO (21:07)
[2017-09-03] MEDS: methylPREDNISolone SOD SUCC PF 40 MG/ML VIAL. IV ×3 (05:52→20:46)
[2017-09-03] MEDS: IPRATRPIUM/ALBUTEROL 0.5/2.5MG 3 ML NEBU. NEB ×4 (07:08→18:13)
[2017-09-03] MEDS: BUDESONIDE 0.5 MG/2 ML NEBU. NEB ×2 (07:08→18:12)
[2017-09-03 08:22] LABS: POC GLUCOSE 257 mg/dL (70-99)
[2017-09-03] MEDS: MONTELUKAST SODIUM 10 MG TABLET. PO (08:30)
[2017-09-03] MEDS: FAMOTIDINE 20 MG TABLET. PO ×2 (08:30→20:45)
[2017-09-03] MEDS: metFORMIN 500 MG TABLET PO ×2 (08:30→16:12)
[2017-09-03] MEDS: FOLIC ACID 1 MG TABLET. PO (08:30)
[2017-09-03] MEDS: LACTOBACILLUS RHAMNOSUS GG 1 CAPSULE. PO ×2 (08:31→20:45)
[2017-09-03] MEDS: LOSARTAN POTASSIUM 50 MG TABLET. PO (08:31)
[2017-09-03] MEDS: MULTIVITAMIN with MINERAL TABLET. PO (08:31)
[2017-09-03] MEDS: METOPROLOL TART IMMED RELEASE 25 MG TABLET. PO ×2 (08:31→20:45)
[2017-09-03] MEDS: hydroCHLOROthiazide 12.5 MG CAPSULE PO (08:32)
[2017-09-03] MEDS: SUCRALFATE 1 GM TABLET. PO ×3 (08:32→16:12)
[2017-09-03] MEDS: APIXABAN 5 MG TABLET. PO ×2 (08:32→20:46)
[2017-09-03] MEDS: amLODIPine BESYLATE 5 MG TABLET PO (08:33)
[2017-09-03] MEDS: ASPIRIN CHEWABLE 81 MG TABLET. PO ×2 (08:33→20:46)
[2017-09-03] MEDS: CALCIUM CARBONATE 500 MG TABLET PO ×2 (08:33→16:12)
[2017-09-03] MEDS: NICOTINE 21MG PATCH. TD (08:34)
[2017-09-03] MEDS: INSULIN ASPART 300 UNITS/3 ML INSULN.PEN SQ ×4 (08:40→20:52)
[2017-09-03] MEDS ORDERED: POTASSIUM CHLORIDE 20 MEQ TABLET.ER. PO (09:00)
[2017-09-03 12:10] LABS: POC GLUCOSE 315 mg/dL (70-99)
[2017-09-03] MEDS: NITROGLYCERIN SUBLINGUAL 0.4 MG BOTTLE OF 25. SL (13:56)
[2017-09-03] MEDS: ALBUTEROL SULFATE 2.5 MG/3 ML NEBU. NEB (14:00)
[2017-09-03] MEDS: oxyCODONE/APAP 5/325 1 TAB TABLET PO (14:13)
[2017-09-03 16:43] LABS: POC GLUCOSE 300 mg/dL (70-99)
[2017-09-03] MEDS: KETOROLAC 15 MG/ML VIAL. IV (18:25)
[2017-09-03] MEDS: ATORVASTATIN CALCIUM 40 MG TABLET. PO (20:45)
[2017-09-03] MEDS: GABAPENTIN 300 MG CAPSULE. PO (20:45)
[2017-09-03] MEDS: diphenhydrAMINE HCL 25 MG CAPSULE PO (20:45)
[2017-09-03 20:46] LABS: POC GLUCOSE 346 mg/dL (70-99)
[2017-09-03] MEDS: traZODone 100 MG TABLET. PO (20:46)
[2017-09-04] MEDS: ALBUTEROL SULFATE 2.5 MG/3 ML NEBU. NEB (03:30)
[2017-09-04] MEDS: methylPREDNISolone SOD SUCC PF 40 MG/ML VIAL. IV ×3 (05:24→21:03)
[2017-09-04] MEDS: IPRATRPIUM/ALBUTEROL 0.5/2.5MG 3 ML NEBU. NEB ×4 (07:22→19:16)
[2017-09-04 07:23] LABS: POC GLUCOSE 368 mg/dL (70-99)
[2017-09-04] MEDS: BUDESONIDE 0.5 MG/2 ML NEBU. NEB ×2 (07:23→19:16)
[2017-09-04] MEDS: SUCRALFATE 1 GM TABLET. PO ×3 (08:42→17:31)
[2017-09-04] MEDS: hydroCHLOROthiazide 12.5 MG CAPSULE PO (08:43)
[2017-09-04] MEDS: METOPROLOL TART IMMED RELEASE 25 MG TABLET. PO ×2 (08:43→21:04)
[2017-09-04] MEDS: ASPIRIN CHEWABLE 81 MG TABLET. PO ×2 (08:43→21:03)
[2017-09-04] MEDS: MONTELUKAST SODIUM 10 MG TABLET. PO (08:43)
[2017-09-04] MEDS: metFORMIN 500 MG TABLET PO ×2 (08:44→17:32)
[2017-09-04] MEDS: APIXABAN 5 MG TABLET. PO ×2 (08:44→21:03)
[2017-09-04] MEDS: FOLIC ACID 1 MG TABLET. PO (08:44)
[2017-09-04] MEDS: FAMOTIDINE 20 MG TABLET. PO ×2 (08:44→19:25)
[2017-09-04] MEDS: CALCIUM CARBONATE 500 MG TABLET PO ×2 (08:45→17:00)
[2017-09-04] MEDS: LOSARTAN POTASSIUM 50 MG TABLET. PO (08:45)
[2017-09-04] MEDS: amLODIPine BESYLATE 5 MG TABLET PO (08:45)
[2017-09-04] MEDS: LACTOBACILLUS RHAMNOSUS GG 1 CAPSULE. PO ×2 (08:46→21:04)
[2017-09-04] MEDS: MULTIVITAMIN with MINERAL TABLET. PO (08:46)
[2017-09-04] MEDS: POTASSIUM CHLORIDE 20 MEQ TABLET.ER. PO (08:46)
[2017-09-04] MEDS: SODIUM CHLORIDE 0.65% NASAL SPRAY 45ML BOTTLE. NS (08:47)
[2017-09-04] MEDS: NICOTINE 21MG PATCH. TD (08:47)
[2017-09-04] MEDS: INSULIN ASPART 300 UNITS/3 ML INSULN.PEN SQ ×7 (08:54→21:10)
[2017-09-04] MEDS: clonazePAM 0.5 MG TABLET PO ×2 (08:57→21:04)
[2017-09-04] MEDS ORDERED: NICOTINE 21MG PATCH. TD (11:00)
[2017-09-04 11:14] LABS: POC GLUCOSE 412 mg/dL (70-99)
[2017-09-04] MEDS: KETOROLAC 15 MG/ML VIAL. IV (13:07)
[2017-09-04 16:30] LABS: POC GLUCOSE 331 mg/dL (70-99)
[2017-09-04] MEDS: ANTI-COAG MONITOR BY PHARMACY. MC (17:45)
[2017-09-04] MEDS ORDERED: ALBUTEROL SULFATE 2.5 MG/3 ML NEBU. NEB (19:00)
[2017-09-04 19:59] LABS: POC GLUCOSE 382 mg/dL (70-99)
[2017-09-04 20:10] LABS: HEMOGLOBIN A1C 8.6 % (4.8-5.6)
[2017-09-04] MEDS ORDERED: CALCIUM CARBONATE 500 MG TAB.CHEW PO (21:00)
[2017-09-04] MEDS: GABAPENTIN 300 MG CAPSULE. PO (21:03)
[2017-09-04] MEDS: ATORVASTATIN CALCIUM 40 MG TABLET. PO (21:04)
[2017-09-04] MEDS: ZOLPIDEM 5 MG TABLET. PO (21:05)
[2017-09-04] MEDS: INSULIN DETEMIR 300 UNITS/3 ML INSULN.PEN. SQ (21:11)
[2017-09-05] MEDS: methylPREDNISolone SOD SUCC PF 40 MG/ML VIAL. IV ×3 (05:16→21:40)
[2017-09-05] MEDS: CALCIUM CARBONATE 500 MG TABLET PO ×2 (07:40→17:04)
[2017-09-05] MEDS: metFORMIN 500 MG TABLET PO ×2 (07:40→17:04)
[2017-09-05] MEDS: SUCRALFATE 1 GM TABLET. PO ×3 (07:40→17:04)
[2017-09-05] MEDS: INSULIN ASPART 300 UNITS/3 ML INSULN.PEN SQ ×7 (07:51→20:58)
[2017-09-05 07:52] LABS: POC GLUCOSE 249 mg/dL (70-99)
[2017-09-05] MEDS: BUDESONIDE 0.5 MG/2 ML NEBU. NEB ×2 (08:28→19:24)
[2017-09-05] MEDS: IPRATRPIUM/ALBUTEROL 0.5/2.5MG 3 ML NEBU. NEB ×4 (08:28→19:23)
[2017-09-05] MEDS: NICOTINE 21MG PATCH. TD (09:05)
[2017-09-05] MEDS: LACTOBACILLUS RHAMNOSUS GG 1 CAPSULE. PO ×2 (09:06→20:51)
[2017-09-05] MEDS: LOSARTAN POTASSIUM 50 MG TABLET. PO (09:06)
[2017-09-05] MEDS: FOLIC ACID 1 MG TABLET. PO (09:06)
[2017-09-05] MEDS: MONTELUKAST SODIUM 10 MG TABLET. PO (09:06)
[2017-09-05] MEDS: APIXABAN 5 MG TABLET. PO ×2 (09:07→20:51)
[2017-09-05] MEDS: METOPROLOL TART IMMED RELEASE 25 MG TABLET. PO ×2 (09:09→21:00)
[2017-09-05] MEDS: MULTIVITAMIN with MINERAL TABLET. PO (09:09)
[2017-09-05] MEDS: amLODIPine BESYLATE 5 MG TABLET PO (09:10)
[2017-09-05] MEDS: FAMOTIDINE 20 MG TABLET. PO ×2 (09:10→20:52)
[2017-09-05] MEDS: hydroCHLOROthiazide 12.5 MG CAPSULE PO (09:10)
[2017-09-05] MEDS: ASPIRIN CHEWABLE 81 MG TABLET. PO ×2 (09:16→20:52)
[2017-09-05 11:47] LABS: POC GLUCOSE 290 mg/dL (70-99)
[2017-09-05 16:35] LABS: POC GLUCOSE 227 mg/dL (70-99)
[2017-09-05 20:43] LABS: POC GLUCOSE 274 mg/dL (70-99)
[2017-09-05] MEDS: GABAPENTIN 300 MG CAPSULE. PO (20:51)
[2017-09-05] MEDS: ATORVASTATIN CALCIUM 40 MG TABLET. PO (20:51)
[2017-09-05] MEDS: ZOLPIDEM 5 MG TABLET. PO (20:52)
[2017-09-05] MEDS: INSULIN DETEMIR 300 UNITS/3 ML INSULN.PEN. SQ (20:58)
[2017-09-06] MEDS: methylPREDNISolone SOD SUCC PF 40 MG/ML VIAL. IV (05:45)
[2017-09-06 07:28] LABS: POC GLUCOSE 244 mg/dL (70-99)
[2017-09-06] MEDS: IPRATRPIUM/ALBUTEROL 0.5/2.5MG 3 ML NEBU. NEB (07:34)
[2017-09-06] MEDS: BUDESONIDE 0.5 MG/2 ML NEBU. NEB (07:34)
[2017-09-06] MEDS: SUCRALFATE 1 GM TABLET. PO (07:52)
[2017-09-06] MEDS: metFORMIN 500 MG TABLET PO (07:52)
[2017-09-06] MEDS: CALCIUM CARBONATE 500 MG TABLET PO (07:52)
[2017-09-06] MEDS: INSULIN ASPART 300 UNITS/3 ML INSULN.PEN SQ ×2 (07:54→07:55)
[2017-09-06] MEDS: MONTELUKAST SODIUM 10 MG TABLET. PO (09:35)
[2017-09-06] MEDS: hydroCHLOROthiazide 12.5 MG CAPSULE PO (09:35)
[2017-09-06] MEDS: FAMOTIDINE 20 MG TABLET. PO (09:35)
[2017-09-06] MEDS: MULTIVITAMIN with MINERAL TABLET. PO (09:35)
[2017-09-06] MEDS: LACTOBACILLUS RHAMNOSUS GG 1 CAPSULE. PO (09:35)
[2017-09-06] MEDS: FOLIC ACID 1 MG TABLET. PO (09:36)
[2017-09-06] MEDS: METOPROLOL TART IMMED RELEASE 25 MG TABLET. PO (09:36)
[2017-09-06] MEDS: LOSARTAN POTASSIUM 50 MG TABLET. PO (09:36)
[2017-09-06] MEDS: amLODIPine BESYLATE 5 MG TABLET PO (09:36)
[2017-09-06] MEDS: ASPIRIN CHEWABLE 81 MG TABLET. PO (09:36)
[2017-09-06] MEDS: POTASSIUM CHLORIDE 20 MEQ TABLET.ER. PO (09:37)
[2017-09-06] MEDS: NICOTINE 21MG PATCH. TD (09:37)
[2017-09-06] MEDS: APIXABAN 5 MG TABLET. PO (09:37)
[2017-09-08] MEDS ORDERED: NON FORMULARY ITEM (Cholecalciferol (Vitamin D3) (Vitamin D) 50,000 UNIT) PO (09:00)
== END 2017-09-06 11:21 | disposition home or self-care (01) | DRG 189 ==
LOC: ER 17:08 → 5 NORTH 18:10
DX: J96.01 Acute respiratory failure with hypoxia (principal); I48.91 Unspecified atrial fibrillation; J44.0 Chronic obstructive pulmonary disease with (acute) lower respiratory infection; I11.0 Hypertensive heart disease with heart failure; I50.32 Chronic diastolic (congestive) heart failure; B37.9 Candidiasis, unspecified; E11.9 Type 2 diabetes mellitus without complications; E66.9 Obesity, unspecified; J44.1 Chronic obstructive pulmonary disease with (acute) exacerbation; F32.9 Major depressive disorder, single episode, unspecified; F41.9 Anxiety disorder, unspecified; E78.00 Pure hypercholesterolemia, unspecified; G47.33 Obstructive sleep apnea (adult) (pediatric); I25.10 Atherosclerotic heart disease of native coronary artery without angina pectoris; J20.9 Acute bronchitis, unspecified; M94.0 Chondrocostal junction syndrome [Tietze]; T38.0X5A Adverse effect of glucocorticoids and synthetic analogues, initial encounter; F17.210 Nicotine dependence, cigarettes, uncomplicated; Z88.8 Allergy status to other drugs, medicaments and biological substances; Z91.048 Other nonmedicinal substance allergy status; Z95.5 Presence of coronary angioplasty implant and graft; Z95.1 Presence of aortocoronary bypass graft; Z91.19 Patient's noncompliance with other medical treatment and regimen; Z68.33 Body mass index [BMI] 33.0-33.9, adult; Z90.710 Acquired absence of both cervix and uterus; Z90.49 Acquired absence of other specified parts of digestive tract; Z87.01 Personal history of pneumonia (recurrent); Z83.3 Family history of diabetes mellitus; Z81.1 Family history of alcohol abuse and dependence; Z82.49 Family history of ischemic heart disease and other diseases of the circulatory system
CPT/HCPCS: 36415; 71045; 80053; 81001; 82962; 83036; 83880; 84484; 85025; 85379; 93005; 94640; 94668; 94760; 96374; 99285; 99285-25; J1815; J1885; J1956; J2920; J2930; J7512; J7613; J7620; J7626; Q0163

== ENCOUNTER → 2018-01-24 | Outpatient (CLI) | payer MEDICARE | END | disposition home or self-care (01) | LOC: US 07:17 | DX: K76.0 Fatty (change of) liver, not elsewhere classified (principal); I11.9 Hypertensive heart disease without heart failure; E11.9 Type 2 diabetes mellitus without complications; E78.00 Pure hypercholesterolemia, unspecified; Z90.49 Acquired absence of other specified parts of digestive tract | CPT/HCPCS: 76705 ==

== ENCOUNTER → 2018-02-07 | Day surgery (SDC) | payer MEDICARE ==
[~2018-02-07] MED LIST changes: -ALBU2.5V14 NEB; -ALPR3TAB PO; -AMLO5TAB2 PO; -ASPI-482 PO; -ASPI-630 PO; -ATOR10TA60 PO; -ATOR40TA59 PO; -Alprazolam PO; -BENZ100C PO; -BUDE0.5A3 NEB; -CALC500T PO; -CALC600T4 PO; -CALC667C6 PO; -CARB1TAB2 PO; -CETI10TA16 PO; -CHOL400C2 PO; -CHOL500050 PO; -CITA20TA5 PO; -CLON0.5T3 PO; -CLON1TAB3 PO; -CRESTOR20 MG PO; -DIPH50CA PO; -DOXY100C2 PO; -ERGO500027 PO; -ESOM40CA PO; -Escitalopram PO; -FERR-26 PO; -FLUT1DIS3 IH; -FLUT9.9S NS; -FOLI1TAB16 PO; -FURO-68 PO; -Fentanyl Patch TP; -GABA-586 PO; -GLIP5TAB10 PO; -GUAI600T47 PO; -HYDR-2758 PO; -HYDR-971 PO; -HYDR12.58 PO; -HYDR50CA2 PO; -IPRA3AMP IH; -LACT1CAP25 PO; -LACT1CAP29 PO; -LEVO500T59 PO; -LEVO500T8 PO; -LEVO750T31 PO; +LIDOCAINE 1% PF 2 ML VIAL. ID; +LIDOCAINE 2% PF Vial for OR 5 ML VIAL.; -LOSA100T6 PO; -LOSA50TA6 PO; -MEDROL DOSE PACK; -METF500T4 PO; -MONT10TA6 PO; -MONT10TA9 PO; -Multi Vitamin PO; -NICO1PAT25 TP; -NITR0.4T22 SL; -NITR2.5C3 PO; -NYST100054 PO; +ONDANSETRON PF 4 MG/2 ML VIAL. IV; -OXYC-323 PO; -PANT40TA3 PO; -PANT40TA5 PO; -POTA20TA12 PO; -POTA20TA84 PO; -PRAM0.255 PO; -PRAMIPEXOLE 0.125 MG PO; -PRED-220 PO; -PRED10TA16 PO; -PROAIR HFA8.5 GM IH; -PROAIR HFA8.5 GM INH; +PROCHLORPERAZINE 10 MG/2 ML VIAL. IV; -PROM118S2 PO; +PROPOFOL 20 ML IV; -RANI-275 PO; -SUCR1TAB PO; -SUCR1TAB35 PO; -SULF1TAB24 PO; -TIOT18CA IH; -TRAZ100T12 PO; -VALS1TAB18 PO; -VITA0.4T8 PO; -ZOLP5TAB5 PO; -calcium PO; +fentaNYL PF VIAL 100 MCG/2 ML VIAL IV
[2018-02-07] MEDS: IV RINGERS,LACTATED 1000ML 1,000 ML IV (06:44)
== END | disposition home or self-care (01) ==
LOC: ENDOS 05:57
DX: K22.2 Esophageal obstruction (principal); K29.50 Unspecified chronic gastritis without bleeding; E78.00 Pure hypercholesterolemia, unspecified; J43.9 Emphysema, unspecified; I25.2 Old myocardial infarction; I11.9 Hypertensive heart disease without heart failure; F41.9 Anxiety disorder, unspecified; F32.9 Major depressive disorder, single episode, unspecified; K21.9 Gastro-esophageal reflux disease without esophagitis; M19.90 Unspecified osteoarthritis, unspecified site; M81.0 Age-related osteoporosis without current pathological fracture; E11.42 Type 2 diabetes mellitus with diabetic polyneuropathy; I25.119 Atherosclerotic heart disease of native coronary artery with unspecified angina pectoris; Z86.010 Personal history of colon polyps; Z86.718 Personal history of other venous thrombosis and embolism; Z87.01 Personal history of pneumonia (recurrent); Z87.440 Personal history of urinary (tract) infections; D64.9 Anemia, unspecified; F10.10 Alcohol abuse, uncomplicated; F17.210 Nicotine dependence, cigarettes, uncomplicated; Z79.82 Long term (current) use of aspirin; Z90.49 Acquired absence of other specified parts of digestive tract; Z90.710 Acquired absence of both cervix and uterus; Z95.1 Presence of aortocoronary bypass graft; Z98.890 Other specified postprocedural states; Z98.42 Cataract extraction status, left eye; Z98.41 Cataract extraction status, right eye; Z96.1 Presence of intraocular lens; Z79.01 Long term (current) use of anticoagulants; Z79.899 Other long term (current) drug therapy; Z82.49 Family history of ischemic heart disease and other diseases of the circulatory system; Z83.3 Family history of diabetes mellitus; Z83.79 Family history of other diseases of the digestive system; Z72.89 Other problems related to lifestyle; Z88.1 Allergy status to other antibiotic agents; Z91.048 Other nonmedicinal substance allergy status; Z88.5 Allergy status to narcotic agent; Z91.040 Latex allergy status; Z98.1 Arthrodesis status; Z95.5 Presence of coronary angioplasty implant and graft; Z79.84 Long term (current) use of oral hypoglycemic drugs; E66.9 Obesity, unspecified; Z68.31 Body mass index [BMI] 31.0-31.9, adult
CPT/HCPCS: 43235; J2001; J2704

== ENCOUNTER → 2020-06-02 | Outpatient (CLI) | payer MEDICARE ==
[2018-06-30 09:04] VITALS: BP 144/92
[~2020-06-02] MED LIST changes: +ALBU2.5V14 NEB; +ALBU2.5V8 IH; +ALBU2.5V8 INH; +ALPR3TAB PO; +AMLO-186 PO; +APIX5TAB PO; +ASPI-482 PO; +ASPI-630 PO; +ATOR10TA60 PO; +ATOR40TA59 PO; +AZIT250T6 PO; +Alprazolam PO; +BENZ100C PO; +BUDE0.5A3 NEB; +CALC500T31 PO; +CALC600T6 PO; +CALC667C6 PO; +CARB1TAB2 PO; +CETI10TA16 PO; +CHOL400C2 PO; +CHOL500050 PO; +CITA20TA6 PO; +CLON-77 PO; +CLONAZEPAM1 MG PO; +CRESTOR20 MG PO; +DILT240C33 PO; +DIPH50CA PO; +DOXY100C2 PO; +ERGO500027 PO; +ESOM40CA PO; +Escitalopram PO; +FAMO20TA5 PO; +FERR325T14 PO; +FLUT1DIS3 IH; +FLUT9.9S NS; +FOLI1TAB16 PO; +FURO-68 PO; +Fentanyl Patch TP; +GABA300C18 PO; +GLIP5TAB10 PO; +GUAI600T47 PO; +HYDR-2761 PO; +HYDR-3164 PO; +HYDR12.58 PO; +HYDR50CA2 PO; +IPRA3AMP29 IH; +LACT1CAP25 PO; +LACT1CAP29 PO; +LEVO500T59 PO; +LEVO500T8 PO; +LEVO750T31 PO; -LIDOCAINE 1% PF 2 ML VIAL. ID; -LIDOCAINE 2% PF Vial for OR 5 ML VIAL.; +LOSA-73 PO; +LOSA100T14 PO; +MEDROL DOSE PACK; +METF500T16 PO; +METO25TA4 PO; +MONT10TA49 PO; +Multi Vitamin PO; +NICO1PAT25 TP; +NITR0.4T22 SL; +NITR2.5C8 PO; +NYST100054 PO; -ONDANSETRON PF 4 MG/2 ML VIAL. IV; +OXYC1TAB15 PO; +PANT40TA77 PO; +POTA20TA12 PO; +POTA20TA84 PO; +PRAM0.255 PO; +PRAMIPEXOLE 0.125 MG PO; +PRED-220 PO; +PRED10TA16 PO; -PROCHLORPERAZINE 10 MG/2 ML VIAL. IV; +PROM118S5 PO; -PROPOFOL 20 ML IV; +RANI-275 PO; +SUCR1TAB PO; +SUCR1TAB35 PO; +SULF1TAB24 PO; +TIOT18CA IH; +TRAZ-123 PO; +VALS1TAB18 PO; +VITA0.4T8 PO; +ZOLP5TAB5 PO; +ZOLPIDEM 5 MG TABLET. PO ONE; +calcium PO; -fentaNYL PF VIAL 100 MCG/2 ML VIAL IV
--- NOTE | 2020-06-03 11:51 | SLEEP ---
DATE OF STUDY: 06/02/2020 OBJECTIVE: The patient is a 70-year-old female with insomnia, dream enactment, restless legs syndrome, snoring, fatigue, observed apnea, excessive somnolence. The patient had a prior study 10 years ago showing apnea and was briefly on CPAP. Since then, she has lost weight. Height 5 feet 3 inches, weight 181 pounds, body mass index 32. [place] sleep score 10. INTERPRETATION: Sleep architecture is characterized by sleep efficiency of 61% across the 7.3 hours of recording time. Sleep onset latency is 63 minutes. Stage volumes are appropriate for age. Respiratory monitoring shows a total of 41 events for an apnea-hypopnea index of 9.3 events per hour. The patient did not meet criteria for commencing CPAP during the study. Minimum oxygen saturation is 76%. Most of the events are hypopneas with a few obstructive and central apneas. Periodic limb movements of sleep occur at the rate of 121 events per hour, 30 events per hour associated with arousal. No significant cardiac arrhythmias are observed. IMPRESSION: Abnormal polysomnogram showing obstructive sleep apnea and hypopnea. Also, present is a large amount of periodic limb movements of sleep. RECOMMENDATIONS: The patient can return to the lab for a CPAP titration study. Note that the patient did refuse the supine position during the study, so this may have understated the severity of her apnea. The patient could also simply be started on empiric variable CPAP. She should pursue weight loss and avoid sedatives and alcohol. Thank you for letting us help with the patient's care. REKHA BURRIS MD DR: ANGELO/tramaine JOB#: [id number] / [id number] ROSSANA Macdonald MD, SABATO MD
== END ==
LOC: SLPLAB 19:10
PROVIDERS: ATTEND Internal Medicine Pulmonary Disease
DX: G47.33 Obstructive sleep apnea (adult) (pediatric) (principal)
CPT/HCPCS: 95810